=== PATIENT | female | born 1985 | race Caucasian/White ===

== ENCOUNTER → 2016-10-13 | Outpatient (CLI) | payer OTHER ==
[2016-10-13 15:53] LABS: Hepatitis B Surface Ag Index 0.06
[2016-10-13 15:59] LABS: Hepatitis B Core IgM Index 0.02
[2016-10-13 16:11] LABS: Hepatitis C Virus IgG Ab Negative (Negative); Hepatitis C Virus IgG Index 0.02
[2016-10-14 07:55] LABS: HIV-1/HIV-2 Ab Screen NONREAC (NON REAC)
== END | disposition home or self-care (01) ==
LOC: LABWHC1 14:33
PROVIDERS: ATTEND Obstetrics & Gynecology
DX: B99.9 Unspecified infectious disease (principal)
CPT/HCPCS: 36415; 80074; 86780; 87389

== ENCOUNTER 2016-10-26 13:48 | Emergency (ER) | payer OTHER ==
--- NOTE | 2016-10-26 15:32 | ED ---
Abdominal Pain HPI - General Chief Complaint: Abdominal Pain Stated Complaint: Abdominal pain (6 weeks preg) Time Seen by Provider: 10/26/16 15:25 Source: patient, RN notes reviewed Mode of arrival: ambulatory Limitations: no limitations - History of Present Illness Initial Comments: 31-year-old female presents emergency Department chief complaint of lower abdominal pain. Patient states started last several rest worse today. Patient states when she states it was worsened. Patient states it seems to wax and wane. Does not radiate to her back. Patient has a history kidney stones but she denies any known hematuria this time. She states she does have some pressure in her bladder region. Patient denies any vaginal bleeding or vaginal discharge. Patient is she to she states she is a patient of Dr. Merrill' s and states that she has not seen him for this . Patient does admit some nausea and intermittent vomiting which is not out of the usual for her during . - Related Data Previous Rx's Medication Instructions Recorded Nitrofurantoin Monohyd/M-Cryst 100 mg PO Q12HR #14 cap 10/26/16 [Macrobid] Rxj-Skux-Jztcy Acid 1 each PO DAILY #30 cap 10/26/16 [-U Capsule] Allergies Allergy/AdvReac Type Severity Reaction Status Date / Time latex Allergy Swelling Verified 10/26/16 15:52 lorazepam [From Ativan] Allergy Rash/Hives Verified 10/26/16 15:52 Review of Systems ROS Statement: Those systems with pertinent positive or pertinent negative responses have been documented in the HPI. ROS Other: All systems not noted in ROS Statement are negative. Past Medical History Past Medical History: Pneumonia Additional Past Medical History / Comment(s): brain injury, MIGARINES,VERTIGO, kidney infection History of Any Multi-Drug Resistant Organisms: None Reported Additional Past Surgical History / Comment(s): breast biopsy X2-NEG Past Anesthesia/Blood Transfusion Reactions: Motion Sickness Past Psychological History: Depression Smoking Status: Former smoker Past Alcohol Use History: None Reported Additional Past Alcohol Use History / Comment(s): PT STATED STARTED SMOKING AT AGE 15 SMOKED LESS THAN 1 PPD AND QUIT A AGE 21 Past Drug Use History: None Reported Additional Drug Use History / Comment(s): MEDICAL MARIJUANA CARD - Past Family History Father Family Medical History: CVA/TIA, Hyperlipidemia Additional Family Medical History / Comment(s): TIA Mother Family Medical History: Cancer Additional Family Medical History / Comment(s): BREAST CANCER,MIGRAINES, VERTIGO ,TREMORS General Exam Limitations: no limitations General appearance: alert, in no apparent distress Respiratory exam: Present: normal lung sounds bilaterally. Absent: respiratory distress, wheezes, rales, rhonchi, stridor Cardiovascular Exam: Present: regular rate, normal rhythm, normal heart sounds. Absent: systolic murmur, diastolic murmur, rubs, gallop, clicks GI/Abdominal exam: Present: soft, tenderness (Mild lower abdominal tenderness), normal bowel sounds. Absent: distended, guarding, rebound, rigid Back exam: Absent: CVA tenderness (R), CVA tenderness (L) Skin exam: Present: warm, dry, intact, normal color. Absent: rash Course Vital Signs 10/26/16 14:26 Temperature 98.4 F Pulse Rate 89 Respiratory 18 Rate Blood Pressure 121/79 O2 Sat by Pulse 98 Oximetry Medical Decision Making - Medical Decision Making 31-year-old female presented emergency department for lower abdominal pain . Patient's ultrasound does not show an acute abnormality. Patient does have urinary tract infection and which she'll be started on Macrobid at this time. 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 Merrill. Patient does not have any vaginal bleeding or vaginal discharge at this time. - Lab Data Result diagrams: 10/26/16 15:50 10/26/16 15:50 Lab Results 10/26/16 10/26/16 10/26/16 Range/Units 15:15 15:50 15:50 WBC 7.8 (3.8-10.6) k/uL RBC 4.63 (3.80-5.40) m/uL Hgb 13.6 (11.4-16.0) gm/dL Hct 41.3 (34.0-46.0) % MCV 89.1 (80.0-100.0) fL MCH 29.3 (25.0-35.0) pg MCHC 32.8 (31.0-37.0) g/dL RDW 13.1 (11.5-15.5) % Plt Count 262 (150-450) k/uL Neutrophils % 71 % Lymphocytes % 22 % Monocytes % 4 % Eosinophils % 1 % Basophils % 1 % Neutrophils # 5.5 (1.3-7.7) k/uL Lymphocytes # 1.8 (1.0-4.8) k/uL Monocytes # 0.3 (0-1.0) k/uL Eosinophils # 0.1 (0-0.7) k/uL Basophils # 0.0 (0-0.2) k/uL Sodium 137 (137-145) mmol/L Potassium 3.6 (3.5-5.1) mmol/L Chloride 104 (98-107) mmol/L Carbon Dioxide 21 L (22-30) mmol/L Anion Gap 12 mmol/L BUN 9 (7-17) mg/dL Creatinine 0.57 (0.52-1.04) mg/dL Est GFR (MDRD) Af Amer >60 (>60 ml/min/1.73 sqM) Est GFR (MDRD) Non-Af >60 (>60 ml/min/1.73 sqM) Glucose 137 H (74-99) mg/dL Calcium 9.8 (8.4-10.2) mg/dL HCG, Quant 79024.1 mIU/mL Urine Color Yellow Urine Appearance Cloudy H (Clear) Urine pH 6.0 (5.0-8.0) Ur Specific [place] 1.013 (1.001-1.035) Urine Protein Trace H (Negative) Urine Glucose (UA) Negative (Negative) Urine Ketones 3+ H (Negative) Urine Blood Negative (Negative) Urine Nitrite Negative (Negative) Urine Bilirubin Negative (Negative) Urine Urobilinogen <2.0 (<2.0) mg/dL Ur Leukocyte Esterase Moderate H (Negative) Urine RBC 4 (0-5) /hpf Urine WBC 77 H (0-5) /hpf Ur Squamous Epith Cells 29 H (0-4) /hpf Amorphous Sediment Few H (None) /hpf Urine Bacteria Many H (None) /hpf Urine Mucus Rare H (None) /hpf Disposition Clinical Impression: UTI (urinary tract infection) during Disposition: HOME SELF-CARE Condition: Stable Instructions: Urinary Tract Infection in Women (ED) Additional Instructions: Please return to the Emergency Department if symptoms worsen or any other concerns. Prescriptions: Nitrofurantoin Monohyd/M-Cryst [Macrobid] 100 mg PO Q12HR #14 cap Mqy-Rbgk-Sjple Acid [-U Capsule] 1 each PO DAILY #30 cap Referrals: Drew Meneses MD [Primary Care Provider] - 1-2 days Time of Disposition: 17:54
[2016-10-26 16:02] LABS: Basophils % (A) 1 %; CH 29.6; CHCM 33.4; Eosinophils # (A) 0.1 k/uL (0-0.7); Eosinophils % (A) 1 %; HCT 41.3 % (34.0-46.0); HGB 13.6 gm/dL (11.4-16.0); Luc # (Auto) 0.09; Luc % (Auto) 1; Lymphocytes # (A) 1.8 k/uL (1.0-4.8); Lymphocytes % (A) 22 %; MCH 29.3 pg (25.0-35.0); MCHC 32.8 g/dL (31.0-37.0); MCV 89.1 fL (80.0-100.0); Mean Platelet Volume 6.3; Monocytes # (A) 0.3 k/uL (0-1.0); Monocytes % (A) 4 %; Neutrophils # (A) 5.5 k/uL (1.3-7.7); Neutrophils % (A) 71 %; RBC 4.63 m/uL (3.80-5.40); RDW 13.1 % (11.5-15.5); WBC 7.8 k/uL (3.8-10.6); WBC (Perox) 8.17
[2016-10-26 16:09] LABS: Anion Gap 12 mmol/L; Blood Urea Nitrogen 9 mg/dL (7-17); Calcium 9.8 mg/dL (8.4-10.2); Carbon Dioxide 21 mmol/L (22-30); Chloride 104 mmol/L (98-107); Glucose 137 mg/dL (74-99); Non-African American GFR(MDRD) >60 (>60 ml/min/1.73 sqM); Potassium 3.6 mmol/L (3.5-5.1); Sodium 137 mmol/L (137-145)
[2016-10-26 16:18] LABS: Amorphous Sediment,Urine Few /hpf; Appearance,Urine Cloudy (Clear); Bacteria,Urine Many /hpf; Bilirubin,Urine Negative (Negative); Glucose,Urine (UA) Negative (Negative); Ketones,Urine 3+ (Negative); Leukocyte Esterase,Urine Moderate (Negative); Mucus,Urine Rare /hpf; Nitrite,Urine Negative (Negative); Particle Count 14426; Protein,Urine Trace (Negative); RBC,Urine 4 /hpf (0-5); Specific Gravity,Urine 1.013 (1.001-1.035); Squamous Epithelial Cell,Urine 29 /hpf (0-4); UA Billing (MACRO vs. MICRO) MICRO; Urobilinogen,Urine <2.0 mg/dL (<2.0); WBC,Urine 77 /hpf (0-5)
[2016-10-26] MEDS ORDERED: SODIUM CHLORIDE 0.9% 1,000 ML IV ONE (16:26)
[2016-10-26] MEDS ORDERED: SODIUM CHLORIDE 0.9% 500 ML IV ONE (16:26)
[2016-10-26 16:52] LABS: HCG,Quantitative Serum 25240.1 mIU/mL
--- NOTE | 2016-10-26 17:41 | US ---
EXAMINATION TYPE: US OB <=14 wks transvag DATE OF EXAM: 10/26/2016 COMPARISON: NONE CLINICAL HISTORY: Right side Pain. EXAM PERFORMED: Transvaginal (TV) and Transabdominal (TA) EXAM MEASUREMENTS: GESTATIONAL AGE / DATING Physician Established: (6 weeks/1 days) EDC: 06/20/2017 Dates by LMP: (6 weeks/1 days) EDC: 06/20/2017 Dates by First Scan: No previous Dates by Current Scan for: (6 weeks/ days) EDC: 06/20/2017 MATERNAL ANATOMY Uterus: 9.6 x 4.9 x 6.0 cm Right Ovary: 2.9 x 1.8 x 2.2 cm Left Ovary: 2.8 x 2.0 x 2.3 cm Post CDS / Adnexa: Mild amount of free fluid in cul de sac. Prominent vessels in bilateral adnexa Presence of free fluid: Yes Presence of corpus luteal cyst: Yes, left ovary measuring 1.5 x 1.4 x 1.7 cm Presence of subchorionic bleed: No GESTATION / SURVEY CRL: 0.45 (weeks/1 days) Yolk Sac (normal less than 6mm): 2 mm Heart Rate: 119 bpm Rhythm: Normal IUP: Viable IUP Date of LMP: 09/13/2016 Beta HcG (if available): Not available at time of exam IMPRESSION: The ultrasound gestational age is 6 weeks 1 day. The IVÁN is 06/20/2017.
[2016-10-26] MEDS ORDERED: NITROFURANTOIN MONOHYD/M-CRYST 100 MG CAP PO STA (17:52)
[2016-10-26 18:06] VITALS: BP 118/72; PULSE 82; RESP 17; TEMP 98.7
== END 2016-10-26 18:05 | disposition home or self-care (01) ==
LOC: EC 13:48
DX: O23.41 Unspecified infection of urinary tract in pregnancy, first trimester (principal); O21.0 Mild hyperemesis gravidarum; Z3A.01 Less than 8 weeks gestation of pregnancy; Z87.891 Personal history of nicotine dependence; Z91.040 Latex allergy status; Z88.8 Allergy status to other drugs, medicaments and biological substances
CPT/HCPCS: 36415; 76801; 76817; 80048; 81001; 84702; 85025; 96360; 99284

== ENCOUNTER → 2016-11-19 | Outpatient (CLI) | payer OTHER ==
[2016-11-19 15:46] LABS: CH 29.7; CHCM 33.7; HCT 35.8 % (34.0-46.0); HGB 12.2 gm/dL (11.4-16.0); MCH 30.1 pg (25.0-35.0); MCV 88.5 fL (80.0-100.0); Mean Platelet Volume 6.5; RBC 4.05 m/uL (3.80-5.40); RDW 13.6 % (11.5-15.5); WBC 10.6 k/uL (3.8-10.6)
[2016-11-19 15:58] LABS: Glucose 99 mg/dL (74-99); Non-African American GFR(MDRD) >60 (>60 ml/min/1.73 sqM)
[2016-11-19 16:27] LABS: Hepatitis B Surface Ag Index 0.05
[2016-11-20 04:54] LABS: Toxoplasma Antibody (IgG) <3.0 IU/mL (<7.2)
== END | disposition home or self-care (01) ==
LOC: LABWHC1 14:53
PROVIDERS: ATTEND Obstetrics & Gynecology
DX: Z34.81 Encounter for supervision of other normal pregnancy, first trimester (principal); Z3A.00 Weeks of gestation of pregnancy not specified
CPT/HCPCS: 36415; 82565; 82947; 85027; 86762; 86777; 86778; 86780; 86850; 86900; 86901; 87340

== ENCOUNTER → 2017-03-05 | Outpatient (CLI) | payer OTHER ==
[2017-03-05 10:27] LABS: CH 28.6; CHCM 31.4; HCT 36.2 % (34.0-46.0); HDW 2.53; MCH 30.3 pg (25.0-35.0); MCV 91.7 fL (80.0-100.0); Mean Platelet Volume 6.3; RBC 3.95 m/uL (3.80-5.40); RDW 12.9 % (11.5-15.5); WBC 13.1 k/uL (3.8-10.6)
== END | disposition home or self-care (01) ==
LOC: LABWHC1 08:34
PROVIDERS: ATTEND Obstetrics & Gynecology
DX: Z34.82 Encounter for supervision of other normal pregnancy, second trimester (principal); Z3A.00 Weeks of gestation of pregnancy not specified
CPT/HCPCS: 36415; 82950; 85027; 86850

== ENCOUNTER 2017-04-13 10:33 | Outpatient (CLI) | payer OTHER ==
[2017-04-13 11:30] VITALS: BP 111/63; PULSE 83; RESP 16; TEMP 97.3
--- NOTE | 2017-04-14 06:36 | P.MSEPDOC ---
Presenting Problems - Arrival Data Date of Arrival on Unit: 04/13/17 Time of Arrival on Unit: 10:33 Mode of Transport: Ambulatory - Complaint OB-Reason for Admission/Chief Complaint: Decreased Movement Medical History - Information : 2 Para: 1 Term: 1 : 0 Abortions: Spontaneous or Elective: 0 Number of Living Children: 1 - Gestational Age Gestational Age by IVÁN (wks/days): 30 Weeks and 2 Days Review of Systems - Review of Systems Constitutional: No problems Breast: No problems ENT: No problems Cardiovascular: No problems Respiratory: No problems Gastrointestinal: No problems Genitourinary: No problems Musculoskeletal: No problems Neurological: No problems Skin: No problems Vital Signs - Temperature Temperature: 97.3 F Temperature Source: Tympanic - Pulse Right Sitting Brachial Pulse Rate: 83 Pulse Assessment Method: Automatic Cuff - Respirations Respiratory Rate: 16 Oxygen Delivery Method: Room Air O2 Sat by Pulse Oximetry: 98 - Blood Pressure Right Arm Sitting Blood Pressure: 111/63 Blood Pressure Mean: 79 Blood Pressure Source: Automatic Cuff Medical Screen Scoring (Pre) - Cervical Exam Dilation: Exam Deferred Effacement: Exam Deferred Membranes: Intact - Uterine Contractions Frequency: N/A Duration: N/A Intensity: N/A - Maternal Vital Signs Maternal Temperature: N/A Signs of Preeclampsia: N/A Maternal Respirations: N/A - Pain Assessment Pain Scale Used: Numeric (1 - 10) Pain Intensity: 0 - Maternal Trauma Maternal Trauma: N/A - Assessment Baseline FHR: 140 Heart Rate - NICHD Category: Category I (Normal) = 0 NST: Reactive Position: N/A Station: N/A - Total Score Total Score (Pre): 0 - Level of Risk Level of Risk: Low (0-5) Physician Notification (Pre) - Physician Notified Physician Notified Date: 04/13/17 Physician Notified Time: 11:10 Physician/Practitioner Notifed:: Garfield Spoke With: Garfield New Order Received: Yes - Notification Comment Comment: 30 2/7 c/o decreased movement and vaginal discharge/odor. Reactive NST, pt reports feeling movements, inspect of vulva-no abdormal/foul odor, no discharge. Dr. Merrill states to d/c pt home, to keep appt for tomorrow morning. Disposition - Disposition OB Disposition: Discharge to home, Written follow up instructions reviewed Discharge Date: 04/13/17 Discharge Time: 11:15 I agree with the RN Medical Screening Exam: Yes Risk & Benefit of care provided described in d/c instruction: Yes Diagnosis: DECREASED MOVEMENTS, THIRD TRIMESTER, FETUS 1
== END 2017-04-13 11:15 | disposition home or self-care (01) ==
LOC: FBPOP 10:33
PROVIDERS: ATTEND Obstetrics & Gynecology
DX: O36.8130 Decreased fetal movements, third trimester, not applicable or unspecified (principal); Z3A.30 30 weeks gestation of pregnancy
CPT/HCPCS: 59025; G0463; 99213

== ENCOUNTER 2017-04-20 16:47 | Outpatient (CLI) | payer OTHER ==
[2017-04-20 17:40] LABS: Appearance,Urine Clear (Clear); Bilirubin,Urine Negative (Negative); Blood,Urine Negative (Negative); Color,Urine Light Yellow; Glucose,Urine (UA) Negative (Negative); Ketones,Urine Negative (Negative); Leukocyte Esterase,Urine Negative (Negative); Nitrite,Urine Negative (Negative); Protein,Urine Negative (Negative); Specific Gravity,Urine 1.007 (1.001-1.035); Urobilinogen,Urine <2.0 mg/dL (<2.0)
[2017-04-20] MEDS ORDERED: LACTATED RINGERS 1,000 ML IV ONE (18:30)
[2017-04-20] MEDS ORDERED: MAGNESIUM SULFATE-WATER PMX 4 GM in WATER FOR INJECTION 50 50ML.BAG IVPB ONE (19:12)
[2017-04-20] MEDS ORDERED: MAGNESIUM SULFATE MG 6,000 MG in SODIUM CHLORIDE 0.9% 50 ML IVPB ONE (19:12)
[2017-04-20] MEDS ORDERED: BETAMET ACET-BETAMETH SOD PHOS 6 MG/ML VIAL IM SCH (19:15)
[2017-04-20] MEDS ORDERED: MAGNESIUM SULFATE-WATER PMX 20 GM in WATER FOR INJECTION 1 500ML.BAG IV SCH (19:30)
--- NOTE | 2017-05-21 10:50 | P.TRANS ---
Providers Expected date of discharge: 04/20/17 Attending physician: Milton Reyes Primary care physician: Stated None Patient Condition at Discharge: Fair Plan - Transfer Summary Transfer Medications: Active Medications Generic Name Dose Route Start Last Admin Trade Name Freq PRN Reason Stop Dose Admin Betamethasone Acet/Betameth SodPhos 12 mg 04/20/17 19:15 04/20/17 19:31 Celestone Soluspan IM 04/21/17 19:16 12 mg Q24H HANNAH Administration Magnesium Sulfate 20 gm/ IV 500 mls @ 50 mls/hr 04/20/17 19:30 Solution IV .Q10H HANNAH 2 GM/HR
--- NOTE | 2017-05-21 10:50 | P.MSEPDOC ---
Presenting Problems - Arrival Data Date of Arrival on Unit: 04/20/17 Time of Arrival on Unit: 16:47 Mode of Transport: Ambulatory Medical History - Information : 2 Para: 1 Term: 1 : 0 Abortions: Spontaneous or Elective: 0 Number of Living Children: 1 - Gestational Age Gestational Age by IVÁN (wks/days): 31 Weeks and 2 Days Physician Notification (Pre) - Notification Comment Comment: completed on paper Physician Notification (Post) - Notification Comment Comment: completed on paper Disposition - Disposition Discharge Date: 04/20/17 Discharge Time: 20:27 I agree with the RN Medical Screening Exam: Yes Risk & Benefit of care provided described in d/c instruction: Yes Diagnosis: RELATED CONDITIONS, UNSPECIFIED, THIRD TRIMESTER (pain)
== END 2017-04-20 20:27 | disposition short-term general hospital (02) ==
LOC: FBPOP 16:47
PROVIDERS: ATTEND Obstetrics & Gynecology
DX: O99.89 Other specified diseases and conditions complicating pregnancy, childbirth and the puerperium (principal); R10.9 Unspecified abdominal pain; Z3A.31 31 weeks gestation of pregnancy
CPT/HCPCS: 59025; 82731; 81003; G0463; J0702; J3475 ×2; 99213

== ENCOUNTER 2017-06-10 15:37 | Outpatient (CLI) | payer OTHER ==
[2017-06-10 17:12] VITALS: BP 116/77; PULSE 67; RESP 16; TEMP 97.6
--- NOTE | 2017-06-11 06:23 | P.MSEPDOC ---
Presenting Problems - Arrival Data Date of Arrival on Unit: 06/10/17 Time of Arrival on Unit: 15:44 Mode of Transport: Ambulatory Medical History - Information : 2 Para: 1 Term: 1 : 0 Abortions: Spontaneous or Elective: 0 Number of Living Children: 1 - Gestational Age Gestational Age by IVÁN (wks/days): 38 Weeks and 4 Days Vital Signs - Temperature Temperature: 97.6 F Temperature Source: Oral - Pulse Right Pulse Rate: 67 Pulse Assessment Method: Automatic Cuff - Respirations Respiratory Rate: 16 Oxygen Delivery Method: Room Air - Blood Pressure Right Arm Blood Pressure: 116/77 Blood Pressure Mean: 90 Blood Pressure Source: Automatic Cuff Medical Screen Scoring (Post) - Cervical Exam Dilation: 1-3 cm = 1 Membranes: Intact - Uterine Contractions Frequency: N/A Duration: > 40 seconds = 2 Intensity: N/A - Maternal Vital Signs Maternal Temperature: N/A Maternal Blood Pressure: N/A Signs of Preeclampsia: N/A Maternal Respirations: N/A - Pain Assessment Pain Location and Character: Head, Abdomen Pain Scale Used: Numeric (1 - 10) Pain Intensity: 8 Pain Description: Dull Pain Frequency: Constant Pain Duration Units: Hours Pain Behavior: None Exhibited Non-Pharmacological Interventions: Darkened Room - Maternal Trauma Maternal Trauma: N/A - Assessment Heart Rate - NICHD Category: Category I (Normal) = 0 NST: Reactive Position: N/A Station: N/A - Total Score Total Score (Post): 3 - Post Treatment Level of Risk Post Treatment Level of Risk: Low (0-5) Physician Notification (Post) - Physician Notified Physician Notified Date: 06/10/17 Physician Notified Time: 16:41 Physician/Practitioner Notified:: kamron Spoke With: kamron New Order Received: Yes - Notification Comment Comment: reported pt visit c/o headache and contractions. reported reactive nst , irregular contractions, and cervical exam. discharges pt. pt has induction scheduled wednesday Disposition - Disposition OB Disposition: Discharge to home Discharge Date: 06/10/17 Discharge Time: 16:56 I agree with the RN Medical Screening Exam: Yes Risk & Benefit of care provided described in d/c instruction: Yes Diagnosis: FALSE LABOR AT OR AFTER 37 COMPLETED WEEKS OF GESTATION
== END 2017-06-10 16:56 | disposition home or self-care (01) ==
LOC: FBPOP 15:37
PROVIDERS: ATTEND Obstetrics & Gynecology
DX: O47.1 False labor at or after 37 completed weeks of gestation (principal); Z3A.38 38 weeks gestation of pregnancy
CPT/HCPCS: 59025; G0463; 99213

== ENCOUNTER 2017-06-14 06:10 | Inpatient (IN) | payer OTHER ==
[2017-06-14] MEDS ORDERED: METHYLERGONOVINE 0.2 MG/ML 1 ML AMP IM PRN (06:21)
[2017-06-14] MEDS ORDERED: LIDOCAINE 1% (PF) 10 MG/ML (30 ML SDV) SQ PRN (06:21)
[2017-06-14] MEDS ORDERED: TERBUTALINE 1 MG/ML VIAL SQ PRN (06:21)
[2017-06-14] MEDS ORDERED: OXYTOCIN 20 UNITS/1000 ML NS 1,000 ML IV SCH ×2 (06:21→14:18)
[2017-06-14] MEDS ORDERED: CARBOPROST TROMETHAMINE 250 MCG/ML 1 ML AMP IM PRN (06:21)
[2017-06-14] MEDS ORDERED: OXYTOCIN 10 UNIT/ML 1 ML VIAL IM PRN (06:21)
--- NOTE | 2017-06-14 06:22 | P.HPOB ---
History of Present Illness H&P Date: 06/14/17 Chief Complaint: Patient is requesting induction of labor. This patient is a pleasant 31-year-old 2 para 1 female estimated date of confinement 06/20/2017 estimated gestational age 39 and one sevenths weeks gestation who is admitted to labor and delivery for requested induction of labor. Patient's history is such that her first baby had bilateral clubfeet and she did have evaluation per maternal medicine this which shows no evidence of any abnormalities. Is a questionable small uterine septum that they said was not clinically significant. Patient was transferred to [facility] at [address] Reyes for contractions hours thought to have a kidney stone. otherwise has been uncomplicated. Review of Systems Gastrointestinal: Reports heartburn Genitourinary: Reports Menstruation: Reports amenorrhea Past Medical History Past Medical History: Pneumonia Additional Past Medical History / Comment(s): brain injury, MIGARINES,VERTIGO, kidney infection History of Any Multi-Drug Resistant Organisms: None Reported Additional Past Surgical History / Comment(s): breast biopsy X2-NEG Past Anesthesia/Blood Transfusion Reactions: Motion Sickness Past Psychological History: No Psychological Hx Reported Smoking Status: Former smoker Past Alcohol Use History: None Reported Past Drug Use History: None Reported - Past Family History Father Family Medical History: CVA/TIA, Hyperlipidemia Additional Family Medical History / Comment(s): TIA Mother Family Medical History: Cancer Additional Family Medical History / Comment(s): BREAST CANCER,MIGRAINES, VERTIGO ,TREMORS Medications and Allergies Home Medications Medication Instructions Recorded Confirmed Type Poo-Bsmq-Golaz Acid 1 each PO DAILY #30 cap 10/26/16 06/10/17 Rx [-U Capsule] Acetaminophen [Tylenol] 500 mg PO Q4-6H PRN 04/13/17 06/10/17 History Allergies Allergy/AdvReac Type Severity Reaction Status Date / Time lorazepam [From Ativan] Allergy Rash/Hives Verified 06/10/17 16:15 Exam - OBG Physical Exam Abdomen: bowel sounds normal, no diffuse tenderness, no bruit present, no guarding noted, no hepatomegaly, no splenomegaly, no mass Vulva: both: normal Vagina: normal moisture, no discharge Cervix: no lesion (Cervix in the office was 2-3 cm dilated.), no discharge Uterus: enlarged (Fundal height is consistent with a term .) Results blood work shows she is O negative, rubella immune, RPR nonreactive, hepatitis B negative, Glucola was normal, level III ultrasound was normal, patient did receive RhoGAM on March 24. Assessment and Plan Assessment: This is a pleasant 31-year-old 2 para 1 female 39 and one sevenths weeks gestation who is presenting for requested induction of labor. Plan is induction of labor and anticipate vaginal delivery. (1) Third trimester Current Visit: Yes Status: Acute Code(s): Z34.93 - ENCNTR FOR SUPRVSN OF NORMAL PREG, UNSP, THIRD TRIMESTER SNOMED Code(s): 30846603 (2) Elective induction of labor planned Current Visit: Yes Status: Acute Code(s): YYA3615 - SNOMED Code(s): 520303682 (3) Rh negative status during Current Visit: Yes Status: Chronic Code(s): O09.899 - SUPERVISION OF OTHER HIGH RISK PREGNANCIES, UNSP TRIMESTER SNOMED Code(s): 079897631
[2017-06-14] MEDS: LACTATED RINGERS 1,000 ML IV SCH ×3 (06:27→10:36)
[2017-06-14 06:34] LABS: Basophils # (A) 0.1 k/uL (0-0.2); Basophils % (A) 0 %; Eosinophils # (A) 0.2 k/uL (0-0.7); Eosinophils % (A) 2 %; HGB 11.3 gm/dL (11.4-16.0); Hypochromasia Slight; Lymphocytes % (A) 15 %; MCH 27.6 pg (25.0-35.0); MCHC 32.4 g/dL (31.0-37.0); MCV 85.1 fL (80.0-100.0); Monocytes # (A) 0.7 k/uL (0-1.0); Monocytes % (A) 5 %; Neutrophils # (A) 9.5 k/uL (1.3-7.7); Neutrophils % (A) 75 %; Platelet Count 378 k/uL (150-450); Poikilocytosis Slight; RBC 4.11 m/uL (3.80-5.40); RDW 13.4 % (11.5-15.5); WBC 12.7 k/uL (3.8-10.6)
[2017-06-14] MEDS ORDERED: fentaNYL (PF) 50 MCG/ML 5 ML AMP ONE (07:44)
[2017-06-14] MEDS ORDERED: BUPIVACAINE (PF) 0.25% 30 ML VIAL ONE (07:44)
[2017-06-14] MEDS ORDERED: SODIUM CHLORIDE 0.9% 100 ML BAG ONE (07:44)
[2017-06-14] MEDS ORDERED: BUPIVACAINE (PF) 0.25% 25 ML, fentaNYL (PF) 200 MCG in SODIUM CHLORIDE 0.9% 71 ML EPIDURAL ONE (08:00)
[2017-06-14 08:03] LABS: Amphetamine Screen,Urine Not Detected (NotDetected); Barbiturate Screen,Urine Not Detected (NotDetected); Benzodiazepines Screen,Urine Not Detected (NotDetected); Cocaine Screen,Urine Not Detected (NotDetected); Methadone Screen, Urine Not Detected (NotDetected); Opiate Screen,Urine Not Detected (NotDetected); Oxycodone Screen, Urine Not Detected (NotDetected); Phencyclidine Screen,Urine Not Detected (NotDetected); Tricyclic Antidepressant,Urine Not Detected (NotDetected); Urn Cannabinoid Scrn Detected (NotDetected)
[2017-06-14] MEDS ORDERED: LANOLIN CREAM 5 GM TUBE TOPICAL PRN (14:18)
[2017-06-14] MEDS ORDERED: HYDROCORTISONE 2.5% RECTAL CREAM 30 GM TUBE RECTAL PRN (14:18)
[2017-06-14] MEDS ORDERED: Acetaminophen-Codeine 300-30mg TAB PO PRN ×2 (14:18)
[2017-06-14] MEDS ORDERED: diphenhydrAMINE 50 MG/ML 1 ML VIAL IVP PRN (14:18)
[2017-06-14] MEDS ORDERED: diphenhydrAMINE 25 MG CAP PO PRN (14:18)
[2017-06-14] MEDS ORDERED: ZOLPIDEM 5 MG TAB PO PRN (14:18)
[2017-06-14] MEDS ORDERED: SIMETHICONE 80 MG CHEWABLE PO PRN (14:18)
[2017-06-14] MEDS ORDERED: Rhogam IMMUNE GLOBULIN 1,500 UNIT/1 ML IM ONE (14:18)
[2017-06-14] MEDS ORDERED: BISACODYL 10 MG SUPP RECTAL PRN (14:18)
[2017-06-14] MEDS ORDERED: BENZOCAINE/MENTHOL SPRAY 1 GM/SPRAY AEROSOL TOPICAL PRN (14:18)
[2017-06-14] MEDS ORDERED: ACETAMINOPHEN TAB 325 MG TAB PO PRN (14:18)
[2017-06-14] MEDS ORDERED: WITCH HAZEL 1 EACH MED..PAD TOPICAL PRN (14:18)
[2017-06-14] MEDS: IBUPROFEN 600 MG TAB PO PRN ×2 (15:04→22:42)
--- NOTE | 2017-06-14 16:41 | P.PROBDLV ---
Vaginal Delivery Note - . Vaginal Delivery Note: Normal vaginal delivery viable male Apgars 9 and 9 delivery time is 1403 hrs. Please see dictated H&P for intimate details of this patient's admission. Brief summary this is a pleasant 31-year-old 2 para 1 female 39 and one sevenths weeks gestation who is admitted to labor and delivery for elective induction of labor. On admission patient is 3 cm dilated and 50% effaced. She is artificial rupture membranes for clear fluid and Pitocin augmentation of labor per protocol. Patient does progress and get an epidural for pain control. Patient gets excellent relief from the ascending continues to progress. Patient does have some decelerations which required discontinuing the Pitocin briefly however the usual resuscitative measures are used and the patient continues in labor. Patient does get to complete pushes the head to the perineum. Posterior perineum is supported and we have controlled delivery of the infant's head over the intact perineum. Mouth and nares are bulb suctioned for clear fluid. There is a loose nuchal cord and with gentle downward traction we deliver the anterior and posterior shoulder and rest this infant's body. This is a vigorous viable male infant Apgars are 9 and 9 delivery time is 1403 hrs. After delivery of the the umbilical cord is doubly clamped and cut and appears to be trivascular. Cord blood is obtained for Rh status. Placenta spontaneously delivered intact. Estimated blood loss is 100 mL. There are no lacerations and no repairs are required. All counts correct 3. There are no complications.
[2017-06-14] MEDS: SENNOSIDES-DOCUSATE SODIUM 1 EACH TAB PO SCH (22:45)
--- NOTE | 2017-06-15 06:06 | P.PNOBGVD ---
Subjective - Subjective Patient reports: Reports appetite normal, Reports voiding normally, Reports pain well controlled, Reports ambulating normally [place]: doing well Objective - Latest Vital Signs Latest vital signs: Vital Signs Temp Pulse Resp BP Pulse Ox 06/15/17 00:00 98.0 F 81 16 99/61 06/14/17 20:00 98.4 F 86 16 121/72 06/14/17 16:11 98.7 F 80 18 127/75 06/14/17 15:41 81 18 115/70 06/14/17 15:11 95 18 115/79 06/14/17 14:56 95 18 124/79 06/14/17 14:41 98.1 F 99 18 121/75 06/14/17 14:26 104 H 16 127/73 06/14/17 14:11 98.0 F 110 H 18 120/72 06/14/17 06:40 97.3 F L 107 H 14 127/84 99 Intake and Output 06/14/17 06/14/17 06/15/17 14:59 22:59 06:59 Intake Total 2022.8 Output Total 100 Balance 1922.8 Intake: IV 2000 Lactated Ringers 1,000 ml 2000 @ 125 mls/hr IV .Q8H HANNAH Rx#:[id number] Intake, IV Titration 22.8 Amount Oxytocin 20 Units/1000 ml 22.8 Ns 1,000 ml @ 1 MILLIUNIT/MIN 3 mls/hr IV .Q24H HANNAH Rx#:[id number] Output: Estimated Blood Loss 100 Other: # Voids 1 - Exam Lungs: bilateral: normal Chest: Normal S1, Normal S2 Extremities: Present: normal Abdomen: Present: normal appearance, soft Uterus: Present: normal, firm - Labs Labs: Abnormal Lab Results - Last 24 Hours (Table) 06/14/17 06/14/17 Range/Units 06:25 07:40 WBC 12.7 H (3.8-10.6) k/uL Hgb 11.3 L (11.4-16.0) gm/dL Neutrophils # 9.5 H (1.3-7.7) k/uL U Marijuana (THC) Screen Detected H (NotDetected) Assessment and Plan Assessment: Post day #1. Patient is resting without complaints and wishes to go home. Vital signs are stable and she is afebrile. Uterus is firm nontender she 's having normal lochia. My impression is she is having a normal course. Plan is to continue routine care most likely discharge home later today. (1) Third trimester Current Visit: Yes Status: Acute Code(s): Z34.93 - ENCNTR FOR SUPRVSN OF NORMAL PREG, UNSP, THIRD TRIMESTER SNOMED Code(s): 56509359 (2) Elective induction of labor planned Current Visit: Yes Status: Acute Code(s): DBI0019 - SNOMED Code(s): 016236413 (3) Rh negative status during Current Visit: Yes Status: Chronic Code(s): O09.899 - SUPERVISION OF OTHER HIGH RISK PREGNANCIES, UNSP TRIMESTER SNOMED Code(s): 389574992
--- NOTE | 2017-06-15 06:09 | P.DS ---
Providers Date of admission: 06/14/17 06:10 Expected date of discharge: 06/15/17 Attending physician: Omar Merrill Primary care physician: Drew Meneses - Discharge Diagnosis(es) (1) Third trimester Current Visit: Yes Status: Acute (2) Elective induction of labor planned Current Visit: Yes Status: Acute (3) Rh negative status during Current Visit: Yes Status: Chronic Hospital Course: Please see dictated H&P for intimate details of this patient's admission. Brief summary this is a pleasant 31-year-old 2 para 1 female 39 and one sevenths weeks gestation admitted to labor and delivery for requested induction of labor. Patient is admitted has uncomplicated induction of labor goes on to have a vaginal delivery viable male . Please see dictated delivery note. day 1 patient without complaints wishes to go home. Patient's felt be stable for discharge home follow up with me in 6 weeks. Of note patient did have a positive marijuana screen in her urine drug screen however she apparently does have a medical marijuana card. Procedures: Induction of labor and normal vaginal delivery. Patient Condition at Discharge: Good Plan - Discharge Summary New Discharge Prescriptions: New Acetaminophen-Codeine 300-30mg [Tylenol w/codeine #3] 1 each PO Q4HR PRN #20 tab PRN Reason: Mild Pain exceeding Tylenol Ibuprofen [Motrin] 600 mg PO Q6HR PRN #40 tab PRN Reason: Mild Pain Or Fever >= 100.5 No Action Uyc-Oeht-Ywbje Acid [-U Capsule] 1 each PO DAILY #30 cap Discharge Medication List Cyb-Xmiu-Oalux Acid [-U Capsule] 1 each PO DAILY #30 cap [Rx] Acetaminophen-Codeine 300-30mg [Tylenol w/codeine #3] 1 each PO Q4HR PRN #20 tab 06/15/17 [Rx] Ibuprofen [Motrin] 600 mg PO Q6HR PRN #40 tab 06/15/17 [Rx] Follow up Appointment(s)/Referral(s): Omar Merrill MD [STAFF PHYSICIAN] - 6 Weeks Patient Instructions/Handouts: Vaginal Delivery (DC) Activity/Diet/Wound Care/Special Instructions: No intercourse or anything per vagina for 6 weeks. Please call if any fever, chills, excessive vaginal bleeding, and/or abdominal pain. Discharge Disposition: HOME SELF-CARE
[2017-06-15] MEDS: IBUPROFEN 600 MG TAB PO PRN (07:57)
[2017-06-15] MEDS: SENNOSIDES-DOCUSATE SODIUM 1 EACH TAB PO SCH (07:59)
[2017-06-15 10:03] VITALS: BP 111/69; PULSE 90; RESP 18; TEMP 98.5
== END 2017-06-15 16:00 | disposition home or self-care (01) | DRG 775 ==
LOC: 4FBP 06:10
PROVIDERS: ADMIT Obstetrics & Gynecology; ATTEND Obstetrics & Gynecology
PROC: 10E0XZZ Delivery of Products of Conception, External Approach (ICD-10-PCS; principal; 2017-06-14)
PROC: 3E033VJ Introduction of Other Hormone into Peripheral Vein, Percutaneous Approach (ICD-10-PCS; 2017-06-14)
PROC: 10907ZC Drainage of Amniotic Fluid, Therapeutic from Products of Conception, Via Natural or Artificial Opening (ICD-10-PCS; 2017-06-14)
PROC: 00HU33Z Insertion of Infusion Device into Spinal Canal, Percutaneous Approach (ICD-10-PCS; 2017-06-14)
PROC: 3E0R3BZ Introduction of Anesthetic Agent into Spinal Canal, Percutaneous Approach (ICD-10-PCS; 2017-06-14)
PROC: 3E0234Z Introduction of Serum, Toxoid and Vaccine into Muscle, Percutaneous Approach (ICD-10-PCS; 2017-06-14)
DX: O69.81X0 Labor and delivery complicated by cord around neck, without compression, not applicable or unspecified (principal); O26.893 Other specified pregnancy related conditions, third trimester; Z67.41 Type O blood, Rh negative; Z37.0 Single live birth; Z3A.39 39 weeks gestation of pregnancy; Z79.899 Other long term (current) drug therapy; Z87.891 Personal history of nicotine dependence; Z87.820 Personal history of traumatic brain injury; Z88.8 Allergy status to other drugs, medicaments and biological substances
CPT/HCPCS: 80306; 85025; 88307

== ENCOUNTER 2017-09-27 13:36 | Emergency (ER) | payer OTHER ==
[2017-09-27] MEDS ORDERED: SODIUM CHLORIDE 0.9% 500 ML IV STA (13:58)
[2017-09-27] MEDS ORDERED: MORPHINE SULFATE 4 MG/ML SYRINGE IV STA (13:58)
[2017-09-27] MEDS ORDERED: DEXAMETHASONE SOD PHOSPHATE 4 MG/ML 1 ML VIAL IV STA (13:58)
[2017-09-27] MEDS ORDERED: METOCLOPRAMIDE 5 MG/ML 2 ML VIAL IVP STA (13:58)
[2017-09-27] MEDS ORDERED: SODIUM CHLORIDE 0.9% 1,000 ML IV STA (13:58)
[2017-09-27 14:14] VITALS: TEMP 98.3
--- NOTE | 2017-09-27 14:47 | ED ---
Headache HPI - General Chief Complaint: Headache Stated Complaint: migraines/vertigo Time Seen by Provider: 09/27/17 13:41 Mode of arrival: EMS Limitations: no limitations - History of Present Illness Initial Comments: 31 years old female presents with a headache since 70 a.m. today has a history of migraines and has history of firm head injury back in 2700 and respond to usual headache medications she is recently she is not nursing at this point denies any fever no chills no neck stiffness no tenderness over the sinuses headache is generalized, throbbing in nature she is nauseous no vomiting , review of system is unremarkable otherwise - Related Data Previous Rx's Medication Instructions Recorded Jxg-[id number]-[id number] Acid 1 each PO DAILY #30 cap 10/26/16 [-U Capsule] Acetaminophen-Codeine 300-30mg 1 each PO Q4HR PRN #20 tab 06/15/17 [Tylenol w/codeine #3] Ibuprofen [Motrin] 600 mg PO Q6HR PRN #40 tab 06/15/17 HYDROcodone/APAP 5-325MG [Dell 5] 1 each PO Q6HR PRN #12 tab 09/27/17 predniSONE 50 mg PO DAILY #3 tablet 09/27/17 Allergies Allergy/AdvReac Type Severity Reaction Status Date / Time lorazepam [From Ativan] Allergy Rash/Hives Verified 09/27/17 13:54 Review of Systems ROS Statement: Those systems with pertinent positive or pertinent negative responses have been documented in the HPI. ROS Other: All systems not noted in ROS Statement are negative. Past Medical History Past Medical History: Pneumonia Additional Past Medical History / Comment(s): brain injury, MIGARINES,VERTIGO, kidney infection History of Any Multi-Drug Resistant Organisms: None Reported Additional Past Surgical History / Comment(s): breast biopsy X2-NEG Past Anesthesia/Blood Transfusion Reactions: Motion Sickness Past Psychological History: No Psychological Hx Reported Smoking Status: Former smoker Past Alcohol Use History: None Reported Past Drug Use History: Marijuana - Past Family History Father Family Medical History: CVA/TIA, Hyperlipidemia Additional Family Medical History / Comment(s): TIA Mother Family Medical History: Cancer Additional Family Medical History / Comment(s): BREAST CANCER,MIGRAINES, VERTIGO ,TREMORS General Exam - General Exam Comments Initial Comments: General: The patient is awake [id number] distress at this point , her migraine Skin: Skin is warm and dry and no rashes or lesions are noted. Eye: Pupils are equal, round and reactive to light, extra-ocular movements are intact; there is normal conjunctiva bilaterally. Ears, nose, mouth and throat: There are moist mucous membranes and no oral lesions. Neck: The neck is supple, there is no tenderness, no signs of any meningitis Cardiovascular: There is a regular rate and rhythm. No murmur, rub or gallop is appreciated. Respiratory: To auscultation bilateral, no wheezing no rhonchi no distress respiratory hayden noticed Gastrointestinal: Soft, non-distended, non-tender abdomen without masses or organomegaly noted. There is no rebound or guarding present. Bowel sounds are unremarkable. Back: There is no tenderness to palpation in the midline. There is no obvious deformity. Musculoskeletal: Normal ROM, no tenderness, There is no pedal edema. There is no calf tenderness or swelling. No cords were appreciated. Neurological: CN II-XII intact, Cranial nerves III through XII are intact. There are no obvious motor or sensory deficits. Coordination appears grossly intact. Speech is normal. Psychiatric: Cooperative, appropriate mood & affect, normal judgment. Limitations: no limitations Course Vital Signs 09/27/17 13:53 Temperature 98.3 F Pulse Rate 82 Respiratory 20 Rate Blood Pressure 123/56 O2 Sat by Pulse 100 Oximetry She is feeling 70% better she has her ride here , she could be discharge home on prednisone 50 mg 1 tablet daily for next 3 days Disposition Clinical Impression: Migraine, History of head injury Disposition: HOME SELF-CARE Condition: Good Instructions: Acute Headache (ED) Prescriptions: HYDROcodone/APAP 5-325MG [Dell 5] 1 each PO Q6HR PRN #12 tab PRN Reason: Pain predniSONE 50 mg PO DAILY #3 tablet Is patient prescribed a controlled substance at d/c from ED?: Yes If prescribed controlled substance>3 days was MAPS reviewed?: No When asked, does pt state using other controlled substances?: No Referrals: Drew Meneses MD [Primary Care Provider] - 1-2 days
[2017-09-27 15:06] VITALS: BP 100/59; PULSE 72; RESP 18
== END 2017-09-27 15:06 | disposition home or self-care (01) ==
LOC: EC 13:36
DX: G43.909 Migraine, unspecified, not intractable, without status migrainosus (principal); Z87.820 Personal history of traumatic brain injury; Z87.891 Personal history of nicotine dependence; Z88.8 Allergy status to other drugs, medicaments and biological substances
CPT/HCPCS: 99284; 96374; 96375 ×2; 96361; J2270; J1100; J2765

== ENCOUNTER 2018-02-25 14:15 | Emergency (ER) | payer OTHER ==
[2018-02-25 14:20] VITALS: BP 135/95; PULSE 95; RESP 16; TEMP 98.3
[2018-02-25] MEDS ORDERED: KETOROLAC 30 MG/ML 1 ML VIAL IVP STA (14:29)
[2018-02-25] MEDS ORDERED: METOCLOPRAMIDE 5 MG/ML 2 ML VIAL IVP STA (14:29)
[2018-02-25] MEDS ORDERED: SODIUM CHLORIDE 0.9% 1,000 ML IV ONE (14:29)
[2018-02-25] MEDS ORDERED: diphenhydrAMINE 50 MG/ML 1 ML VIAL IVP STA (14:29)
[2018-02-25] MEDS ORDERED: DEXAMETHASONE SOD PHOSPHATE 10 MG/ML 1 ML VIAL IV STA (14:30)
[2018-02-25] MEDS ORDERED: ONDANSETRON ODT 4 MG TAB PO STA (14:43)
[2018-02-25] MEDS ORDERED: KETOROLAC 60 MG/2 ML VIAL IM STA (14:43)
[2018-02-25] MEDS ORDERED: ORPHENADRINE 30 MG/ML 2 ML VIAL IM STA (14:43)
[2018-02-25] MEDS ORDERED: diphenhydrAMINE 50 MG CAP PO STA (14:43)
--- NOTE | 2018-02-25 14:45 | ED ---
Headache HPI - General Chief Complaint: Headache Stated Complaint: migraine Time Seen by Provider: 02/25/18 14:22 Source: patient Mode of arrival: ambulatory Limitations: no limitations - History of Present Illness Initial Comments: This a 32-year-old female presents emergency Department chief complaint of migraine headache. Patient states she has had chronic migraines after head injury several years ago. Patient states is her typical headache he states that most the time oral medications do not help her at home. Patient states that she has no focal weakness she does admit to some nausea vomiting. Denies any blurred vision. Patient states that she has used Imitrex, Maxalt in the past. Patient denies fever, chills, neck stiffness. - Related Data Home Medications Medication Instructions Recorded Confirmed Escitalopram [Lexapro] 10 mg PO DAILY 09/27/17 02/25/18 Norethindrone-E.estradiol-Iron 1 tab PO DAILY 09/27/17 02/25/18 [Junel Fe 1.5 mg-30 Mcg Tablet] Acetaminophen Tab [Tylenol Tab] 325 mg PO Q4H PRN 02/25/18 02/25/18 Allergies Allergy/AdvReac Type Severity Reaction Status Date / Time lorazepam [From Ativan] Allergy Rash/Hives Verified 02/25/18 14:38 Review of Systems ROS Statement: Those systems with pertinent positive or pertinent negative responses have been documented in the HPI. ROS Other: All systems not noted in ROS Statement are negative. Past Medical History Past Medical History: Pneumonia Additional Past Medical History / Comment(s): brain injury, MIGARINES,VERTIGO, kidney infection History of Any Multi-Drug Resistant Organisms: None Reported Additional Past Surgical History / Comment(s): breast biopsy X2-NEG Past Anesthesia/Blood Transfusion Reactions: Motion Sickness Past Psychological History: Anxiety Smoking Status: Former smoker Past Alcohol Use History: None Reported Past Drug Use History: Marijuana - Past Family History Father Family Medical History: CVA/TIA, Hyperlipidemia Additional Family Medical History / Comment(s): TIA Mother Family Medical History: Cancer Additional Family Medical History / Comment(s): BREAST CANCER,MIGRAINES, VERTIGO ,TREMORS General Exam Limitations: no limitations General appearance: alert, in no apparent distress Head exam: Present: atraumatic, normocephalic, normal inspection Neck exam: Present: normal inspection, full ROM. Absent: tenderness, meningismus, lymphadenopathy Respiratory exam: Present: normal lung sounds bilaterally. Absent: respiratory distress, wheezes, rales, rhonchi, stridor Cardiovascular Exam: Present: regular rate, normal rhythm, normal heart sounds. Absent: systolic murmur, diastolic murmur, rubs, gallop, clicks Neurological exam: Present: alert, oriented X3, CN II-XII intact, reflexes normal, other (Finger to nose intact bilaterally without over shooting). Absent : motor sensory deficit Skin exam: Present: warm, dry, intact, normal color. Absent: rash Course Vital Signs 02/25/18 14:18 Temperature 98.3 F Pulse Rate 95 Respiratory 16 Rate Blood Pressure 135/95 O2 Sat by Pulse 100 Oximetry Medical Decision Making - Medical Decision Making 32-year-old female presents emergency department for headache. This is her chronic migraine headache she has a normal neuro exam in no acute findings. Patient was offered IV and initially had ordered IV meds states that she does not have time for these medications. There was switched IM and oral medications. She states that she wants to leave at this time and does understand the risk. Disposition Clinical Impression: Migraine Disposition: HOME SELF-CARE Condition: Stable Instructions: Acute Headache (ED) Additional Instructions: Please return to the Emergency Department if symptoms worsen or any other concerns. Is patient prescribed a controlled substance at d/c from ED?: No Referrals: Rosamaria Simon MD [Primary Care Provider] - 1-2 days Time of Disposition: 14:45
== END 2018-02-25 15:03 | disposition home or self-care (01) ==
LOC: EC 14:15
DX: G43.909 Migraine, unspecified, not intractable, without status migrainosus (principal); F41.9 Anxiety disorder, unspecified; Z87.891 Personal history of nicotine dependence; Z88.8 Allergy status to other drugs, medicaments and biological substances; Z79.3 Long term (current) use of hormonal contraceptives; Z79.899 Other long term (current) drug therapy; Z82.0 Family history of epilepsy and other diseases of the nervous system
CPT/HCPCS: 99283; 96372 ×2; J2360; J1885

== ENCOUNTER → 2018-02-25 | Outpatient (CLI) | payer OTHER ==
--- NOTE | 2018-02-25 17:29 | US ---
EXAMINATION TYPE: US pelvic complete DATE OF EXAM: 02/25/2018 COMPARISON: 10/23/2015 CLINICAL HISTORY: R10.30 LOWER ABD PAIN. TECHNIQUE: Transabdominal (TA). Date of LMP: 01/31/18 EXAM MEASUREMENTS: Uterus: 7.7 x 4.1 x 5.6 cm Endometrial Stripe: 0.8 cm Right Ovary: 3.0 x 2.2 x 2.3 cm Left Ovary: 3.0 x 1.7 x 1.5 cm 1. Uterus: Anteverted wnl 2. Endometrium: wnl 3. Right Ovary: wnl, dominant follicle noted 4. Left Ovary: wnl 5. Bilateral Adnexa: wnl 6. Posterior cul-de-sac: wnl IMPRESSION: There is 18 x 10 mm right ovarian cyst. No solid adnexal mass. Normal uterus and endometr ium.
== END | disposition home or self-care (01) ==
LOC: RADUSWWP 16:42
PROVIDERS: ATTEND Internal Medicine
DX: N83.201 Unspecified ovarian cyst, right side (principal)
CPT/HCPCS: 76856

== ENCOUNTER 2018-03-09 09:50 | Emergency (ER) | payer OTHER ==
[2018-03-09] MEDS ORDERED: METOCLOPRAMIDE 5 MG/ML 2 ML VIAL IVP STA (10:27)
[2018-03-09] MEDS ORDERED: diphenhydrAMINE 50 MG/ML 1 ML VIAL IVP STA (10:27)
[2018-03-09] MEDS ORDERED: KETOROLAC 30 MG/ML 1 ML VIAL IVP STA (10:27)
[2018-03-09] MEDS ORDERED: SODIUM CHLORIDE 0.9% 1,000 ML IV STA (10:27)
--- NOTE | 2018-03-09 10:30 | ED ---
General Adult HPI - General Chief complaint: Headache Stated complaint: Migraine Time Seen by Provider: 03/09/18 10:21 Source: patient, RN notes reviewed, old records reviewed Mode of arrival: EMS Limitations: no limitations - History of Present Illness Initial comments: Patient is a pleasant 32-year-old female presenting to the emergency Department with complaints of headache. Onset of symptoms was this morning when she woke. Headache is severe. Patient feels dizzy and has associated nausea. Patient does have history of chronic similar headaches. Headache is diffuse. Patient has had multiple previous evaluations for headache. Patient has had previous evaluation for aneurysm which was found to be negative. Patient has had previous CTs and MRIs. No weakness. No confusion. No loss of sensation. Headache does feel like chronic headaches. - Related Data Home Medications Medication Instructions Recorded Confirmed Escitalopram [Lexapro] 10 mg PO DAILY 09/27/17 03/09/18 Norethindrone-E.estradiol-Iron 1 tab PO DAILY 09/27/17 03/09/18 [Junel Fe 1.5 mg-30 Mcg Tablet] diphenhydrAMINE [Benadryl] 25 mg PO DAILY PRN 03/09/18 03/09/18 Allergies Allergy/AdvReac Type Severity Reaction Status Date / Time lorazepam [From Ativan] Allergy Rash/Hives Verified 03/09/18 09:56 Review of Systems ROS Statement: Those systems with pertinent positive or pertinent negative responses have been documented in the HPI. ROS Other: All systems not noted in ROS Statement are negative. Constitutional: Denies: fever Eyes: Denies: vision change ENT: Denies: ear pain Respiratory: Denies: cough Cardiovascular: Denies: chest pain Endocrine: Denies: fatigue Gastrointestinal: Reports: nausea Genitourinary: Denies: dysuria Musculoskeletal: Denies: back pain Skin: Denies: rash Neurological: Reports: headache. Denies: weakness, numbness, confusion Past Medical History Past Medical History: Pneumonia Additional Past Medical History / Comment(s): brain injury, MIGARINES,VERTIGO, kidney infection History of Any Multi-Drug Resistant Organisms: None Reported Additional Past Surgical History / Comment(s): breast biopsy X2-NEG Past Anesthesia/Blood Transfusion Reactions: Motion Sickness Past Psychological History: Anxiety, Bipolar Smoking Status: Former smoker Past Alcohol Use History: None Reported Past Drug Use History: Marijuana - Past Family History Father Family Medical History: CVA/TIA, Hyperlipidemia Additional Family Medical History / Comment(s): TIA Mother Family Medical History: Cancer Additional Family Medical History / Comment(s): BREAST CANCER,MIGRAINES, VERTIGO ,TREMORS General Exam Limitations: no limitations General appearance: alert Head exam: Present: atraumatic Eye exam: Present: normal appearance, PERRL, EOMI. Absent: nystagmus ENT exam: Present: normal oropharynx Neck exam: Present: normal inspection. Absent: meningismus Respiratory exam: Present: normal lung sounds bilaterally Cardiovascular Exam: Present: regular rate, normal rhythm GI/Abdominal exam: Present: soft. Absent: tenderness Extremities exam: Present: normal inspection Neurological exam: Present: alert, oriented X3, CN II-XII intact. Absent: motor sensory deficit Expanded Cranial nerves: EOM's Intact: Normal, Facial Sensation: Normal Sensory exam: Upper Extremity Light Touch: Normal, Lower Extremity Light Touch: Normal Motor strength exam: RUE: 5, LUE: 5, RLE: 5, LLE: 5 Eye Response: (4) open spontaneously Motor Response: (6) obeys commands Verbal Response: (5) oriented Psychiatric exam: Present: normal affect, normal mood Skin exam: Present: normal color Course Vital Signs 03/09/18 03/09/18 09:52 10:52 Temperature 98.2 F Pulse Rate 70 64 Respiratory 16 18 Rate Blood Pressure 110/70 108/69 O2 Sat by Pulse 100 100 Oximetry Medical Decision Making - Medical Decision Making Patient reevaluated and is feeling much better. Patient is resting and easily awoken by voice. Patient is comfortable with discharge home. Father is present. Disposition Clinical Impression: Headache Disposition: HOME SELF-CARE Condition: Stable Instructions: Acute Headache (ED) Additional Instructions: Please follow-up with primary care physician in the next couple days for recheck. Return for fever, uncontrolled vomiting, increased pain, worsening or changing symptoms or other concerns. Is patient prescribed a controlled substance at d/c from ED?: No Referrals: Rosamaria Simon MD [Primary Care Provider] - 1-2 days Time of Disposition: 11:38
[2018-03-09 11:56] VITALS: BP 113/77; PULSE 71; RESP 16; TEMP 98.1
== END 2018-03-09 11:55 | disposition home or self-care (01) ==
LOC: EC 09:50
DX: G43.909 Migraine, unspecified, not intractable, without status migrainosus (principal); F41.9 Anxiety disorder, unspecified; F31.9 Bipolar disorder, unspecified; Z87.891 Personal history of nicotine dependence; Z79.899 Other long term (current) drug therapy; Z88.8 Allergy status to other drugs, medicaments and biological substances
CPT/HCPCS: 99284; 96374; 96375 ×2; 96361; J1200; J2765; J1885

== ENCOUNTER 2018-06-10 11:36 | Emergency (ER) | payer OTHER ==
[2018-06-10] MEDS ORDERED: SODIUM CHLORIDE 0.9% 1,000 ML IV STA (12:12)
[2018-06-10] MEDS ORDERED: ONDANSETRON 4 MG/2 ML VIAL IVP STA (12:12)
[2018-06-10] MEDS ORDERED: ACETAMINOPHEN TAB 325 MG TAB PO STA (12:20)
--- NOTE | 2018-06-10 12:21 | ED ---
General Adult HPI - General Chief complaint: Abdominal Pain Stated complaint: abdominal pain Time Seen by Provider: 06/10/18 12:00 Source: patient, RN notes reviewed, old records reviewed Mode of arrival: ambulatory Limitations: no limitations - History of Present Illness Initial comments: 32-year-old female patient with no pertinent past medical history presents to ED with abdominal pain with nausea and vomiting for 3 days. Patient reports that the abdominal pain is diffuse in her abdomen, and describes the pain as a stabbing pain. Pt reports that she has additionally had an 2-3 episodes of nausea and vomiting today. Patient denies any diarrhea. Patient reports that she has felt warm at home, however denies taking any temperature. Patient reports that she has had a dry cough for approximately 3 weeks as a secondary complaint. Patient denies any dysuria, states that she cannot be because she is not sexually active. Systemic: Pt denies fatigue, myalgia, rash. Pt denies weakness, night sweats, weight loss. Neuro: Pt denies headache, visual disturbances, syncope or pre-syncope. HEENT: Pt denies ocular discharge or irritation, otalgia, rhinorrhea, pharyngitis or notable lymphadenopathy. Cardiopulmonary: Pt denies chest pain, SOB, heart palpitations, dyspnea on exertion. : Pt denies dysuria, burning w/ urination, frequency/urgency. Denies new onset urinary or bowel incontinence. MSK: Pt denies myalgia, loss of strength or function in extremities. Neuro: Pt denies new onset weakness, paresthesias. - Related Data Home Medications Medication Instructions Recorded Confirmed Citalopram Hydrobromide [CeleXA] 20 mg PO DAILY 06/10/18 06/10/18 Previous Rx's Medication Instructions Recorded Ondansetron Odt [Zofran ODT] 4 mg PO Q8HR PRN #20 tab 06/10/18 Allergies Allergy/AdvReac Type Severity Reaction Status Date / Time lorazepam [From Ativan] Allergy Rash/Hives Verified 06/10/18 11:57 Review of Systems ROS Statement: Those systems with pertinent positive or pertinent negative responses have been documented in the HPI. ROS Other: All systems not noted in ROS Statement are negative. Past Medical History Past Medical History: Pneumonia Additional Past Medical History / Comment(s): brain injury, MIGARINES,VERTIGO, kidney infection History of Any Multi-Drug Resistant Organisms: None Reported Additional Past Surgical History / Comment(s): breast biopsy X2-NEG Past Anesthesia/Blood Transfusion Reactions: Motion Sickness Past Psychological History: Anxiety, Bipolar Smoking Status: Former smoker Past Alcohol Use History: None Reported Past Drug Use History: Marijuana - Past Family History Father Family Medical History: CVA/TIA, Hyperlipidemia Additional Family Medical History / Comment(s): TIA Mother Family Medical History: Cancer Additional Family Medical History / Comment(s): BREAST CANCER,MIGRAINES, VERTIGO ,TREMORS General Exam - General Exam Comments Initial Comments: Constitutional: NAD, AOX3, Pt has pleasant affect. HEENT: NC/AT, trachea midline, neck supple, no lymphadenopathy. Posterior pharynx non erythematous, without exudates. External ears appear normal, without discharge. Mucous membranes moist. Eyes PERRLA, EOM intact. There is no scleral icterus. No pallor noted. Cardiopulmonary: RRR, no murmurs, rubs or gallops, no JVD noted. Lungs CTAB in anterior and posterior bonner. No peripheral edema. Abdominal exam: Abdomen soft and non-distended. Abdomen mildly tender to palpation in RLQ. Psoas sign negative, rosvings sign negative. [place] sign negative. No guarding no rigidity, no ecchymosis. Bowel sounds active in LLQ. No hepatosplenomegaly. Vey mild amount of R adnexal tenderness, no left adnexal tenderness. Neuro: CN II-XII grossly intact. No nuchal rigidity. MSK: No posterior calf tenderness bilaterally, homans sign negative bilaterally. Posterior tibialis and radial pulse +2 bilaterally. Sensation intact in upper and lower extremities. Full active ROM in upper and lower extremities, 5/5 stregnth. Limitations: no limitations Course Vital Signs 06/10/18 06/10/18 11:44 13:35 Temperature 97.8 F 98.6 F Pulse Rate 72 65 Respiratory 20 18 Rate Blood Pressure 120/76 116/63 O2 Sat by Pulse 99 100 Oximetry Medical Decision Making - Medical Decision Making 32-year-old female patient with no pertinent past medical history presents to ED with abdominal pain with nausea and vomiting for 3 days. Patient reports that the abdominal pain is diffuse in her abdomen, and describes the pain as a stabbing pain. Pt reports that she has additionally had an 2-3 episodes of nausea and vomiting today. Patient denies any diarrhea. Patient reports that she has felt warm at home, however denies taking any temperature. Patient reports that she has had a dry cough for approximately 3 weeks as a secondary complaint. Pt denies all other complaints. Patient vital signs stable, afebrile. Physical exam revealed: Abdomen soft and non-distended. Abdomen mildly tender to palpation in RLQ. Psoas sign negative, rosvings sign negative. [place] sign negative. No guarding no rigidity, no ecchymosis. Bowel sounds active in LLQ. No hepatosplenomegaly. No joint investigations revealed nonpresence of CBC, CMP, lactic acid within normal limits, amylase lipase within normal limits. UA noncompressive, hCG negative. CT abdomen and pelvis with contrast revealed ruptured right ovarian cyst with free fluid within the cul-de-sac. Prominent periuterine bases. Nonobstructing nephrolithiasis. Transvaginal ultrasound revealed small amount of free fluid, no evidence of ovarian torsion. Findings when patient at length. Patient verbalized understanding. Explained patient that abdominal pain likely secondary to ruptured ovarian cyst, patient may have an underlying viral illness as well. Patient relates understanding. Patient to be discharged and follow up with primary care provider in 1-2 days. Patient to be prescribed Zofran. Upon time for discharge patient had still not had chest x-ray, patient states that she would prefer to continue to monitor for signs symptoms and will follow up with her primary care for cough. Case discussed in depth with Dr. Johnson. Pt not driving home. - Lab Data Result diagrams: 06/10/18 11:59 06/10/18 11:59 Lab Results 06/10/18 06/10/18 06/10/18 Range/Units 11:59 11:59 11:59 WBC 9.3 (3.8-10.6) k/uL RBC 4.86 (3.80-5.40) m/uL Hgb 13.7 (11.4-16.0) gm/dL Hct 43.1 (34.0-46.0) % MCV 88.7 (80.0-100.0) fL MCH 28.3 (25.0-35.0) pg MCHC 31.8 (31.0-37.0) g/dL RDW 13.6 (11.5-15.5) % Plt Count 381 (150-450) k/uL Neutrophils % 75 % Lymphocytes % 20 % Monocytes % 3 % Eosinophils % 1 % Basophils % 1 % Neutrophils # 6.9 (1.3-7.7) k/uL Lymphocytes # 1.8 (1.0-4.8) k/uL Monocytes # 0.3 (0-1.0) k/uL Eosinophils # 0.1 (0-0.7) k/uL Basophils # 0.1 (0-0.2) k/uL Sodium 139 (137-145) mmol/L Potassium 4.2 (3.5-5.1) mmol/L Chloride 105 (98-107) mmol/L Carbon Dioxide 26 (22-30) mmol/L Anion Gap 8 mmol/L BUN 11 (7-17) mg/dL Creatinine 0.67 (0.52-1.04) mg/dL Est GFR (CKD-EPI)AfAm >90 (>60 ml/min/1.73 sqM) Est GFR (CKD-EPI)NonAf >90 (>60 ml/min/1.73 sqM) Glucose 124 H (74-99) mg/dL Plasma Lactic Acid Coy (0.7-2.0) mmol/L Calcium 9.4 (8.4-10.2) mg/dL Total Bilirubin 0.2 (0.2-1.3) mg/dL AST 21 (14-36) U/L ALT 19 (9-52) U/L Alkaline Phosphatase 81 (38-126) U/L Total Protein 7.8 (6.3-8.2) g/dL Albumin 4.5 (3.5-5.0) g/dL Amylase 63 (30-110) U/L Lipase 114 (23-300) U/L Urine Color Yellow Urine Appearance Clear (Clear) Urine pH 7.0 (5.0-8.0) Ur Specific [place] 1.013 (1.001-1.035) Urine Protein Negative (Negative) Urine Glucose (UA) Negative (Negative) Urine Ketones Negative (Negative) Urine Blood Negative (Negative) Urine Nitrite Negative (Negative) Urine Bilirubin Negative (Negative) Urine Urobilinogen <2.0 (<2.0) mg/dL Ur Leukocyte Esterase Negative (Negative) Urine HCG, Qual (Not Detectd) 01/18/19 01/18/19 Range/Units 11:59 14:37 WBC (3.8-10.6) k/uL RBC (3.80-5.40) m/uL Hgb (11.4-16.0) gm/dL Hct (34.0-46.0) % MCV (80.0-100.0) fL MCH (25.0-35.0) pg MCHC (31.0-37.0) g/dL RDW (11.5-15.5) % Plt Count (150-450) k/uL Neutrophils % % Lymphocytes % % Monocytes % % Eosinophils % % Basophils % % Neutrophils # (1.3-7.7) k/uL Lymphocytes # (1.0-4.8) k/uL Monocytes # (0-1.0) k/uL Eosinophils # (0-0.7) k/uL Basophils # (0-0.2) k/uL Sodium (137-145) mmol/L Potassium (3.5-5.1) mmol/L Chloride (98-107) mmol/L Carbon Dioxide (22-30) mmol/L Anion Gap mmol/L BUN (7-17) mg/dL Creatinine (0.52-1.04) mg/dL Est GFR (CKD-EPI)AfAm (>60 ml/min/1.73 sqM) Est GFR (CKD-EPI)NonAf (>60 ml/min/1.73 sqM) Glucose (74-99) mg/dL Plasma Lactic Acid Coy 0.8 (0.7-2.0) mmol/L Calcium (8.4-10.2) mg/dL Total Bilirubin (0.2-1.3) mg/dL AST (14-36) U/L ALT (9-52) U/L Alkaline Phosphatase (38-126) U/L Total Protein (6.3-8.2) g/dL Albumin (3.5-5.0) g/dL Amylase (30-110) U/L Lipase (23-300) U/L Urine Color Urine Appearance (Clear) Urine pH (5.0-8.0) Ur Specific [place] (1.001-1.035) Urine Protein (Negative) Urine Glucose (UA) (Negative) Urine Ketones (Negative) Urine Blood (Negative) Urine Nitrite (Negative) Urine Bilirubin (Negative) Urine Urobilinogen (<2.0) mg/dL Ur Leukocyte Esterase (Negative) Urine HCG, Qual Not Detected (Not Detectd) Disposition Clinical Impression: Ruptured ovarian cyst, Nausea and vomiting Disposition: HOME SELF-CARE Condition: Stable Instructions: Acute Nausea and Vomiting (ED), Ruptured Ovarian Cyst (ED) Additional Instructions: Patient to adhere to previously discussed treatment plan and will take medication(s) as directed. Patient to follow up with PCP in 1-2 days. Patient to return to ED if symptoms do not improve. Prescriptions: Ondansetron Odt [Zofran ODT] 4 mg PO Q8HR PRN #20 tab PRN Reason: Nausea Is patient prescribed a controlled substance at d/c from ED?: No Referrals: Drew Meneses MD [Primary Care Provider] - 1-2 days Time of Disposition: 15:27
[2018-06-10 12:34] LABS: Basophils # (A) 0.1 k/uL (0-0.2); Basophils % (A) 1 %; Eosinophils # (A) 0.1 k/uL (0-0.7); Eosinophils % (A) 1 %; HCT 43.1 % (34.0-46.0); HGB 13.7 gm/dL (11.4-16.0); Lymphocytes # (A) 1.8 k/uL (1.0-4.8); Lymphocytes % (A) 20 %; MCH 28.3 pg (25.0-35.0); MCHC 31.8 g/dL (31.0-37.0); MCV 88.7 fL (80.0-100.0); Mean Platelet Volume 6.5; Monocytes # (A) 0.3 k/uL (0-1.0); Monocytes % (A) 3 %; Neutrophils # (A) 6.9 k/uL (1.3-7.7); Neutrophils % (A) 75 %; Platelet Count 381 k/uL (150-450); RBC 4.86 m/uL (3.80-5.40); RDW 13.6 % (11.5-15.5); WBC 9.3 k/uL (3.8-10.6)
[2018-06-10 12:36] LABS: Appearance,Urine Clear (Clear); Bilirubin,Urine Negative (Negative); Blood,Urine Negative (Negative); Color,Urine Yellow; Glucose,Urine (UA) Negative (Negative); Ketones,Urine Negative (Negative); Leukocyte Esterase,Urine Negative (Negative); Nitrite,Urine Negative (Negative); Protein,Urine Negative (Negative); Specific Gravity,Urine 1.013 (1.001-1.035); Urobilinogen,Urine <2.0 mg/dL (<2.0)
[2018-06-10 12:47] LABS: ALT 19 U/L (9-52); AST 21 U/L (14-36); Albumin 4.5 g/dL (3.5-5.0); Alkaline Phosphatase 81 U/L (38-126); Amylase 63 U/L (30-110); Anion Gap 8 mmol/L; Blood Urea Nitrogen 11 mg/dL (7-17); Calcium 9.4 mg/dL (8.4-10.2); Carbon Dioxide 26 mmol/L (22-30); Chloride 105 mmol/L (98-107); Glucose 124 mg/dL (74-99); Lipase 114 U/L (23-300); Potassium 4.2 mmol/L (3.5-5.1); Sodium 139 mmol/L (137-145); Total Bilirubin 0.2 mg/dL (0.2-1.3); Total Protein 7.8 g/dL (6.3-8.2)
[2018-06-10] MEDS ORDERED: MORPHINE SULFATE 4 MG/ML SYRINGE IV STA ×2 (12:54→13:36)
[2018-06-10] MEDS ORDERED: SODIUM CHLORIDE 0.9% 500 ML 500 ML IV STA (13:36)
--- NOTE | 2018-06-10 13:36 | CT ---
EXAMINATION TYPE: CT abdomen pelvis w con DATE OF EXAM: 06/10/2018 COMPARISON: 08/23/2015 HISTORY: RUQ and RLQ pain, nausea and vomiting CT DLP: 428.7 mGycm CONTRAST: CT scan of the abdomen and pelvis is performed without Oral Contrast and with IV Contrast, patient in jected with 100 mL of Isovue 300. FINDINGS: LUNG BASES-: No visible nodule. No infiltrate. LIVER/GB: No calcified gallstones. No space occupying hepatic lesion. Biliary tree is of normal ca liber. PANCREAS: No inflammation. No distinct mass. SPLEEN: No splenic enlargement. No lesion seen. ADRENALS: No nodule. No thickening. KIDNEYS/BLADDER: No hydronephrosis. Nonobstructing right-sided nephrolithiasis measuring up to 7.3 m m. No distinct renal mass. Urinary bladder grossly unremarkable. BOWEL: Nonvisualization of the appendix. Normal bowel caliber. No inflammation. GENITAL ORGANS: Ruptured right ovarian cyst measures 1.3 cm. Free fluid within the cul-de-sac. Promin ent perihilar uterine varices. LYMPH NODES: No greater than 1cm abdominal or pelvic lymph nodes are appreciated. AORTA: No significant abnormality. OSSEOUS STRUCTURES: No significant abnormality is seen. OTHER: No significant additional abnormality is seen. IMPRESSION: 1. Ruptured right ovarian cyst with 3 fluid within the cul-de-sac. 2. Prominent periuterine varices. 3. Nonobstructing nephrolithiasis.
--- NOTE | 2018-06-10 14:40 | US ---
EXAMINATION TYPE: US transvaginal DATE OF EXAM: 06/10/2018 COMPARISON: NONE CLINICAL HISTORY: pain. h/o ovarian cysts TECHNIQUE: TV. Date of LMP: 05/28/2018 EXAM MEASUREMENTS: Uterus: 9.1 x 5.7 x 4.6 cm Endometrial Stripe: 0.5 cm Right Ovary: 3.5 x 2.8 x 2.6 cm Left Ovary: 2.9 x 1.6 x 1.8 cm 1. Uterus: Anteverted wnl 2. Endometrium: wnl 3. Right Ovary: wnl 4. Left Ovary: wnl Spectral, color and waveform doppler imaging shows good arterial and venous flow within the ovaries ; there is no evidence for ovarian torsion. 5. Bilateral Adnexa: wnl 6. Posterior cul-de-sac: mild free fluid IMPRESSION: Small amount of free fluid. Otherwise unremarkable study.
[2018-06-10 15:48] VITALS: BP 113/71; PULSE 57; RESP 17; TEMP 98.9
== END 2018-06-10 16:03 | disposition home or self-care (01) ==
LOC: EC 11:36
DX: N83.201 Unspecified ovarian cyst, right side (principal); R11.2 Nausea with vomiting, unspecified; N20.0 Calculus of kidney; F31.9 Bipolar disorder, unspecified; F41.9 Anxiety disorder, unspecified; Z32.02 Encounter for pregnancy test, result negative; Z87.891 Personal history of nicotine dependence; Z79.899 Other long term (current) drug therapy; Z88.8 Allergy status to other drugs, medicaments and biological substances; Z53.29 Procedure and treatment not carried out because of patient's decision for other reasons
CPT/HCPCS: 36415; 80053; 82150; 83605; 83690; 85025; 81003; 81025; 76830; 74177; 99285; 96374; 96375; 96376; 96361 ×2; J2270; J2405; Q9967

== ENCOUNTER 2018-08-03 08:46 | Emergency (ER) | payer OTHER ==
[2018-08-03] MEDS ORDERED: KETOROLAC 30 MG/ML 1 ML VIAL IVP STA (09:03)
[2018-08-03] MEDS ORDERED: METOCLOPRAMIDE 5 MG/ML 2 ML VIAL IVP STA (09:03)
[2018-08-03] MEDS ORDERED: diphenhydrAMINE 50 MG/ML 1 ML VIAL IVP STA (09:03)
[2018-08-03] MEDS ORDERED: SODIUM CHLORIDE 0.9% 1,000 ML IV STA (09:03)
--- NOTE | 2018-08-03 09:32 | ED ---
General Adult HPI - General Chief complaint: Headache Stated complaint: migraine/vertigo Source: patient, RN notes reviewed Mode of arrival: ambulatory Limitations: no limitations - History of Present Illness Initial comments: 32-year-old female with a past medical history of migraines, vertigo, brain injury presents to the emergency determine for a chief complaint of headache 3 hours. Patient states the headache is in her frontal area. She states it came on slowly throughout the morning. She states the pain as a 7 out of 10. Patient states she has had headaches before that are consistent with this. She also feels somewhat dizzy and lightheaded which she generally gets with her headaches. Patient states she has Zofran and Tylenol at home for headaches but does not have any other migraine medicine. Patient states she has also not been eating or drinking much since yesterday which may be contributing since her appetite is low with this headache. - Related Data Home Medications Medication Instructions Recorded Confirmed Citalopram Hydrobromide [CeleXA] 20 mg PO DAILY 06/10/18 08/03/18 Acetaminophen Tab [Tylenol] 1,000 mg PO Q8H 08/03/18 08/03/18 Ibuprofen [Motrin Ib] 2 - 3 tab PO Q8H 08/03/18 08/03/18 Previous Rx's Medication Instructions Recorded Ondansetron Odt [Zofran ODT] 4 mg PO Q8HR PRN #20 tab 06/10/18 Allergies Allergy/AdvReac Type Severity Reaction Status Date / Time lorazepam [From Ativan] Allergy Rash/Hives Verified 08/03/18 09:00 Review of Systems ROS Statement: Those systems with pertinent positive or pertinent negative responses have been documented in the HPI. ROS Other: All systems not noted in ROS Statement are negative. Past Medical History Past Medical History: Pneumonia Additional Past Medical History / Comment(s): brain injury, MIGARINES,VERTIGO,kidney infection History of Any Multi-Drug Resistant Organisms: None Reported Additional Past Surgical History / Comment(s): breast biopsy X2-NEG Past Anesthesia/Blood Transfusion Reactions: Motion Sickness Past Psychological History: Anxiety, Bipolar Smoking Status: Former smoker Past Alcohol Use History: None Reported Past Drug Use History: Marijuana - Past Family History Father Family Medical History: CVA/TIA, Hyperlipidemia Additional Family Medical History / Comment(s): TIA Mother Family Medical History: Cancer Additional Family Medical History / Comment(s): BREAST CANCER,MIGRAINES, VERTIGO,TREMORS General Exam Limitations: no limitations General appearance: alert, in no apparent distress Head exam: Present: atraumatic, normocephalic, normal inspection Eye exam: Present: normal appearance, PERRL, EOMI. Absent: scleral icterus, conjunctival injection, periorbital swelling ENT exam: Present: normal exam, normal oropharynx (uvula midline), mucous membranes moist, normal external ear exam Neck exam: Present: normal inspection, full ROM. Absent: tenderness, meningismus, lymphadenopathy Respiratory exam: Present: normal lung sounds bilaterally. Absent: respiratory distress, wheezes, rales, rhonchi, stridor Cardiovascular Exam: Present: regular rate, normal rhythm, normal heart sounds. Absent: systolic murmur, diastolic murmur, rubs, gallop, clicks Neurological exam: Present: alert, oriented X3, CN II-XII intact, normal gait Expanded Patient oriented to: Present: person, place, time Cranial nerves: EOM's Intact: Normal, Tongue Deviation: Normal, Nystagmus: Normal, Facial Sensation: Normal Cerebellar function: Finger to Nose: Normal, Romberg: Normal Upper motor neuron: Pronator Drift: Normal Sensory exam: Upper Extremity Light Touch: Normal, Upper Extremity Pin Prick: Normal, Lower Extremity Light Touch: Normal, Lower Extremity Pin Prick: Normal Motor strength exam: RUE: 5 (no drift), LUE: 5 (no drift), RLE: 5 (no drift), LLE: 5 (no drift) Eye Response: (4) open spontaneously Motor Response: (6) obeys commands Verbal Response: (5) oriented Roberto Total: 15 Psychiatric exam: Present: normal affect, normal mood Course Vital Signs 08/03/18 08:48 Temperature 98.1 F Pulse Rate 73 Respiratory 16 Rate Blood Pressure 115/77 O2 Sat by Pulse 100 Oximetry Medical Decision Making - Medical Decision Making 32-year-old female presents for chief complaint of headache. Headache is frontal in nature and came on slowly. No focal neuro deficits. Patient has had similar headaches many times before. Patient was treated symptomatically and had complete resolution of symptoms. Patient is stating she is ready to go home. She is well-appearing. Patient will follow up with primary care in 1-2 days and return here if you have any worsening symptoms. Disposition Clinical Impression: Headache Disposition: HOME SELF-CARE Condition: Good Instructions (If sedation given, give patient instructions): Acute Headache (ED) Additional Instructions: Please take at home medications for pain. Please follow-up with primary care in 1-2 days. Return to the emergency department if you have any worsening symptoms. Is patient prescribed a controlled substance at d/c from ED?: No Referrals: Will Arce MD [STAFF PHYSICIAN] - 1-2 days Time of Disposition: 10:45
[2018-08-03 10:59] VITALS: BP 105/59; PULSE 63; RESP 18; TEMP 98
== END 2018-08-03 10:59 | disposition home or self-care (01) ==
LOC: EC 08:46
DX: R51 Headache (principal); R42 Dizziness and giddiness; F41.9 Anxiety disorder, unspecified; F31.9 Bipolar disorder, unspecified; Z86.69 Personal history of other diseases of the nervous system and sense organs; Z87.820 Personal history of traumatic brain injury; Z82.0 Family history of epilepsy and other diseases of the nervous system; Z87.891 Personal history of nicotine dependence; Z79.1 Long term (current) use of non-steroidal anti-inflammatories (NSAID); Z79.899 Other long term (current) drug therapy; Z88.8 Allergy status to other drugs, medicaments and biological substances
CPT/HCPCS: 96361; 96374; 96375; 99283

== ENCOUNTER 2018-08-08 11:53 | Emergency (ER) | payer OTHER ==
[2018-08-08] MEDS ORDERED: KETOROLAC 30 MG/ML 1 ML VIAL IVP STA (12:44)
[2018-08-08] MEDS ORDERED: SODIUM CHLORIDE 0.9% 1,000 ML IV STA (12:44)
[2018-08-08] MEDS ORDERED: ONDANSETRON 4 MG/2 ML VIAL IVP STA (12:44)
--- NOTE | 2018-08-08 12:50 | ED ---
Abdominal Pain HPI - General Chief Complaint: Abdominal Pain Stated Complaint: poss kidney infection Time Seen by Provider: 08/08/18 12:30 Source: patient, RN notes reviewed Mode of arrival: ambulatory Limitations: no limitations - History of Present Illness Initial Comments: 32-year-old female presents emergency Department with chief complaint of right flank pain. Patient states she had some back discomfort yesterday but worsened today. Patient denies any fever or chills. She does admit to some nausea and vomiting. Patient states that she does have a history kidney stones, pyelonephritis. Patient denies any current dysuria hematuria. Denies any chance . Patient states that nothing makes the pain feel better at this time she states it does worsen with movement. - Related Data Home Medications Medication Instructions Recorded Confirmed Citalopram Hydrobromide [CeleXA] 20 mg PO HS 06/10/18 08/08/18 Ibuprofen [Motrin Ib] 400 tab PO Q8H PRN 08/03/18 08/08/18 Previous Rx's Medication Instructions Recorded Cyclobenzaprine [Flexeril] 10 mg PO TID PRN #15 tab 08/08/18 Ibuprofen [Motrin] 600 mg PO Q8HR PRN #30 tab 08/08/18 Allergies Allergy/AdvReac Type Severity Reaction Status Date / Time lorazepam [From Ativan] Allergy Rash/Hives Verified 08/08/18 12:55 Review of Systems ROS Statement: Those systems with pertinent positive or pertinent negative responses have been documented in the HPI. ROS Other: All systems not noted in ROS Statement are negative. Past Medical History Past Medical History: Pneumonia Additional Past Medical History / Comment(s): brain injury, MIGARINES,V ERTIGO,kidney infection History of Any Multi-Drug Resistant Organisms: None Reported Additional Past Surgical History / Comment(s): breast biopsy X2-NEG Past Anesthesia/Blood Transfusion Reactions: Motion Sickness Past Psychological History: Anxiety, Bipolar Smoking Status: Former smoker Past Alcohol Use History: None Reported Past Drug Use History: Marijuana - Past Family History Father Family Medical History: CVA/TIA, Hyperlipidemia Additional Family Medical History / Comment(s): TIA Mother Family Medical History: Cancer Additional Family Medical History / Comment(s): BREAST CANCER,MIGRAINES, VERTIGO,TREMORS General Exam Limitations: no limitations General appearance: alert, in no apparent distress Neck exam: Present: normal inspection. Absent: tenderness, meningismus, lymphadenopathy Respiratory exam: Present: normal lung sounds bilaterally. Absent: respiratory distress, wheezes, rales, rhonchi, stridor Cardiovascular Exam: Present: regular rate, normal rhythm, normal heart sounds. Absent: systolic murmur, diastolic murmur, rubs, gallop, clicks GI/Abdominal exam: Present: soft, tenderness (Minimal right-sided), normal bowel sounds. Absent: distended, guarding, rebound, rigid Back exam: Present: CVA tenderness (R). Absent: CVA tenderness (L) Skin exam: Present: warm, dry, intact, normal color. Absent: rash Course Vital Signs 08/08/18 12:18 Temperature 98.1 F Pulse Rate 63 Respiratory 16 Rate Blood Pressure 89/56 O2 Sat by Pulse 98 Oximetry Medical Decision Making - Medical Decision Making 32-year-old female presented emergency department for for right flank, right- sided abdominal pain. CT does not show any evidence of acute signs of infection or stone. Patient has a kidney stone in the lower pole. Patient's pain may be muscle skeletal nature. There is an ill-defined lesion her left ovary and enlarged cervix. She is advised follow-up with GERIATRIC NURSE for this. Patient will be discharged currently and return for any worsening symptoms. - Lab Data Result diagrams: 08/08/18 12:41 08/08/18 12:41 Lab Results 08/08/18 08/08/18 08/08/18 Range/Units 12:41 12:41 12:41 WBC 6.9 (3.8-10.6) k/uL RBC 5.04 (3.80-5.40) m/uL Hgb 13.7 (11.4-16.0) gm/dL Hct 44.0 (34.0-46.0) % MCV 87.3 (80.0-100.0) fL MCH 27.1 (25.0-35.0) pg MCHC 31.1 (31.0-37.0) g/dL RDW 14.3 (11.5-15.5) % Plt Count 338 (150-450) k/uL Neutrophils % 61 % Lymphocytes % 29 % Monocytes % 5 % Eosinophils % 2 % Basophils % 1 % Neutrophils # 4.2 (1.3-7.7) k/uL Lymphocytes # 2.0 (1.0-4.8) k/uL Monocytes # 0.4 (0-1.0) k/uL Eosinophils # 0.1 (0-0.7) k/uL Basophils # 0.1 (0-0.2) k/uL Sodium 140 (137-145) mmol/L Potassium 4.6 (3.5-5.1) mmol/L Chloride 101 (98-107) mmol/L Carbon Dioxide 27 (22-30) mmol/L Anion Gap 12 mmol/L BUN 16 (7-17) mg/dL Creatinine 0.71 (0.52-1.04) mg/dL Est GFR (CKD-EPI)AfAm >90 (>60 ml/min/1.73 sqM) Est GFR (CKD-EPI)NonAf >90 (>60 ml/min/1.73 sqM) Glucose 86 (74-99) mg/dL Calcium 10.1 (8.4-10.2) mg/dL Total Bilirubin 0.4 (0.2-1.3) mg/dL AST 27 (14-36) U/L ALT 27 (9-52) U/L Alkaline Phosphatase 85 (38-126) U/L Total Protein 8.5 H (6.3-8.2) g/dL Albumin 5.2 H (3.5-5.0) g/dL Lipase 77 (23-300) U/L Urine Color Light Yellow Urine Appearance Clear (Clear) Urine pH 6.0 (5.0-8.0) Ur Specific [place] 1.008 (1.001-1.035) Urine Protein Negative (Negative) Urine Glucose (UA) Negative (Negative) Urine Ketones Negative (Negative) Urine Blood Negative (Negative) Urine Nitrite Negative (Negative) Urine Bilirubin Negative (Negative) Urine Urobilinogen <2.0 (<2.0) mg/dL Ur Leukocyte Esterase Negative (Negative) Urine HCG, Qual (Not Detectd) 08/08/18 Range/Units 12:41 WBC (3.8-10.6) k/uL RBC (3.80-5.40) m/uL Hgb (11.4-16.0) gm/dL Hct (34.0-46.0) % MCV (80.0-100.0) fL MCH (25.0-35.0) pg MCHC (31.0-37.0) g/dL RDW (11.5-15.5) % Plt Count (150-450) k/uL Neutrophils % % Lymphocytes % % Monocytes % % Eosinophils % % Basophils % % Neutrophils # (1.3-7.7) k/uL Lymphocytes # (1.0-4.8) k/uL Monocytes # (0-1.0) k/uL Eosinophils # (0-0.7) k/uL Basophils # (0-0.2) k/uL Sodium (137-145) mmol/L Potassium (3.5-5.1) mmol/L Chloride (98-107) mmol/L Carbon Dioxide (22-30) mmol/L Anion Gap mmol/L BUN (7-17) mg/dL Creatinine (0.52-1.04) mg/dL Est GFR (CKD-EPI)AfAm (>60 ml/min/1.73 sqM) Est GFR (CKD-EPI)NonAf (>60 ml/min/1.73 sqM) Glucose (74-99) mg/dL Calcium (8.4-10.2) mg/dL Total Bilirubin (0.2-1.3) mg/dL AST (14-36) U/L ALT (9-52) U/L Alkaline Phosphatase (38-126) U/L Total Protein (6.3-8.2) g/dL Albumin (3.5-5.0) g/dL Lipase (23-300) U/L Urine Color Urine Appearance (Clear) Urine pH (5.0-8.0) Ur Specific [place] (1.001-1.035) Urine Protein (Negative) Urine Glucose (UA) (Negative) Urine Ketones (Negative) Urine Blood (Negative) Urine Nitrite (Negative) Urine Bilirubin (Negative) Urine Urobilinogen (<2.0) mg/dL Ur Leukocyte Esterase (Negative) Urine HCG, Qual Not Detected (Not Detectd) Disposition Clinical Impression: Lesion of ovary, Right flank pain, Back pain, Nephrolithiasis Disposition: HOME SELF-CARE Condition: Stable Instructions (If sedation given, give patient instructions): Flank Pain (ED) Additional Instructions: Please return to the Emergency Department if symptoms worsen or any other concerns. Prescriptions: Cyclobenzaprine [Flexeril] 10 mg PO TID PRN #15 tab PRN Reason: Muscle Spasm Ibuprofen [Motrin] 600 mg PO Q8HR PRN #30 tab PRN Reason: Pain Is patient prescribed a controlled substance at d/c from ED?: No Referrals: None,Stated [Primary Care Provider] - 1-2 days Time of Disposition: 15:01
[2018-08-08 13:19] LABS: Basophils # (A) 0.1 k/uL (0-0.2); Basophils % (A) 1 %; Eosinophils # (A) 0.1 k/uL (0-0.7); Eosinophils % (A) 2 %; HGB 13.7 gm/dL (11.4-16.0); Lymphocytes % (A) 29 %; MCH 27.1 pg (25.0-35.0); MCHC 31.1 g/dL (31.0-37.0); MCV 87.3 fL (80.0-100.0); Mean Platelet Volume 6.4; Monocytes # (A) 0.4 k/uL (0-1.0); Monocytes % (A) 5 %; Neutrophils # (A) 4.2 k/uL (1.3-7.7); Neutrophils % (A) 61 %; Platelet Count 338 k/uL (150-450); RBC 5.04 m/uL (3.80-5.40); RDW 14.3 % (11.5-15.5); WBC 6.9 k/uL (3.8-10.6)
[2018-08-08 13:22] LABS: Appearance,Urine Clear (Clear); Bilirubin,Urine Negative (Negative); Blood,Urine Negative (Negative); Color,Urine Light Yellow; Glucose,Urine (UA) Negative (Negative); Ketones,Urine Negative (Negative); Leukocyte Esterase,Urine Negative (Negative); Nitrite,Urine Negative (Negative); Protein,Urine Negative (Negative); Specific Gravity,Urine 1.008 (1.001-1.035); Urobilinogen,Urine <2.0 mg/dL (<2.0)
[2018-08-08 13:31] LABS: ALT 27 U/L (9-52); AST 27 U/L (14-36); Albumin 5.2 g/dL (3.5-5.0); Alkaline Phosphatase 85 U/L (38-126); Anion Gap 12 mmol/L; Blood Urea Nitrogen 16 mg/dL (7-17); Calcium 10.1 mg/dL (8.4-10.2); Carbon Dioxide 27 mmol/L (22-30); Chloride 101 mmol/L (98-107); Glucose 86 mg/dL (74-99); Lipase 77 U/L (23-300); Potassium 4.6 mmol/L (3.5-5.1); Sodium 140 mmol/L (137-145); Total Bilirubin 0.4 mg/dL (0.2-1.3); Total Protein 8.5 g/dL (6.3-8.2)
[2018-08-08] MEDS ORDERED: MORPHINE SULFATE 4 MG/ML SYRINGE IVP STA (13:55)
--- NOTE | 2018-08-08 14:49 | CT ---
EXAMINATION TYPE: CT abdomen pelvis w con DATE OF EXAM: 08/08/2018 HISTORY: Abdominal pain. Concern for pyelonephritis. CT DLP: 414.5mGycm Automated Exposure Control for Dose Reduction was Utilized. CONTRAST: CT scan of the abdomen and pelvis is performed with IV Contrast, patient injected with 100 mL of Isov ue 300. COMPARISON: 06/10/2018 FINDINGS: LUNG BASES: No significant abnormality is appreciated. LIVER/GB: No significant abnormality is appreciated. No cholelithiasis. PANCREAS: No significant abnormality is seen. SPLEEN: No significant abnormality is seen. No splenomegaly. ADRENALS: No nodularity or thickening. KIDNEYS: Nonobstructive right lower pole renal calculi measure 8 mm and 4 mm. Kidneys enhance symmetr ically. No wedge-shaped cortical defects are seen to suggest pyelonephritis on CT. Urinary bladder is unremarkable on CT. No urinary bladder calculi. BOWEL: No significant abnormality is seen. UTERUS/ADNEXA: There is a small amount of free fluid within the pelvis, likely physiologic in nature. There is mild engorgement of the pelvic vasculature, predominating on the left that could relate to pelvic congestion syndrome. Crenulated left adnexal lesion favors a hemorrhagic cyst. Cervix is ill-defined and should be correlated with physical exam. LYMPH NODES: No greater than 1cm abdominal or pelvic lymph nodes are appreciated. OSSEOUS STRUCTURES: Slight levoscoliosis of the lumbar spine is likely positional. Osseous structures appear intact. IMPRESSION: 1. No CT sequela of pyelonephritis. No hydronephrosis. 2. Nonobstructing right lower pole renal calculi. 3. Engorgement pelvic vasculature, particularly on the left could relate to pelvic congestion syndrom e. 3. Crenulated appearing left ovarian lesion likely represents a hemorrhagic cyst. Cervix is ill-defin ed and should be correlated with physical exam.
[2018-08-08] MEDS ORDERED: ACET/COD 300 MG/30 MG STARTER PACK 6 TAB BTL PO STA (15:01)
[2018-08-08] MEDS ORDERED: HYDROmorphone 0.5 MG/0.5 ML SYRINGE IVP STA (15:09)
[2018-08-08 16:01] VITALS: BP 102/66; PULSE 56; RESP 18; TEMP 97.9
== END 2018-08-08 16:01 | disposition home or self-care (01) ==
LOC: EC 11:53
DX: N20.0 Calculus of kidney (principal); N83.8 Other noninflammatory disorders of ovary, fallopian tube and broad ligament; N88.4 Hypertrophic elongation of cervix uteri; F41.9 Anxiety disorder, unspecified; F31.9 Bipolar disorder, unspecified; Z87.891 Personal history of nicotine dependence; Z87.442 Personal history of urinary calculi; Z87.448 Personal history of other diseases of urinary system; Z79.899 Other long term (current) drug therapy; Z88.8 Allergy status to other drugs, medicaments and biological substances
CPT/HCPCS: 36415; 80053; 83690; 85025; 81003; 81025; 74177; 99284; 96374; 96375 ×3; 96361 ×2; J2270; J2405; J1885; J1170; Q9967

== ENCOUNTER 2018-10-14 05:34 | Emergency (ER) | payer OTHER ==
[2018-10-14] MEDS ORDERED: ONDANSETRON 4 MG/2 ML VIAL IVP STA (05:55)
[2018-10-14] MEDS ORDERED: SODIUM CHLORIDE 0.9% 500 ML 500 ML IV STA (05:55)
[2018-10-14 05:56] VITALS: TEMP 98.3
[2018-10-14 06:46] LABS: Basophils % (A) 0 %; Eosinophils # (A) 0.1 k/uL (0-0.7); Eosinophils % (A) 2 %; HCT 44.3 % (34.0-46.0); HGB 14.2 gm/dL (11.4-16.0); Lymphocytes # (A) 0.9 k/uL (1.0-4.8); Lymphocytes % (A) 11 %; MCH 27.3 pg (25.0-35.0); MCV 85.1 fL (80.0-100.0); Mean Platelet Volume 6.8; Monocytes # (A) 0.3 k/uL (0-1.0); Monocytes % (A) 4 %; Neutrophils # (A) 6.8 k/uL (1.3-7.7); Neutrophils % (A) 82 %; Platelet Count 307 k/uL (150-450); WBC 8.2 k/uL (3.8-10.6)
[2018-10-14 06:48] LABS: Appearance,Urine Cloudy (Clear); Bilirubin,Urine Negative (Negative); Blood,Urine Negative (Negative); Color,Urine Yellow; Glucose,Urine (UA) Negative (Negative); Ketones,Urine Negative (Negative); Leukocyte Esterase,Urine Trace (Negative); Mucus,Urine Rare /hpf; Nitrite,Urine Negative (Negative); Protein,Urine Trace (Negative); RBC,Urine 4 /hpf (0-5); Specific Gravity,Urine 1.024 (1.001-1.035); Squamous Epithelial Cell,Urine 9 /hpf (0-4); WBC,Urine 2 /hpf (0-5)
[2018-10-14 06:57] LABS: ALT 21 U/L (9-52); AST 26 U/L (14-36); Albumin 4.9 g/dL (3.5-5.0); Alkaline Phosphatase 69 U/L (38-126); Amylase 54 U/L (30-110); Anion Gap 8 mmol/L; Blood Urea Nitrogen 13 mg/dL (7-17); Calcium 9.6 mg/dL (8.4-10.2); Carbon Dioxide 27 mmol/L (22-30); Chloride 103 mmol/L (98-107); Glucose 81 mg/dL (74-99); Lipase 58 U/L (23-300); Potassium 4.5 mmol/L (3.5-5.1); Sodium 138 mmol/L (137-145); Total Bilirubin 1.2 mg/dL (0.2-1.3); Total Protein 7.8 g/dL (6.3-8.2)
--- NOTE | 2018-10-14 07:03 | ED ---
Nausea/Vomiting/Diarrhea HPI - General Chief complaint: Nausea/Vomiting/Diarrhea Stated complaint: Vomiting,Nausea,Dizziness Time Seen by Provider: 10/14/18 05:54 Source: patient Mode of arrival: ambulatory Limitations: no limitations - History of Present Illness MD complaint: nausea, vomiting -: hour(s) Description of Vomiting: food contents Associated Abdominal Pain: Yes Location: diffuse Consistency: intermittent Worsens with: none Context: sick contacts Associated Symptoms: nausea/vomiting - Related Data Home Medications Medication Instructions Recorded Confirmed Citalopram Hydrobromide [CeleXA] 20 mg PO HS 06/10/18 08/08/18 Ibuprofen [Motrin Ib] 400 tab PO Q8H PRN 08/03/18 08/08/18 Previous Rx's Medication Instructions Recorded Cyclobenzaprine [Flexeril] 10 mg PO TID PRN #15 tab 08/08/18 Ibuprofen [Motrin] 600 mg PO Q8HR PRN #30 tab 08/08/18 Ondansetron Odt [Zofran ODT] 4 mg PO Q8HR PRN #10 tab 10/14/18 Allergies Allergy/AdvReac Type Severity Reaction Status Date / Time lorazepam [From Ativan] Allergy Rash/Hives Verified 10/14/18 05:55 Review of Systems ROS Statement: Those systems with pertinent positive or pertinent negative responses have been documented in the HPI. ROS Other: All systems not noted in ROS Statement are negative. Constitutional: Denies: fever, chills Respiratory: Denies: cough, dyspnea Cardiovascular: Denies: chest pain, palpitations, edema Gastrointestinal: Reports: as per HPI, abdominal pain, nausea, vomiting. Denies: diarrhea, constipation Genitourinary: Denies: dysuria, hematuria, abnormal menses Musculoskeletal: Denies: back pain Skin: Denies: rash Neurological: Denies: headache, weakness, numbness Past Medical History Past Medical History: Pneumonia Additional Past Medical History / Comment(s): brain injury, MIGARINES,VERTIGO,kidney infection History of Any Multi-Drug Resistant Organisms: None Reported Additional Past Surgical History / Comment(s): breast biopsy X2-NEG Past Anesthesia/Blood Transfusion Reactions: Motion Sickness Past Psychological History: Anxiety, Bipolar Smoking Status: Former smoker Past Alcohol Use History: None Reported Past Drug Use History: Marijuana - Past Family History Father Family Medical History: CVA/TIA, Hyperlipidemia Additional Family Medical History / Comment(s): TIA Mother Family Medical History: Cancer Additional Family Medical History / Comment(s): BREAST CANCER,MIGRAINES, VERTIGO,TREMORS General Exam Limitations: no limitations General appearance: alert, in no apparent distress Head exam: Present: atraumatic, normocephalic Eye exam: Present: normal appearance. Absent: scleral icterus, conjunctival injection ENT exam: Present: normal oropharynx Neck exam: Present: normal inspection Respiratory exam: Present: normal lung sounds bilaterally. Absent: respiratory distress, wheezes, rales, rhonchi, stridor Cardiovascular Exam: Present: regular rate, normal rhythm, normal heart sounds GI/Abdominal exam: Present: soft. Absent: distended, tenderness, guarding, rebound, rigid, mass Extremities exam: Present: normal inspection, normal capillary refill. Absent: pedal edema, calf tenderness Back exam: Present: normal inspection. Absent: CVA tenderness (R), CVA tenderness (L) Neurological exam: Present: alert Skin exam: Present: warm, dry, intact, normal color. Absent: rash Course Vital Signs 10/14/18 10/14/18 05:51 07:13 Temperature 98.3 F Pulse Rate 70 84 Respiratory 16 18 Rate Blood Pressure 98/56 102/56 O2 Sat by Pulse 97 99 Oximetry Medical Decision Making - Lab Data Result diagrams: 10/14/18 06:05 10/14/18 06:05 Lab Results 10/14/18 10/14/18 10/14/18 Range/Units 06:05 06:05 06:05 WBC 8.2 (3.8-10.6) k/uL RBC 5.20 (3.80-5.40) m/uL Hgb 14.2 (11.4-16.0) gm/dL Hct 44.3 (34.0-46.0) % MCV 85.1 (80.0-100.0) fL MCH 27.3 (25.0-35.0) pg MCHC 32.0 (31.0-37.0) g/dL RDW 15.0 (11.5-15.5) % Plt Count 307 (150-450) k/uL Neutrophils % 82 % Lymphocytes % 11 % Monocytes % 4 % Eosinophils % 2 % Basophils % 0 % Neutrophils # 6.8 (1.3-7.7) k/uL Lymphocytes # 0.9 L (1.0-4.8) k/uL Monocytes # 0.3 (0-1.0) k/uL Eosinophils # 0.1 (0-0.7) k/uL Basophils # 0.0 (0-0.2) k/uL Sodium 138 (137-145) mmol/L Potassium 4.5 (3.5-5.1) mmol/L Chloride 103 (98-107) mmol/L Carbon Dioxide 27 (22-30) mmol/L Anion Gap 8 mmol/L BUN 13 (7-17) mg/dL Creatinine 0.62 (0.52-1.04) mg/dL Est GFR (CKD-EPI)AfAm >90 (>60 ml/min/1.73 sqM) Est GFR (CKD-EPI)NonAf >90 (>60 ml/min/1.73 sqM) Glucose 81 (74-99) mg/dL Calcium 9.6 (8.4-10.2) mg/dL Total Bilirubin 1.2 (0.2-1.3) mg/dL AST 26 (14-36) U/L ALT 21 (9-52) U/L Alkaline Phosphatase 69 (38-126) U/L Total Protein 7.8 (6.3-8.2) g/dL Albumin 4.9 (3.5-5.0) g/dL Amylase 54 (30-110) U/L Lipase 58 (23-300) U/L Urine Color Yellow Urine Appearance Cloudy H (Clear) Urine pH 7.0 (5.0-8.0) Ur Specific [place] 1.024 (1.001-1.035) Urine Protein Trace H (Negative) Urine Glucose (UA) Negative (Negative) Urine Ketones Negative (Negative) Urine Blood Negative (Negative) Urine Nitrite Negative (Negative) Urine Bilirubin Negative (Negative) Urine Urobilinogen 2.0 (<2.0) mg/dL Ur Leukocyte Esterase Trace H (Negative) Urine RBC 4 (0-5) /hpf Urine WBC 2 (0-5) /hpf Ur Squamous Epith Cells 9 H (0-4) /hpf Urine Mucus Rare H (None) /hpf Urine HCG, Qual (Not Detectd) 10/14/18 Range/Units 06:05 WBC (3.8-10.6) k/uL RBC (3.80-5.40) m/uL Hgb (11.4-16.0) gm/dL Hct (34.0-46.0) % MCV (80.0-100.0) fL MCH (25.0-35.0) pg MCHC (31.0-37.0) g/dL RDW (11.5-15.5) % Plt Count (150-450) k/uL Neutrophils % % Lymphocytes % % Monocytes % % Eosinophils % % Basophils % % Neutrophils # (1.3-7.7) k/uL Lymphocytes # (1.0-4.8) k/uL Monocytes # (0-1.0) k/uL Eosinophils # (0-0.7) k/uL Basophils # (0-0.2) k/uL Sodium (137-145) mmol/L Potassium (3.5-5.1) mmol/L Chloride (98-107) mmol/L Carbon Dioxide (22-30) mmol/L Anion Gap mmol/L BUN (7-17) mg/dL Creatinine (0.52-1.04) mg/dL Est GFR (CKD-EPI)AfAm (>60 ml/min/1.73 sqM) Est GFR (CKD-EPI)NonAf (>60 ml/min/1.73 sqM) Glucose (74-99) mg/dL Calcium (8.4-10.2) mg/dL Total Bilirubin (0.2-1.3) mg/dL AST (14-36) U/L ALT (9-52) U/L Alkaline Phosphatase (38-126) U/L Total Protein (6.3-8.2) g/dL Albumin (3.5-5.0) g/dL Amylase (30-110) U/L Lipase (23-300) U/L Urine Color Urine Appearance (Clear) Urine pH (5.0-8.0) Ur Specific [place] (1.001-1.035) Urine Protein (Negative) Urine Glucose (UA) (Negative) Urine Ketones (Negative) Urine Blood (Negative) Urine Nitrite (Negative) Urine Bilirubin (Negative) Urine Urobilinogen (<2.0) mg/dL Ur Leukocyte Esterase (Negative) Urine RBC (0-5) /hpf Urine WBC (0-5) /hpf Ur Squamous Epith Cells (0-4) /hpf Urine Mucus (None) /hpf Urine HCG, Qual Not Detected (Not Detectd) Disposition Clinical Impression: Gastroenteritis Disposition: HOME SELF-CARE Condition: Good Instructions (If sedation given, give patient instructions): Acute Nausea and Vomiting (ED) Prescriptions: Ondansetron Odt [Zofran ODT] 4 mg PO Q8HR PRN #10 tab PRN Reason: Nausea Is patient prescribed a controlled substance at d/c from ED?: No Referrals: None,Stated [Primary Care Provider] - 1-2 days
[2018-10-14 07:14] VITALS: BP 102/56; PULSE 84; RESP 18
== END 2018-10-14 07:13 | disposition home or self-care (01) ==
LOC: EC 05:34
DX: K52.9 Noninfective gastroenteritis and colitis, unspecified (principal); F31.9 Bipolar disorder, unspecified; F41.9 Anxiety disorder, unspecified; Z87.891 Personal history of nicotine dependence; Z79.899 Other long term (current) drug therapy; Z88.8 Allergy status to other drugs, medicaments and biological substances
CPT/HCPCS: 36415; 80053; 82150; 83690; 85025; 81001; 81025; 99284; 96374; 96361; J2405

== ENCOUNTER 2018-11-08 08:38 | Emergency (ER) | payer OTHER ==
[2018-11-08] MEDS ORDERED: KETOROLAC 30 MG/ML 1 ML VIAL IVP STA (09:27)
[2018-11-08] MEDS ORDERED: diphenhydrAMINE 50 MG/ML 1 ML VIAL IVP STA (09:27)
[2018-11-08] MEDS ORDERED: SODIUM CHLORIDE 0.9% 1,000 ML IV STA ×2 (09:27)
[2018-11-08] MEDS ORDERED: METOCLOPRAMIDE 5 MG/ML 2 ML VIAL IVP STA (09:27)
[2018-11-08] MEDS ORDERED: MECLIZINE 12.5 MG TAB PO STA (09:28)
--- NOTE | 2018-11-08 10:29 | ED ---
Headache HPI - General Chief Complaint: Headache Stated Complaint: Migraine Time Seen by Provider: 11/08/18 09:11 Source: RN notes reviewed, old records reviewed Mode of arrival: ambulatory - History of Present Illness Initial Comments: Patient is a 33 year old female with history of migraines, presents today with 2 days of headache, and vertigo like symptoms. She reports she gets vertigo commonly with her migraines. She states that she missed work this morning and complains of nausea. She reports this feels similiar to all previous migraines. - Related Data Home Medications Medication Instructions Recorded Confirmed Citalopram Hydrobromide [CeleXA] 20 mg PO HS 06/10/18 11/08/18 Medroxyprogesterone Acetate 150 mg IM Q84D 11/08/18 11/08/18 [Depo-Provera] Previous Rx's Medication Instructions Recorded Ketorolac [Toradol] 10 mg PO TID #12 tab 11/08/18 Meclizine [Antivert] 25 mg PO BID #12 tab 11/08/18 Allergies Allergy/AdvReac Type Severity Reaction Status Date / Time lorazepam [From Ativan] Allergy Rash/Hives Verified 11/08/18 09:56 Review of Systems ROS Statement: Those systems with pertinent positive or pertinent negative responses have been documented in the HPI. ROS Other: All systems not noted in ROS Statement are negative. Past Medical History Past Medical History: Pneumonia Additional Past Medical History / Comment(s): brain injury, MIGARINES,VERTIGO,kidney infection kidney stones History of Any Multi-Drug Resistant Organisms: None Reported Additional Past Surgical History / Comment(s): breast biopsy X3-NEG Past Anesthesia/Blood Transfusion Reactions: Motion Sickness Past Psychological History: Anxiety, Bipolar, Depression Smoking Status: Current every day smoker Past Alcohol Use History: None Reported Past Drug Use History: Marijuana - Past Family History Father Family Medical History: CVA/TIA, Hyperlipidemia Additional Family Medical History / Comment(s): TIA Mother Family Medical History: Cancer Additional Family Medical History / Comment(s): BREAST CANCER,MIGRAINES, VERTIG O,TREMORS General Exam - General Exam Comments Initial Comments: Well appearing 33 year old female, no distress. General appearance: alert Head exam: Present: atraumatic, normocephalic, normal inspection Eye exam: Present: normal appearance, PERRL, EOMI. Absent: scleral icterus, conjunctival injection, periorbital swelling ENT exam: Present: normal exam, mucous membranes moist Neck exam: Present: normal inspection. Absent: tenderness, meningismus, lymphadenopathy Respiratory exam: Present: normal lung sounds bilaterally. Absent: respiratory distress, wheezes, rales, rhonchi, stridor Cardiovascular Exam: Present: regular rate, normal rhythm, normal heart sounds. Absent: systolic murmur, diastolic murmur, rubs, gallop, clicks GI/Abdominal exam: Present: soft, normal bowel sounds. Absent: distended, tenderness, guarding, rebound, rigid Extremities exam: Present: normal inspection, full ROM, normal capillary refill. Absent: tenderness, pedal edema, joint swelling, calf tenderness Back exam: Present: normal inspection Neurological exam: Present: alert, oriented X3, CN II-XII intact Psychiatric exam: Present: normal affect, normal mood Skin exam: Present: warm, dry, intact, normal color. Absent: rash Course Vital Signs 11/08/18 11/08/18 09:00 11:06 Temperature 98.4 F 98.1 F Pulse Rate 80 64 Respiratory 16 18 Rate Blood Pressure 110/70 100/58 O2 Sat by Pulse 100 100 Oximetry Medical Decision Making - Medical Decision Making 33 year old female with dizziness and migraine headache, she has no neuro deficits. Harjitiane feels similiar to all previous migraines. She was given IV fluids and cocktail and reports she feels well. States she [facility] Discussed return parameters. Will dischange patient with Antivert and toradol. Disposition Clinical Impression: Migraine Disposition: HOME SELF-CARE Condition: Good Instructions (If sedation given, give patient instructions): Migraine Headache (ED) Additional Instructions: Patient advised follow-up with your regular primary care physician. Take the medications as prescribed for dizziness and headache. Patient should return to the emergency department if any alarming signs or symptoms occur. Prescriptions: Meclizine [Antivert] 25 mg PO BID #12 tab Ketorolac [Toradol] 10 mg PO TID #12 tab Is patient prescribed a controlled substance at d/c from ED?: No Referrals: None,Stated [Primary Care Provider] - 1-2 days Abena Azul MD [STAFF PHYSICIAN] - 1-2 days Time of Disposition: 10:26
[2018-11-08 11:07] VITALS: BP 100/58; PULSE 64; RESP 18; TEMP 98.1
== END 2018-11-08 11:06 | disposition home or self-care (01) ==
LOC: EC 08:38
DX: G43.909 Migraine, unspecified, not intractable, without status migrainosus (principal); F41.9 Anxiety disorder, unspecified; F32.9 Major depressive disorder, single episode, unspecified; F17.200 Nicotine dependence, unspecified, uncomplicated; Z87.820 Personal history of traumatic brain injury; Z79.3 Long term (current) use of hormonal contraceptives; Z79.899 Other long term (current) drug therapy; Z88.8 Allergy status to other drugs, medicaments and biological substances
CPT/HCPCS: 99284; 96374; 96375 ×2; 96361; J1200; J2765; J1885

== ENCOUNTER 2018-12-06 03:17 | Emergency (ER) | payer OTHER ==
[2018-12-06 03:25] VITALS: RESP 16; TEMP 97.4
--- NOTE | 2018-12-06 03:29 | ED ---
Headache HPI - General Chief Complaint: Headache Stated Complaint: headache Time Seen by Provider: 12/06/18 03:29 Mode of arrival: ambulatory - History of Present Illness Initial Comments: Patient is a 33-year-old female with past medical history of chronic migraine she reports she gets 2-3 migraines per month. Patient reports that today she is having a migraine similar to previous however she has profound nausea and vomiting can't tolerate any by mouth intake so she came to the ER for evaluation. Patient reports migraines been going on for about 6 hours vomiting is been going on for about 2. She describes the headache as global, pressure- like, identical to previous migraines. Associated with phonophobia, photophobia and nausea and vomiting. This headache was not sudden in onset and is not the worse headache of the patient's life, not associated with fever, there is no nuchal rigidity there is no focal neurologic deficits. - Related Data Home Medications Medication Instructions Recorded Confirmed Citalopram Hydrobromide [CeleXA] 20 mg PO HS 06/10/18 11/08/18 Medroxyprogesterone Acetate 150 mg IM Q84D 11/08/18 11/08/18 [Depo-Provera] Previous Rx's Medication Instructions Recorded Ketorolac [Toradol] 10 mg PO TID #12 tab 11/08/18 Meclizine [Antivert] 25 mg PO BID #12 tab 11/08/18 Allergies Allergy/AdvReac Type Severity Reaction Status Date / Time lorazepam [From Ativan] Allergy Rash/Hives Verified 11/08/18 09:56 Review of Systems ROS Statement: Those systems with pertinent positive or pertinent negative responses have been documented in the HPI. ROS Other: All systems not noted in ROS Statement are negative. Past Medical History Past Medical History: Pneumonia Additional Past Medical History / Comment(s): brain injury, M IGARINES,VERTIGO,kidney infection kidney stones History of Any Multi-Drug Resistant Organisms: None Reported Additional Past Surgical History / Comment(s): breast biopsy X3-NEG Past Anesthesia/Blood Transfusion Reactions: Motion Sickness Past Psychological History: Anxiety, Bipolar, Depression Smoking Status: Current every day smoker Past Alcohol Use History: None Reported Past Drug Use History: Marijuana - Past Family History Father Family Medical History: CVA/TIA, Hyperlipidemia Additional Family Medical History / Comment(s): TIA Mother Family Medical History: Cancer Additional Family Medical History / Comment(s): BREAST CANCER,MIGRAINES, VERTIGO,TREMORS General Exam - General Exam Comments Initial Comments: Physical Exam GENERAL: Appears uncomfortable resting with a wet washcloth across her eyes HENT: Normocephalic, Atraumatic. EYES: PERRL, EOMI PULMONARY: Unlabored respirations. No audible rales rhonchi or wheezing was noted. CARDIOVASCULAR: There is a regular rate and rhythm without any murmurs gallops or rubs. ABDOMEN: Soft and nontender with normal bowel sounds. SKIN: Skin is clear with no lesions or rashes and otherwise unremarkable. : Deferred NEUROLOGIC: Patient is alert and oriented x3. Moving all extremities spontaneously MUSCULOSKELETAL: Normal extremities with adequate strength and full range of motion. No lower extremity swelling or edema. No calf tenderness. 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 Patient like to be discharged home at this time. - Lab Data Result diagrams: 12/06/18 03:53 12/06/18 03:53 Lab Results 12/06/18 12/06/18 Range/Units 03:53 03:53 WBC 13.9 H (3.8-10.6) k/uL RBC 4.65 (3.80-5.40) m/uL Hgb 12.6 (11.4-16.0) gm/dL Hct 39.9 (34.0-46.0) % MCV 85.7 (80.0-100.0) fL MCH 27.0 (25.0-35.0) pg MCHC 31.5 (31.0-37.0) g/dL RDW 14.8 (11.5-15.5) % Plt Count 248 (150-450) k/uL Neutrophils % 77 % Lymphocytes % 17 % Monocytes % 4 % Eosinophils % 1 % Basophils % 0 % Neutrophils # 10.7 H (1.3-7.7) k/uL Lymphocytes # 2.3 (1.0-4.8) k/uL Monocytes # 0.5 (0-1.0) k/uL Eosinophils # 0.2 (0-0.7) k/uL Basophils # 0.0 (0-0.2) k/uL Sodium 139 (137-145) mmol/L Potassium 4.4 (3.5-5.1) mmol/L Chloride 107 (98-107) mmol/L Carbon Dioxide 23 (22-30) mmol/L Anion Gap 9 mmol/L BUN 16 (7-17) mg/dL Creatinine 0.71 (0.52-1.04) mg/dL Est GFR (CKD-EPI)AfAm >90 (>60 ml/min/1.73 sqM) Est GFR (CKD-EPI)NonAf >90 (>60 ml/min/1.73 sqM) Glucose 94 (74-99) mg/dL Calcium 9.4 (8.4-10.2) mg/dL Total Bilirubin 0.2 (0.2-1.3) mg/dL AST 24 (14-36) U/L ALT 15 (9-52) U/L Alkaline Phosphatase 58 (38-126) U/L Total Protein 7.3 (6.3-8.2) g/dL Albumin 4.7 (3.5-5.0) g/dL Disposition Clinical Impression: Headache, Migraine Disposition: HOME SELF-CARE Condition: Stable Instructions (If sedation given, give patient instructions): Acute Headache (ED) Is patient prescribed a controlled substance at d/c from ED?: No Referrals: None,Stated [Primary Care Provider] - 1-2 days
[2018-12-06] MEDS ORDERED: METOCLOPRAMIDE 5 MG/ML 2 ML VIAL IVP STA (03:39)
[2018-12-06] MEDS ORDERED: diphenhydrAMINE 50 MG/ML 1 ML VIAL IVP STA (03:39)
[2018-12-06] MEDS ORDERED: KETOROLAC 30 MG/ML 1 ML VIAL IVP ONE (03:39)
[2018-12-06] MEDS ORDERED: SODIUM CHLORIDE 0.9% 1,000 ML IV ONE (03:57)
[2018-12-06 04:06] LABS: Basophils % (A) 0 %; Eosinophils # (A) 0.2 k/uL (0-0.7); Eosinophils % (A) 1 %; HCT 39.9 % (34.0-46.0); HGB 12.6 gm/dL (11.4-16.0); Lymphocytes # (A) 2.3 k/uL (1.0-4.8); Lymphocytes % (A) 17 %; MCHC 31.5 g/dL (31.0-37.0); MCV 85.7 fL (80.0-100.0); Mean Platelet Volume 6.4; Monocytes # (A) 0.5 k/uL (0-1.0); Monocytes % (A) 4 %; Neutrophils # (A) 10.7 k/uL (1.3-7.7); Neutrophils % (A) 77 %; Platelet Count 248 k/uL (150-450); RBC 4.65 m/uL (3.80-5.40); RDW 14.8 % (11.5-15.5); WBC 13.9 k/uL (3.8-10.6)
[2018-12-06 04:18] LABS: ALT 15 U/L (9-52); AST 24 U/L (14-36); African American GFR (CKD) >90 (>60 ml/min/1.73 sqM); Albumin 4.7 g/dL (3.5-5.0); Alkaline Phosphatase 58 U/L (38-126); Anion Gap 9 mmol/L; Blood Urea Nitrogen 16 mg/dL (7-17); Calcium 9.4 mg/dL (8.4-10.2); Carbon Dioxide 23 mmol/L (22-30); Chloride 107 mmol/L (98-107); Glucose 94 mg/dL (74-99); Potassium 4.4 mmol/L (3.5-5.1); Sodium 139 mmol/L (137-145); Total Bilirubin 0.2 mg/dL (0.2-1.3); Total Protein 7.3 g/dL (6.3-8.2)
[2018-12-06 05:16] VITALS: BP 105/70; PULSE 59
== END 2018-12-06 04:47 | disposition home or self-care (01) ==
LOC: EC 03:17
DX: G43.909 Migraine, unspecified, not intractable, without status migrainosus (principal); F41.9 Anxiety disorder, unspecified; F31.9 Bipolar disorder, unspecified; F17.200 Nicotine dependence, unspecified, uncomplicated; Z79.3 Long term (current) use of hormonal contraceptives; Z79.899 Other long term (current) drug therapy; Z88.8 Allergy status to other drugs, medicaments and biological substances
CPT/HCPCS: 99283; 96374; 96375 ×2; 96361; 36415; 80053; 85025; J1200; J2765; J1885

== ENCOUNTER → 2018-12-06 | Outpatient (CLI) | payer OTHER ==
[2018-12-06 18:08] LABS: Appearance,Urine Cloudy (Clear); Bacteria,Urine Few /hpf; Bilirubin,Urine Negative (Negative); Blood,Urine Moderate (Negative); Color,Urine Yellow; Glucose,Urine (UA) Negative (Negative); Ketones,Urine Negative (Negative); Leukocyte Esterase,Urine Small (Negative); Mucus,Urine Rare /hpf; Nitrite,Urine Negative (Negative); Protein,Urine Trace (Negative); RBC,Urine 5 /hpf (0-5); Specific Gravity,Urine 1.017 (1.001-1.035); Squamous Epithelial Cell,Urine 2 /hpf (0-4); Urobilinogen,Urine <2.0 mg/dL (<2.0); WBC,Urine 11 /hpf (0-5)
== END | disposition home or self-care (01) ==
LOC: LABWHC1 16:25
PROVIDERS: ATTEND Obstetrics & Gynecology
DX: R30.0 Dysuria (principal); R82.90 Unspecified abnormal findings in urine
CPT/HCPCS: 81001; 87086

== ENCOUNTER 2019-01-03 12:06 | Emergency (ER) | payer OTHER ==
[2019-01-03 12:11] VITALS: RESP 16; TEMP 97.8
[2019-01-03] MEDS ORDERED: SODIUM CHLORIDE 0.9% 1,000 ML IV STA (12:41)
--- NOTE | 2019-01-03 12:41 | ED ---
Dizziness HPI - General Chief Complaint: Syncope Stated Complaint: syncope Time Seen by Provider: 01/03/19 12:18 Source: patient, RN notes reviewed, old records reviewed Mode of arrival: wheelchair Limitations: no limitations - History of Present Illness Initial Comments: Patient is a 33-year-old female with multiple complaints. She complains today of dizziness, episodes of hands and feet, numbness and tingling around 9:30. Patient reports it felt like her brain wasn't processing and she felt like she was "out of her body" and dizzy. Patient also complains of some chronic right- sided abdominal and flank pain. She has had history of kidney stones. She reports history of migraine headachs, and complains of headaches. She states that she is having flank pain at this time. She denies any other significant complaints. Does have a history of anxiety. - Related Data Home Medications Medication Instructions Recorded Confirmed Citalopram Hydrobromide [CeleXA] 20 mg PO HS 06/10/18 01/03/19 Medroxyprogesterone Acetate 150 mg IM Q84D 11/08/18 01/03/19 [Depo-Provera] Naproxen Sodium [Aleve] 220 mg PO DAILY PRN 01/03/19 01/03/19 Allergies Allergy/AdvReac Type Severity Reaction Status Date / Time lorazepam [From Ativan] AdvReac Rash/Hives Verified 01/03/19 12:20 Review of Systems ROS Statement: Those systems with pertinent positive or pertinent negative responses have been documented in the HPI. ROS Other: All systems not noted in ROS Statement are negative. Past Medical History Past Medical History: Pneumonia Additional Past Medical History / Comment(s): brain injury, MIGARINES,VERTIGO,kidney infection kidney stones History of Any Multi-Drug Resistant Organisms: None Reported Additional Past Surgical History / Comment(s): breast biopsy X3-NEG Past Anesthesia/Blood Transfusion Reactions: Motion Sickness Past Psychological History: Anxiety, Bipolar, Depression Smoking Status: Current every day smoker Past Alcohol Use History: None Reported Past Drug Use History: Marijuana - Past Family History Father Family Medical History: CVA/TIA, Hyperlipidemia Additional Family Medical History / Comment(s): TIA Mother Family Medical History: Cancer Additional Family Medical History / Comment(s): BREAST CANCER,MIGRAINES, VERTIGO,TREMORS General Exam - General Exam Comments Initial Comments: This is a 33-year-old female. Alert and oriented 3. No distress. Anxious. Limitations: no limitations General appearance: alert, in no apparent distress, anxious Head exam: Present: atraumatic, normocephalic, normal inspection Eye exam: Present: normal appearance ENT exam: Present: normal exam, mucous membranes moist Neck exam: Present: normal inspection. Absent: tenderness, meningismus, lym phadenopathy Respiratory exam: Present: normal lung sounds bilaterally. Absent: respiratory distress, wheezes, rales, rhonchi, stridor Cardiovascular Exam: Present: regular rate, normal rhythm, normal heart sounds. Absent: systolic murmur, diastolic murmur, rubs, gallop, clicks GI/Abdominal exam: Present: soft, tenderness (RUQ tenderness), normal bowel sounds. Absent: distended, guarding, rebound, rigid Psychiatric exam: Present: normal affect, normal mood Skin exam: Present: warm, dry, intact, normal color. Absent: rash Course Vital Signs 01/03/19 12:08 Temperature 97.8 F Pulse Rate 60 Respiratory 16 Rate Blood Pressure 113/71 O2 Sat by Pulse 100 Oximetry Medical Decision Making - Medical Decision Making This patient's a 33-year-old female presents with multiple complaints, main concern for near syncopal episode, dizziness. She also complained of some chronic right-sided flank abdominal pain. She states she's had history of kidney stones and infection. She was recent and treated for UTI. This time she is finish antibiotic. This time patient's lab work was reviewed and unremarkable. Offered Patient pain medicine including Toradol and a medicine for migraine headache with Reglan Benadryl. Patient states she is refusing won't help her. She is adamant that she struck her pain meds. She's had a history of kidney stones and this time is no blood in her urine. She came in with multiple complaints. She appears in no distress. Family's concern for chronic migraines a discussion is follow-up with primary care doctor as well as neurology. I discussed giving the Patient 1 dose of pain medicine the ED before discharge. - Lab Data Result diagrams: 01/03/19 12:51 01/03/19 12:51 Lab Results 01/03/19 01/03/19 01/03/19 Range/Units 12:51 12:51 12:51 WBC 9.4 (3.8-10.6) k/uL RBC 4.86 (3.80-5.40) m/uL Hgb 13.9 (11.4-16.0) gm/dL Hct 42.6 (34.0-46.0) % MCV 87.6 (80.0-100.0) fL MCH 28.5 (25.0-35.0) pg MCHC 32.6 (31.0-37.0) g/dL RDW 14.7 (11.5-15.5) % Plt Count 332 (150-450) k/uL Neutrophils % 78 % Lymphocytes % 15 % Monocytes % 5 % Eosinophils % 1 % Basophils % 0 % Neutrophils # 7.3 (1.3-7.7) k/uL Lymphocytes # 1.4 (1.0-4.8) k/uL Monocytes # 0.5 (0-1.0) k/uL Eosinophils # 0.1 (0-0.7) k/uL Basophils # 0.0 (0-0.2) k/uL PT 11.9 (9.0-12.0) sec INR 1.1 (<1.2) APTT 28.2 (22.0-30.0) sec Sodium 142 (137-145) mmol/L Potassium 4.4 (3.5-5.1) mmol/L Chloride 109 H (98-107) mmol/L Carbon Dioxide 22 (22-30) mmol/L Anion Gap 11 mmol/L BUN 12 (7-17) mg/dL Creatinine 0.77 (0.52-1.04) mg/dL Est GFR (CKD-EPI)AfAm >90 (>60 ml/min/1.73 sqM) Est GFR (CKD-EPI)NonAf >90 (>60 ml/min/1.73 sqM) Glucose 81 (74-99) mg/dL Calcium 10.1 (8.4-10.2) mg/dL Magnesium 2.3 (1.6-2.3) mg/dL Total Bilirubin 0.4 (0.2-1.3) mg/dL AST 20 (14-36) U/L ALT 14 (9-52) U/L Alkaline Phosphatase 68 (38-126) U/L Troponin I (0.000-0.034) ng/mL Total Protein 8.4 H (6.3-8.2) g/dL Albumin 5.0 (3.5-5.0) g/dL Urine Color Urine Appearance (Clear) Urine pH (5.0-8.0) Ur Specific Holder (1.001-1.035) Urine Protein (Negative) Urine Glucose (UA) (Negative) Urine Ketones (Negative) Urine Blood (Negative) Urine Nitrite (Negative) Urine Bilirubin (Negative) Urine Urobilinogen (<2.0) mg/dL Ur Leukocyte Esterase (Negative) Urine RBC (0-5) /hpf Ur Squamous Epith Cells (0-4) /hpf Amorphous Sediment (None) /hpf Urine HCG, Qual (Not Detectd) 01/03/19 01/03/19 01/03/19 Range/Units 12:51 12:51 12:51 WBC (3.8-10.6) k/uL RBC (3.80-5.40) m/uL Hgb (11.4-16.0) gm/dL Hct (34.0-46.0) % MCV (80.0-100.0) fL MCH (25.0-35.0) pg MCHC (31.0-37.0) g/dL RDW (11.5-15.5) % Plt Count (150-450) k/uL Neutrophils % % Lymphocytes % % Monocytes % % Eosinophils % % Basophils % % Neutrophils # (1.3-7.7) k/uL Lymphocytes # (1.0-4.8) k/uL Monocytes # (0-1.0) k/uL Eosinophils # (0-0.7) k/uL Basophils # (0-0.2) k/uL PT (9.0-12.0) sec INR (<1.2) APTT (22.0-30.0) sec Sodium (137-145) mmol/L Potassium (3.5-5.1) mmol/L Chloride (98-107) mmol/L Carbon Dioxide (22-30) mmol/L Anion Gap mmol/L BUN (7-17) mg/dL Creatinine (0.52-1.04) mg/dL Est GFR (CKD-EPI)AfAm (>60 ml/min/1.73 sqM) Est GFR (CKD-EPI)NonAf (>60 ml/min/1.73 sqM) Glucose (74-99) mg/dL Calcium (8.4-10.2) mg/dL Magnesium (1.6-2.3) mg/dL Total Bilirubin (0.2-1.3) mg/dL AST (14-36) U/L ALT (9-52) U/L Alkaline Phosphatase (38-126) U/L Troponin I <0.012 (0.000-0.034) ng/mL Total Protein (6.3-8.2) g/dL Albumin (3.5-5.0) g/dL Urine Color Yellow Urine Appearance Cloudy H (Clear) Urine pH 7.5 (5.0-8.0) Ur Specific Holder 1.009 (1.001-1.035) Urine Protein Negative (Negative) Urine Glucose (UA) Negative (Negative) Urine Ketones Negative (Negative) Urine Blood Negative (Negative) Urine Nitrite Negative (Negative) Urine Bilirubin Negative (Negative) Urine Urobilinogen <2.0 (<2.0) mg/dL Ur Leukocyte Esterase Negative (Negative) Urine RBC 5 (0-5) /hpf Ur Squamous Epith Cells 1 (0-4) /hpf Amorphous Sediment Moderate H (None) /hpf Urine HCG, Qual Not Detected (Not Detectd) - Radiology Data Radiology results: report reviewed Chest x-ray shows blunting of costophrenic angle likely due to poor inspiration. Disposition Clinical Impression: Multiple complaints, Flank pain, History of frequent headaches, Dizziness Disposition: HOME SELF-CARE Condition: Good Instructions (If sedation given, give patient instructions): Abdominal Pain (ED) Additional Instructions: Patient advised to follow-up with neurology specialist and primary care physicians. Follow-up with urology for this chronic flank pain. Return to the emergency department if any alarming signs or symptoms occur. Is patient prescribed a controlled substance at d/c from ED?: No Referrals: None,Stated [Primary Care Provider] - 1-2 days Bo Dorantes DO [STAFF PHYSICIAN] - 1-2 days Abena Azul MD [STAFF PHYSICIAN] - 1-2 days Margret Ulloa MD [STAFF PHYSICIAN] - 1-2 days Time of Disposition: 14:37
[2019-01-03 13:17] LABS: Basophils % (A) 0 %; Eosinophils # (A) 0.1 k/uL (0-0.7); Eosinophils % (A) 1 %; HCT 42.6 % (34.0-46.0); HGB 13.9 gm/dL (11.4-16.0); Lymphocytes # (A) 1.4 k/uL (1.0-4.8); Lymphocytes % (A) 15 %; MCH 28.5 pg (25.0-35.0); MCHC 32.6 g/dL (31.0-37.0); MCV 87.6 fL (80.0-100.0); Mean Platelet Volume 6.5; Monocytes # (A) 0.5 k/uL (0-1.0); Monocytes % (A) 5 %; Neutrophils # (A) 7.3 k/uL (1.3-7.7); Neutrophils % (A) 78 %; Platelet Count 332 k/uL (150-450); RBC 4.86 m/uL (3.80-5.40); RDW 14.7 % (11.5-15.5); WBC 9.4 k/uL (3.8-10.6)
[2019-01-03 13:24] LABS: ALT 14 U/L (9-52); AST 20 U/L (14-36); African American GFR (CKD) >90 (>60 ml/min/1.73 sqM); Alkaline Phosphatase 68 U/L (38-126); Anion Gap 11 mmol/L; Blood Urea Nitrogen 12 mg/dL (7-17); Calcium 10.1 mg/dL (8.4-10.2); Carbon Dioxide 22 mmol/L (22-30); Chloride 109 mmol/L (98-107); Glucose 81 mg/dL (74-99); Magnesium 2.3 mg/dL (1.6-2.3); Potassium 4.4 mmol/L (3.5-5.1); Sodium 142 mmol/L (137-145); Total Bilirubin 0.4 mg/dL (0.2-1.3); Total Protein 8.4 g/dL (6.3-8.2)
--- NOTE | 2019-01-03 13:28 | XR ---
EXAMINATION TYPE: XR chest 2V DATE OF EXAM: 01/03/2019 COMPARISON: 12/19/2008 HISTORY: Syncope TECHNIQUE: Frontal and lateral views of the chest are obtained. FINDINGS: Right heart border is silhouetted, similar to 12/19/2008. No pneumothorax. Frontal view dem onstrates blunting of the costophrenic angles, right greater than left. The cardiac silhouette size i s within normal limits. The osseous structures are intact. IMPRESSION: Costophrenic angle blunting, right greater than left may be related to poor inspiration or small pleu ral effusions.
[2019-01-03 13:32] LABS: INR 1.1 (<1.2); Partial Thromboplastin Time 28.2 sec (22.0-30.0); Prothrombin Time 11.9 sec (9.0-12.0)
[2019-01-03] MEDS ORDERED: KETOROLAC 30 MG/ML 1 ML VIAL IVP STA (13:44)
[2019-01-03] MEDS ORDERED: ACETAMINOPHEN TAB 500 MG TAB PO STA (13:51)
[2019-01-03] MEDS ORDERED: METOCLOPRAMIDE 5 MG/ML 2 ML VIAL IVP STA (13:52)
[2019-01-03] MEDS ORDERED: diphenhydrAMINE 50 MG/ML 1 ML VIAL IVP STA (13:52)
[2019-01-03 13:54] LABS: Amorphous Sediment,Urine Moderate /hpf; Appearance,Urine Cloudy (Clear); Bilirubin,Urine Negative (Negative); Blood,Urine Negative (Negative); Color,Urine Yellow; Glucose,Urine (UA) Negative (Negative); Ketones,Urine Negative (Negative); Leukocyte Esterase,Urine Negative (Negative); Nitrite,Urine Negative (Negative); PH, Urine 7.5 (5.0-8.0); Protein,Urine Negative (Negative); RBC,Urine 5 /hpf (0-5); Specific Gravity,Urine 1.009 (1.001-1.035); Squamous Epithelial Cell,Urine 1 /hpf (0-4); Urobilinogen,Urine <2.0 mg/dL (<2.0)
[2019-01-03] MEDS ORDERED: MORPHINE SULFATE 2 MG/ML SYRINGE IVP ONE (14:36)
[2019-01-03 14:54] VITALS: BP 139/83; PULSE 71
== END 2019-01-03 14:51 | disposition home or self-care (01) ==
LOC: EC 12:06
DX: R10.9 Unspecified abdominal pain (principal); R51 Headache; R42 Dizziness and giddiness; R00.1 Bradycardia, unspecified; R20.0 Anesthesia of skin; R20.2 Paresthesia of skin; F31.9 Bipolar disorder, unspecified; F41.9 Anxiety disorder, unspecified; F17.200 Nicotine dependence, unspecified, uncomplicated; Z88.8 Allergy status to other drugs, medicaments and biological substances; Z79.3 Long term (current) use of hormonal contraceptives; Z79.899 Other long term (current) drug therapy; Z87.442 Personal history of urinary calculi; Z87.440 Personal history of urinary (tract) infections; Z82.0 Family history of epilepsy and other diseases of the nervous system; Z53.20 Procedure and treatment not carried out because of patient's decision for unspecified reasons
CPT/HCPCS: 36415; 93005; 80053; 83735; 84484; 85025; 85610; 85730; 81001; 81025; 71046; 99284; 96374; J2270

== ENCOUNTER 2019-02-03 08:39 | Emergency (ER) | payer OTHER ==
[2019-02-03 08:42] VITALS: RESP 18
[2019-02-03] MEDS ORDERED: ONDANSETRON ODT 4 MG TAB PO STA (08:45)
[2019-02-03] MEDS ORDERED: KETOROLAC 30 MG/ML 1 ML VIAL IVP STA (08:50)
[2019-02-03] MEDS ORDERED: ONDANSETRON 4 MG/2 ML VIAL IVP STA (08:50)
[2019-02-03] MEDS ORDERED: diphenhydrAMINE 50 MG/ML 1 ML VIAL IVP STA (08:50)
[2019-02-03 09:21] LABS: Amorphous Sediment,Urine Occasional /hpf; Appearance,Urine Cloudy (Clear); Bilirubin,Urine Negative (Negative); Blood,Urine Small (Negative); Color,Urine Yellow; Glucose,Urine (UA) Negative (Negative); Ketones,Urine Negative (Negative); Leukocyte Esterase,Urine Negative (Negative); Mucus,Urine Occasional /hpf; Nitrite,Urine Negative (Negative); Protein,Urine 1+ (Negative); RBC,Urine 1 /hpf (0-5); Specific Gravity,Urine 1.019 (1.001-1.035); Squamous Epithelial Cell,Urine 1 /hpf (0-4); WBC,Urine 4 /hpf (0-5)
[2019-02-03] MEDS ORDERED: MORPHINE SULFATE 4 MG/ML SYRINGE IVP STA (10:08)
--- NOTE | 2019-02-03 10:09 | ED ---
Nausea/Vomiting/Diarrhea HPI - General Chief complaint: Nausea/Vomiting/Diarrhea Stated complaint: vomiting/dizziness Time Seen by Provider: 02/03/19 08:44 Source: patient Mode of arrival: wheelchair Limitations: no limitations - History of Present Illness Initial comments: 33-year-old female with history of chronic migraines presents today for chief complaint headache and vomiting. Patient states that she gets chronic migraines which caused her to have vomiting. She states that she also gets photophobia and sensitivity to light. Patient states that today she was having one of her typical migraines here. She states that she is unable to care for her kids when they occur and she states when she presents emergency paresthesia given medication; migraine go away. Patient denies any sudden onset of migraine. She denies this being the worst migraine of her life. Patient denies any head injuries neck pain fever, or neck stiffness. Patient denies any abnormal characteristics of the headache. Remaining review of systems negative. Upon arrival patient appears well no signs of acute distress. - Related Data Home Medications Medication Instructions Recorded Confirmed Citalopram Hydrobromide [CeleXA] 20 mg PO HS 06/10/18 01/03/19 Medroxyprogesterone Acetate 150 mg IM Q84D 11/08/18 01/03/19 [Depo-Provera] Naproxen Sodium [Aleve] 220 mg PO DAILY PRN 01/03/19 01/03/19 Allergies Allergy/AdvReac Type Severity Reaction Status Date / Time lorazepam [From Ativan] AdvReac Rash/Hives Verified 02/03/19 08:42 Review of Systems ROS Statement: Those systems with pertinent positive or pertinent negative responses have been documented in the HPI. ROS Other: All systems not noted in ROS Statement are negative. Past Medical History Past Medical History: Pneumonia Additional Past Medical History / Comment(s): brain injury, MIGARINES,VERTIGO,kidney infection kidney stones History of Any Multi-Drug Resistant Organisms: None Reported Additional Past Surgical History / Comment(s): breast biopsy X3-NEG Past Anesthesia/Blood Transfusion Reactions: Motion Sickness Past Psychological History: Anxiety, Bipolar, Depression Smoking Status: Current every day smoker Past Alcohol Use History: None Reported Past Drug Use History: Marijuana - Past Family History Father Family Medical History: CVA/TIA, Hyperlipidemia Additional Family Medical History / Comment(s): TIA Mother Family Medical History: Cancer Additional Family Medical History / Comment(s): BREAST CANCER,MIGRAINES, VERTIGO,TREMORS General Exam - General Exam Comments Initial Comments: General: The patient is awake and alert, in no distress, and does not appear acutely ill. Eye: +3 mm pupils are equal, round and reactive to light, extra-ocular movements are intact. No nystagmus. There is normal conjunctiva bilaterally. No signs of icterus. Ears, nose, mouth and throat: There are moist mucous membranes and no oral lesions. Neck: The neck is supple, there is no tenderness or JVD. Cardiovascular: There is a regular rate and rhythm. No murmur, rub or gallop is appreciated. Respiratory: Lungs are clear to auscultation, respirations are non-labored, breath sounds are equal. No wheezes, stridor, rales, or rhonchi. Musculoskeletal: Normal ROM, no tenderness. Strength 5/5 of the UE and LE b/l. Sensation intact of the UE and LE b/l. Radial pulses equal bilaterally 2+. Neurological: A&O x 3. CN II-XII intact, There are no obvious motor or sensory deficits. Coordination appears grossly intact. Speech is normal. No pronator drift. Movement smooth and coordinated. No ataxia. Skin: Skin is warm and dry and no rashes or lesions are noted. Psychiatric: Cooperative, appropriate mood & affect, normal judgment. Limitations: no limitations Course Vital Signs 02/03/19 02/03/19 02/03/19 08:40 11:19 11:25 Temperature 97.7 F 98.7 F 98.7 F Pulse Rate 59 L 45 L 45 L Respiratory 18 18 18 Rate Blood Pressure 98/61 103/70 103/70 O2 Sat by Pulse 98 100 100 Oximetry Medical Decision Making - Medical Decision Making 33-year-old female presenting today for chief complaint of migraine. Patient states her characteristic of migraines states very classic for her usual migraines. Patient doesn't onset of this being the worst headache of her life. There is no focal neurological deficits. No meningeal irritation signs. Patient is afebrile. Patient was given a Ventolin medications emergency department upon multiple re-evaluations patient states her headache was gone away upon final reevaluation patient states that her headache is gone she sitting bedside states she is ready to go home. Patient continues to have no focal neurological deficits and appears well at this time she stated for discharge and outpatient primary care and neurology follow-up. Patient is group with this care plan and return parameters were discussed patient discharged. While - Lab Data Lab Results 02/03/19 02/03/19 Range/Units 09:05 09:05 Urine Color Yellow Urine Appearance Cloudy H (Clear) Urine pH 7.0 (5.0-8.0) Ur Specific [place] 1.019 (1.001-1.035) Urine Protein 1+ H (Negative) Urine Glucose (UA) Negative (Negative) Urine Ketones Negative (Negative) Urine Blood Small H (Negative) Urine Nitrite Negative (Negative) Urine Bilirubin Negative (Negative) Urine Urobilinogen 2.0 (<2.0) mg/dL Ur Leukocyte Esterase Negative (Negative) Urine RBC 1 (0-5) /hpf Urine WBC 4 (0-5) /hpf Ur Squamous Epith Cells 1 (0-4) /hpf Amorphous Sediment Occasional H (None) /hpf Urine Mucus Occasional H (None) /hpf Urine HCG, Qual Not Detected (Not Detectd) Disposition Clinical Impression: Headache Disposition: HOME SELF-CARE Condition: Good Instructions (If sedation given, give patient instructions): Migraine Headache (ED), Acute Headache (ED) Additional Instructions: Please use medication as discussed. Please follow-up with family doctor in the next 2 days and your neurologist. Please return to emergency room if the symptoms increase or worsen or for any other concerns. Is patient prescribed a controlled substance at d/c from ED?: No Referrals: Will Smith MD [Primary Care Provider] - 1-2 days Time of Disposition: 10:55
[2019-02-03 11:20] VITALS: BP 103/70; PULSE 45; TEMP 98.7
== END 2019-02-03 11:26 | disposition home or self-care (01) ==
LOC: EC 08:39
DX: G43.909 Migraine, unspecified, not intractable, without status migrainosus (principal); F41.9 Anxiety disorder, unspecified; F31.9 Bipolar disorder, unspecified; F17.200 Nicotine dependence, unspecified, uncomplicated; Z79.1 Long term (current) use of non-steroidal anti-inflammatories (NSAID); Z79.3 Long term (current) use of hormonal contraceptives; Z79.899 Other long term (current) drug therapy; Z88.8 Allergy status to other drugs, medicaments and biological substances; Z87.820 Personal history of traumatic brain injury
CPT/HCPCS: 99284; 96374; 96375 ×3; 81001; 81025; J2270; J1200; J2405; J1885

== ENCOUNTER 2019-05-22 03:51 | Emergency (ER) | payer OTHER ==
--- NOTE | 2019-05-22 04:37 | ED ---
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 Patient presents the ER this morning for evaluation of a headache it's been going on for 24 hours. Headache is similar to previous migraines it was not sudden onset is not the worse headache of her life she is taking Tylenol cold and sinus and Motrin at home with no improvement in her headache. She's followed with neurologist in the past about her chronic headaches however states that usually when he come on there so severe she is nauseated and vomits and no pills that she can take at home work for her. She currently has no prescription medications for her at home. Last migraine was number of months ago. I again is not associated with any focal neurologic deficits fevers or meningeal signs. - Related Data Home Medications Medication Instructions Recorded Confirmed Citalopram Hydrobromide [CeleXA] 20 mg PO HS 06/10/18 01/03/19 Medroxyprogesterone Acetate 150 mg IM Q84D 11/08/18 01/03/19 [Depo-Provera] Naproxen Sodium [Aleve] 220 mg PO DAILY PRN 01/03/19 01/03/19 Allergies Allergy/AdvReac Type Severity Reaction Status Date / Time lorazepam [From Ativan] AdvReac Rash/Hives Verified 05/22/19 04:07 Review of Systems ROS Statement: Those systems with pertinent positive or pertinent negative responses have been documented in the HPI. ROS Other: All systems not noted in ROS Statement are negative. Past Medical History Past Medical History: Pneumonia Additional Past Medical History / Comment(s): brain injury, MIGARINES,VERTIGO,kidney infection kidney stones History of Any Multi-Drug Resistant Organisms: None Reported Additional Past Surgical History / Comment(s): breast biopsy X3-NEG, Past Anesthesia/Blood Transfusion Reactions: Motion Sickness Past Psychological History: Anxiety, Bipolar, Depression Smoking Status: Current every day smoker Past Alcohol Use History: None Reported Past Drug Use History: Marijuana - Past Family History Father Family Medical History: CVA/TIA, Hyperlipidemia Additional Family Medical History / Comment(s): TIA Mother Family Medical History: Cancer Additional Family Medical History / Comment(s): BREAST CANCER,MIGRAINES, VERTIGO,TREMORS General Exam - General Exam Comments Initial Comments: Physical Exam GENERAL: Patient is uncomfortable HENT: Normocephalic, Atraumatic. EYES: PERRL, EOMI PULMONARY: Unlabored respirations. No audible rales rhonchi or wheezing was noted. CARDIOVASCULAR: There is a regular rate and rhythm without any murmurs gallops or rubs. ABDOMEN: Soft and nontender with normal bowel sounds. SKIN: Skin is clear with no lesions or rashes and otherwise unremarkable. : Deferred NEUROLOGIC: Patient is alert and oriented x3. Moving all extremities spontaneously MUSCULOSKELETAL: Normal extremities with adequate strength and full range of motion. No lower extremity swelling or edema. No calf tenderness. PSYCHIATRIC: Normal psychiatric evaluation. Limitations: no limitations Course Vital Signs 05/22/19 05/22/19 04:03 06:06 Temperature 97.9 F 97.7 F Pulse Rate 72 66 Respiratory 18 16 Rate Blood Pressure 104/68 99/58 O2 Sat by Pulse 97 99 Oximetry Medical Decision Making - Medical Decision Making She was seen and evaluated history was obtained from patient and signs 33-year-old female with a history of chronic recurrent migraines secondary to a TBI. Patient with 1 day of headache, no red flag symptoms. Initially Reglan Benadryl and fluids were ordered patient reported persistent headache and requested Toradol as this helps advised we can give Toradol tonsillar test results and is negative. A test resulted she was given 15 of IV Toradol. Upon reevaluation she had persistent headache and was given a dose of morphine. On reevaluation patient was resting comfortable, I woke her and she stated that she felt much better like to be discharged home at this time to sleep off her headache. - Lab Data Lab Results 05/22/19 05/22/19 Range/Units 05:05 05:05 Urine Color Yellow Urine Appearance Cloudy H (Clear) Urine pH 6.0 (5.0-8.0) Ur Specific [place] 1.020 (1.001-1.035) Urine Protein Trace H (Negative) Urine Glucose (UA) Negative (Negative) Urine Ketones Negative (Negative) Urine Blood Negative (Negative) Urine Nitrite Negative (Negative) Urine Bilirubin Negative (Negative) Urine Urobilinogen <2.0 (<2.0) mg/dL Ur Leukocyte Esterase Negative (Negative) Urine RBC 3 (0-5) /hpf Urine WBC 1 (0-5) /hpf Ur Squamous Epith Cells 13 H (0-4) /hpf Urine Bacteria Rare H (None) /hpf Urine Mucus Rare H (None) /hpf Urine HCG, Qual Not Detected (Not Detectd) Disposition Clinical Impression: Headache Disposition: HOME SELF-CARE Condition: Stable Instructions (If sedation given, give patient instructions): Acute Headache (ED) Is patient prescribed a controlled substance at d/c from ED?: No Referrals: Will Smith MD [Primary Care Provider] - 1-2 days
[2019-05-22] MEDS ORDERED: METOCLOPRAMIDE 5 MG/ML 2 ML VIAL IVP STA (04:38)
[2019-05-22] MEDS ORDERED: SODIUM CHLORIDE 0.9% 1,000 ML IV STA (04:38)
[2019-05-22] MEDS ORDERED: diphenhydrAMINE 50 MG/ML 1 ML VIAL IVP STA (04:38)
[2019-05-22 05:35] LABS: Appearance,Urine Cloudy (Clear); Bacteria,Urine Rare /hpf; Bilirubin,Urine Negative (Negative); Blood,Urine Negative (Negative); Color,Urine Yellow; Glucose,Urine (UA) Negative (Negative); Ketones,Urine Negative (Negative); Leukocyte Esterase,Urine Negative (Negative); Mucus,Urine Rare /hpf; Nitrite,Urine Negative (Negative); Protein,Urine Trace (Negative); RBC,Urine 3 /hpf (0-5); Squamous Epithelial Cell,Urine 13 /hpf (0-4); Urobilinogen,Urine <2.0 mg/dL (<2.0); WBC,Urine 1 /hpf (0-5)
[2019-05-22] MEDS ORDERED: KETOROLAC 30 MG/ML 1 ML VIAL IVP ONE (05:36)
[2019-05-22] MEDS ORDERED: MORPHINE SULFATE 4 MG/ML SYRINGE IVP STA (06:13)
[2019-05-22 07:22] VITALS: BP 98/66; PULSE 67; RESP 17; TEMP 97.9
== END 2019-05-22 07:29 | disposition home or self-care (01) ==
LOC: EC 03:51
DX: G43.709 Chronic migraine without aura, not intractable, without status migrainosus (principal); F41.9 Anxiety disorder, unspecified; F31.9 Bipolar disorder, unspecified; F17.200 Nicotine dependence, unspecified, uncomplicated; Z79.899 Other long term (current) drug therapy; Z88.8 Allergy status to other drugs, medicaments and biological substances; Z87.820 Personal history of traumatic brain injury
CPT/HCPCS: 81001; 81025; 99283; 96374; 96375 ×3; 96361; J2270; J1200; J2765; J1885

== ENCOUNTER 2019-06-07 22:57 | Emergency (ER) | payer OTHER ==
[2019-06-07 23:06] VITALS: TEMP 98
[2019-06-07] MEDS ORDERED: KETOROLAC 30 MG/ML 1 ML VIAL IVP STA (23:41)
[2019-06-07] MEDS ORDERED: diphenhydrAMINE 50 MG/ML 1 ML VIAL IVP STA (23:41)
[2019-06-07] MEDS ORDERED: METOCLOPRAMIDE 5 MG/ML 2 ML VIAL IVP STA (23:41)
[2019-06-07] MEDS ORDERED: SODIUM CHLORIDE 0.9% 1,000 ML IV ONE (23:42)
--- NOTE | 2019-06-07 23:47 | ED ---
Headache HPI - General Chief Complaint: Headache Stated Complaint: Headache,Vomiting Time Seen by Provider: 06/07/19 23:08 Mode of arrival: EMS Limitations: no limitations - History of Present Illness MD Complaint: headache Onset/Timin -: hour(s) Onset Description: sudden Location: diffuse Severity: severe Quality: aching, throbbing Consistency: constant Improves With: nothing Worsens With: light, noise Context: other (Patient was preparing dinner at onset) Associated Symptoms: nausea, vomiting, photophobia, sensitivity to sound Treatments Prior to Arrival: none - Related Data Home Medications Medication Instructions Recorded Confirmed Citalopram Hydrobromide [CeleXA] 20 mg PO HS 06/10/18 01/03/19 Medroxyprogesterone Acetate 150 mg IM Q84D 11/08/18 01/03/19 [Depo-Provera] Naproxen Sodium [Aleve] 220 mg PO DAILY PRN 01/03/19 01/03/19 Allergies Allergy/AdvReac Type Severity Reaction Status Date / Time lorazepam [From Ativan] AdvReac Rash/Hives Verified 06/07/19 23:06 Review of Systems ROS Statement: Those systems with pertinent positive or pertinent negative responses have been documented in the HPI. ROS Other: All systems not noted in ROS Statement are negative. Constitutional: Denies: fever, chills Eyes: Denies: eye pain, vision change ENT: Denies: hearing loss Respiratory: Denies: cough, dyspnea Cardiovascular: Denies: syncope Gastrointestinal: Reports: nausea, vomiting. Denies: abdominal pain Genitourinary: Denies: abnormal menses Musculoskeletal: Denies: back pain Skin: Denies: rash Neurological: Reports: headache. Denies: weakness, numbness, paresthesias, confusion, abnormal gait Past Medical History Past Medical History: Pneumonia Additional Past Medical History / Comment(s): brain injury, MIGARINES,VERTIGO,kidney infection kidney stones History of Any Multi-Drug Resistant Organisms: None Reported Additional Past Surgical History / Comment(s): breast biopsy X3-NEG, Past Anesthesia/Blood Transfusion Reactions: Motion Sickness Past Psychological History: Anxiety, Bipolar, Depression Smoking Status: Current every day smoker Past Alcohol Use History: None Reported Past Drug Use History: Marijuana - Past Family History Father Family Medical History: CVA/TIA, Hyperlipidemia Additional Family Medical History / Comment(s): TIA Mother Family Medical History: Cancer Additional Family Medical History / Comment(s): BREAST CANCER,MIGRAINES, VERTIGO,TREMORS General Exam Limitations: no limitations General appearance: alert, in no apparent distress Head exam: Present: atraumatic, normocephalic Eye exam: Present: normal appearance, PERRL, EOMI. Absent: scleral icterus, conjunctival injection ENT exam: Present: normal oropharynx Neck exam: Present: normal inspection, full ROM. Absent: tenderness, meningismus Respiratory exam: Present: normal lung sounds bilaterally. Absent: respiratory distress, wheezes, rales, rhonchi, stridor Cardiovascular Exam: Present: regular rate, normal rhythm, normal heart sounds. Absent: systolic murmur, diastolic murmur, rubs, gallop Extremities exam: Present: normal inspection, normal capillary refill Back exam: Present: normal inspection Neurological exam: Present: alert, oriented X3, CN II-XII intact. Absent: motor sensory deficit Skin exam: Present: warm, dry, intact, normal color. Absent: rash Course Vital Signs 06/07/19 23:03 Temperature 98.0 F Pulse Rate 61 Respiratory 18 Rate Blood Pressure 123/89 O2 Sat by Pulse 100 Oximetry Medical Decision Making - Medical Decision Making This patient is a 33-year-old woman with history of headaches, who presents with acute onset of worst headache of life. The computed tomography scan is negative. I did discuss with the patient the indications, risks and benefits of lumbar puncture for worst headache of life, and at this point the patient is declining to have that done. She states the symptoms have resolved and that she would like to go home. Discussed that she can return at any time if any symptoms recur. Discussed that she should follow with her neurologist and she will do this. She will maintain a low threshold for returning. We discussed return parameters. Disposition Clinical Impression: Headache Disposition: HOME SELF-CARE Condition: Poor Instructions (If sedation given, give patient instructions): Acute Headache (ED) Is patient prescribed a controlled substance at d/c from ED?: No Referrals: Will Smith MD [Primary Care Provider] - 1-2 days
--- NOTE | 2019-06-08 00:11 | CT ---
EXAMINATION TYPE: CT brain wo con DATE OF EXAM: 06/07/2019 COMPARISON: 07/11/2007 HISTORY: Acute headache CT DLP: 1009.4 mGycm Automated exposure control for dose reduction was used. Ventricles and sulci appear normal. There is no mass effect nor midline shift. There is no sign of in tracranial hemorrhage. Calvarium is intact. IMPRESSION: Normal unenhanced head CT scan. No change.
[2019-06-08 01:28] VITALS: BP 114/78; PULSE 82; RESP 19
== END 2019-06-08 01:29 | disposition home or self-care (01) ==
LOC: EC 22:57
DX: R51 Headache (principal); R11.2 Nausea with vomiting, unspecified; H53.149 Visual discomfort, unspecified; F31.9 Bipolar disorder, unspecified; F41.9 Anxiety disorder, unspecified; F17.200 Nicotine dependence, unspecified, uncomplicated; Z88.8 Allergy status to other drugs, medicaments and biological substances; Z79.3 Long term (current) use of hormonal contraceptives; Z79.899 Other long term (current) drug therapy; Z86.69 Personal history of other diseases of the nervous system and sense organs; Z87.820 Personal history of traumatic brain injury; Z82.0 Family history of epilepsy and other diseases of the nervous system; Z53.20 Procedure and treatment not carried out because of patient's decision for unspecified reasons
CPT/HCPCS: 70450; 99284; 96374; 96375 ×2; 96361 ×2; J1200; J2765; J1885

== ENCOUNTER 2019-06-14 11:18 | Emergency (ER) | payer OTHER ==
[2019-06-14] MEDS ORDERED: MECLIZINE 12.5 MG TAB PO STA (11:36)
[2019-06-14] MEDS ORDERED: SODIUM CHLORIDE 0.9% 1,000 ML IV STA (11:36)
[2019-06-14] MEDS ORDERED: METOCLOPRAMIDE 5 MG/ML 2 ML VIAL IVP STA (11:37)
--- NOTE | 2019-06-14 11:44 | ED ---
General Adult HPI - General Chief complaint: Dizziness Stated complaint: syncope Time Seen by Provider: 06/14/19 11:26 Source: patient, RN notes reviewed, old records reviewed Mode of arrival: wheelchair Limitations: no limitations - History of Present Illness Initial comments: 33-year-old female presenting for evaluation of dizziness and lightheadedness. Patient states she has had this issue chronically, she has approximately 2 or 3 episodes of lightheadedness and dizziness on average weekly. This morning she felt somewhat lightheaded, she sat down on the floor and felt a warm flush over her body. She did not fully pass out. She states this is typical of her recurrent episodes that she's been dealing with for many years. Denies chest pain or palpitations at that time. She did have some nausea without significant vomiting. She has remote history of traumatic brain injury and has dealt with these episodes of dizziness as well as headache since 2017 she follows closely with her primary care physician and neurology. She also reports a left-sided headache which is typical of her migraine headaches. This was gradual in onset, no thunderclap headache. Not the worse headache of her life. This is a minor secondary complaint. No chest pain or dyspnea, no abdominal pain, she does report some diarrhea over the past several days. She has had 3 weeks of rhinorrhea, mild sore throat and mild dry cough. - Related Data Home Medications Medication Instructions Recorded Confirmed Citalopram Hydrobromide [CeleXA] 20 mg PO HS 06/10/18 01/03/19 Medroxyprogesterone Acetate 150 mg IM Q84D 11/08/18 01/03/19 [Depo-Provera] Naproxen Sodium [Aleve] 220 mg PO DAILY PRN 01/03/19 01/03/19 Allergies Allergy/AdvReac Type Severity Reaction Status Date / Time lorazepam [From Ativan] AdvReac Rash/Hives Verified 06/14/19 11:20 Review of Systems ROS Statement: Those systems with pertinent positive or pertinent negative responses have been documented in the HPI. ROS Other: All systems not noted in ROS Statement are negative. Past Medical History Past Medical History: Pneumonia Additional Past Medical History / Comment(s): brain injury, MIGARINES,VERTIGO,kidney infection kidney stones History of Any Multi-Drug Resistant Organisms: None Reported Additional Past Surgical History / Comment(s): breast biopsy X3-NEG, Past Anesthesia/Blood Transfusion Reactions: Motion Sickness Past Psychological History: Anxiety, Bipolar, Depression Smoking Status: Current every day smoker Past Alcohol Use History: None Reported Past Drug Use History: Marijuana - Past Family History Father Family Medical History: CVA/TIA, Hyperlipidemia Additional Family Medical History / Comment(s): TIA Mother Family Medical History: Cancer Additional Family Medical History / Comment(s): BREAST CANCER,MIGRAINES, VERTIGO,TREMORS General Exam Limitations: no limitations General appearance: alert, in no apparent distress Head exam: Present: atraumatic, normocephalic Eye exam: Present: normal appearance, PERRL, EOMI. Absent: scleral icterus, nystagmus, periorbital swelling, periorbital tenderness ENT exam: Present: normal oropharynx (Mild pharyngeal erythema), mucous membranes moist Neck exam: Present: normal inspection, full ROM. Absent: tenderness, meningismus Respiratory exam: Present: normal lung sounds bilaterally. Absent: respiratory distress, wheezes, rales, rhonchi, decreased breath sounds Cardiovascular Exam: Present: regular rate, normal rhythm, normal heart sounds GI/Abdominal exam: Present: soft. Absent: distended, tenderness, guarding, rebound Extremities exam: Present: normal inspection, full ROM, normal capillary refill. Absent: tenderness, pedal edema, calf tenderness Neurological exam: Present: alert, oriented X3, CN II-XII intact, normal gait, other (No focal findings, no ataxia). Absent: motor sensory deficit Psychiatric exam: Present: anxious Skin exam: Present: warm, dry, intact. Absent: cyanosis, diaphoretic, erythema Course Vital Signs 06/14/19 11:20 Temperature 98.4 F Pulse Rate 84 Respiratory 18 Rate Blood Pressure 103/73 O2 Sat by Pulse 99 Oximetry EKG Findings - EKG Comments: EKG Findings:: EKG: Sinus bradycardia, no ST segment elevation, T waves are upright, rate of 57, GA interval 142, QRS duration 86, QTC 404. Medical Decision Making - Medical Decision Making 33-year-old female presenting with dizziness and lightheadedness. Patient has a normal sinus EKG. She had a minor cough for several weeks, chest x-ray performed which is unremarkable. She has normal CBC, normal CMP. I did reevaluate this patient after IV fluids, antiemetics and meclizine. She is feeling 100% better. No complaints. She is hungry and very eager for discharge. She is encouraged to quit smoking as she is currently using any cigarettes is may improve her cough symptoms. She is encouraged to maintain a healthy diet and oral hydration. She has good outpatient follow-up with both her primary care physician and her neurologist. - Lab Data Result diagrams: 06/14/19 11:49 06/14/19 11:49 Lab Results 06/14/19 06/14/19 06/14/19 Range/Units 11:49 11:49 11:49 WBC 8.3 (3.8-10.6) k/uL RBC 4.87 (3.80-5.40) m/uL Hgb 14.2 (11.4-16.0) gm/dL Hct 43.8 (34.0-46.0) % MCV 89.8 (80.0-100.0) fL MCH 29.2 (25.0-35.0) pg MCHC 32.5 (31.0-37.0) g/dL RDW 13.0 (11.5-15.5) % Plt Count 342 (150-450) k/uL Neutrophils % 70 % Lymphocytes % 22 % Monocytes % 3 % Eosinophils % 3 % Basophils % 1 % Neutrophils # 5.8 (1.3-7.7) k/uL Lymphocytes # 1.8 (1.0-4.8) k/uL Monocytes # 0.3 (0-1.0) k/uL Eosinophils # 0.3 (0-0.7) k/uL Basophils # 0.0 (0-0.2) k/uL Sodium 140 (137-145) mmol/L Potassium 4.5 (3.5-5.1) mmol/L Chloride 108 H (98-107) mmol/L Carbon Dioxide 23 (22-30) mmol/L Anion Gap 9 mmol/L BUN 10 (7-17) mg/dL Creatinine 0.78 (0.52-1.04) mg/dL Est GFR (CKD-EPI)AfAm >90 (>60 ml/min/1.73 sqM) Est GFR (CKD-EPI)NonAf >90 (>60 ml/min/1.73 sqM) Glucose 90 (74-99) mg/dL Calcium 9.5 (8.4-10.2) mg/dL Total Bilirubin 0.4 (0.2-1.3) mg/dL AST 25 (14-36) U/L ALT 12 (4-34) U/L Alkaline Phosphatase 83 (38-126) U/L Total Protein 8.1 (6.3-8.2) g/dL Albumin 4.9 (3.5-5.0) g/dL Urine Color Yellow Urine Appearance Cloudy H (Clear) Urine pH 7.5 (5.0-8.0) Ur Specific [place] 1.015 (1.001-1.035) Urine Protein Negative (Negative) Urine Glucose (UA) Negative (Negative) Urine Ketones Negative (Negative) Urine Blood Negative (Negative) Urine Nitrite Negative (Negative) Urine Bilirubin Negative (Negative) Urine Urobilinogen <2.0 (<2.0) mg/dL Ur Leukocyte Esterase Negative (Negative) Urine RBC 1 (0-5) /hpf Urine WBC 1 (0-5) /hpf Ur Squamous Epith Cells 5 H (0-4) /hpf Amorphous Sediment Rare H (None) /hpf Urine HCG, Qual (Not Detectd) 06/14/19 Range/Units 11:49 WBC (3.8-10.6) k/uL RBC (3.80-5.40) m/uL Hgb (11.4-16.0) gm/dL Hct (34.0-46.0) % MCV (80.0-100.0) fL MCH (25.0-35.0) pg MCHC (31.0-37.0) g/dL RDW (11.5-15.5) % Plt Count (150-450) k/uL Neutrophils % % Lymphocytes % % Monocytes % % Eosinophils % % Basophils % % Neutrophils # (1.3-7.7) k/uL Lymphocytes # (1.0-4.8) k/uL Monocytes # (0-1.0) k/uL Eosinophils # (0-0.7) k/uL Basophils # (0-0.2) k/uL Sodium (137-145) mmol/L Potassium (3.5-5.1) mmol/L Chloride (98-107) mmol/L Carbon Dioxide (22-30) mmol/L Anion Gap mmol/L BUN (7-17) mg/dL Creatinine (0.52-1.04) mg/dL Est GFR (CKD-EPI)AfAm (>60 ml/min/1.73 sqM) Est GFR (CKD-EPI)NonAf (>60 ml/min/1.73 sqM) Glucose (74-99) mg/dL Calcium (8.4-10.2) mg/dL Total Bilirubin (0.2-1.3) mg/dL AST (14-36) U/L ALT (4-34) U/L Alkaline Phosphatase (38-126) U/L Total Protein (6.3-8.2) g/dL Albumin (3.5-5.0) g/dL Urine Color Urine Appearance (Clear) Urine pH (5.0-8.0) Ur Specific [place] (1.001-1.035) Urine Protein (Negative) Urine Glucose (UA) (Negative) Urine Ketones (Negative) Urine Blood (Negative) Urine Nitrite (Negative) Urine Bilirubin (Negative) Urine Urobilinogen (<2.0) mg/dL Ur Leukocyte Esterase (Negative) Urine RBC (0-5) /hpf Urine WBC (0-5) /hpf Ur Squamous Epith Cells (0-4) /hpf Amorphous Sediment (None) /hpf Urine HCG, Qual Not Detected (Not Detectd) Disposition Clinical Impression: Dehydration, Migraine headache Disposition: HOME SELF-CARE Condition: Good Instructions (If sedation given, give patient instructions): Dizziness (ED) Is patient prescribed a controlled substance at d/c from ED?: No Referrals: Will Smith MD [Primary Care Provider] - 1-2 days Teena Jackson MD [Medical Doctor] - 1-2 days Time of Disposition: 12:48
[2019-06-14 12:07] LABS: Basophils % (A) 1 %; Eosinophils # (A) 0.3 k/uL (0-0.7); Eosinophils % (A) 3 %; HCT 43.8 % (34.0-46.0); HGB 14.2 gm/dL (11.4-16.0); Lymphocytes # (A) 1.8 k/uL (1.0-4.8); Lymphocytes % (A) 22 %; MCH 29.2 pg (25.0-35.0); MCHC 32.5 g/dL (31.0-37.0); MCV 89.8 fL (80.0-100.0); Mean Platelet Volume 7.1; Monocytes # (A) 0.3 k/uL (0-1.0); Monocytes % (A) 3 %; Neutrophils # (A) 5.8 k/uL (1.3-7.7); Neutrophils % (A) 70 %; Platelet Count 342 k/uL (150-450); RBC 4.87 m/uL (3.80-5.40); WBC 8.3 k/uL (3.8-10.6)
--- NOTE | 2019-06-14 12:15 | XR ---
EXAMINATION TYPE: XR chest 2V DATE OF EXAM: 06/14/2019 COMPARISON: Chest x-ray January 03, 2019 HISTORY: Cough. TECHNIQUE: Frontal and lateral views of the chest are obtained. FINDINGS: Overlying EKG leads. There is no focal air space opacity, pleural effusion, or pneumothorax seen. The cardiac silhouette size is within normal limits. The osseous structures are intact. IMPRESSION: No suspicious acute pulmonary infiltrate. No significant change from prior.
[2019-06-14 12:16] LABS: ALT 12 U/L (4-34); AST 25 U/L (14-36); African American GFR (CKD) >90 (>60 ml/min/1.73 sqM); Albumin 4.9 g/dL (3.5-5.0); Alkaline Phosphatase 83 U/L (38-126); Anion Gap 9 mmol/L; Blood Urea Nitrogen 10 mg/dL (7-17); Calcium 9.5 mg/dL (8.4-10.2); Carbon Dioxide 23 mmol/L (22-30); Chloride 108 mmol/L (98-107); Glucose 90 mg/dL (74-99); Non-African American GFR(CKD) >90 (>60 ml/min/1.73 sqM); Potassium 4.5 mmol/L (3.5-5.1); Sodium 140 mmol/L (137-145); Total Bilirubin 0.4 mg/dL (0.2-1.3); Total Protein 8.1 g/dL (6.3-8.2)
[2019-06-14 12:17] LABS: Amorphous Sediment,Urine Rare /hpf; Appearance,Urine Cloudy (Clear); Bilirubin,Urine Negative (Negative); Blood,Urine Negative (Negative); Color,Urine Yellow; Glucose,Urine (UA) Negative (Negative); Ketones,Urine Negative (Negative); Leukocyte Esterase,Urine Negative (Negative); Nitrite,Urine Negative (Negative); PH, Urine 7.5 (5.0-8.0); Protein,Urine Negative (Negative); RBC,Urine 1 /hpf (0-5); Specific Gravity,Urine 1.015 (1.001-1.035); Squamous Epithelial Cell,Urine 5 /hpf (0-4); Urobilinogen,Urine <2.0 mg/dL (<2.0); WBC,Urine 1 /hpf (0-5)
[2019-06-14 13:07] VITALS: BP 125/87; PULSE 87; RESP 16; TEMP 98
== END 2019-06-14 13:05 | disposition home or self-care (01) ==
LOC: EC 11:18
DX: G43.909 Migraine, unspecified, not intractable, without status migrainosus (principal); E86.0 Dehydration; F41.9 Anxiety disorder, unspecified; F31.9 Bipolar disorder, unspecified; F17.210 Nicotine dependence, cigarettes, uncomplicated; Z79.899 Other long term (current) drug therapy; Z88.8 Allergy status to other drugs, medicaments and biological substances; Z87.820 Personal history of traumatic brain injury
CPT/HCPCS: 36415; 93005; 80053; 85025; 81001; 81025; 71046; 99284; 96374; 96361; J2765

== ENCOUNTER 2019-06-24 08:47 | Emergency (ER) | payer OTHER ==
[2019-06-24 09:03] VITALS: TEMP 98
[2019-06-24] MEDS ORDERED: SODIUM CHLORIDE 0.9% 1,000 ML IV STA ×2 (09:39)
[2019-06-24] MEDS ORDERED: diphenhydrAMINE 50 MG/ML 1 ML VIAL IVP STA (09:39)
[2019-06-24] MEDS ORDERED: METOCLOPRAMIDE 5 MG/ML 2 ML VIAL IVP STA (09:39)
[2019-06-24] MEDS ORDERED: KETOROLAC 30 MG/ML 1 ML VIAL IVP STA (09:39)
[2019-06-24] MEDS ORDERED: ORPHENADRINE 30 MG/ML 2 ML VIAL IVP STA (09:40)
--- NOTE | 2019-06-24 09:59 | ED ---
Headache HPI - General Chief Complaint: Headache Stated Complaint: Back pain/Vomiting Time Seen by Provider: 06/24/19 09:17 Source: RN notes reviewed, old records reviewed Mode of arrival: ambulatory Limitations: no limitations - History of Present Illness Initial Comments: Patient is a 33-year-old female presents emergency department today with headach e, nausea and vomiting. Patient reports history of migraine headache. Does feel similar to previous migraines. She states that symptoms started this morning. She denies any history of sick contacts denies any fevers or chills. Denies any other complaints. - Related Data Home Medications Medication Instructions Recorded Confirmed Citalopram Hydrobromide [CeleXA] 20 mg PO HS 06/10/18 01/03/19 Medroxyprogesterone Acetate 150 mg IM Q84D 11/08/18 01/03/19 [Depo-Provera] Naproxen Sodium [Aleve] 220 mg PO DAILY PRN 01/03/19 01/03/19 Previous Rx's Medication Instructions Recorded Metoclopramide HCl [Reglan] 10 mg PO TID #12 tablet 06/24/19 Allergies Allergy/AdvReac Type Severity Reaction Status Date / Time lorazepam [From Ativan] AdvReac Rash/Hives Verified 06/24/19 09:03 Review of Systems ROS Statement: Those systems with pertinent positive or pertinent negative responses have been documented in the HPI. ROS Other: All systems not noted in ROS Statement are negative. Past Medical History Past Medical History: Pneumonia Additional Past Medical History / Comment(s): brain injury, MIGARINES,VERTIGO,kidney infection kidney stones History of Any Multi-Drug Resistant Organisms: None Reported Additional Past Surgical History / Comment(s): breast biopsy X3-NEG, Past Anesthesia/Blood Transfusion Reactions: Motion Sickness Past Psychological History: Anxiety, Bipolar, Depression Smoking Status: Current every day smoker Past Alcohol Use History: None Reported, Rare Past Drug Use History: Marijuana - Past Family History Father Family Medical History: CVA/TIA, Hyperlipidemia Additional Family Medical History / Comment(s): TIA Mother Family Medical History: Cancer Additional Family Medical History / Comment(s): BREAST CANCER,MIGRAINES, VERTIGO,TREMORS General Exam - General Exam Comments Initial Comments: Alert and oriented 33-year-old female. No acute distress. Limitations: no limitations General appearance: alert, in no apparent distress Head exam: Present: atraumatic, normocephalic, normal inspection Eye exam: Present: normal appearance, PERRL, EOMI. Absent: scleral icterus, conjunctival injection, periorbital swelling ENT exam: Present: normal exam, mucous membranes moist Neck exam: Present: normal inspection. Absent: tenderness, meningismus, lymphadenopathy Respiratory exam: Present: normal lung sounds bilaterally. Absent: respiratory distress, wheezes, rales, rhonchi, stridor Cardiovascular Exam: Present: regular rate, normal rhythm, normal heart sounds. Absent: systolic murmur, diastolic murmur, rubs, gallop, clicks GI/Abdominal exam: Present: soft, normal bowel sounds. Absent: distended, tenderness, guarding, rebound, rigid Extremities exam: Present: normal inspection, full ROM, normal capillary refill. Absent: tenderness, pedal edema, joint swelling, calf tenderness Back exam: Present: normal inspection Neurological exam: Present: alert, oriented X3, CN II-XII intact Psychiatric exam: Present: normal affect, normal mood Skin exam: Present: warm, dry, intact, normal color. Absent: rash Course Vital Signs 06/24/19 06/24/19 06/24/19 09:01 09:03 10:03 Temperature 98.0 F Pulse Rate 67 90 Respiratory 18 20 20 Rate Blood Pressure 116/69 110/65 O2 Sat by Pulse 98 100 Oximetry Medical Decision Making - Medical Decision Making 31-year-old female comes is migraine headache, nausea vomiting. Symptoms starting this morning. She appears in no acute distress. No neurological deficits. Vital signs stable. Patient was given migraine cocktail, does report relief of her symptoms. States her headache is a 3 out of 10. She states she's hungry and tired and wants to go home and be discharged. Discussed that she can follow-up with her primary care doctor or neurologist. Discussed return parameters. Disposition Clinical Impression: Migraine Disposition: HOME SELF-CARE Condition: Good Instructions (If sedation given, give patient instructions): Acute Headache (ED), Migraine Headache (ED) Additional Instructions: Alternate Motrin Tylenol for headaches and pain. He can use nausea medicine as well. Have close follow-up with primary care doctor or neurology. Return to emergency department if any alarming signs or symptoms occur. Prescriptions: Metoclopramide HCl [Reglan] 10 mg PO TID #12 tablet Is patient prescribed a controlled substance at d/c from ED?: No Referrals: Will Smith MD [Primary Care Provider] - 1-2 days Time of Disposition: 10:57
[2019-06-24 10:04] VITALS: RESP 20
[2019-06-24 11:07] VITALS: BP 111/64; PULSE 81
== END 2019-06-24 11:08 | disposition home or self-care (01) ==
LOC: EC 08:47
DX: G43.909 Migraine, unspecified, not intractable, without status migrainosus (principal); F31.9 Bipolar disorder, unspecified; F41.9 Anxiety disorder, unspecified; F17.200 Nicotine dependence, unspecified, uncomplicated; Z88.8 Allergy status to other drugs, medicaments and biological substances; Z79.3 Long term (current) use of hormonal contraceptives; Z79.899 Other long term (current) drug therapy; Z87.820 Personal history of traumatic brain injury; Z82.0 Family history of epilepsy and other diseases of the nervous system
CPT/HCPCS: 99284; 96374; 96375 ×3; 96361; J1200; J2360; J2765; J1885

== ENCOUNTER 2019-08-02 | Emergency (ER) | payer OTHER | END 2019-08-02 03:08 | disposition home or self-care (01) | CPT/HCPCS: 99283; 96374; 96375 ×3; 96361; J1200; J2360; J2765; J1885 ==

== ENCOUNTER 2019-08-07 | Emergency (ER) | payer OTHER | END 2019-08-07 14:11 | disposition home or self-care (01) | CPT/HCPCS: 71046; 99285; 96372 ×2; J1885; J2270 ==

== ENCOUNTER 2020-02-01 05:26 | Emergency (ER) | payer OTHER ==
[2020-02-01] MEDS ORDERED: KETOROLAC 15 MG/ML 1 ML VIAL ONE (06:04)
--- NOTE | 2020-02-01 07:18 | ED ---
Headache HPI - General Stated Complaint: Headache - History of Present Illness Initial Comments: This patient is a 34-year-old woman who presents to be evaluated for headache. She states she does have history of headaches, but that this one is persisting longer than usual. She believes that this may be because she has been vomiting and not able to keep down any medication. She has tried a number of home medications without much relief. The patient denies any fever or chills. No neck pain or stiffness. No strokelike or neurologic symptoms. MD Complaint: headache Onset/Timin -: days(s) Onset Description: gradual Location: right, left, occipital Severity: severe Quality: aching Consistency: constant Improves With: nothing Worsens With: light, noise Context: occurred at rest Associated Symptoms: nausea, vomiting, photophobia, sensitivity to sound Treatments Prior to Arrival: prescription analgesic - Related Data Home Medications Medication Instructions Recorded Confirmed Citalopram Hydrobromide [CeleXA] 20 mg PO HS 06/10/18 01/03/19 Medroxyprogesterone Acetate 150 mg IM Q84D 11/08/18 01/03/19 [Depo-Provera] Naproxen Sodium [Aleve] 220 mg PO DAILY PRN 01/03/19 01/03/19 Previous Rx's Medication Instructions Recorded Metoclopramide HCl [Reglan] 10 mg PO TID #12 tablet 06/24/19 Ibuprofen [Motrin] 600 mg PO Q6HR PRN #20 tab 08/07/19 Allergies Allergy/AdvReac Type Severity Reaction Status Date / Time lorazepam [From Ativan] AdvReac Rash/Hives Verified 08/07/19 12:16 Review of Systems ROS Statement: Those systems with pertinent positive or pertinent negative responses have been documented in the HPI. ROS Other: All systems not noted in ROS Statement are negative. Constitutional: Denies: fever, chills, weakness Eyes: Denies: eye pain, vision change ENT: Reports: congestion. Denies: ear pain Respiratory: Denies: cough, dyspnea Cardiovascular: Denies: chest pain, syncope Gastrointestinal: Reports: nausea, vomiting. Denies: abdominal pain, diarrhea Genitourinary: Denies: dysuria, hematuria, abnormal menses Musculoskeletal: Denies: back pain Skin: Denies: rash Neurological: Reports: as per HPI, headache. Denies: weakness, numbness, confusion Past Medical History Past Medical History: Pneumonia Additional Past Medical History / Comment(s): brain injury, MIGARINES,VERTIGO,kidney infection kidney stones History of Any Multi-Drug Resistant Organisms: None Reported Additional Past Surgical History / Comment(s): breast biopsy X3-NEG, Past Anesthesia/Blood Transfusion Reactions: Motion Sickness Past Psychological History: Anxiety, Bipolar, Depression Past Alcohol Use History: None Reported, Rare Past Drug Use History: Marijuana - Past Family History Father Family Medical History: CVA/TIA, Hyperlipidemia Additional Family Medical History / Comment(s): TIA Mother Family Medical History: Cancer Additional Family Medical History / Comment(s): BREAST CANCER,MIGRAINES, VERTIGO,TREMORS General Exam General appearance: alert, in no apparent distress Head exam: Present: atraumatic, normocephalic Eye exam: Present: normal appearance. Absent: scleral icterus, conjunctival injection ENT exam: Present: normal oropharynx, TM's normal bilaterally, normal external ear exam Neck exam: Present: normal inspection, full ROM Respiratory exam: Present: normal lung sounds bilaterally. Absent: respiratory distress, wheezes, rales, rhonchi, stridor Cardiovascular Exam: Present: regular rate, normal rhythm, normal heart sounds. Absent: systolic murmur, diastolic murmur, rubs, gallop GI/Abdominal exam: Present: soft. Absent: distended, tenderness, guarding, rebound, rigid Back exam: Present: normal inspection. Absent: vertebral tenderness Neurological exam: Present: alert, oriented X3, CN II-XII intact. Absent: motor sensory deficit Skin exam: Present: warm, dry, intact, normal color. Absent: rash Medical Decision Making - Medical Decision Making Patient is 34-year-old woman with history of headaches, presenting with headache not resolving home medications as well as nausea and vomiting. The patient had medication IV fluid here and is stating that the headache has nearly completely resolved. She does request going home. We discussed further care and follow-up as well as return parameters. Disposition Clinical Impression: Headache Disposition: HOME SELF-CARE Condition: Good Instructions (If sedation given, give patient instructions): Acute Headache (ED) Is patient prescribed a controlled substance at d/c from ED?: No Referrals: Will Smith MD [Primary Care Provider] - 1-2 days Teetee Ulloa MD [REFERRING] - 1-2 days
[2020-02-01] MEDS ORDERED: SODIUM CHLORIDE 0.9% 1,000 ML BAG ONE (23:59)
== END 2020-02-01 07:23 | disposition home or self-care (01) ==
LOC: EC 05:26
DX: R51 Headache (principal); R11.2 Nausea with vomiting, unspecified; F41.9 Anxiety disorder, unspecified; F31.9 Bipolar disorder, unspecified; Z79.899 Other long term (current) drug therapy; Z88.8 Allergy status to other drugs, medicaments and biological substances; Z82.3 Family history of stroke
CPT/HCPCS: 99283; J1885

== ENCOUNTER 2020-02-14 13:53 | Emergency (ER) | payer OTHER ==
[2020-02-14 14:04] VITALS: TEMP 98.8
[2020-02-14] MEDS ORDERED: KETOROLAC 15 MG/ML 1 ML VIAL IVP STA (14:33)
[2020-02-14] MEDS ORDERED: diphenhydrAMINE 50 MG/ML 1 ML VIAL IVP STA (14:33)
[2020-02-14] MEDS ORDERED: SODIUM CHLORIDE 0.9% 1,000 ML IV STA (14:33)
[2020-02-14] MEDS ORDERED: ONDANSETRON 4 MG/2 ML VIAL IVP STA (14:33)
[2020-02-14 15:01] LABS: Basophils % (A) 0 %; Eosinophils # (A) 0.1 k/uL (0-0.7); Eosinophils % (A) 1 %; HCT 45.7 % (34.0-46.0); HGB 14.9 gm/dL (11.4-16.0); Lymphocytes # (A) 1.5 k/uL (1.0-4.8); Lymphocytes % (A) 19 %; MCH 28.9 pg (25.0-35.0); MCHC 32.6 g/dL (31.0-37.0); MCV 88.4 fL (80.0-100.0); Mean Platelet Volume 7.1; Monocytes # (A) 0.3 k/uL (0-1.0); Monocytes % (A) 4 %; Neutrophils # (A) 5.9 k/uL (1.3-7.7); Neutrophils % (A) 75 %; Platelet Count 369 k/uL (150-450); RBC 5.16 m/uL (3.80-5.40); RDW 13.7 % (11.5-15.5); WBC 7.8 k/uL (3.8-10.6)
[2020-02-14 15:04] LABS: Appearance,Urine Clear (Clear); Bacteria,Urine Rare /hpf; Bilirubin,Urine Negative (Negative); Blood,Urine Moderate (Negative); Color,Urine Yellow; Glucose,Urine (UA) Negative (Negative); Ketones,Urine 1+ (Negative); Leukocyte Esterase,Urine Negative (Negative); Mucus,Urine Rare /hpf; Nitrite,Urine Negative (Negative); Protein,Urine Trace (Negative); RBC,Urine 3 /hpf (0-5); Specific Gravity,Urine 1.019 (1.001-1.035); Squamous Epithelial Cell,Urine 5 /hpf (0-4); Urobilinogen,Urine <2.0 mg/dL (<2.0); WBC,Urine <1 /hpf (0-5)
[2020-02-14 15:05] LABS: ALT 15 U/L (4-34); AST 26 U/L (14-36); African American GFR (CKD) >90 (>60 ml/min/1.73 sqM); Albumin 4.9 g/dL (3.5-5.0); Alkaline Phosphatase 82 U/L (38-126); Amylase 50 U/L (30-110); Anion Gap 9 mmol/L; Blood Urea Nitrogen 10 mg/dL (7-17); Calcium 9.8 mg/dL (8.4-10.2); Carbon Dioxide 20 mmol/L (22-30); Chloride 109 mmol/L (98-107); Glucose 95 mg/dL (74-99); Non-African American GFR(CKD) >90 (>60 ml/min/1.73 sqM); Potassium 4.8 mmol/L (3.5-5.1); Sodium 138 mmol/L (137-145); Total Bilirubin 0.5 mg/dL (0.2-1.3); Total Protein 7.8 g/dL (6.3-8.2)
--- NOTE | 2020-02-14 15:45 | CT ---
EXAMINATION TYPE: CT abdomen pelvis w con DATE OF EXAM: 02/14/2020 COMPARISON: INDICATION: Right lower quadrant pain. DLP: 694.4 mGycm, Automated exposure control for dose reduction was used. CONTRAST: 100 mL of Isovue 300. Study performed without Oral Contrast TECHNIQUE: Axial images were obtained from above the diaphragm to the pubic rami in the axial plane a t 5 mm thick sections. Reconstructed images are reviewed on the computer in the coronal plane. FINDINGS: Limited CT sections are obtained the lung bases. The lung bases are clear. CT ABDOMEN: Liver: Normal Spleen: Normal Pancreas: Normal Adrenal glands: The adrenal glands are normal. Gallbladder: Normal Kidneys: No masses are evident. No hydronephrosis is present. No cysts are present. Appear to be 3 nonobstructing renal stones within the right kidney. This includes a posterior mid 0.3 cm calcificat ion couple of posterior mid to inferior pole renal stones measuring 0.4 cm in diameter and a 0.5 cm n onobstructing renal stone at the inferior pole right kidney Aorta: Normal Inferior vena cava: Normal. CT PELVIS: Loops of bowel within the abdomen and pelvis are normal. The study is performed without oral cont rast limiting bowel evaluation Appendix: Normal as visualized. Urinary bladder: Normal. Genitourinary structures: Uterus is prominent adnexal regions appear normal. Follicles are evident. Osseous structures: No suspicious lytic or sclerotic lesions. IMPRESSIONS: 1. Nonobstructing right renal stones
--- NOTE | 2020-02-14 15:52 | ED ---
Nausea/Vomiting/Diarrhea HPI - General Chief complaint: Nausea/Vomiting/Diarrhea Stated complaint: Headache,Body Ache, Vomiting Time Seen by Provider: 02/14/20 14:07 Source: patient Mode of arrival: ambulatory Limitations: no limitations - History of Present Illness Initial comments: Patient is a 34-year-old female presenting to the emergency department with multiple complaints. Patient states she started having a headache yesterday that she states feels different than her normal migraines. Patient is also complaining of right lower quadrant abdominal pain, nausea and vomiting started yesterday as well. She states she does have history of kidney stones in the past as well as a kidney infections. She denies any fever, chills, dizziness, blurry vision. She denies being at this time, currently on her menstrual cycle. She denies history of any abdominal surgeries, she's been having regular bowel movements. She states she does have a little bit of increase in frequency and may be some mild burning with urination. She took one of her boyfriend's today for the pain however did not help. She has no further complaints at this time. Upon arrival to the ER, her vitals are stable. - Related Data Home Medications Medication Instructions Recorded Confirmed Citalopram Hydrobromide [CeleXA] 20 mg PO HS 06/10/18 01/03/19 Medroxyprogesterone Acetate 150 mg IM Q84D 11/08/18 01/03/19 [Depo-Provera] Naproxen Sodium [Aleve] 220 mg PO DAILY PRN 01/03/19 01/03/19 Previous Rx's Medication Instructions Recorded Metoclopramide HCl [Reglan] 10 mg PO TID #12 tablet 06/24/19 Ibuprofen [Motrin] 600 mg PO Q6HR PRN #20 tab 08/07/19 Butalb/APAP/Caff 50-325-40Mg 1 tab PO Q4H PRN #10 tablet 02/14/20 [Fioricet 50-325-40] Ondansetron Odt [Zofran Odt] 4 mg PO Q8HR PRN #10 tab 02/14/20 Allergies Allergy/AdvReac Type Severity Reaction Status Date / Time lorazepam [From Ativan] AdvReac Rash/Hives Verified 02/14/20 14:04 Review of Systems ROS Statement: Those systems with pertinent positive or pertinent negative responses have been documented in the HPI. ROS Other: All systems not noted in ROS Statement are negative. Past Medical History Past Medical History: Pneumonia Additional Past Medical History / Comment(s): brain injury, MIGARINES,VERTIGO,kidney infection kidney stones History of Any Multi-Drug Resistant Organisms: None Reported Additional Past Surgical History / Comment(s): breast biopsy X3-NEG, Past Anesthesia/Blood Transfusion Reactions: Motion Sickness Past Psychological History: Anxiety, Bipolar, Depression Smoking Status: Vaper Past Alcohol Use History: None Reported, Rare Past Drug Use History: Marijuana - Past Family History Father Family Medical History: CVA/TIA, Hyperlipidemia Additional Family Medical History / Comment(s): TIA Mother Family Medical History: Cancer Additional Family Medical History / Comment(s): BREAST CANCER,MIGRAINES, V ERTIGO,TREMORS General Exam - General Exam Comments Initial Comments: GENERAL: Patient is well-developed and well-nourished. Patient is nontoxic and in no acute distress. HEAD: Atraumatic, normocephalic. EYES: Pupils equal round and reactive to light, extraocular movements intact, sclera anicteric, conjunctiva are normal. Eyelids were unremarkable. ENT: TMs normal, nares patent, oropharynx clear without exudates. Moist mucous membranes. NECK: Normal range of motion, supple without lymphadenopathy or JVD. LUNGS: Unlabored respirations. Breath sounds clear to auscultation bilaterally and equal. No wheezes rales or rhonchi. HEART: Regular rate and rhythm without murmurs, rubs or gallops. ABDOMEN: Pain with palpation of the right lower quadrant, suprapubic area. Soft, normoactive bowel sounds. No guarding, no rebound. No masses appreciated. : Deferred MUSCULOSKELETAL: Normal extremities with adequate strength and normal range of motion, no pitting or edema. No clubbing or cyanosis. NEUROLOGICAL: Patient is alert and oriented x 3. Motor and sensory are also intact. Cranial nerves II through XII grossly intact. Symmetrical smile. Normal speech, normal gait. PSYCH: Normal mood, normal affect. SKIN: Warm, Dry, normal turgor, no rashes or lesions noted. Limitations: no limitations Course Vital Signs 02/14/20 02/14/20 14:01 16:37 Temperature 98.8 F Pulse Rate 75 68 Respiratory 18 16 Rate Blood Pressure 126/84 104/66 O2 Sat by Pulse 98 100 Oximetry Medical Decision Making - Medical Decision Making Patient is a 34-year-old female here with complaints of a headache, right lower quadrant abdominal pain, nausea, vomiting since yesterday. Her vital signs are stable upon arrival, afebrile. He denies being at this time. She has no neuro deficits on exam, pain in the right lower quadrant. Lab work is unremarkable, normal white count, normal lipase, normal lactic acid. Her urine shows rare amount of bacteria, moderate blood, she is currently on her menstrual cycle. Urine hCG is negative. I did do a CT of her abdomen to rule out appendicitis, kidney stone, she does have some renal stones in her right kidney, no other acute process. Patient was given fluids, pain control and Zofran. Patient states improvement in her pain. I discussed with patient that her nausea and vomiting could be coming from her migraine workup associated with her vomiting. I recommend patient continue to increase fluid intake. I will give her prescription for Fioricet as well as Zofran for additional migraines and nausea. Patient is in agreement with this plan of care. She is stable for discharge. Her mother is coming to pick her up. Return parameters were discussed with the patient she verbalized understanding. Case discussed with Dr. Rodarte. - Lab Data Result diagrams: 02/14/20 14:35 02/14/20 14:35 Lab Results 02/14/20 02/14/20 02/14/20 Range/Units 14:35 14:35 14:35 WBC 7.8 (3.8-10.6) k/uL RBC 5.16 (3.80-5.40) m/uL Hgb 14.9 (11.4-16.0) gm/dL Hct 45.7 (34.0-46.0) % MCV 88.4 (80.0-100.0) fL MCH 28.9 (25.0-35.0) pg MCHC 32.6 (31.0-37.0) g/dL RDW 13.7 (11.5-15.5) % Plt Count 369 (150-450) k/uL Neutrophils % 75 % Lymphocytes % 19 % Monocytes % 4 % Eosinophils % 1 % Basophils % 0 % Neutrophils # 5.9 (1.3-7.7) k/uL Lymphocytes # 1.5 (1.0-4.8) k/uL Monocytes # 0.3 (0-1.0) k/uL Eosinophils # 0.1 (0-0.7) k/uL Basophils # 0.0 (0-0.2) k/uL Sodium (137-145) mmol/L Potassium (3.5-5.1) mmol/L Chloride (98-107) mmol/L Carbon Dioxide (22-30) mmol/L Anion Gap mmol/L BUN (7-17) mg/dL Creatinine (0.52-1.04) mg/dL Est GFR (CKD-EPI)AfAm (>60 ml/min/1.73 sqM) Est GFR (CKD-EPI)NonAf (>60 ml/min/1.73 sqM) Glucose (74-99) mg/dL Plasma Lactic Acid Coy (0.7-2.0) mmol/L Calcium (8.4-10.2) mg/dL Total Bilirubin (0.2-1.3) mg/dL AST (14-36) U/L ALT (4-34) U/L Alkaline Phosphatase (38-126) U/L Total Protein (6.3-8.2) g/dL Albumin (3.5-5.0) g/dL Amylase (30-110) U/L Lipase (23-300) U/L Urine Color Yellow Urine Appearance Clear (Clear) Urine pH 8.0 (5.0-8.0) Ur Specific [place] 1.019 (1.001-1.035) Urine Protein Trace H (Negative) Urine Glucose (UA) Negative (Negative) Urine Ketones 1+ H (Negative) Urine Blood Moderate H (Negative) Urine Nitrite Negative (Negative) Urine Bilirubin Negative (Negative) Urine Urobilinogen <2.0 (<2.0) mg/dL Ur Leukocyte Esterase Negative (Negative) Urine RBC 3 (0-5) /hpf Urine WBC <1 (0-5) /hpf Ur Squamous Epith Cells 5 H (0-4) /hpf Urine Bacteria Rare H (None) /hpf Urine Mucus Rare H (None) /hpf Urine HCG, Qual Not Detected (Not Detectd) 02/14/20 02/14/20 Range/Units 14:35 14:35 WBC (3.8-10.6) k/uL RBC (3.80-5.40) m/uL Hgb (11.4-16.0) gm/dL Hct (34.0-46.0) % MCV (80.0-100.0) fL MCH (25.0-35.0) pg MCHC (31.0-37.0) g/dL RDW (11.5-15.5) % Plt Count (150-450) k/uL Neutrophils % % Lymphocytes % % Monocytes % % Eosinophils % % Basophils % % Neutrophils # (1.3-7.7) k/uL Lymphocytes # (1.0-4.8) k/uL Monocytes # (0-1.0) k/uL Eosinophils # (0-0.7) k/uL Basophils # (0-0.2) k/uL Sodium 138 (137-145) mmol/L Potassium 4.8 (3.5-5.1) mmol/L Chloride 109 H (98-107) mmol/L Carbon Dioxide 20 L (22-30) mmol/L Anion Gap 9 mmol/L BUN 10 (7-17) mg/dL Creatinine 0.68 (0.52-1.04) mg/dL Est GFR (CKD-EPI)AfAm >90 (>60 ml/min/1.73 sqM) Est GFR (CKD-EPI)NonAf >90 (>60 ml/min/1.73 sqM) Glucose 95 (74-99) mg/dL Plasma Lactic Acid Coy 1.3 (0.7-2.0) mmol/L Calcium 9.8 (8.4-10.2) mg/dL Total Bilirubin 0.5 (0.2-1.3) mg/dL AST 26 (14-36) U/L ALT 15 (4-34) U/L Alkaline Phosphatase 82 (38-126) U/L Total Protein 7.8 (6.3-8.2) g/dL Albumin 4.9 (3.5-5.0) g/dL Amylase 50 (30-110) U/L Lipase 45 (23-300) U/L Urine Color Urine Appearance (Clear) Urine pH (5.0-8.0) Ur Specific [place] (1.001-1.035) Urine Protein (Negative) Urine Glucose (UA) (Negative) Urine Ketones (Negative) Urine Blood (Negative) Urine Nitrite (Negative) Urine Bilirubin (Negative) Urine Urobilinogen (<2.0) mg/dL Ur Leukocyte Esterase (Negative) Urine RBC (0-5) /hpf Urine WBC (0-5) /hpf Ur Squamous Epith Cells (0-4) /hpf Urine Bacteria (None) /hpf Urine Mucus (None) /hpf Urine HCG, Qual (Not Detectd) Disposition Clinical Impression: Headache, Nausea & vomiting, Abdominal pain Disposition: HOME SELF-CARE Condition: Stable Instructions (If sedation given, give patient instructions): Acute Headache (ED) Additional Instructions: Please return to the Emergency Department if symptoms worsen or any other concerns. Recommended to increase fluid intake. Recommend trial of Fioricet as discussed for future migraines. May use Zofran for nausea. Follow up with PCP. Prescriptions: Butalb/APAP/Caff 50-325-40Mg [Fioricet 50-325-40] 1 tab PO Q4H PRN #10 tablet PRN Reason: Headache Ondansetron Odt [Zofran Odt] 4 mg PO Q8HR PRN #10 tab PRN Reason: Nausea Is patient prescribed a controlled substance at d/c from ED?: No Referrals: Will Smith MD [Primary Care Provider] - 1-2 days
[2020-02-14] MEDS ORDERED: MORPHINE SULFATE 4 MG/ML SYRINGE IVP STA (15:59)
[2020-02-14 16:39] VITALS: BP 104/66; PULSE 68; RESP 16
== END 2020-02-14 16:45 | disposition home or self-care (01) ==
LOC: EC 13:53
DX: N20.0 Calculus of kidney (principal); R51 Headache; F41.9 Anxiety disorder, unspecified; F32.9 Major depressive disorder, single episode, unspecified; F17.290 Nicotine dependence, other tobacco product, uncomplicated; Z79.3 Long term (current) use of hormonal contraceptives; Z79.899 Other long term (current) drug therapy; Z88.8 Allergy status to other drugs, medicaments and biological substances; Z87.442 Personal history of urinary calculi
CPT/HCPCS: 36415; 80053; 82150; 83605; 83690; 85025; 81001; 81025; 74177; 99284; 96374; 96375 ×3; 96361; J2270; J1200; J2405; J1885; Q9967

== ENCOUNTER 2020-02-22 22:57 | Emergency (ER) | payer OTHER ==
[2020-02-22 23:03] VITALS: RESP 18
[2020-02-22] MEDS ORDERED: KETOROLAC 15 MG/ML 1 ML VIAL IVP STA (23:31)
--- NOTE | 2020-02-22 23:36 | ED ---
Abdominal Pain HPI - General Chief Complaint: Abdominal Pain Stated Complaint: Right side pain Time Seen by Provider: 02/22/20 23:06 Source: patient Mode of arrival: ambulatory Limitations: no limitations - History of Present Illness Initial Comments: This patient is a 34-year-old woman who presents to be evaluated for right flank pain. She states the pain is been present all day though it was mild until 9 PM when the pain became severe. She states that it has been somewhat colicky coming and going all day. She has not noted worsening or relieving factors. She states it is similar to previous episode of kidney stones. She denies any change in urination. She has had nausea. No change in bowel movements. Last menstrual period was approximately 2 weeks ago and normal. MD Complaint: flank pain Onset/Timin -: days(s) Location: R flank Radiation: RLQ Severity: severe Quality: cramping, sharp Consistency: colicky Improves With: nothing Worsens With: nothing Associated Symptoms: nausea - Related Data Home Medications Medication Instructions Recorded Confirmed Citalopram Hydrobromide [CeleXA] 20 mg PO HS 06/10/18 01/03/19 Medroxyprogesterone Acetate 150 mg IM Q84D 11/08/18 01/03/19 [Depo-Provera] Naproxen Sodium [Aleve] 220 mg PO DAILY PRN 01/03/19 01/03/19 Previous Rx's Medication Instructions Recorded Metoclopramide HCl [Reglan] 10 mg PO TID #12 tablet 06/24/19 Ibuprofen [Motrin] 600 mg PO Q6HR PRN #20 tab 08/07/19 Butalb/APAP/Caff 50-325-40Mg 1 tab PO Q4H PRN #10 tablet 02/14/20 [Fioricet 50-325-40] Ondansetron Odt [Zofran Odt] 4 mg PO Q8HR PRN #10 tab 02/14/20 Dicyclomine [Bentyl] 20 mg PO QID #15 tablet 02/23/20 Allergies Allergy/AdvReac Type Severity Reaction Status Date / Time lorazepam [From Ativan] AdvReac Rash/Hives Verified 02/22/20 23:03 Review of Systems ROS Statement: Those systems with pertinent positive or pertinent negative responses have been documented in the HPI. ROS Other: All systems not noted in ROS Statement are negative. Constitutional: Denies: fever, chills Respiratory: Denies: cough, dyspnea Cardiovascular: Denies: chest pain, palpitations, edema Gastrointestinal: Reports: as per HPI, abdominal pain, nausea. Denies: vomiting, diarrhea, constipation, melena, hematochezia Genitourinary: Denies: urgency, dysuria, frequency, hematuria, discharge, abnormal menses Musculoskeletal: Denies: back pain Skin: Denies: rash Neurological: Denies: headache, weakness, numbness Past Medical History Past Medical History: Pneumonia Additional Past Medical History / Comment(s): brain injury, MIGARINES,VERTIGO,kidney infection kidney stones History of Any Multi-Drug Resistant Organisms: None Reported Additional Past Surgical History / Comment(s): breast biopsy X3-NEG, Past Anesthesia/Blood Transfusion Reactions: Motion Sickness Past Psychological History: Anxiety, Bipolar, Depression Smoking Status: Vaper Past Alcohol Use History: None Reported, Rare Past Drug Use History: Marijuana - Past Family History Father Family Medical History: CVA/TIA, Hyperlipidemia Additional Family Medical History / Comment(s): TIA Mother Family Medical History: Cancer Additional Family Medical History / Comment(s): BREAST CANCER,MIGRAINES, VERTIGO,TREMORS General Exam Limitations: no limitations General appearance: alert, in no apparent distress Head exam: Present: atraumatic, normocephalic Eye exam: Present: normal appearance. Absent: scleral icterus, conjunctival injection Respiratory exam: Present: normal lung sounds bilaterally. Absent: respiratory distress, wheezes, rales, rhonchi, stridor Cardiovascular Exam: Present: regular rate, normal rhythm, normal heart sounds. Absent: systolic murmur, diastolic murmur, rubs, gallop GI/Abdominal exam: Present: soft. Absent: distended, tenderness, guarding, rebound, rigid, mass, pulsatile mass, hernia Extremities exam: Present: normal inspection, normal capillary refill. Absent: pedal edema, calf tenderness Back exam: Present: normal inspection, CVA tenderness (R). Absent: CVA tenderness (L) Neurological exam: Present: alert Skin exam: Present: warm, dry, intact, normal color. Absent: rash Course Vital Signs 02/22/20 23:00 Temperature 97.3 F L Pulse Rate 108 H Respiratory 18 Rate Blood Pressure 129/84 O2 Sat by Pulse 98 Oximetry Medical Decision Making - Lab Data Result diagrams: 02/22/20 23:27 02/22/20 23:27 Lab Results 02/22/20 02/22/20 02/22/20 Range/Units 23:06 23:06 23:27 WBC 6.6 (3.8-10.6) k/uL RBC 4.72 (3.80-5.40) m/uL Hgb 13.2 (11.4-16.0) gm/dL Hct 41.7 (34.0-46.0) % MCV 88.3 (80.0-100.0) fL MCH 27.9 (25.0-35.0) pg MCHC 31.5 (31.0-37.0) g/dL RDW 13.4 (11.5-15.5) % Plt Count 274 (150-450) k/uL Neutrophils % 65 % Lymphocytes % 27 % Monocytes % 5 % Eosinophils % 1 % Basophils % 0 % Neutrophils # 4.3 (1.3-7.7) k/uL Lymphocytes # 1.8 (1.0-4.8) k/uL Monocytes # 0.3 (0-1.0) k/uL Eosinophils # 0.1 (0-0.7) k/uL Basophils # 0.0 (0-0.2) k/uL Sodium (137-145) mmol/L Potassium (3.5-5.1) mmol/L Chloride (98-107) mmol/L Carbon Dioxide (22-30) mmol/L Anion Gap mmol/L BUN (7-17) mg/dL Creatinine (0.52-1.04) mg/dL Est GFR (CKD-EPI)AfAm (>60 ml/min/1.73 sqM) Est GFR (CKD-EPI)NonAf (>60 ml/min/1.73 sqM) Glucose (74-99) mg/dL Calcium (8.4-10.2) mg/dL Total Bilirubin (0.2-1.3) mg/dL AST (14-36) U/L ALT (4-34) U/L Alkaline Phosphatase (38-126) U/L Total Protein (6.3-8.2) g/dL Albumin (3.5-5.0) g/dL Urine Color Yellow Urine Appearance Cloudy H (Clear) Urine pH 6.0 (5.0-8.0) Ur Specific [place] 1.021 (1.001-1.035) Urine Protein 1+ H (Negative) Urine Glucose (UA) Negative (Negative) Urine Ketones 2+ H (Negative) Urine Blood Trace H (Negative) Urine Nitrite Negative (Negative) Urine Bilirubin Negative (Negative) Urine Urobilinogen 2.0 (<2.0) mg/dL Ur Leukocyte Esterase Trace H (Negative) Urine RBC <1 (0-5) /hpf Urine WBC 4 (0-5) /hpf Ur Squamous Epith Cells 8 H (0-4) /hpf Urine Bacteria Rare H (None) /hpf Urine Mucus Few H (None) /hpf Urine HCG, Qual Not Detected (Not Detectd) 02/22/20 Range/Units 23:27 WBC (3.8-10.6) k/uL RBC (3.80-5.40) m/uL Hgb (11.4-16.0) gm/dL Hct (34.0-46.0) % MCV (80.0-100.0) fL MCH (25.0-35.0) pg MCHC (31.0-37.0) g/dL RDW (11.5-15.5) % Plt Count (150-450) k/uL Neutrophils % % Lymphocytes % % Monocytes % % Eosinophils % % Basophils % % Neutrophils # (1.3-7.7) k/uL Lymphocytes # (1.0-4.8) k/uL Monocytes # (0-1.0) k/uL Eosinophils # (0-0.7) k/uL Basophils # (0-0.2) k/uL Sodium 136 L (137-145) mmol/L Potassium 3.9 (3.5-5.1) mmol/L Chloride 107 (98-107) mmol/L Carbon Dioxide 22 (22-30) mmol/L Anion Gap 7 mmol/L BUN 9 (7-17) mg/dL Creatinine 0.65 (0.52-1.04) mg/dL Est GFR (CKD-EPI)AfAm >90 (>60 ml/min/1.73 sqM) Est GFR (CKD-EPI)NonAf >90 (>60 ml/min/1.73 sqM) Glucose 104 H (74-99) mg/dL Calcium 9.2 (8.4-10.2) mg/dL Total Bilirubin 0.5 (0.2-1.3) mg/dL AST 28 (14-36) U/L ALT 13 (4-34) U/L Alkaline Phosphatase 77 (38-126) U/L Total Protein 7.3 (6.3-8.2) g/dL Albumin 4.5 (3.5-5.0) g/dL Urine Color Urine Appearance (Clear) Urine pH (5.0-8.0) Ur Specific [place] (1.001-1.035) Urine Protein (Negative) Urine Glucose (UA) (Negative) Urine Ketones (Negative) Urine Blood (Negative) Urine Nitrite (Negative) Urine Bilirubin (Negative) Urine Urobilinogen (<2.0) mg/dL Ur Leukocyte Esterase (Negative) Urine RBC (0-5) /hpf Urine WBC (0-5) /hpf Ur Squamous Epith Cells (0-4) /hpf Urine Bacteria (None) /hpf Urine Mucus (None) /hpf Urine HCG, Qual (Not Detectd) Disposition Clinical Impression: Abdominal pain Disposition: HOME SELF-CARE Condition: Good Instructions (If sedation given, give patient instructions): Abdominal Pain (ED) Prescriptions: Dicyclomine [Bentyl] 20 mg PO QID #15 tablet Is patient prescribed a controlled substance at d/c from ED?: No Referrals: Will Smith MD [Primary Care Provider] - 1-2 days
[2020-02-22] MEDS ORDERED: PROMETHAZINE INJ 25 MG in SODIUM CHLORIDE 0.9% 50 ML IVPB ONE (23:45)
[2020-02-23 00:04] LABS: Basophils % (A) 0 %; Eosinophils # (A) 0.1 k/uL (0-0.7); Eosinophils % (A) 1 %; HCT 41.7 % (34.0-46.0); HGB 13.2 gm/dL (11.4-16.0); Lymphocytes # (A) 1.8 k/uL (1.0-4.8); Lymphocytes % (A) 27 %; MCH 27.9 pg (25.0-35.0); MCHC 31.5 g/dL (31.0-37.0); MCV 88.3 fL (80.0-100.0); Mean Platelet Volume 6.9; Monocytes # (A) 0.3 k/uL (0-1.0); Monocytes % (A) 5 %; Neutrophils # (A) 4.3 k/uL (1.3-7.7); Neutrophils % (A) 65 %; Platelet Count 274 k/uL (150-450); RBC 4.72 m/uL (3.80-5.40); RDW 13.4 % (11.5-15.5); WBC 6.6 k/uL (3.8-10.6)
[2020-02-23 00:12] LABS: Potassium 3.9 mmol/L (3.5-5.1)
[2020-02-23 00:13] LABS: Appearance,Urine Cloudy (Clear); Bacteria,Urine Rare /hpf; Bilirubin,Urine Negative (Negative); Blood,Urine Trace (Negative); Color,Urine Yellow; Glucose,Urine (UA) Negative (Negative); Ketones,Urine 2+ (Negative); Leukocyte Esterase,Urine Trace (Negative); Mucus,Urine Few /hpf; Nitrite,Urine Negative (Negative); Protein,Urine 1+ (Negative); RBC,Urine <1 /hpf (0-5); Specific Gravity,Urine 1.021 (1.001-1.035); Squamous Epithelial Cell,Urine 8 /hpf (0-4); WBC,Urine 4 /hpf (0-5)
[2020-02-23 00:14] LABS: ALT 13 U/L (4-34); AST 28 U/L (14-36); African American GFR (CKD) >90 (>60 ml/min/1.73 sqM); Albumin 4.5 g/dL (3.5-5.0); Alkaline Phosphatase 77 U/L (38-126); Anion Gap 7 mmol/L; Blood Urea Nitrogen 9 mg/dL (7-17); Calcium 9.2 mg/dL (8.4-10.2); Carbon Dioxide 22 mmol/L (22-30); Chloride 107 mmol/L (98-107); Glucose 104 mg/dL (74-99); Non-African American GFR(CKD) >90 (>60 ml/min/1.73 sqM); Sodium 136 mmol/L (137-145); Total Bilirubin 0.5 mg/dL (0.2-1.3); Total Protein 7.3 g/dL (6.3-8.2)
[2020-02-23] MEDS ORDERED: HYDROmorphone 0.5 MG/0.5 ML SYRINGE IVP STA (00:49)
--- NOTE | 2020-02-23 01:39 | CT ---
EXAMINATION TYPE: CT abdomen pelvis wo con DATE OF EXAM: 02/23/2020 COMPARISON: 02/14/2020 HISTORY: right flank pain CT DLP: 311.1 mGycm Automated exposure control for dose reduction was used. The lung bases are clear. There is no pleural effusion. Heart size is normal. There is no pericardial effusion. Liver spleen stomach pancreas gallbladder appear normal. Bile ducts are nondilated. There is no adrenal mass. Kidneys have normal size. There is calcification of the renal papilla bilat erally of relatively low density. There are a few calculi in the right kidney to measure up to 8 mm. The ureters are not dilated. There is no hydronephrosis. There is no retroperitoneal adenopathy. Blad amelia distends smoothly. There is no definite free fluid in the pelvis. Uterus appears normal. Lumbar v ertebra have normal spacing and alignment. Posterior elements are intact. There is no compression fra cture. Bony pelvis is intact. The appendix is inferior and appears normal. There is no mesenteric edema. There is no ascites or free air. There is no bowel obstruction. IMPRESSION: Multiple right-sided renal calculi. No renal obstruction. Faint calcification in the renal papilla co uld relate to form of medullary sponge kidney. No adverse change compared to old exam.
[2020-02-23] MEDS ORDERED: MORPHINE SULFATE 4 MG/ML SYRINGE IV STA (01:52)
[2020-02-23 03:00] VITALS: BP 113/79; PULSE 66; TEMP 98.7
== END 2020-02-23 02:50 | disposition home or self-care (01) ==
LOC: EC 22:57
DX: R10.31 Right lower quadrant pain (principal); R11.0 Nausea; F41.9 Anxiety disorder, unspecified; F31.9 Bipolar disorder, unspecified; Z79.899 Other long term (current) drug therapy; F17.290 Nicotine dependence, other tobacco product, uncomplicated; Z88.8 Allergy status to other drugs, medicaments and biological substances
CPT/HCPCS: 36415; 80053; 85025; 81025; 99284; 96374; 96375 ×3; J2550; J1885; 74176; 81001

== ENCOUNTER 2020-03-24 07:25 | Emergency (ER) | payer OTHER ==
[2020-03-24 07:31] VITALS: RESP 18
[2020-03-24] MEDS ORDERED: SODIUM CHLORIDE 0.9% 1,000 ML IV ONE (07:41)
[2020-03-24] MEDS ORDERED: KETOROLAC 15 MG/ML 1 ML VIAL IVP STA (07:41)
[2020-03-24] MEDS ORDERED: diphenhydrAMINE 50 MG/ML 1 ML VIAL IVP STA (07:41)
[2020-03-24] MEDS ORDERED: METOCLOPRAMIDE 5 MG/ML 2 ML VIAL IVP STA (07:41)
[2020-03-24] MEDS ORDERED: SODIUM CHLORIDE 0.9% 500 ML 500 ML IV ONE (07:41)
--- NOTE | 2020-03-24 07:48 | ED ---
Headache HPI - General Chief Complaint: Headache Stated Complaint: Migraine Time Seen by Provider: 03/24/20 07:33 Source: patient, RN notes reviewed Mode of arrival: ambulatory Limitations: no limitations - History of Present Illness Initial Comments: This a 34-year-old female presents emergency Department with chief complaint of migraine headache. Patient states that migraine for last couple days. Patient states she's nauseated and vomiting. This is very common for her headache. Patient states that this is not an unusual headache for her. Patient had multiple imaging in the past. Denies fevers chills or neck pain or neck stiffness. Patient states she has known kidney stones and states that she may be having shaking somewhat has no flank pain no dysuria no hematuria. Patient has no abdominal pain denies any chance . No chest pain shortness breath no fevers chills. - Related Data Home Medications Medication Instructions Recorded Confirmed Citalopram Hydrobromide [CeleXA] 20 mg PO HS 06/10/18 01/03/19 Medroxyprogesterone Acetate 150 mg IM Q84D 11/08/18 01/03/19 [Depo-Provera] Naproxen Sodium [Aleve] 220 mg PO DAILY PRN 01/03/19 01/03/19 Previous Rx's Medication Instructions Recorded Metoclopramide HCl [Reglan] 10 mg PO TID #12 tablet 06/24/19 Ibuprofen [Motrin] 600 mg PO Q6HR PRN #20 tab 08/07/19 Butalb/APAP/Caff 50-325-40Mg 1 tab PO Q4H PRN #10 tablet 02/14/20 [Fioricet 50-325-40] Ondansetron Odt [Zofran Odt] 4 mg PO Q8HR PRN #10 tab 02/14/20 Dicyclomine [Bentyl] 20 mg PO QID #15 tablet 02/23/20 Butalb/APAP/Caff 50-325-40Mg 1 tab PO Q4H PRN #10 tablet 03/24/20 [Fioricet 50-325-40] Allergies Allergy/AdvReac Type Severity Reaction Status Date / Time lorazepam [From Ativan] AdvReac Rash/Hives Verified 03/24/20 07:31 Review of Systems ROS Statement: Those systems with pertinent positive or pertinent negative responses have been documented in the HPI. ROS Other: All systems not noted in ROS Statement are negative. Past Medical History Past Medical History: Pneumonia Additional Past Medical History / Comment(s): brain injury, MIGARINES,VERTIG O,kidney infection kidney stones History of Any Multi-Drug Resistant Organisms: None Reported Additional Past Surgical History / Comment(s): breast biopsy X3-NEG, Past Anesthesia/Blood Transfusion Reactions: Motion Sickness Past Psychological History: Anxiety, Bipolar, Depression Smoking Status: Vaper Past Alcohol Use History: Rare Past Drug Use History: Marijuana - Past Family History Father Family Medical History: CVA/TIA, Hyperlipidemia Additional Family Medical History / Comment(s): TIA Mother Family Medical History: Cancer Additional Family Medical History / Comment(s): BREAST CANCER,MIGRAINES, VERTIGO,TREMORS General Exam Limitations: no limitations General appearance: alert, in no apparent distress Head exam: Present: atraumatic, normocephalic, normal inspection Eye exam: Present: normal appearance, PERRL, EOMI. Absent: scleral icterus, conjunctival injection, periorbital swelling ENT exam: Present: normal exam, normal oropharynx, mucous membranes moist, TM's normal bilaterally Neck exam: Present: normal inspection, full ROM. Absent: tenderness, meningismus, lymphadenopathy Respiratory exam: Present: normal lung sounds bilaterally. Absent: respiratory distress, wheezes, rales, rhonchi, stridor Cardiovascular Exam: Present: regular rate, normal rhythm, normal heart sounds. Absent: systolic murmur, diastolic murmur, rubs, gallop, clicks Back exam: Absent: CVA tenderness (R), CVA tenderness (L) Neurological exam: Present: alert, oriented X3, CN II-XII intact, normal gait, reflexes normal, other (Finger to nose intact). Absent: motor sensory deficit Skin exam: Present: warm, dry, intact, normal color. Absent: rash Course Vital Signs 03/24/20 07:28 Temperature 98 F Pulse Rate 60 Respiratory 18 Rate Blood Pressure 114/81 O2 Sat by Pulse 100 Oximetry Medical Decision Making - Medical Decision Making 34-year-old female sent for migraine headache. Patient has chronic migraine headaches this is a not unusual headache for her. She is improved after IV medications and having fluids. Patient discharged in stable condition return parameters were discussed. No neurological deficits. - Lab Data Lab Results 03/24/20 03/24/20 Range/Units 08:10 08:10 Urine Color Yellow Urine Appearance Clear (Clear) Urine pH 6.5 (5.0-8.0) Ur Specific [place] 1.013 (1.001-1.035) Urine Protein Negative (Negative) Urine Glucose (UA) Negative (Negative) Urine Ketones Negative (Negative) Urine Blood Trace H (Negative) Urine Nitrite Negative (Negative) Urine Bilirubin Negative (Negative) Urine Urobilinogen <2.0 (<2.0) mg/dL Ur Leukocyte Esterase Negative (Negative) Urine RBC 2 (0-5) /hpf Urine WBC 1 (0-5) /hpf Ur Squamous Epith Cells 2 (0-4) /hpf Urine Mucus Occasional H (None) /hpf Urine HCG, Qual Not Detected (Not Detectd) Disposition Clinical Impression: Migraine headache Disposition: HOME SELF-CARE Condition: Stable Instructions (If sedation given, give patient instructions): Acute Headache (ED) Additional Instructions: Please return to the Emergency Department if symptoms worsen or any other concerns. Prescriptions: Butalb/APAP/Caff 50-325-40Mg [Fioricet 50-325-40] 1 tab PO Q4H PRN #10 tablet PRN Reason: Headache Is patient prescribed a controlled substance at d/c from ED?: Yes When asked, does pt state using other controlled substances?: No If prescribed controlled substance>3 days was MAPS reviewed?: Prescribed <3 Days Referrals: Will Smith MD [Primary Care Provider] - 1-2 days Time of Disposition: 09:10
[2020-03-24] MEDS ORDERED: MORPHINE SULFATE 4 MG/ML SYRINGE IVP STA (08:26)
[2020-03-24 08:35] LABS: Appearance,Urine Clear (Clear); Bilirubin,Urine Negative (Negative); Blood,Urine Trace (Negative); Color,Urine Yellow; Glucose,Urine (UA) Negative (Negative); Ketones,Urine Negative (Negative); Leukocyte Esterase,Urine Negative (Negative); Mucus,Urine Occasional /hpf; Nitrite,Urine Negative (Negative); PH, Urine 6.5 (5.0-8.0); Protein,Urine Negative (Negative); RBC,Urine 2 /hpf (0-5); Specific Gravity,Urine 1.013 (1.001-1.035); Squamous Epithelial Cell,Urine 2 /hpf (0-4); Urobilinogen,Urine <2.0 mg/dL (<2.0); WBC,Urine 1 /hpf (0-5)
[2020-03-24] MEDS ORDERED: ORPHENADRINE 30 MG/ML 2 ML VIAL IVP STA (08:48)
[2020-03-24 09:15] VITALS: BP 108/74; PULSE 81; TEMP 98.2
== END 2020-03-24 09:20 | disposition home or self-care (01) ==
LOC: EC 07:25
DX: G43.909 Migraine, unspecified, not intractable, without status migrainosus (principal); F41.9 Anxiety disorder, unspecified; F32.9 Major depressive disorder, single episode, unspecified; F17.290 Nicotine dependence, other tobacco product, uncomplicated; Z79.3 Long term (current) use of hormonal contraceptives; Z79.899 Other long term (current) drug therapy; Z88.8 Allergy status to other drugs, medicaments and biological substances
CPT/HCPCS: 81001; 81025; 99283; 96374; 96375 ×4; 96361; J2270; J1200; J2360; J2765; J1885

== ENCOUNTER 2020-04-05 20:37 | Emergency (ER) | payer OTHER ==
[2020-04-05] MEDS ORDERED: SODIUM CHLORIDE 0.9% 1,000 ML IV STA (21:09)
[2020-04-05 21:27] LABS: Basophils # (A) 0.1 k/uL (0-0.2); Basophils % (A) 1 %; Eosinophils # (A) 0.1 k/uL (0-0.7); Eosinophils % (A) 2 %; HCT 41.4 % (34.0-46.0); HGB 14.1 gm/dL (11.4-16.0); Lymphocytes # (A) 2.4 k/uL (1.0-4.8); Lymphocytes % (A) 32 %; MCH 30.3 pg (25.0-35.0); MCHC 34.1 g/dL (31.0-37.0); MCV 88.9 fL (80.0-100.0); Mean Platelet Volume 6.7; Monocytes # (A) 0.4 k/uL (0-1.0); Monocytes % (A) 5 %; Neutrophils # (A) 4.5 k/uL (1.3-7.7); Neutrophils % (A) 60 %; Platelet Count 307 k/uL (150-450); RBC 4.66 m/uL (3.80-5.40); RDW 12.7 % (11.5-15.5); WBC 7.5 k/uL (3.8-10.6)
[2020-04-05] MEDS ORDERED: MORPHINE SULFATE 4 MG/ML SYRINGE IV STA (21:28)
--- NOTE | 2020-04-05 21:31 | ED ---
General Adult HPI - General Chief complaint: Abdominal Pain Stated complaint: Kidney Stones Time Seen by Provider: 04/05/20 21:09 Source: patient Mode of arrival: ambulatory Limitations: no limitations - History of Present Illness Initial comments: Dictation was produced using [employer] dictation software. please excuse any grammatical, word or spelling errors. This patient was cared for during a federal and state declared state of emergency secondary to Covid 19 Chief Complaint: 34-year-old female with past medical history of kidney stones presents with persistent right flank pain. History of Present Illness: 34-year-old female she has history of kidney stones. She was diagnosed with kidney stones recently. She is had had persistent right-sided flank pain for several days now. She seen a urologist [place] on [address] and is scheduled to have a procedure to remove the kidney stones. Patient denies any fever, chills or night sweats. She states pain is so bad that she is having trouble sleeping. Patient takes medications at home. She takes Tylenol number threes however she reports that they make her significantly nauseated. She states other of her pain medications aren't really helping at all. The ROS documented in this emergency department record has been reviewed and confirmed by me. Those systems with pertinent positive or negative responses have been documented in the HPI. All other systems are other negative and/or noncontributory. PHYSICAL EXAM: General Impression: Alert and oriented x3, mild distress secondary to pain HEENT: Normocephalic atraumatic, extra-ocular movements intact, pupils equal and reactive to light bilaterally, mucous membranes moist. Cardiovascular: Heart regular rate and rhythm Chest: Able to complete full sentences, no retractions, no tachypnea Abdomen: abdomen soft, non-tender, non-distended, no organomegaly Musculoskeletal: Pulses present and equal in all extremities, no peripheral edema Motor: no focal deficits noted Neurological: CN II-XII grossly intact, no focal motor or sensory deficits noted Skin: Intact with no visualized rashes Psych: Normal affect and mood ED course: 34 yo female presents today with right flank pain is persistent for several days. Vital signs upon arrival are within acceptable limits Laboratory evaluation obtained. CBC unremarkable. Metabolic panel shows glucose of 65. Patient given oral glucose and recheck was improved. Urinalysis shows no hematuria or leukocytes in the urine. Abdomen and bladder ultrasound was obtained. There is a small calculus in the right kidney without hydronephrosis. There is no right-sided ureteral jet. Clinical presentation concerning for nephrolithiasis without hydronephrosis. Patient given analgesia with improvement of symptoms. Patient is told to follow-up with her urologist. She is given some analgesics to go home with. Patient is agreeable for discharge. - Related Data Home Medications Medication Instructions Recorded Confirmed Citalopram Hydrobromide [CeleXA] 20 mg PO HS 06/10/18 01/03/19 Medroxyprogesterone Acetate 150 mg IM Q84D 11/08/18 01/03/19 [Depo-Provera] Naproxen Sodium [Aleve] 220 mg PO DAILY PRN 01/03/19 01/03/19 Previous Rx's Medication Instructions Recorded Metoclopramide HCl [Reglan] 10 mg PO TID #12 tablet 06/24/19 Ibuprofen [Motrin] 600 mg PO Q6HR PRN #20 tab 08/07/19 Butalb/APAP/Caff 50-325-40Mg 1 tab PO Q4H PRN #10 tablet 02/14/20 [Fioricet 50-325-40] Ondansetron Odt [Zofran Odt] 4 mg PO Q8HR PRN #10 tab 02/14/20 Dicyclomine [Bentyl] 20 mg PO QID #15 tablet 02/23/20 Butalb/APAP/Caff 50-325-40Mg 1 tab PO Q4H PRN #10 tablet 03/24/20 [Fioricet 50-325-40] HYDROcodone/APAP 5-325MG [[place] 1 tab PO Q6HR PRN 3 Days #6 tab 04/05/20 5-325] Allergies Allergy/AdvReac Type Severity Reaction Status Date / Time lorazepam [From Ativan] AdvReac Rash/Hives Verified 04/05/20 20:43 Review of Systems ROS Statement: Those systems with pertinent positive or pertinent negative responses have been documented in the HPI. ROS Other: All systems not noted in ROS Statement are negative. Past Medical History Past Medical History: Pneumonia Additional Past Medical History / Comment(s): brain injury, MIGARINES,VERTIGO,kidney infection kidney stones History of Any Multi-Drug Resistant Organisms: None Reported Additional Past Surgical History / Comment(s): breast biopsy X3-NEG, Past Anesthesia/Blood Transfusion Reactions: Motion Sickness Past Psychological History: Anxiety, Bipolar, Depression Smoking Status: Vaper Past Alcohol Use History: Rare Past Drug Use History: Marijuana - Past Family History Father Family Medical History: CVA/TIA, Hyperlipidemia Additional Family Medical History / Comment(s): TIA Mother Family Medical History: Cancer Additional Family Medical History / Comment(s): BREAST CANCER,MIGRAINES, VERTIGO,TREMORS General Exam Limitations: no limitations Course Vital Signs 04/05/20 20:38 Temperature 98.6 F Pulse Rate 66 Respiratory 16 Rate Blood Pressure 120/80 O2 Sat by Pulse 99 Oximetry Medical Decision Making - Lab Data Result diagrams: 04/05/20 21:12 04/05/20 21:12 Lab Results 04/05/20 04/05/20 04/05/20 Range/Units 21:12 21:12 21:12 WBC 7.5 (3.8-10.6) k/uL RBC 4.66 (3.80-5.40) m/uL Hgb 14.1 (11.4-16.0) gm/dL Hct 41.4 (34.0-46.0) % MCV 88.9 (80.0-100.0) fL MCH 30.3 (25.0-35.0) pg MCHC 34.1 (31.0-37.0) g/dL RDW 12.7 (11.5-15.5) % Plt Count 307 (150-450) k/uL MPV 6.7 Neutrophils % 60 % Lymphocytes % 32 % Monocytes % 5 % Eosinophils % 2 % Basophils % 1 % Neutrophils # 4.5 (1.3-7.7) k/uL Lymphocytes # 2.4 (1.0-4.8) k/uL Monocytes # 0.4 (0-1.0) k/uL Eosinophils # 0.1 (0-0.7) k/uL Basophils # 0.1 (0-0.2) k/uL Sodium 138 (137-145) mmol/L Potassium 4.0 (3.5-5.1) mmol/L Chloride 106 (98-107) mmol/L Carbon Dioxide 24 (22-30) mmol/L Anion Gap 8 mmol/L BUN 11 (7-17) mg/dL Creatinine 0.75 (0.52-1.04) mg/dL Est GFR (CKD-EPI)AfAm >90 (>60 ml/min/1.73 sqM) Est GFR (CKD-EPI)NonAf >90 (>60 ml/min/1.73 sqM) Glucose 65 L (74-99) mg/dL Calcium 9.3 (8.4-10.2) mg/dL Urine Color Urine Appearance (Clear) Urine pH (5.0-8.0) Ur Specific [place] (1.001-1.035) Urine Protein (Negative) Urine Glucose (UA) (Negative) Urine Ketones (Negative) Urine Blood (Negative) Urine Nitrite (Negative) Urine Bilirubin (Negative) Urine Urobilinogen (<2.0) mg/dL Ur Leukocyte Esterase (Negative) Urine RBC (0-5) /hpf Urine WBC (0-5) /hpf Ur Squamous Epith Cells (0-4) /hpf Amorphous Sediment (None) /hpf Urine Bacteria (None) /hpf Urine HCG, Qual Not Detected (Not Detectd) 04/05/20 Range/Units 21:12 WBC (3.8-10.6) k/uL RBC (3.80-5.40) m/uL Hgb (11.4-16.0) gm/dL Hct (34.0-46.0) % MCV (80.0-100.0) fL MCH (25.0-35.0) pg MCHC (31.0-37.0) g/dL RDW (11.5-15.5) % Plt Count (150-450) k/uL MPV Neutrophils % % Lymphocytes % % Monocytes % % Eosinophils % % Basophils % % Neutrophils # (1.3-7.7) k/uL Lymphocytes # (1.0-4.8) k/uL Monocytes # (0-1.0) k/uL Eosinophils # (0-0.7) k/uL Basophils # (0-0.2) k/uL Sodium (137-145) mmol/L Potassium (3.5-5.1) mmol/L Chloride (98-107) mmol/L Carbon Dioxide (22-30) mmol/L Anion Gap mmol/L BUN (7-17) mg/dL Creatinine (0.52-1.04) mg/dL Est GFR (CKD-EPI)AfAm (>60 ml/min/1.73 sqM) Est GFR (CKD-EPI)NonAf (>60 ml/min/1.73 sqM) Glucose (74-99) mg/dL Calcium (8.4-10.2) mg/dL Urine Color Light Yellow Urine Appearance Cloudy H (Clear) Urine pH 7.0 (5.0-8.0) Ur Specific [place] 1.011 (1.001-1.035) Urine Protein Negative (Negative) Urine Glucose (UA) Negative (Negative) Urine Ketones Negative (Negative) Urine Blood Negative (Negative) Urine Nitrite Negative (Negative) Urine Bilirubin Negative (Negative) Urine Urobilinogen <2.0 (<2.0) mg/dL Ur Leukocyte Esterase Moderate H (Negative) Urine RBC 3 (0-5) /hpf Urine WBC 3 (0-5) /hpf Ur Squamous Epith Cells 7 H (0-4) /hpf Amorphous Sediment Rare H (None) /hpf Urine Bacteria Rare H (None) /hpf Urine HCG, Qual (Not Detectd) Disposition Clinical Impression: Flank pain, Hypoglycemia Disposition: HOME SELF-CARE Condition: Fair Instructions (If sedation given, give patient instructions): Kidney Stones (ED) Additional Instructions: Follow-up with your urologist Prescriptions: HYDROcodone/APAP 5-325MG [[place] 5-325] 1 tab PO Q6HR PRN 3 Days #6 tab PRN Reason: Severe Pain Is patient prescribed a controlled substance at d/c from ED?: Yes If prescribed controlled substance>3 days was MAPS reviewed?: Prescribed <3 Days Referrals: Will Smith MD [Primary Care Provider] - 1-2 days Time of Disposition: 22:56
[2020-04-05 21:42] LABS: African American GFR (CKD) >90 (>60 ml/min/1.73 sqM); Anion Gap 8 mmol/L; Blood Urea Nitrogen 11 mg/dL (7-17); Calcium 9.3 mg/dL (8.4-10.2); Carbon Dioxide 24 mmol/L (22-30); Chloride 106 mmol/L (98-107); Glucose 65 mg/dL (74-99); Non-African American GFR(CKD) >90 (>60 ml/min/1.73 sqM); Sodium 138 mmol/L (137-145)
[2020-04-05 21:58] LABS: Amorphous Sediment,Urine Rare /hpf; Appearance,Urine Cloudy (Clear); Bacteria,Urine Rare /hpf; Bilirubin,Urine Negative (Negative); Blood,Urine Negative (Negative); Color,Urine Light Yellow; Glucose,Urine (UA) Negative (Negative); Ketones,Urine Negative (Negative); Leukocyte Esterase,Urine Moderate (Negative); Nitrite,Urine Negative (Negative); Protein,Urine Negative (Negative); RBC,Urine 3 /hpf (0-5); Specific Gravity,Urine 1.011 (1.001-1.035); Squamous Epithelial Cell,Urine 7 /hpf (0-4); Urobilinogen,Urine <2.0 mg/dL (<2.0); WBC,Urine 3 /hpf (0-5)
--- NOTE | 2020-04-05 22:08 | US ---
EXAMINATION TYPE: US kidneys/renal and bladder DATE OF EXAM: 04/05/2020 COMPARISON: CLINICAL HISTORY: right sided flank pain. Hx right side kidney stones. Pain. EXAM MEASUREMENTS: Right Kidney: 11.4 x 5.1 x 3.2 cm Left Kidney: 9.3 x 4.3 x 4.5 cm Right Kidney: Lower pole echogenic focus, nonobstructing - 0.7 x 0.6 cm Left Kidney: Appears smaller in size compared to contralateral kidney. Bladder: mildly distended, anechoic Left jet seen There is no evidence for hydronephrosis at this point in time. No nephrolithiasis is seen. No isa s are identified. The urinary bladder is anechoic. Bilateral ureteral jets are seen. IMPRESSION: There is small calculus of the right kidney. No hydronephrosis. No evidence of renal mass or obstruct ion. We could not demonstrate right side ureteral jet.
[2020-04-05] MEDS ORDERED: MORPHINE SULFATE 4 MG/ML SYRINGE IVP STA (22:38)
[2020-04-05] MEDS ORDERED: HYDROmorphone 1 MG/ML 1 ML SYRINGE IVP STA (22:47)
[2020-04-05 23:26] LABS: Glucose,Whole Blood 102 mg/dL (75-99)
[2020-04-05 23:31] VITALS: BP 108/73; PULSE 78; RESP 18; TEMP 98.9
== END 2020-04-05 23:40 | disposition home or self-care (01) ==
LOC: EC 20:37
DX: N20.0 Calculus of kidney (principal); E16.2 Hypoglycemia, unspecified; F41.9 Anxiety disorder, unspecified; F32.9 Major depressive disorder, single episode, unspecified; F17.290 Nicotine dependence, other tobacco product, uncomplicated; Z79.3 Long term (current) use of hormonal contraceptives; Z88.8 Allergy status to other drugs, medicaments and biological substances
CPT/HCPCS: 36415; 80048; 85025; 81001; 81025; 76770; 99284; 96374; 96375; 96361; J2270; J1170

== ENCOUNTER 2020-04-06 19:37 | Inpatient (IN) | payer OTHER ==
[2020-04-06 20:08] LABS: Appearance,Urine Clear (Clear); Bilirubin,Urine Negative (Negative); Blood,Urine Negative (Negative); Color,Urine Light Yellow; Glucose,Urine (UA) Negative (Negative); Ketones,Urine Negative (Negative); Leukocyte Esterase,Urine Negative (Negative); Nitrite,Urine Negative (Negative); PH, Urine 6.5 (5.0-8.0); Protein,Urine Negative (Negative); Specific Gravity,Urine 1.006 (1.001-1.035); Urobilinogen,Urine <2.0 mg/dL (<2.0)
[2020-04-06] MEDS ORDERED: SODIUM CHLORIDE 0.9% 1,000 ML IV ONE (20:32)
[2020-04-06] MEDS ORDERED: ONDANSETRON 4 MG/2 ML VIAL IVP STA (20:32)
[2020-04-06] MEDS ORDERED: KETOROLAC 15 MG/ML 1 ML VIAL IVP STA (20:32)
[2020-04-06] MEDS ORDERED: HYDROmorphone 0.5 MG/0.5 ML SYRINGE IVP STA (20:32)
--- NOTE | 2020-04-06 20:39 | ED ---
General Adult HPI - General Chief complaint: Urogenital Stated complaint: Right abd pain revisit Time Seen by Provider: 04/06/20 20:18 Source: patient Mode of arrival: ambulatory Limitations: no limitations - History of Present Illness Initial comments: 34 year-old female patient presents to the emergency department today for evaluation of right flank pain. Patient was evaluated in the emergency department for this yesterday and was offered admission for pain control, but she declined. Patient states that she has a history of kidney stones and has be en having right flank pain on and off for the last three months. Patient states that she had a CT scan in February and was told she had an 8mm stone in her kidney. She is scheduled to have the stones removed with a physician in [facility] on Wednesday. Patient states that she has been dry heaving and has been very nauseated. She is able to eat and drink. She denies any fever or chills. Denies abdominal pain. She denies any abnormal vaginal bleeding or discharge. Denies chance of . Does any other abdominal surgeries other than lithotripsy in the past. Patient denies any recent rash, cough, shortness of breath, chest pain, diarrhea, constipation, numbness, tingling, dizziness, weakness, headache, visual changes, or any other complaints. - Related Data Home Medications Medication Instructions Recorded Confirmed [place] Fe 1.5-30mg Tablet 1 tab PO DAILY 04/06/20 04/06/20 Galcanezumab-Gnlm [Emgality Pen] 120 mg SQ Q28D 04/06/20 04/06/20 Ibuprofen/Pseudoephedrine HCl 1 tab PO DAILY PRN 04/06/20 04/06/20 [Advil Cold & Sinus Caplet] Previous Rx's Medication Instructions Recorded HYDROcodone/APAP 5-325MG [[place] 1 tab PO Q6HR PRN 3 Days #6 tab 04/05/20 5-325] Allergies Allergy/AdvReac Type Severity Reaction Status Date / Time lorazepam [From Ativan] AdvReac Rash/Hives Verified 04/06/20 23:26 Review of Systems ROS Statement: Those systems with pertinent positive or pertinent negative responses have been documented in the HPI. ROS Other: All systems not noted in ROS Statement are negative. Past Medical History Past Medical History: Pneumonia Additional Past Medical History / Comment(s): brain injury, MIGARINES,VERTIGO,kidney infection kidney stones History of Any Multi-Drug Resistant Organisms: None Reported Additional Past Surgical History / Comment(s): breast biopsy X3-NEG, Past Anesthesia/Blood Transfusion Reactions: Motion Sickness Past Psychological History: Anxiety, Bipolar, Depression Smoking Status: Vaper Past Alcohol Use History: Rare Past Drug Use History: Marijuana - Past Family History Father Family Medical History: CVA/TIA, Hyperlipidemia Additional Family Medical History / Comment(s): TIA Mother Family Medical History: Cancer Additional Family Medical History / Comment(s): BREAST CANCER,MIGRAINES, VERTIGO,TREMORS General Exam Limitations: no limitations General appearance: alert, in no apparent distress, other (This is a well- developed, well-nourished adult female patient in mild distress related to pain. Vital signs upon presentation are temperature 98.0F, pulse 82, respirations 20, blood pressure 121/86, pulse ox 100% on room air.) ENT exam: Present: normal exam, normal oropharynx, mucous membranes moist Respiratory exam: Present: normal lung sounds bilaterally. Absent: respiratory distress, wheezes, rales, rhonchi, stridor Cardiovascular Exam: Present: regular rate, normal rhythm, normal heart sounds. Absent: systolic murmur, diastolic murmur, rubs, gallop, clicks GI/Abdominal exam: Present: soft, normal bowel sounds. Absent: distended, tenderness, guarding, rebound, rigid Back exam: Present: normal inspection, CVA tenderness (R). Absent: CVA tenderness (L) Neurological exam: Present: alert, oriented X3, CN II-XII intact Psychiatric exam: Present: normal affect, normal mood Skin exam: Present: warm, dry, intact, normal color. Absent: rash Course Vital Signs 04/06/20 04/06/20 19:39 23:48 Temperature 98.0 F 98.1 F Pulse Rate 82 Pulse Rate [ 56 L Pulse Oximetery ] Respiratory 20 17 Rate Blood Pressure 121/86 Blood Pressure 97/59 [Right Arm] O2 Sat by Pulse 100 100 Oximetry Medical Decision Making - Medical Decision Making 34-year-old female patient with known history of kidney stones with a known current right renal stone measuring 8 mm comes in today for evaluation of intractable right flank pain. Patient was evaluated here yesterday and offered admission for intractable pain but declined due to home responsibilities. Physical examination does reveal right CVA tenderness. Labs reviewed and are unremarkable. Urinalysis is unremarkable. KUB was obtained and did show calcifications over the right kidney. Patient was given several doses of pain medication and nausea medication and continues to have symptoms. Case was discussed with Dr. Smith who agrees to admission. - Lab Data Result diagrams: 04/06/20 20:30 04/06/20 20:30 Lab Results 04/06/20 04/06/20 04/06/20 Range/Units 19:45 19:45 20:30 WBC 7.6 (3.8-10.6) k/uL RBC 4.61 (3.80-5.40) m/uL Hgb 13.8 (11.4-16.0) gm/dL Hct 41.3 (34.0-46.0) % MCV 89.6 (80.0-100.0) fL MCH 29.9 (25.0-35.0) pg MCHC 33.3 (31.0-37.0) g/dL RDW 12.8 (11.5-15.5) % Plt Count 283 (150-450) k/uL MPV 6.9 Neutrophils % 59 % Lymphocytes % 33 % Monocytes % 5 % Eosinophils % 1 % Basophils % 0 % Neutrophils # 4.5 (1.3-7.7) k/uL Lymphocytes # 2.5 (1.0-4.8) k/uL Monocytes # 0.4 (0-1.0) k/uL Eosinophils # 0.1 (0-0.7) k/uL Basophils # 0.0 (0-0.2) k/uL Sodium (137-145) mmol/L Potassium (3.5-5.1) mmol/L Chloride (98-107) mmol/L Carbon Dioxide (22-30) mmol/L Anion Gap mmol/L BUN (7-17) mg/dL Creatinine (0.52-1.04) mg/dL Est GFR (CKD-EPI)AfAm (>60 ml/min/1.73 sqM) Est GFR (CKD-EPI)NonAf (>60 ml/min/1.73 sqM) Glucose (74-99) mg/dL Calcium (8.4-10.2) mg/dL Total Bilirubin (0.2-1.3) mg/dL AST (14-36) U/L ALT (4-34) U/L Alkaline Phosphatase (38-126) U/L Total Protein (6.3-8.2) g/dL Albumin (3.5-5.0) g/dL Urine Color Light Yellow Urine Appearance Clear (Clear) Urine pH 6.5 (5.0-8.0) Ur Specific [place] 1.006 (1.001-1.035) Urine Protein Negative (Negative) Urine Glucose (UA) Negative (Negative) Urine Ketones Negative (Negative) Urine Blood Negative (Negative) Urine Nitrite Negative (Negative) Urine Bilirubin Negative (Negative) Urine Urobilinogen <2.0 (<2.0) mg/dL Ur Leukocyte Esterase Negative (Negative) Urine HCG, Qual Not Detected (Not Detectd) 04/06/20 Range/Units 20:30 WBC (3.8-10.6) k/uL RBC (3.80-5.40) m/uL Hgb (11.4-16.0) gm/dL Hct (34.0-46.0) % MCV (80.0-100.0) fL MCH (25.0-35.0) pg MCHC (31.0-37.0) g/dL RDW (11.5-15.5) % Plt Count (150-450) k/uL MPV Neutrophils % % Lymphocytes % % Monocytes % % Eosinophils % % Basophils % % Neutrophils # (1.3-7.7) k/uL Lymphocytes # (1.0-4.8) k/uL Monocytes # (0-1.0) k/uL Eosinophils # (0-0.7) k/uL Basophils # (0-0.2) k/uL Sodium 137 (137-145) mmol/L Potassium 4.1 (3.5-5.1) mmol/L Chloride 106 (98-107) mmol/L Carbon Dioxide 24 (22-30) mmol/L Anion Gap 7 mmol/L BUN 8 (7-17) mg/dL Creatinine 0.68 (0.52-1.04) mg/dL Est GFR (CKD-EPI)AfAm >90 (>60 ml/min/1.73 sqM) Est GFR (CKD-EPI)NonAf >90 (>60 ml/min/1.73 sqM) Glucose 92 (74-99) mg/dL Calcium 9.6 (8.4-10.2) mg/dL Total Bilirubin 0.3 (0.2-1.3) mg/dL AST 23 (14-36) U/L ALT 11 (4-34) U/L Alkaline Phosphatase 64 (38-126) U/L Total Protein 7.2 (6.3-8.2) g/dL Albumin 4.5 (3.5-5.0) g/dL Urine Color Urine Appearance (Clear) Urine pH (5.0-8.0) Ur Specific [place] (1.001-1.035) Urine Protein (Negative) Urine Glucose (UA) (Negative) Urine Ketones (Negative) Urine Blood (Negative) Urine Nitrite (Negative) Urine Bilirubin (Negative) Urine Urobilinogen (<2.0) mg/dL Ur Leukocyte Esterase (Negative) Urine HCG, Qual (Not Detectd) - Radiology Data Radiology results: report reviewed, image reviewed 2 views of the abdomen are obtained. Report is reviewed in its entirety. Impression by Dr. Moraes shows possible right renal calculus. Small phleboliths in the pelvis unchanged. Disposition Clinical Impression: Right flank pain, Intractable pain Disposition: ADMITTED IP TO THIS [facility] Condition: Serious Decision to Admit Reason: Admit from EC Decision Date: 04/06/20 Decision Time: 23:48
--- NOTE | 2020-04-06 21:24 | XR ---
EXAMINATION TYPE: XR KUB DATE OF EXAM: 04/06/2020 COMPARISON: February 24, 2016 HISTORY: Kidney stones. Pain TECHNIQUE: 2 views upright FINDINGS: Bowel gas pattern is normal. There is no sign of intestinal obstruction or pneumoperitoneum . Fecal pattern is normal. Lung bases are clear. There is possible rounded 4 mm calculus in the right kidney. IMPRESSION: Possible right renal calculus. Small phleboliths in the pelvis unchanged.
[2020-04-06 21:57] LABS: Basophils % (A) 0 %; Eosinophils # (A) 0.1 k/uL (0-0.7); Eosinophils % (A) 1 %; HCT 41.3 % (34.0-46.0); HGB 13.8 gm/dL (11.4-16.0); Lymphocytes # (A) 2.5 k/uL (1.0-4.8); Lymphocytes % (A) 33 %; MCH 29.9 pg (25.0-35.0); MCHC 33.3 g/dL (31.0-37.0); MCV 89.6 fL (80.0-100.0); Mean Platelet Volume 6.9; Monocytes # (A) 0.4 k/uL (0-1.0); Monocytes % (A) 5 %; Neutrophils # (A) 4.5 k/uL (1.3-7.7); Neutrophils % (A) 59 %; Platelet Count 283 k/uL (150-450); RBC 4.61 m/uL (3.80-5.40); RDW 12.8 % (11.5-15.5); WBC 7.6 k/uL (3.8-10.6)
[2020-04-06 22:00] LABS: ALT 11 U/L (4-34); AST 23 U/L (14-36); African American GFR (CKD) >90 (>60 ml/min/1.73 sqM); Albumin 4.5 g/dL (3.5-5.0); Alkaline Phosphatase 64 U/L (38-126); Anion Gap 7 mmol/L; Blood Urea Nitrogen 8 mg/dL (7-17); Calcium 9.6 mg/dL (8.4-10.2); Carbon Dioxide 24 mmol/L (22-30); Chloride 106 mmol/L (98-107); Glucose 92 mg/dL (74-99); Non-African American GFR(CKD) >90 (>60 ml/min/1.73 sqM); Potassium 4.1 mmol/L (3.5-5.1); Sodium 137 mmol/L (137-145); Total Bilirubin 0.3 mg/dL (0.2-1.3); Total Protein 7.2 g/dL (6.3-8.2)
[2020-04-06] MEDS ORDERED: METOCLOPRAMIDE 5 MG/ML 2 ML VIAL IVP STA (22:40)
[2020-04-06] MEDS ORDERED: diphenhydrAMINE 50 MG/ML 1 ML VIAL IVP STA (22:40)
[2020-04-06] MEDS: HYDROmorphone 0.5 MG/0.5 ML SYRINGE IVP STA ×2 (22:44→22:55)
[2020-04-06] MEDS ORDERED: MORPHINE SULFATE 4 MG/ML SYRINGE IVP STA (23:11)
[2020-04-06] MEDS ORDERED: NALOXONE 0.4 MG/ML 1 ML VIAL IV PRN (23:12)
[2020-04-06] MEDS ORDERED: HYDROmorphone 0.5 MG/0.5 ML SYRINGE IVP PRN (23:12)
[2020-04-07] MEDS: SODIUM CHLORIDE 0.9% 1,000 ML IV SCH ×2 (00:25→12:34)
[2020-04-07] MEDS: KETOROLAC 15 MG/ML 1 ML VIAL IVP PRN (00:30)
[2020-04-07] MEDS: MORPHINE SULFATE 4 MG/ML SYRINGE IVP PRN ×3 (02:09→07:41)
[2020-04-07] MEDS: ONDANSETRON 4 MG/2 ML VIAL IVP PRN ×2 (08:13→16:53)
[2020-04-07] MEDS: PANTOPRAZOLE 40 MG TABLET PO SCH ×2 (10:19→16:53)
[2020-04-07] MEDS: HYDROmorphone 1 MG/ML 1 ML SYRINGE IVP PRN ×5 (10:19→23:43)
--- NOTE | 2020-04-07 10:43 | P.HPIM ---
History of Present Illness H&P Date: 04/07/20 Chief Complaint: Right-sided flank pain, nausea vomiting History of present illness: This is a 34-year-old pleasant female known to Dr. Shore presenting with right-sided flank pain, nausea and vomiting with history of right renal calculus. History of kidney stone for the last 3 weeks. Patient is scheduled to have internal cystoscopy on 04/[address] Macias. However for the last 2 weeks patient has been complaining of increased pain returning to the emergency room for pain management. Patient's past medical history significant for brain injury, migraines, kidney stones, GERD. Patient has had previous stone in 2012 where she underwent a lithotripsy D at that time the calculi was [address] Macias believes that the current calculi is a fragment from the previous calculi. At this time patient is sitting up in bed complaining of right flank pain and nausea. Patient states that the pain medication has not been helping. She does smoke 2-3 joints of marijuana day to help with anxiety and overall pain relief. Labs and urine were unremarkable. Review Of Systems: Constitutional: No fever, no chills, no night sweats. No weight change. No weakness, fatigue or lethargy. No daytime sleepiness. EENT: No headache. No blurred vision or double vision, no loss of vision. No loss of Hearing, no ringing in the ears, no dizziness. No nasal drainage or congestion. No epistaxis. No sore throat. Lungs: No shortness of breath, cough, no sputum production. No wheezing. Cardiovascular: No chest pain, no lower extremity edema. No palpitations. No p aroxysmal nocturnal dyspnea. No orthopnea. No lightheadedness or dizziness. No syncopal episodes. Abdominal: Reports right-sided flank pain. Reports nausea and vomiting. no diarrhea. No constipation. No bloody or tarry stools. no loss of appetite. Genitourinary: No dysuria, increased frequency, urgency. No urinary retention. Musculoskeletal: No myalgias. No muscle weakness, no gait dysfunction, no frequent falls. No back pain. No neck pain. Integumentary: No wounds, no lesions. No rash or pruritus. No unusual bruising. No change in hair or nails. Neurologic: No aphasia. No facial droop. No change in mentation. No head injury. No headache. No paralysis. No paresthesia. Psychiatric: No depression. No anxiety. No mood swings. Endocrine: No abnormal blood sugars. No weight change. No excessive sweating or thirst. Social history: Utilizes E cigarettes, rare EtOH ingestion, positive marijuana everyday 2-3 joints. Currently has medical marijuana card. Family history: 2 children who are healthy, 2 sisters and 1 brother who are healthy, a mother living with history of [place] 2 coronary artery disease and breast cancer, dad living history of throat cancer Physical examination General Appearance: Alert, cooperative, no distress, appears stated age. Neck HEENT: Supple, no lymphadenopathy, no thyroid enlargement, no carotid bruits. Lungs: Clear to auscultation without crackles or wheezes no rhonchi, no deformity. Chest Wall: Chest wall normal expansion with deep inspiration no tenderness and no deformity was found on exam, no costochondral pain or discomfort. Heart: Regular rate and rhythm, S1, S2 normal, no murmur, rub or gallop. Back: Symmetric, no curvature, ROM normal, positive right CVA tenderness. Abdomen: Soft, tender upper and lower right quadrant, no rebound or rigidity, no hepatosplenomegaly. Extremities: Extremities normal, atraumatic, no cyanosis or edema. Pulses: 2+ and symmetric. Skin: Skin color, texture, tugor normal, no rashes or lesions. Neurologic: Alert oriented x3 cranial nerves II through XII intact, no motor deficit, no abnormal balance or gait Assessment and plan 1.Right renal calculus with right flank pain. Continue with pain management [place] 5/325 one tablet every 6 hours for mild pain. Dilaudid 1 mg IV push every 2 hours as needed for severe pain. Toradol 15 mg IV push every 6 hours as needed for pain. Consult urology. Patient is scheduled to have cystoscopy on 04/[address] Macias. 2. Intractable nausea and vomiting. Zofran 4 mg IV every 8 hours as needed 3. Gastritis. Protonix 40 mg by mouth twice a day 4. Migraine. Stable 5. GERD. Protonix 6. GI prophylaxis. Protonix 7. DVT prophylaxis. Early ambulation, pneumatic compression sleeves Discharge plan: Possible discharge tomorrow Impression and plan of care have been directed as dictated by the signing physician. Antonia Da Silva nurse practitioner acting as scribe for signing physician. Past Medical History Past Medical History: Pneumonia Additional Past Medical History / Comment(s): brain injury, MIGARINES,VERTIGO,kidney infection kidney stones History of Any Multi-Drug Resistant Organisms: None Reported Additional Past Surgical History / Comment(s): breast biopsy X3-NEG, Past Anesthesia/Blood Transfusion Reactions: Motion Sickness Past Psychological History: Anxiety, Bipolar, Depression Smoking Status: Vaper Past Alcohol Use History: Rare Past Drug Use History: Marijuana - Past Family History Father Family Medical History: CVA/TIA, Hyperlipidemia Additional Family Medical History / Comment(s): TIA Mother Family Medical History: Cancer Additional Family Medical History / Comment(s): BREAST CANCER,MIGRAINES, VERTIGO,TREMORS Medications and Allergies Home Medications Medication Instructions Recorded Confirmed Type HYDROcodone/APAP 5-325MG [[place] 1 tab PO Q6HR PRN 3 Days #6 tab 04/05/20 04/06/20 Rx 5-325] [place] Fe 1.5-30mg Tablet 1 tab PO DAILY 04/06/20 04/06/20 History Galcanezumab-Gnlm [Emgality Pen] 120 mg SQ Q28D 04/06/20 04/06/20 History Ibuprofen/Pseudoephedrine HCl 1 tab PO DAILY PRN 04/06/20 04/06/20 History [Advil Cold & Sinus Caplet] Allergies Allergy/AdvReac Type Severity Reaction Status Date / Time lorazepam [From Ativan] AdvReac Rash/Hives Verified 04/06/20 23:26 Physical Exam Vitals: Vital Signs Temp Pulse Pulse Resp BP BP Pulse Ox 04/07/20 07:43 97.7 F 71 14 111/74 100 04/07/20 02:33 98.4 F 60 17 100/60 98 04/06/20 23:48 98.1 F 56 L 17 97/59 100 04/06/20 19:39 98.0 F 82 20 121/86 100 Intake and Output 04/06/20 04/07/20 04/07/20 22:59 06:59 14:59 Other: Voiding Method Toilet Toilet # Voids 1 2 Weight 49.895 kg 49.895 kg Results CBC & Chem 7: 04/06/20 20:30 04/06/20 20:30 Thrombosis Risk Factor Assmnt - Choose All That Apply Any of the Below Risk Factors Present?: No Other Risk Factors: No Other congenital or acquired thrombophilia - If yes, enter type in comment: No Thrombosis Risk Factor Assessment Level: Very Low Risk
--- NOTE | 2020-04-07 11:33 | P.GSCN ---
History of Present Illness Consult date: 04/07/20 Reason for Consult: Right flank pain Requesting physician: Will Smith History of present illness: The patient is a 34-year-old white female with a history of urolithiasis. She underwent a computed tomography scan in 02/23/2020 revealing approximately 4 right renal calculi measuring up to 6 mm in size. There was no evidence of hydronephrosis. She has experienced persistent pain along with nausea and vomiting. Ultrasound performed on April 05 showed no evidence of hydronephrosis. She is scheduled to undergo ureteroscopy with laser lithotripsy by Dr. Stoney Monge on 04/12/2020. Review of Systems - Constitutional Denies chills, Denies fever - Gastrointestinal Reports nausea, Reports vomiting - Genitourinary Genitourinary: Reports flank pain, Reports kidney stones, Denies dysuria, Denies hematuria Past Medical History Past Medical History: Pneumonia Additional Past Medical History / Comment(s): brain injury, MIGARIN ES,VERTIGO,kidney infection kidney stones History of Any Multi-Drug Resistant Organisms: None Reported Additional Past Surgical History / Comment(s): breast biopsy X3-NEG, Past Anesthesia/Blood Transfusion Reactions: Motion Sickness Past Psychological History: Anxiety, Bipolar, Depression Smoking Status: Vaper Past Alcohol Use History: Rare Past Drug Use History: Marijuana - Past Family History Father Family Medical History: CVA/TIA, Hyperlipidemia Additional Family Medical History / Comment(s): TIA Mother Family Medical History: Cancer Additional Family Medical History / Comment(s): BREAST CANCER,MIGRAINES, VERTIGO,TREMORS Medications and Allergies Home Medications Medication Instructions Recorded Confirmed Type HYDROcodone/APAP 5-325MG [[place] 1 tab PO Q6HR PRN 3 Days #6 tab 04/05/20 04/06/20 Rx 5-325] [place] Fe 1.5-30mg Tablet 1 tab PO DAILY 04/06/20 04/06/20 History Galcanezumab-Gnlm [Emgality Pen] 120 mg SQ Q28D 04/06/20 04/06/20 History Ibuprofen/Pseudoephedrine HCl 1 tab PO DAILY PRN 04/06/20 04/06/20 History [Advil Cold & Sinus Caplet] Allergies Allergy/AdvReac Type Severity Reaction Status Date / Time lorazepam [From Ativan] AdvReac Rash/Hives Verified 04/06/20 23:26 Surgical - Exam Vital Signs Temp Pulse Resp BP Pulse Ox 98.0 F 82 20 121/86 100 04/06/20 19:39 04/06/20 19:39 04/06/20 19:39 04/06/20 19:39 04/06/20 19:39 - General well developed, well nourished, moderate distress - Neck no masses, trachea midline - Abdomen Abdomen: soft, tender (Mild right-sided tenderness to palpation), no guarding, no rigid, no rebound, no distended - Psychiatric oriented to time, oriented to person, oriented to place, speech is normal, memory intact Results - Labs 04/06/20 20:30 04/06/20 20:30 Diabetes panel 04/06/20 Range/Units 20:30 Sodium 137 (137-145) mmol/L Potassium 4.1 (3.5-5.1) mmol/L Chloride 106 (98-107) mmol/L Carbon Dioxide 24 (22-30) mmol/L BUN 8 (7-17) mg/dL Creatinine 0.68 (0.52-1.04) mg/dL Glucose 92 (74-99) mg/dL Calcium 9.6 (8.4-10.2) mg/dL AST 23 (14-36) U/L ALT 11 (4-34) U/L Alkaline Phosphatase 64 (38-126) U/L Total Protein 7.2 (6.3-8.2) g/dL Albumin 4.5 (3.5-5.0) g/dL Calcium panel 04/06/20 Range/Units 20:30 Calcium 9.6 (8.4-10.2) mg/dL Albumin 4.5 (3.5-5.0) g/dL Pituitary panel 04/06/20 Range/Units 20:30 Sodium 137 (137-145) mmol/L Potassium 4.1 (3.5-5.1) mmol/L Chloride 106 (98-107) mmol/L Carbon Dioxide 24 (22-30) mmol/L BUN 8 (7-17) mg/dL Creatinine 0.68 (0.52-1.04) mg/dL Glucose 92 (74-99) mg/dL Calcium 9.6 (8.4-10.2) mg/dL Adrenal panel 04/06/20 Range/Units 20:30 Sodium 137 (137-145) mmol/L Potassium 4.1 (3.5-5.1) mmol/L Chloride 106 (98-107) mmol/L Carbon Dioxide 24 (22-30) mmol/L BUN 8 (7-17) mg/dL Creatinine 0.68 (0.52-1.04) mg/dL Glucose 92 (74-99) mg/dL Calcium 9.6 (8.4-10.2) mg/dL Total Bilirubin 0.3 (0.2-1.3) mg/dL AST 23 (14-36) U/L ALT 11 (4-34) U/L Alkaline Phosphatase 64 (38-126) U/L Total Protein 7.2 (6.3-8.2) g/dL Albumin 4.5 (3.5-5.0) g/dL - Imaging CT scan - abdomen: report reviewed, image reviewed US - kidney/bladder: report reviewed Assessment and Plan (1) Calculus of kidney Current Visit: Yes Status: Acute Code(s): N20.0 - CALCULUS OF KIDNEY SNOMED Code(s): 44728171 Plan: The CT scan performed 6 weeks ago showed 4 right renal calculi, and she is scheduled to undergo ureteroscopic removal of these calculi at 04/12/2020. Ultrasound showed no evidence of hydronephrosis, but is noteworthy that a right ureteral jet was not seen. This suggests the possibility that one of the calculi may have migrated into the ureter. If she can be kept comfortable, I would suggest that she proceed with surgery later this week as planned. If her symptoms cannot be controlled with oral analgesics, it would be reasonable to repeat the computed tomography scan or for her to undergo ureteroscopic removal of the calculi here at [facility]. Time with Patient: Greater than 30
[2020-04-07] MEDS: HYDROcodone/APAP 5-325MG 1 EACH TAB PO PRN ×2 (12:34→19:38)
[2020-04-07] MEDS: ALPRAZolam 0.25 MG TAB PO PRN (20:50)
[2020-04-08] MEDS: SODIUM CHLORIDE 0.9% 1,000 ML IV SCH ×2 (01:34→12:16)
[2020-04-08] MEDS: HYDROmorphone 1 MG/ML 1 ML SYRINGE IVP PRN ×7 (03:22→20:26)
[2020-04-08] MEDS: PANTOPRAZOLE 40 MG TABLET PO SCH ×2 (07:28→17:30)
[2020-04-08] MEDS: ONDANSETRON 4 MG/2 ML VIAL IVP PRN ×2 (09:30→15:14)
[2020-04-08] MEDS: KETOROLAC 15 MG/ML 1 ML VIAL IVP PRN (09:32)
--- NOTE | 2020-04-08 11:11 | P.PN ---
Subjective Progress Note Date: 04/08/20 History of present illness: This is a 34-year-old pleasant female known to Dr. Smith presenting with right-sided flank pain, nausea and vomiting with history of right renal calculus. History of kidney stone for the last 3 weeks. Patient is scheduled to have internal cystoscopy on 04/[address] Macias. However for the last 2 weeks patient has been complaining of increased pain returning to the emergency room for pain management. Patient's past medical history significant for brain injury, migraines, kidney stones, GERD. Patient has had previous stone in 2012 where she underwent a lithotripsy D at that time the calculi was [address] Macias believes that the current calculi is a fragment from the previous calculi. At this time patient is sitting up in bed complaining of right flank pain and nausea. Patient states that the pain medication has not been helping. She does smoke 2-3 joints of marijuana day to help with anxiety and overall pain relief. Labs and urine were unremarkable. 04/08 patient remains in the observation unit and will be changed to inpatient. No beds are available on the inpatient side. She is requesting that the Effexor 75 mg be resumed which is not on her home medication list. Patient is very tearful and complaining of continued pain despite use of Dilaudid 1 mg every 2 hours which she is receiving. Contacted Dr. Obregon and he or Dr. King will perform surgery tomorrow. Patient has been updated. Review Of Systems: Constitutional: No fever, no chills, no night sweats. No weight change. No weakness, fatigue or lethargy. No daytime sleepiness. EENT: No headache. No blurred vision or double vision, no loss of vision. No loss of Hearing, no ringing in the ears, no dizziness. No nasal drainage or congestion. No epistaxis. No sore throat. Lungs: No shortness of breath, cough, no sputum production. No wheezing. Cardiovascular: No chest pain, no lower extremity edema. No palpitations. No paroxysmal nocturnal dyspnea. No orthopnea. No lightheadedness or dizziness. No syncopal episodes. Abdominal: Reports continued right-sided flank pain. Reports nausea and vomiting. no diarrhea. No constipation. No bloody or tarry stools. no loss of appetite. Genitourinary: No dysuria, increased frequency, urgency. No urinary retention. Musculoskeletal: No myalgias. No muscle weakness, no gait dysfunction, no frequent falls. No back pain. No neck pain. Integumentary: No wounds, no lesions. No rash or pruritus. No unusual bruising. No change in hair or nails. Neurologic: No aphasia. No facial droop. No change in mentation. No head injury. No headache. No paralysis. No paresthesia. Psychiatric: No depression. No anxiety. No mood swings. Endocrine: No abnormal blood sugars. No weight change. No excessive sweating or thirst. Physical examination General Appearance: Alerttearful during evaluation . Neck HEENT: Supple, no lymphadenopathy, no thyroid enlargement, no carotid bruits. Lungs: Clear to auscultation without crackles or wheezes no rhonchi, no deformity. Chest Wall: Chest wall normal expansion with deep inspiration no tenderness and no deformity was found on exam, no costochondral pain or discomfort. Heart: Regular rate and rhythm, S1, S2 normal, no murmur, rub or gallop. Back: Symmetric, no curvature, ROM normal, positive right CVA tenderness. Abdomen: Soft, tender upper and lower right quadrant, no rebound or rigidity, no hepatosplenomegaly. Extremities: Extremities normal, atraumatic, no cyanosis or edema. Pulses: 2+ and symmetric. Skin: Skin color, texture, tugor normal, no rashes or lesions. Neurologic: Alert oriented x3 cranial nerves II through XII intact, no motor deficit, no abnormal balance or gait Assessment and plan 1.Right renal calculus with right flank pain. Continue with pain management [place] 5/325 one tablet every 6 hours for mild pain. Dilaudid 1 mg IV push every 2 hours as needed for severe pain. Toradol 15 mg IV push every 6 hours as needed for pain. Consult urology. Patient will be scheduled for cystoscopy tomorrow. 2. Intractable nausea and vomiting. Zofran 4 mg IV every 8 hours as needed 3. Gastritis. Protonix 40 mg by mouth twice a day 4. Migraine. Stable 5. GERD. Protonix 6. GI prophylaxis. Protonix 7. DVT prophylaxis. Early ambulation, pneumatic compression sleeves Discharge plan: home Impression and plan of care have been directed as dictated by the signing physician. Antonia Da Silva nurse practitioner acting as scribe for signing physician. Objective - Vital Signs Vital signs: Vital Signs Temp 97.9 F 04/08/20 07:35 Pulse 60 04/08/20 07:35 Resp 16 04/08/20 07:35 BP 110/65 04/08/20 07:35 Pulse Ox 100 04/08/20 07:35 Intake & Output 04/07/20 04/08/20 04/08/20 18:59 06:59 18:59 Intake Total 550 Balance 550 Intake: Oral 550 Other: Voiding Method Toilet Toilet # Voids 2 1 1 - Labs CBC & Chem 7: 04/06/20 20:30 04/06/20 20:30
[2020-04-08] MEDS: HYDROcodone/APAP 5-325MG 1 EACH TAB PO PRN ×2 (12:15→22:09)
[2020-04-08] MEDS: ALPRAZolam 0.25 MG TAB PO PRN (12:15)
[2020-04-08] MEDS ORDERED: ONDANSETRON 4 MG/2 ML VIAL IVP PRN (15:40)
[2020-04-08] MEDS ORDERED: SCOPOLAMINE 1.5MG/72HR PATCH TRANSDERM SCH (16:00)
[2020-04-08] MEDS: VENLAFAXINE HCL ER 75 MG CAP PO SCH (20:25)
[2020-04-09] MEDS: HYDROmorphone 1 MG/ML 1 ML SYRINGE IVP PRN ×8 (00:57→23:18)
[2020-04-09] MEDS: ALPRAZolam 0.25 MG TAB PO PRN ×2 (04:10→23:18)
[2020-04-09] MEDS ORDERED: fentaNYL (PF) 50 MCG/ML 2 ML AMP IV PRN (06:00)
[2020-04-09] MEDS: LACTATED RINGERS 1,000 ML IV SCH (06:03)
[2020-04-09] MEDS: SODIUM CHLORIDE 0.9% 1,000 ML IV SCH ×2 (06:03→18:45)
[2020-04-09] MEDS: PANTOPRAZOLE 40 MG TABLET PO SCH ×2 (07:36→18:45)
--- NOTE | 2020-04-09 08:16 | P.PN ---
Progress Note - Text Progress Note Date: 04/08/20 The patient reports persistent right flank pain associated with nausea. She is afebrile with stable vital signs. She has been scheduled to undergo ureteroscopic removal of her right renal calculi tomorrow. This will likely be performed by myself, though perhaps by Dr. King. The patient is aware of potential risks, which include anesthesia, bleeding, infection, ureteral injury, and inability to successfully remove the calculi. She is aware of the need for a ureteral stent postoperatively.
[2020-04-09] MEDS: KETOROLAC 15 MG/ML 1 ML VIAL IVP PRN ×2 (08:41→19:46)
--- NOTE | 2020-04-09 09:38 | P.PN ---
Subjective Progress Note Date: 04/09/20 History of present illness: This is a 34-year-old pleasant female known to Dr. Smith presenting with right-sided flank pain, nausea and vomiting with history of right renal calculus. History of kidney stone for the last 3 weeks. Patient is scheduled to have internal cystoscopy on 04/[address] Macias. However for the last 2 weeks patient has been complaining of increased pain returning to the emergency room for pain management. Patient's past medical history significant for brain injury, migraines, kidney stones, GERD. Patient has had previous stone in 2012 where she underwent a lithotripsy D at that time the calculi was [address] Macias believes that the current calculi is a fragment from the previous calculi. At this time patient is sitting up in bed complaining of right flank pain and nausea. Patient states that the pain medication has not been helping. She does smoke 2-3 joints of marijuana day to help with anxiety and overall pain relief. Labs and urine were unremarkable. 04/08 patient remains in the observation unit and will be changed to inpatient. No beds are available on the inpatient side. She is requesting that the Effexor 75 mg be resumed which is not on her home medication list. Patient is very tearful and complaining of continued pain despite use of Dilaudid 1 mg every 2 hours which she is receiving. Contacted Dr. Obregon and he or Dr. King will perform surgery tomorrow. Patient has been updated. 04/09: Scopolamine patch was added yesterday afternoon as zofran was not helping. Patient states that pain was tolerable during the night. She is more calm today. Patient is scheduled for cystoscopy, lithotripsy and stent today with Dr. Obregon this afternoon. Patient has been afebrile, HR 70, BP 108/68, PO 100% on RA. Anticipate possible discharge home tomorrow. Review Of Systems: Constitutional: No fever, no chills, no night sweats. No weight change. No weakness, fatigue or lethargy. No daytime sleepiness. EENT: No headache. No blurred vision or double vision, no loss of vision. No loss of Hearing, no ringing in the ears, no dizziness. No nasal drainage or congestion. No epistaxis. No sore throat. Lungs: No shortness of breath, cough, no sputum production. No wheezing. Cardiovascular: No chest pain, no lower extremity edema. No palpitations. No paroxysmal nocturnal dyspnea. No orthopnea. No lightheadedness or dizziness. No syncopal episodes. Abdominal: Reports continued right-sided flank pain. Reports nausea and vomiting-improved. no diarrhea. No constipation. No bloody or tarry stools. no loss of appetite. Genitourinary: No dysuria, increased frequency, urgency. No urinary retention. Musculoskeletal: No myalgias. No muscle weakness, no gait dysfunction, no frequent falls. No back pain. No neck pain. Integumentary: No wounds, no lesions. No rash or pruritus. No unusual bruising. No change in hair or nails. Neurologic: No aphasia. No facial droop. No change in mentation. No head injury. No headache. No paralysis. No paresthesia. Psychiatric: No depression. No anxiety. No mood swings. Endocrine: No abnormal blood sugars. No weight change. No excessive sweating or thirst. Physical examination General Appearance: This is a 34-year-old female. She is resting comfortably in bed. Neck HEENT: Supple, no lymphadenopathy, no thyroid enlargement, no carotid bruits. Lungs: Clear to auscultation without crackles or wheezes no rhonchi, no deformity. Chest Wall: Chest wall normal expansion with deep inspiration no tenderness and no deformity was found on exam, no costochondral pain or discomfort. Heart: Regular rate and rhythm, S1, S2 normal, no murmur, rub or gallop. Back: Symmetric, no curvature, ROM normal, positive right CVA tenderness. Abdomen: Soft, tender upper and lower right quadrant, no rebound or rigidity, no hepatosplenomegaly. Extremities: Extremities normal, atraumatic, no cyanosis or edema. Pulses: 2+ and symmetric. Skin: Skin color, texture, tugor normal, no rashes or lesions. Neurologic: Alert oriented x3 cranial nerves II through XII intact, no motor deficit, no abnormal balance or gait Assessment and plan 1.Right renal calculus with right flank pain. Continue with pain management [place] 5/325 one tablet every 6 hours for mild pain. Dilaudid 1 mg IV push every 2 hours as needed for severe pain. Toradol 15 mg IV push every 6 hours as needed for pain. Consult with urology appreciated. Patient will be scheduled for cystoscopy today 2. Intractable nausea and vomiting. Zofran 4 mg IV every 8 hours as needed 3. Gastritis. Protonix 40 mg by mouth twice a day 4. Migraine. Stable 5. GERD. Protonix 6. GI prophylaxis. Protonix 7. DVT prophylaxis. Early ambulation, pneumatic compression sleeves Discharge plan: home Impression and plan of care have been directed as dictated by the signing physician. Antonia Da Silva nurse practitioner acting as scribe for signing physician. Objective - Vital Signs Vital signs: Vital Signs Temp 98.2 F 04/09/20 07:41 Pulse 70 04/09/20 07:41 Resp 14 04/09/20 07:41 BP 108/68 04/09/20 07:41 Pulse Ox 100 04/09/20 07:41 Intake & Output 04/08/20 04/09/20 04/09/20 18:59 06:59 18:59 Intake Total 1830 Balance 1830 Intake: Intake, IV Titration 650 Amount Sodium Chloride 0.9% 1, 650 000 ml @ 75 mls/hr IV . [id number] [facility] Rx#:[id number] Oral 1180 Other: Voiding Method Toilet Toilet Toilet # Voids 3 1 2 - Labs CBC & Chem 7: 04/06/20 20:30 04/06/20 20:30
[2020-04-09] MEDS ORDERED: IV FLUID CONTINUATION 1,000 ML IV ONE (14:36)
[2020-04-09] MEDS ORDERED: ONDANSETRON 4 MG/2 ML VIAL IVP ONE (14:47)
[2020-04-09] MEDS ORDERED: DEXAMETHASONE SOD PHOSPHATE 4 MG/ML 1 ML VIAL IVP ONE (14:49)
[2020-04-09] MEDS ORDERED: fentaNYL (PF) 50 MCG/ML 2 ML AMP IVP ONE (15:08)
[2020-04-09] MEDS ORDERED: fentaNYL (PF) 50 MCG/ML 2 ML AMP ONE (15:53)
[2020-04-09] MEDS ORDERED: NEOSTIGMINE 1 MG/ML 10 ML VIAL ONE (15:53)
[2020-04-09] MEDS ORDERED: MIDAZOLAM 2 MG/2 ML VIAL ONE (15:53)
[2020-04-09] MEDS ORDERED: PROPOFOL 10 MG/ML 20 ML VIAL IV ONE (15:53)
[2020-04-09] MEDS ORDERED: LIDOCAINE 1% INJ 10MG/ML (20 ML MDV) ONE (15:53)
[2020-04-09] MEDS ORDERED: GLYCOPYRROLATE 0.2 MG/ML 2 ML VIAL ONE (15:53)
[2020-04-09] MEDS ORDERED: IOPAMIDOL-370 50ML BTL IRRIGATION ONE ×2 (16:18)
--- NOTE | 2020-04-09 17:52 | P.OP ---
Date of Procedure: 04/09/20 Preoperative Diagnosis: Right renal calculi Postoperative Diagnosis: Same Procedure(s) Performed: Cystoscopy, right retrograde pyelogram, right ureteroscopy with Holmium laser lithotripsy, right ureteral stent insertion Anesthesia: SEMAJA Surgeon: Sergio Obregon Estimated Blood Loss (ml): 0 IV fluids (ml): 300 Pathology: none sent Condition: stable Disposition: PACU Indications for Procedure: The patient is a 34-year-old white female with a history of urolithiasis. She underwent a CT scan on 02/23/2020 revealing approximately 4 right renal calculi measuring up to 6 mm in size. There was no evidence of hydronephrosis. She has experienced persistent pain along with nausea and vomiting. Ultrasound performed on April 05 showed no evidence of hydronephrosis. Operative Findings: Small intrarenal collecting system. No calculi seen. Description of Procedure: The patient was taken to the operating room and placed in the dorsolithotomy position, with legs supported in Paul stirrups. The external genitalia was prepped and draped sterilely. The 30 lens was used to introduce the 21-Belgian Britton cystoscopic sheath through the urethra and into the bladder under direct vision. The bladder was examined in its entirety. Both ureteral orifices were normal anatomic location and configuration. No tumors or foreign bodies were seen. Using a 10-Belgian cone-tipped catheter, a right retrograde pyelogram was performed. The course of the ureter appeared normal, and no calculi were seen. The intrarenal collecting system was small, somewhat resembling a bifid renal pelvis. No filling defects were seen. A 0.038 inch Glidewire was passed through the cystoscope. The ureteral orifice was cannulated, and the Glidewire was advanced up to the renal pelvis. The cystoscope was removed, and an 11/13- Belgian ureteral access catheter was passed over the wire, up to the proximal ureter. The flexible ureteroscope was then passed through the ureteral access catheter sheath, up to the renal pelvis. The collecting system was inspected. In several areas, there appeared to be a submucosal calculus. The 200 micron Holmium laser probe was passed through the ureteroscope, and the mucosa was incised in these areas. However, there proved to be only small submucosal calcifications. Extensive attention was paid to the inferior aspect of the renal pelvis, looking for a scattered infundibulum or a calyceal diverticulum. Nothing of this nature was seen, and ultimately the procedure was terminated. The Glidewire was passed through the ureteroscope, which was slowly withdrawn. There was evidence of a linear mucosal tear. The Glidewire was backloaded into the cystoscope, which was passed into the bladder. A 24 cm, 4.8-Belgian double-J ureteral stent was placed over the wire. Proper stent positioning was verified fluoroscopically and endoscopically. The bladder was emptied and the cystoscope removed. The patient tolerated the procedure well and was taken to the recovery room in stable condition.
[2020-04-09] MEDS ORDERED: HYDROmorphone 0.5 MG/0.5 ML SYRINGE IVP ONE (18:00)
[2020-04-09] MEDS ORDERED: diphenhydrAMINE 50 MG/ML 1 ML VIAL IVP ONE (18:05)
[2020-04-09] MEDS ORDERED: LACTATED RINGERS 1,000 ML IV ONE (18:30)
[2020-04-09] MEDS: VENLAFAXINE HCL ER 75 MG CAP PO SCH (21:04)
[2020-04-09] MEDS: OXYBUTYNIN CHLORIDE 5 MG TAB PO SCH (21:04)
[2020-04-10] MEDS: HYDROmorphone 1 MG/ML 1 ML SYRINGE IVP PRN ×3 (01:35→05:55)
[2020-04-10 02:03] VITALS: RESP 16
[2020-04-10] MEDS: HYDROcodone/APAP 5-325MG 1 EACH TAB PO PRN ×2 (02:47→08:38)
[2020-04-10] MEDS: LACTATED RINGERS 1,000 ML IV SCH (05:42)
--- NOTE | 2020-04-10 08:29 | FL ---
Fluoroscopy INDICATION: Pain FINDINGS: Fluoroscopy time: 47 seconds. Images obtained: 2. IMPRESSIONS: 1. Documentation of fluoroscopy.
[2020-04-10] MEDS: OXYBUTYNIN CHLORIDE 5 MG TAB PO SCH (08:37)
[2020-04-10] MEDS: PANTOPRAZOLE 40 MG TABLET PO SCH (08:37)
--- NOTE | 2020-04-10 08:37 | P.DS ---
Providers Date of admission: 04/08/20 10:28 Expected date of discharge: 04/10/20 Attending physician: Will Smith Consults: 04/07/20 09:58 Consult Physician Routine Consulting Provider: Wing Feliz Consult Reason/Comments: + right renal calculus 8mm Do you want consulting provider notified?: Yes Primary care physician: [facility] Course: History of present illness: This is a 34-year-old pleasant female known to Dr. Smith presenting with right-sided flank pain, nausea and vomiting with history of right renal calculus. History of kidney stone for the last 3 weeks. Patient is scheduled to have internal cystoscopy on 04/[address] Macias. However for the last 2 weeks patient has been complaining of increased pain returning to the emergency room for pain management. Patient's past medical history significant for brain injury, migraines, kidney stones, GERD. Patient has had previous stone in 2012 where she underwent a lithotripsy D at that time the calculi was [address] Macias believes that the current calculi is a fragment from the previous calculi. At this time patient is sitting up in bed complaining of right flank pain and nausea. Patient states that the pain medication has not been helping. She does smoke 2-3 joints of marijuana day to help with anxiety and overall pain relief. Labs and urine were unremarkable. 04/08 patient remains in the observation unit and will be changed to inpatient. No beds are available on the inpatient side. She is requesting that the Effexor 75 mg be resumed which is not on her home medication list. Patient is very tearful and complaining of continued pain despite use of Dilaudid 1 mg every 2 hours which she is receiving. Contacted Dr. Obregon and he or Dr. King will perform surgery tomorrow. Patient has been updated. 04/09: Scopolamine patch was added yesterday afternoon as zofran was not helping. Patient states that pain was tolerable during the night. She is more calm today. Patient is scheduled for cystoscopy, lithotripsy and stent today with Dr. Obregon this afternoon. Patient has been afebrile, HR 70, BP 108/68, PO 100% on RA. Anticipate possible discharge home tomorrow. 04/10: Yesterday, patient underwent cystoscopy, right retrograde pyelogram, right ureteroscopy with Holmium laser lithotripsy, right ureteral stent insertion with Dr. Obregon. She continues to complain of significant pain and is receiving Dilaudid frequently refusing to take [place]. Patient has been afebrile, heart rate 78, blood pressure 115/72, pulse ox 100% on room air. IV Dilaudid will be discontinued and patient to take [place] only. She will be discharged home today in stable condition. Assessment and plan 1. Right renal calculus suspected with right flank pain. 2. Intractable nausea and vomiting. 3. Gastritis. 4. Migraine. 5. GERD. Discharge plan: home Impression and plan of care have been directed as dictated by the signing physician. Antonia Da Silva nurse practitioner acting as scribe for signing physician. Patient Condition at Discharge: Good Plan - Discharge Summary Discharge Rx Participant: No New Discharge Prescriptions: New Oxybutynin Chloride [Ditropan] 5 mg PO TID #90 tab Continue HYDROcodone/APAP 5-325MG [[place] 5-325] 1 tab PO Q6HR PRN 3 Days #6 tab PRN Reason: Severe Pain Galcanezumab-Gnlm [Emgality Pen] 120 mg SQ Q28D Blisovi Fe 1.5-30mg Tablet 1 tab PO DAILY Ibuprofen/Pseudoephedrine HCl [Advil Cold & Sinus Caplet] 1 tab PO DAILY PRN PRN Reason: Allergy Symptoms Venlafaxine HCl [Effexor] 1 mg PO DAILY Discharge Medication List HYDROcodone/APAP 5-325MG [[place] 5-325] 1 tab PO Q6HR PRN 3 Days #6 tab 04/05/20 [Rx] Blisovi Fe 1.5-30mg Tablet 1 tab PO DAILY 04/06/20 [History] Galcanezumab-Gnlm [Emgality Pen] 120 mg SQ Q28D 04/06/20 [History] Ibuprofen/Pseudoephedrine HCl [Advil Cold & Sinus Caplet] 1 tab PO DAILY PRN 04/06/20 [History] Venlafaxine HCl [Effexor] 1 mg PO DAILY 04/09/20 [History] Oxybutynin Chloride [Ditropan] 5 mg PO TID #90 tab 04/10/20 [Rx] Follow up Appointment(s)/Referral(s): Will Smith MD [Primary Care Provider] - 1 Week Sergio Obregon MD [STAFF PHYSICIAN] - 1 Week Discharge Disposition: HOME SELF-CARE
[2020-04-10] MEDS: SODIUM CHLORIDE 0.9% 1,000 ML IV SCH (08:38)
[2020-04-10 08:46] VITALS: BP 115/72; PULSE 78; TEMP 98.5
--- NOTE | 2020-04-10 10:43 | P.PN ---
Progress Note - Text Progress Note Date: 04/10/20 The patient is afebrile with stable vital signs. She does report increased urinary frequency. Unfortunately, I was unable to locate her right renal calculi. I suspect they are intraparenchymal, perhaps due to infundibular stenosis. A computed tomography scan with contrast will be obtained in 1 week for further evaluation. She was advised that ureteral stents can cause increased urinary frequency, urgency, and hematuria. She will be treated with oxybutynin chloride and follow-up in 2 weeks, at which time her ureteral stent will be removed.
--- NOTE | 2020-04-12 07:22 | CDI ---
Documentation Clarification Form Date: 04/11/20 From: Abena Sutton Phone: If you have a question about this query, please contact Audrey De La Cruz, Fixed Income Portfolio Manager at [phone] between 8am and 5pm. Admit Date: 04/08/20 Discharge Date:04/10/20 Patient Name: Nathan Cleveland Visit Number: [id number] ATTENTION: The Clinical Documentation Specialists (CDI) and [facility] Coding Staff appreciate your assistance in clarifying documentation. Please respond to the clarification below the line at the bottom and electronically sign. The CDI & [facility] Coding staff will review the response and follow-up if needed. Please note: Queries are made part of the Legal Health Record. If you have any questions, please contact the author of this message via ITS. Dear Dr. Obregon [There was evidence of a linear mucosal tear] is documented in the procedure note on 04/09. Holmium laser probe was passed through the ureteroscope, and the mucosa was incised in these areas.However, there proved to be only small submucosal calcifications.Extensive attention was paid to the inferior aspect of the renal pelvis, looking for a scattered infundibulum or a calyceal diverticulum.Nothing of this nature was seen, and ultimately the procedure was terminated. The Glidewire was passed through the ureteroscope, which was slowly withdrawn. There was evidence of a linear mucosal tear.The Glidewire was backloaded into the cystoscope, which was passed into the bladder. Patients Admitting Diagnosis: R renal calculi Post-Operative Diagnosis:Right renal calculi Procedure performed: Cystoscopy, right retrograde pyelogram, right ureteroscopy with Holmium laser lithotripsy, right ureteral stent insertion History/Risk Factors: Right renal calculi Clinical Indicators: Right flank pain, intractable pain This clinically irrelevant finding: -is an expected outcome of the surgical procedure MTDD
== END 2020-04-10 10:40 | disposition home or self-care (01) | DRG 660 ==
LOC: EC 19:37 → 1SOBS 23:12 → OBSVTOIN 04-08 10:28
PROVIDERS: ADMIT Internal Medicine Geriatric Medicine; ATTEND Internal Medicine Geriatric Medicine
PROC: BT1D1ZZ Fluoroscopy of Right Kidney, Ureter and Bladder using Low Osmolar Contrast (ICD-10-PCS; principal; 2020-04-09 08:15)
PROC: 0TJ98ZZ Inspection of Ureter, Via Natural or Artificial Opening Endoscopic (ICD-10-PCS; principal; 2020-04-09 08:15)
PROC: 0T768DZ Dilation of Right Ureter with Intraluminal Device, Via Natural or Artificial Opening Endoscopic (ICD-10-PCS; principal; 2020-04-09 08:15)
PROC: 0TF38ZZ Fragmentation in Right Kidney Pelvis, Via Natural or Artificial Opening Endoscopic (ICD-10-PCS; principal; 2020-04-09 08:15)
DX: N20.0 Calculus of kidney (principal); S37.13XA Laceration of ureter, initial encounter; F31.9 Bipolar disorder, unspecified; F17.290 Nicotine dependence, other tobacco product, uncomplicated; F41.9 Anxiety disorder, unspecified; G43.909 Migraine, unspecified, not intractable, without status migrainosus; K21.9 Gastro-esophageal reflux disease without esophagitis; K29.70 Gastritis, unspecified, without bleeding; Z87.442 Personal history of urinary calculi; Z79.899 Other long term (current) drug therapy; Z88.8 Allergy status to other drugs, medicaments and biological substances; Z87.01 Personal history of pneumonia (recurrent); Z87.820 Personal history of traumatic brain injury; Z80.3 Family history of malignant neoplasm of breast; Z80.8 Family history of malignant neoplasm of other organs or systems; Z82.49 Family history of ischemic heart disease and other diseases of the circulatory system; Z82.3 Family history of stroke; Z82.0 Family history of epilepsy and other diseases of the nervous system; Z84.89 Family history of other specified conditions
CPT/HCPCS: 36415; 74018; 74420; 76770; 80048; 80053; 81001; 81003; 81025; 85025; 96361; 96374; 96375; 99284; 99285

== ENCOUNTER → 2020-04-16 | Outpatient (CLI) | payer OTHER ==
--- NOTE | 2020-04-16 09:41 | CT ---
EXAMINATION TYPE: CT abdomen pelvis w con DATE OF EXAM: 04/16/2020 COMPARISON: February 23, 2020 HISTORY: Kidney stones CT DLP: 355.1 mGycm CONTRAST: CT scan of the abdomen and pelvis is performed without Oral Contrast and with IV Contrast, patient in jected with 100 mL of Isovue 300. FINDINGS: LUNG BASES-: No visible nodule. No infiltrate. LIVER/GB: No calcified gallstones. No space occupying hepatic lesion. Biliary tree is of normal ca liber. PANCREAS: No inflammation. No distinct mass. SPLEEN: No splenic enlargement. No lesion seen. ADRENALS: No nodule. No thickening. KIDNEYS/BLADDER: Right-sided ureteral stent is in place. Mid to lower pole calculus measuring 7 mm as well as a lower pole calculus measuring 8 mm. No evidence for hydronephrosis. No calculus is seen al francis the course of the right ureteral stent. The left kidney is free of hydronephrosis or nephrolithia sis. No renal masses are detected. Urinary bladder is unremarkable. BOWEL: Normal appendix. Normal bowel caliber. No inflammation. GENITAL ORGANS: No gross abnormality. LYMPH NODES: No greater than 1cm abdominal or pelvic lymph nodes are appreciated. AORTA: No significant abnormality. OSSEOUS STRUCTURES: No significant abnormality is seen. OTHER: No significant additional abnormality is seen. IMPRESSION: 1. Right-sided ureteral stent is in place. Mid to lower pole calculus measuring 7 mm as well as a low er pole calculus measuring 8 mm. No evidence for hydronephrosis. No calculus is seen along the course of the right ureteral stent.
== END | disposition home or self-care (01) ==
LOC: RADCTMAIN 08:12
PROVIDERS: ATTEND Urology
DX: N20.0 Calculus of kidney (principal); Z96.0 Presence of urogenital implants; Z88.8 Allergy status to other drugs, medicaments and biological substances
CPT/HCPCS: 74177; Q9967

== ENCOUNTER 2020-05-16 12:23 | Emergency (ER) | payer OTHER ==
[2020-05-16 12:27] VITALS: RESP 18; TEMP 98.3
[2020-05-16] MEDS ORDERED: LIDOCAINE 1% INJ 10MG/ML (20 ML MDV) SQ ONE (12:41)
[2020-05-16] MEDS ORDERED: CEPHALEXIN 500MG STARTER PACK 4 CAP BTL PO STA (12:42)
--- NOTE | 2020-05-16 12:43 | ED ---
General Adult HPI - General Chief complaint: Skin/Abscess/Foreign Body Stated complaint: RT hand injury Time Seen by Provider: 05/16/20 12:28 Source: patient, RN notes reviewed, old records reviewed Mode of arrival: ambulatory Limitations: no limitations - History of Present Illness Initial comments: This patient's a pleasant 34-year-old female who presents emergency room today with a lot of concern for infection over the right ring finger fingertip. Patient reports that she has noticed some pus and drainage around the edge of the fingernail. Patient states it seems to be worsening. She reports she is able to have range of motion and bending of the finger. She denies any nausea or other complaints. - Related Data Home Medications Medication Instructions Recorded Confirmed Blisovi Fe 1.5-30mg Tablet 1 tab PO DAILY 04/06/20 04/09/20 Galcanezumab-Gnlm [Emgality Pen] 120 mg SQ Q28D 04/06/20 04/09/20 Ibuprofen/Pseudoephedrine HCl 1 tab PO DAILY PRN 04/06/20 04/09/20 [Advil Cold & Sinus Caplet] Venlafaxine HCl [Effexor] 1 mg PO DAILY 04/09/20 04/09/20 Previous Rx's Medication Instructions Recorded HYDROcodone/APAP 5-325MG [[place] 1 tab PO Q6HR PRN 3 Days #6 tab 04/05/20 5-325] Oxybutynin Chloride [Ditropan] 5 mg PO TID #90 tab 04/10/20 Sulfamethox-Tmp 800-160Mg [Bactrim 2 tab PO Q12HR #40 tab 05/16/20 DS 800-160 mg] Allergies Allergy/AdvReac Type Severity Reaction Status Date / Time lorazepam [From Ativan] AdvReac Rash/Hives Verified 05/16/20 12:27 Review of Systems ROS Statement: Those systems with pertinent positive or pertinent negative responses have been documented in the HPI. ROS Other: All systems not noted in ROS Statement are negative. Past Medical History Past Medical History: Pneumonia Additional Past Medical History / Comment(s): brain injury, MIGARINES,VERTIGO,kidney infection kidney stones History of Any Multi-Drug Resistant Organisms: None Reported Past Surgical History: No Surgical Hx Reported Additional Past Surgical History / Comment(s): breast biopsy X3-NEG, kidney s tones Past Anesthesia/Blood Transfusion Reactions: Motion Sickness Past Psychological History: Anxiety, Bipolar, Depression Smoking Status: Current every day smoker, Vaper Past Alcohol Use History: Rare Past Drug Use History: Marijuana - Past Family History Father Family Medical History: CVA/TIA, Hyperlipidemia Additional Family Medical History / Comment(s): TIA Mother Family Medical History: Cancer Additional Family Medical History / Comment(s): BREAST CANCER,MIGRAINES, VERTIGO,TREMORS General Exam - General Exam Comments Initial Comments: 34-year-old female. Alert. No acute distress. Limitations: no limitations General appearance: alert, in no apparent distress Head exam: Present: atraumatic, normocephalic, normal inspection Eye exam: Present: normal appearance, PERRL, EOMI. Absent: scleral icterus, conjunctival injection, periorbital swelling ENT exam: Present: normal exam, mucous membranes moist Neck exam: Present: normal inspection. Absent: tenderness, meningismus, lymphadenopathy Respiratory exam: Present: normal lung sounds bilaterally. Absent: respiratory distress, wheezes, rales, rhonchi, stridor Cardiovascular Exam: Present: regular rate, normal rhythm, normal heart sounds. Absent: systolic murmur, diastolic murmur, rubs, gallop, clicks GI/Abdominal exam: Present: soft, normal bowel sounds. Absent: distended, tenderness, guarding, rebound, rigid Extremities exam: Present: normal inspection, full ROM, normal capillary refill. Absent: tenderness, pedal edema, joint swelling, calf tenderness Left Forearm Wrist exam: Present: normal inspection, full ROM Hand Wrist exam: Present: full ROM, tenderness, swelling (Assessment swelling to the left index finger with paronychia ). Absent: normal inspection Neuro motor exam: Present: wrist extension intact, thumb opposition intact, thumb IP flexion intact, thumb adduction intact, fingers 2-5 abduction intact Vascular: Present: normal capillary refill Back exam: Present: normal inspection Neurological exam: Present: alert, oriented X3, CN II-XII intact Psychiatric exam: Present: normal affect, normal mood Skin exam: Present: warm, dry, intact, normal color. Absent: rash Course Vital Signs 05/16/20 05/16/20 12:24 13:31 Temperature 98.3 F Pulse Rate 78 58 L Respiratory 18 18 Rate Blood Pressure 109/73 99/52 O2 Sat by Pulse 99 98 Oximetry Procedures - Incision & Drainage Site: hand (fourth digit R hand paronychia) Size (cm): 2 Anesthetic Used: lidocaine 1% Amount (mLs): 2 I&D Cleaning Method: Iodine Sterile Field Used?: Yes Scalpel Used: #11 Needle Aspiration Performed?: Yes I&D Drainage Obtained: Pus, Blood Culture Obtained?: No Patient Tolerated Procedure: well, no complications, other (Patient did have syncopal episode after incision and drainage when she saw the blood and with pain of the nerve block. Patient then was brought into the supine position blood pressure was obtained and she became angry again consciousness. She is given orange juice and monitored for 15 minutes feel) Medical Decision Making - Medical Decision Making 34-year-old female presents the ER today for eval with concern of a paronychia on the right fourth digit. She's had redness and swelling for the past 3 weeks. At this time patient x-ray shows no signs of bony destruction but evidence of soft tissue swelling. Patient had insisted and drainage completed and 1 mL of Prelone fluid was removed from the lateral aspect of the nail. Patient to have a syncopal episode during the procedure but quickly regain consciousness and streaking or juice and monitored afterward and feels better at this time. Single episode is likely due to not eating much today she also passed out after the sight of blood. Patient will be placed on antibiotics for concern for paronychia and discussed putting warm compresses over the finger. Discussed falling up with instrument specialist. Discussed return parameters. - Radiology Data Radiology results: report reviewed No displaced fracture dislocation identified. Soft tissue swelling over distal fourth digit. Disposition Clinical Impression: Paronychia Disposition: HOME SELF-CARE Condition: Good Instructions (If sedation given, give patient instructions): Paronychia (ED) Additional Instructions: Please use medication as discussed. Patient advised to apply warm compresses and warm soaks to the finger. Patient should follow-up with orthopedic hand specialist if symptoms continue to persist or worsen despite antibiotic and warm compresses.. Please return to the emergency room if your symptoms increase or worsen or for any other concerns. Patient to take Motrin Tylenol for pain. Prescriptions: Sulfamethox-Tmp 800-160Mg [Bactrim DS 800-160 mg] 2 tab PO Q12HR #40 tab Is patient prescribed a controlled substance at d/c from ED?: No Referrals: Will Smith MD [Primary Care Provider] - 1-2 days Frank Rodriguez DO [Doctor of Osteopathic Medicine] - 1-2 days Time of Disposition: 13:41
--- NOTE | 2020-05-16 13:15 | XR ---
EXAM: XR Right Hand Complete, 3 or More Views CLINICAL HISTORY: ITS.REASON XR Reason: finger infection TECHNIQUE: Frontal, lateral and oblique views of the right hand. COMPARISON: None FINDINGS: Bones/joints: No displaced fracture or dislocation identified. Joint space is maintained. No bony lesion. Soft tissues: Soft tissue swelling of the distal right fourth digit. No radiopaque foreign body identified. IMPRESSION: 1. No displaced fracture or dislocation identified. 2. Soft tissue swelling of the distal right fourth digit.
[2020-05-16] MEDS ORDERED: ACET/COD 300 MG/30 MG STARTER PACK 6 TAB BTL PO STA (13:51)
[2020-05-16 14:18] VITALS: BP 105/72; PULSE 59
== END 2020-05-16 14:22 | disposition home or self-care (01) ==
LOC: EC 12:23
DX: L03.011 Cellulitis of right finger (principal); F41.9 Anxiety disorder, unspecified; F31.9 Bipolar disorder, unspecified; F17.290 Nicotine dependence, other tobacco product, uncomplicated; Z86.69 Personal history of other diseases of the nervous system and sense organs; Z79.899 Other long term (current) drug therapy; Z88.8 Allergy status to other drugs, medicaments and biological substances
CPT/HCPCS: 73130; 99283; 10060; J2001

== ENCOUNTER 2020-08-28 21:56 | Emergency (ER) | payer OTHER ==
[2020-08-28 23:16] VITALS: RESP 18
[2020-08-28 23:49] LABS: Amorphous Sediment,Urine Occasional /hpf; Appearance,Urine Cloudy (Clear); Bacteria,Urine Rare /hpf; Bilirubin,Urine Negative (Negative); Blood,Urine Negative (Negative); Color,Urine Yellow; Glucose,Urine (UA) Negative (Negative); Ketones,Urine Negative (Negative); Leukocyte Esterase,Urine Trace (Negative); Mucus,Urine Rare /hpf; Nitrite,Urine Negative (Negative); Protein,Urine Trace (Negative); RBC,Urine 3 /hpf (0-5); Specific Gravity,Urine 1.012 (1.001-1.035); Squamous Epithelial Cell,Urine 7 /hpf (0-4); Urobilinogen,Urine <2.0 mg/dL (<2.0); WBC,Urine 8 /hpf (0-5)
[2020-08-29] MEDS ORDERED: MORPHINE SULFATE 4 MG/ML SYRINGE IV STA (00:41)
[2020-08-29] MEDS ORDERED: SODIUM CHLORIDE 0.9% 1,000 ML IV STA (00:41)
--- NOTE | 2020-08-29 00:42 | ED ---
Abdominal Pain HPI - General Chief Complaint: Abdominal Pain Stated Complaint: kidney stones Time Seen by Provider: 08/29/20 00:31 Source: patient, RN notes reviewed, old records reviewed Mode of arrival: ambulatory Limitations: no limitations - History of Present Illness Initial Comments: This is a 34-year-old female DEL with nonspecific abdominal pain. Patient has epigastric abdominal pain suprapubic abdominal pain and back pain. Patient has kidney infection urinary tract infection recurrent kidney stones. Afebrile with no recent travel history or significant sick contacts. Patient is no significant surgical history. Has never had quite pain before like this MD Complaint: abdominal pain -: hour(s) Location: diffuse Radiation: epigastric, suprapubic, L flank, R flank Severity: moderate Severity scale (1-10): 6 Quality: stabbing, aching Consistency: constant Improves With: nothing Worsens With: nothing Context: other (none) Associated Symptoms: nausea Treatments Prior to Arrival: other (none) - Related Data Home Medications Medication Instructions Recorded Confirmed Blisovi Fe 1.5-30mg Tablet 1 tab PO DAILY 04/06/20 04/09/20 Galcanezumab-Gnlm [Emgality Pen] 120 mg SQ Q28D 04/06/20 04/09/20 Ibuprofen/Pseudoephedrine HCl 1 tab PO DAILY PRN 04/06/20 04/09/20 [Advil Cold & Sinus Caplet] Venlafaxine HCl [Effexor] 1 mg PO DAILY 04/09/20 04/09/20 Previous Rx's Medication Instructions Recorded HYDROcodone/APAP 5-325MG [[place] 1 tab PO Q6HR PRN 3 Days #6 tab 04/05/20 5-325] Oxybutynin Chloride [Ditropan] 5 mg PO TID #90 tab 04/10/20 Sulfamethox-Tmp 800-160Mg [Bactrim 2 tab PO Q12HR #40 tab 05/16/20 DS 800-160 mg] Allergies Allergy/AdvReac Type Severity Reaction Status Date / Time lorazepam [From Ativan] AdvReac Rash/Hives Verified 08/28/20 23:16 Review of Systems ROS Statement: Those systems with pertinent positive or pertinent negative responses have been documented in the HPI. ROS Other: All systems not noted in ROS Statement are negative. Past Medical History Past Medical History: Pneumonia Additional Past Medical History / Comment(s): brain injury, MIGARINES,VERTIGO,kidney infection kidney stones History of Any Multi-Drug Resistant Organisms: None Reported Past Surgical History: No Surgical Hx Reported Additional Past Surgical History / Comment(s): breast biopsy X3-NEG, kidney stones, lithotripsy Past Anesthesia/Blood Transfusion Reactions: Motion Sickness Past Psychological History: Anxiety, Bipolar, Depression Smoking Status: Current every day smoker, Vaper Past Alcohol Use History: Rare Past Drug Use History: Marijuana - Past Family History Father Family Medical History: CVA/TIA, Hyperlipidemia Additional Family Medical History / Comment(s): TIA Mother Family Medical History: Cancer Additional Family Medical History / Comment(s): BREAST CANCER,MIGRAINES, VERTIGO,TREMORS General Exam Limitations: no limitations General appearance: alert, in no apparent distress Head exam: Present: atraumatic, normocephalic, normal inspection Eye exam: Present: normal appearance, PERRL, EOMI. Absent: scleral icterus, conjunctival injection, periorbital swelling ENT exam: Present: normal exam, mucous membranes moist Neck exam: Present: normal inspection. Absent: tenderness, meningismus, lymphadenopathy Respiratory exam: Present: normal lung sounds bilaterally. Absent: respiratory distress, wheezes, rales, rhonchi, stridor Cardiovascular Exam: Present: regular rate, normal rhythm, normal heart sounds. Absent: systolic murmur, diastolic murmur, rubs, gallop, clicks GI/Abdominal exam: Present: soft, normal bowel sounds. Absent: distended, t enderness, guarding, rebound, rigid Extremities exam: Present: normal inspection, full ROM, normal capillary refill. Absent: tenderness, pedal edema, joint swelling, calf tenderness Back exam: Present: normal inspection Neurological exam: Present: alert, oriented X3, CN II-XII intact Psychiatric exam: Present: normal affect, normal mood Skin exam: Present: warm, dry, intact, normal color. Absent: rash Course Vital Signs 08/28/20 08/29/20 23:12 01:19 Temperature 98.4 F 98.2 F Pulse Rate 72 54 L Respiratory 18 18 Rate Blood Pressure 107/56 97/62 O2 Sat by Pulse 99 100 Oximetry - Reevaluation(s) Reevaluation #1: 08/29/20 01:46 Medical record is reviewed Reevaluation #2: 08/29/20 01:46 Patient has no current complaints symptoms again are improved Reevaluation #3: 08/29/20 01:46 Patient informed results and questions have been answered Medical Decision Making - Medical Decision Making 34 female with abdominal pain of unknown origin. Cultures taken and urine, labwork is otherwise negative CT abdomen and pelvis is negative patient can be discharged home - Lab Data Result diagrams: 08/29/20 01:09 Lab Results 08/28/20 08/28/20 08/29/20 Range/Units 01:20 23:21 01:09 Sodium 136 L (137-145) mmol/L Potassium 3.9 (3.5-5.1) mmol/L Chloride 103 (98-107) mmol/L Carbon Dioxide 26 (22-30) mmol/L Anion Gap 7 mmol/L BUN 11 (7-17) mg/dL Creatinine 0.63 (0.52-1.04) mg/dL Est GFR (CKD-EPI)AfAm >90 (>60 ml/min/1.73 sqM) Est GFR (CKD-EPI)NonAf >90 (>60 ml/min/1.73 sqM) Glucose 101 H (74-99) mg/dL Calcium 9.5 (8.4-10.2) mg/dL Total Bilirubin 0.2 (0.2-1.3) mg/dL AST 24 (14-36) U/L ALT 15 (4-34) U/L Alkaline Phosphatase 64 (38-126) U/L Total Protein 7.1 (6.3-8.2) g/dL Albumin 4.4 (3.5-5.0) g/dL Amylase 57 (30-110) U/L Lipase 106 (23-300) U/L Urine Color Yellow Urine Appearance Cloudy H (Clear) Urine pH 7.0 (5.0-8.0) Ur Specific [place] 1.012 (1.001-1.035) Urine Protein Trace H (Negative) Urine Glucose (UA) Negative (Negative) Urine Ketones Negative (Negative) Urine Blood Negative (Negative) Urine Nitrite Negative (Negative) Urine Bilirubin Negative (Negative) Urine Urobilinogen <2.0 (<2.0) mg/dL Ur Leukocyte Esterase Trace H (Negative) Urine RBC 3 (0-5) /hpf Urine WBC 8 H (0-5) /hpf Ur Squamous Epith Cells 7 H (0-4) /hpf Amorphous Sediment Occasional H (None) /hpf Urine Bacteria Rare H (None) /hpf Urine Mucus Rare H (None) /hpf Urine HCG, Qual Not Detected (Not Detectd) - Radiology Data Radiology results: report reviewed (CT abdomen and pelvis is negative for acute disease), image reviewed Disposition Clinical Impression: Abdominal pain Disposition: HOME SELF-CARE Condition: Good Instructions (If sedation given, give patient instructions): Abdominal Pain (ED) Is patient prescribed a controlled substance at d/c from ED?: No Referrals: Will Smith MD [Primary Care Provider] - 1-2 days
--- NOTE | 2020-08-29 01:32 | CT ---
EXAM: CT Abdomen and Pelvis Without Intravenous Contrast CLINICAL HISTORY: ITS.REASON CT Reason: abdominal pain TECHNIQUE: Axial computed tomography images of the abdomen and pelvis without intravenous contrast. CTDI is 4.97 mGy and DLP is 278 mGy-cm. This CT exam was performed using one or more of the following dose reduction techniques: automated exposure control, adjustment of the mA and/or kV according to patient size, and/or use of iterative reconstruction technique. COMPARISON: No relevant prior studies available. FINDINGS: Lung bases: Unremarkable. ABDOMEN: Liver: Unremarkable. Gallbladder and bile ducts: Unremarkable. Pancreas: Unremarkable. Spleen: Unremarkable. Adrenals: Unremarkable. Kidneys and ureters: Nonobstructing calculi within both kidneys. No hydronephrosis. Stomach and bowel: Unremarkable. PELVIS: Appendix: Appendix is unremarkable Bladder: Unremarkable. Reproductive: Unremarkable as visualized. ABDOMEN and PELVIS: Intraperitoneal space: Small amount of free fluid in the pelvis. Bones/joints: No acute fracture. No dislocation. Soft tissues: Unremarkable. Vasculature: Unremarkable. Lymph nodes: Unremarkable. Other findings: Lower thorax is unremarkable. IMPRESSION: 1. Small amount of free fluid in the pelvis. 2. Nonobstructing calculi within both kidneys. No hydronephrosis.
[2020-08-29 01:43] LABS: ALT 15 U/L (4-34); AST 24 U/L (14-36); African American GFR (CKD) >90 (>60 ml/min/1.73 sqM); Albumin 4.4 g/dL (3.5-5.0); Alkaline Phosphatase 64 U/L (38-126); Amylase 57 U/L (30-110); Anion Gap 7 mmol/L; Blood Urea Nitrogen 11 mg/dL (7-17); Calcium 9.5 mg/dL (8.4-10.2); Carbon Dioxide 26 mmol/L (22-30); Chloride 103 mmol/L (98-107); Glucose 101 mg/dL (74-99); Lipase 106 U/L (23-300); Non-African American GFR(CKD) >90 (>60 ml/min/1.73 sqM); Potassium 3.9 mmol/L (3.5-5.1); Sodium 136 mmol/L (137-145); Total Bilirubin 0.2 mg/dL (0.2-1.3); Total Protein 7.1 g/dL (6.3-8.2)
[2020-08-29] MEDS ORDERED: ACET/COD 300 MG/30 MG STARTER PACK 6 TAB BTL PO STA (01:57)
[2020-08-29] MEDS ORDERED: ONDANSETRON 4 MG ODT STARTER PACK 2 TAB BTL PO STA (02:07)
[2020-08-29 02:13] LABS: Basophils % (A) 1 %; Eosinophils # (A) 0.2 k/uL (0-0.7); Eosinophils % (A) 2 %; HCT 38.8 % (34.0-46.0); HGB 13.4 gm/dL (11.4-16.0); Lymphocytes # (A) 2.5 k/uL (1.0-4.8); Lymphocytes % (A) 29 %; MCH 30.3 pg (25.0-35.0); MCHC 34.5 g/dL (31.0-37.0); MCV 87.7 fL (80.0-100.0); Monocytes # (A) 0.5 k/uL (0-1.0); Monocytes % (A) 6 %; Neutrophils # (A) 5.2 k/uL (1.3-7.7); Neutrophils % (A) 61 %; Platelet Count 258 k/uL (150-450); RBC 4.42 m/uL (3.80-5.40); RDW 12.7 % (11.5-15.5); WBC 8.6 k/uL (3.8-10.6)
[2020-08-29 02:20] VITALS: BP 105/71; PULSE 60; TEMP 98.4
== END 2020-08-29 02:15 | disposition home or self-care (01) ==
LOC: EC 21:56
DX: R10.13 Epigastric pain (principal); R10.30 Lower abdominal pain, unspecified; R11.0 Nausea; M54.9 Dorsalgia, unspecified; F41.9 Anxiety disorder, unspecified; F31.9 Bipolar disorder, unspecified; F17.290 Nicotine dependence, other tobacco product, uncomplicated; Z79.899 Other long term (current) drug therapy; Z88.8 Allergy status to other drugs, medicaments and biological substances; Z86.69 Personal history of other diseases of the nervous system and sense organs
CPT/HCPCS: 36415; 80053; 82150; 83690; 85025; 81001; 81025; 74176; 99284; 96374; 96361; J2270; S0119

== ENCOUNTER 2020-09-09 07:41 | Emergency (ER) | payer OTHER ==
[2020-09-09] MEDS ORDERED: HYDROmorphone 0.5 MG/0.5 ML SYRINGE IVP STA (08:26)
[2020-09-09] MEDS ORDERED: SODIUM CHLORIDE 0.9% 1,000 ML IV ONE (08:26)
[2020-09-09 09:22] LABS: Basophils % (A) 1 %; Eosinophils # (A) 0.1 k/uL (0-0.7); Eosinophils % (A) 2 %; HCT 42.3 % (34.0-46.0); HGB 13.7 gm/dL (11.4-16.0); Lymphocytes # (A) 1.7 k/uL (1.0-4.8); Lymphocytes % (A) 27 %; MCH 28.5 pg (25.0-35.0); MCHC 32.5 g/dL (31.0-37.0); MCV 87.8 fL (80.0-100.0); Mean Platelet Volume 6.9; Monocytes # (A) 0.3 k/uL (0-1.0); Monocytes % (A) 4 %; Neutrophils # (A) 4.1 k/uL (1.3-7.7); Neutrophils % (A) 65 %; Platelet Count 319 k/uL (150-450); RBC 4.82 m/uL (3.80-5.40); RDW 13.2 % (11.5-15.5); WBC 6.2 k/uL (3.8-10.6)
[2020-09-09 09:35] LABS: ALT 12 U/L (4-34); AST 23 U/L (14-36); African American GFR (CKD) >90 (>60 ml/min/1.73 sqM); Albumin 4.3 g/dL (3.5-5.0); Alkaline Phosphatase 61 U/L (38-126); Anion Gap 6 mmol/L; Blood Urea Nitrogen 9 mg/dL (7-17); Calcium 9.2 mg/dL (8.4-10.2); Carbon Dioxide 27 mmol/L (22-30); Chloride 107 mmol/L (98-107); Glucose 79 mg/dL (74-99); Non-African American GFR(CKD) >90 (>60 ml/min/1.73 sqM); Potassium 4.1 mmol/L (3.5-5.1); Sodium 140 mmol/L (137-145); Total Bilirubin 0.3 mg/dL (0.2-1.3)
--- NOTE | 2020-09-09 09:48 | ED ---
General Adult HPI - General Chief complaint: Vaginal Bleeding Stated complaint: Female Time Seen by Provider: 09/09/20 07:46 Source: patient, RN notes reviewed Limitations: no limitations - History of Present Illness Initial comments: 34-year-old female with history of brain injury, migraines, vertigo presents to the emergency room for chief complaint of pelvic pain. Patient states about 1 month ago she started her period. However she reports that it was heavier than normal. States she has been having vaginal bleeding on and off since then. Patient states he 41 so she started to have abdominal pain associated with this. Patient called her RECORDS TECH who brought her into the schedule for Wednesday however when she said she is bleeding heavily they recommended she come to the ER for evaluation.Patient has no other complaints at this time including shortness of breath, chest pain, nausea or vomiting, headache, or visual changes. - Related Data Home Medications Medication Instructions Recorded Confirmed Blisovi Fe 1.5-30mg Tablet 1 tab PO DAILY 04/06/20 04/09/20 Galcanezumab-Gnlm [Emgality Pen] 120 mg SQ Q28D 04/06/20 04/09/20 Ibuprofen/Pseudoephedrine HCl 1 tab PO DAILY PRN 04/06/20 04/09/20 [Advil Cold & Sinus Caplet] Venlafaxine HCl [Effexor] 1 mg PO DAILY 04/09/20 04/09/20 Previous Rx's Medication Instructions Recorded HYDROcodone/APAP 5-325MG [[place] 1 tab PO Q6HR PRN 3 Days #6 tab 04/05/20 5-325] Oxybutynin Chloride [Ditropan] 5 mg PO TID #90 tab 04/10/20 Sulfamethox-Tmp 800-160Mg [Bactrim 2 tab PO Q12HR #40 tab 05/16/20 DS 800-160 mg] Allergies Allergy/AdvReac Type Severity Reaction Status Date / Time lorazepam [From Ativan] AdvReac Rash/Hives Verified 09/09/20 07:47 Review of Systems ROS Statement: Those systems with pertinent positive or pertinent negative responses have been documented in the HPI. ROS Other: All systems not noted in ROS Statement are negative. Past Medical History Past Medical History: Pneumonia Additional Past Medical History / Comment(s): brain injury, ROSEMARIE ARINES,VERTIGO,kidney infection kidney stones History of Any Multi-Drug Resistant Organisms: None Reported Past Surgical History: No Surgical Hx Reported Additional Past Surgical History / Comment(s): breast biopsy X3-NEG, kidney stones, lithotripsy Past Anesthesia/Blood Transfusion Reactions: Motion Sickness Past Psychological History: Anxiety, Bipolar, Depression Smoking Status: Current every day smoker, Vaper Past Alcohol Use History: Rare Past Drug Use History: Marijuana - Past Family History Father Family Medical History: CVA/TIA, Hyperlipidemia Additional Family Medical History / Comment(s): TIA Mother Family Medical History: Cancer Additional Family Medical History / Comment(s): BREAST CANCER,MIGRAINES, VERTIGO,TREMORS General Exam Limitations: no limitations General appearance: alert, in no apparent distress Head exam: Present: atraumatic, normocephalic, normal inspection Eye exam: Present: normal appearance, PERRL, EOMI. Absent: scleral icterus, conjunctival injection, periorbital swelling ENT exam: Present: normal exam, mucous membranes moist Neck exam: Present: normal inspection, full ROM Respiratory exam: Present: normal lung sounds bilaterally. Absent: respiratory distress, wheezes, rales, rhonchi, stridor Cardiovascular Exam: Present: regular rate, normal rhythm, normal heart sounds. Absent: systolic murmur, diastolic murmur, rubs, gallop, clicks GI/Abdominal exam: Present: soft, tenderness (Generalized lower abdominal tenderness), normal bowel sounds. Absent: distended, guarding, rebound, rigid External exam: Present: normal external exam. Absent: erythema, swelling, lesions, lacerations, ecchymosis Speculum exam: Present: normal speculum exam, vaginal bleeding (Minimal). Absent: erythema, vaginal discharge, cervical discharge, foreign body, tissue, laceration By manual exam: Present: uterine tenderness. Absent: normal by manual exam, cervical motion tenderness, adnexal tenderness, adnexal mass, uterine enlargement Neurological exam: Present: alert Course Vital Signs 09/09/20 07:43 Temperature 97.3 F L Pulse Rate 80 Respiratory 18 Rate Blood Pressure 110/72 O2 Sat by Pulse 100 Oximetry Medical Decision Making - Medical Decision Making Vitals are stable. HPI and physical exam as documented. CBC CMP unremarkable. Urinalysis and hCG negative. Trichomonas negative. Ultrasound shows a 10 x 5 mm fluid LOC L along the fundal uterine cavity. HCG negative. There is also a second 19 x 5 mm area of nodularity that may be present along the inferior margin of the fluid. Consider endometrial polyp. Consider direct visualization. At this time patient's pain is under control. Patient has outpatient follow-up in [address] Merrill. Patient will follow up and return here for any worsening symptoms. - Lab Data Result diagrams: 09/09/20 08:57 09/09/20 08:57 Lab Results 09/09/20 09/09/20 09/09/20 Range/Units 08:57 08:57 08:57 WBC 6.2 (3.8-10.6) k/uL RBC 4.82 (3.80-5.40) m/uL Hgb 13.7 (11.4-16.0) gm/dL Hct 42.3 (34.0-46.0) % MCV 87.8 (80.0-100.0) fL MCH 28.5 (25.0-35.0) pg MCHC 32.5 (31.0-37.0) g/dL RDW 13.2 (11.5-15.5) % Plt Count 319 (150-450) k/uL MPV 6.9 Neutrophils % 65 % Lymphocytes % 27 % Monocytes % 4 % Eosinophils % 2 % Basophils % 1 % Neutrophils # 4.1 (1.3-7.7) k/uL Lymphocytes # 1.7 (1.0-4.8) k/uL Monocytes # 0.3 (0-1.0) k/uL Eosinophils # 0.1 (0-0.7) k/uL Basophils # 0.0 (0-0.2) k/uL Sodium 140 (137-145) mmol/L Potassium 4.1 (3.5-5.1) mmol/L Chloride 107 (98-107) mmol/L Carbon Dioxide 27 (22-30) mmol/L Anion Gap 6 mmol/L BUN 9 (7-17) mg/dL Creatinine 0.73 (0.52-1.04) mg/dL Est GFR (CKD-EPI)AfAm >90 (>60 ml/min/1.73 sqM) Est GFR (CKD-EPI)NonAf >90 (>60 ml/min/1.73 sqM) Glucose 79 (74-99) mg/dL Calcium 9.2 (8.4-10.2) mg/dL Total Bilirubin 0.3 (0.2-1.3) mg/dL AST 23 (14-36) U/L ALT 12 (4-34) U/L Alkaline Phosphatase 61 (38-126) U/L Total Protein 7.0 (6.3-8.2) g/dL Albumin 4.3 (3.5-5.0) g/dL HCG, Quant mIU/mL Urine Color Urine Appearance (Clear) Urine pH (5.0-8.0) Ur Specific [place] (1.001-1.035) Urine Protein (Negative) Urine Glucose (UA) (Negative) Urine Ketones (Negative) Urine Blood (Negative) Urine Nitrite (Negative) Urine Bilirubin (Negative) Urine Urobilinogen (<2.0) mg/dL Ur Leukocyte Esterase (Negative) Urine HCG, Qual Not Detected (Not Detectd) Trichomonas Ag (Rapid) (Negative) 09/09/20 09/09/20 09/09/20 Range/Units 08:57 08:57 08:57 WBC (3.8-10.6) k/uL RBC (3.80-5.40) m/uL Hgb (11.4-16.0) gm/dL Hct (34.0-46.0) % MCV (80.0-100.0) fL MCH (25.0-35.0) pg MCHC (31.0-37.0) g/dL RDW (11.5-15.5) % Plt Count (150-450) k/uL MPV Neutrophils % % Lymphocytes % % Monocytes % % Eosinophils % % Basophils % % Neutrophils # (1.3-7.7) k/uL Lymphocytes # (1.0-4.8) k/uL Monocytes # (0-1.0) k/uL Eosinophils # (0-0.7) k/uL Basophils # (0-0.2) k/uL Sodium (137-145) mmol/L Potassium (3.5-5.1) mmol/L Chloride (98-107) mmol/L Carbon Dioxide (22-30) mmol/L Anion Gap mmol/L BUN (7-17) mg/dL Creatinine (0.52-1.04) mg/dL Est GFR (CKD-EPI)AfAm (>60 ml/min/1.73 sqM) Est GFR (CKD-EPI)NonAf (>60 ml/min/1.73 sqM) Glucose (74-99) mg/dL Calcium (8.4-10.2) mg/dL Total Bilirubin (0.2-1.3) mg/dL AST (14-36) U/L ALT (4-34) U/L Alkaline Phosphatase (38-126) U/L Total Protein (6.3-8.2) g/dL Albumin (3.5-5.0) g/dL HCG, Quant <2.4 mIU/mL Urine Color Yellow Urine Appearance Clear (Clear) Urine pH 6.5 (5.0-8.0) Ur Specific [place] 1.010 (1.001-1.035) Urine Protein Negative (Negative) Urine Glucose (UA) Negative (Negative) Urine Ketones Negative (Negative) Urine Blood Negative (Negative) Urine Nitrite Negative (Negative) Urine Bilirubin Negative (Negative) Urine Urobilinogen <2.0 (<2.0) mg/dL Ur Leukocyte Esterase Negative (Negative) Urine HCG, Qual (Not Detectd) Trichomonas Ag (Rapid) Negative (Negative) Disposition Clinical Impression: Pelvic pain, Dysfunctional uterine bleeding Disposition: HOME SELF-CARE Condition: Good Instructions (If sedation given, give patient instructions): Dysfunctional Uterine Bleeding (ED) Additional Instructions: Please take Motrin and Tylenol for pain. Please follow-up with primary care. Return to the emergency room for any worsening symptoms. Is patient prescribed a controlled substance at d/c from ED?: No Referrals: Will Smith MD [Primary Care Provider] - 1-2 days Omar Merrill MD [Family Provider] - 1-2 days Time of Disposition: 11:26
--- NOTE | 2020-09-09 09:52 | US ---
EXAMINATION TYPE: US transvaginal DATE OF EXAM: 09/09/2020 COMPARISON: CT 08/29/2020 CLINICAL HISTORY: 34-year-old female pain. Pt states ongoing vaginal bleeding since July 30, pelvic pain, more on right TECHNIQUE: Transvaginal (TV). Transvaginal sonographic images of the pelvis were acquired. Date of LMP: July 27, ongoing bleeding FINDINGS: EXAM MEASUREMENTS: Uterus: 9.4 x 4.3 x 5.8 cm Endometrial Stripe: 0.6 cm Right Ovary: 3.3 x 2.0 x 1.6 cm for a volume of 5.4 mL Left Ovary: 3.5 x 2.1 x 2.6 cm for a volume of 9.7 mL 1. Uterus: Anteverted an otherwise wnl 2. Endometrium: There is small amount of fluid measuring 10 x 5 mm along the fundal uterine cavity. A tiny 2 mm nodular focus is present within. Also 2 additional nodular area along the inferior margin of the fluid locule measuring 9 x 5 mm, refer to page 37 of 47. Patient states she is not 3. Right Ovary: wnl 4. Left Ovary: wnl Spectral, color and waveform doppler imaging shows good arterial and venous flow within the ovaries ; there is no evidence for ovarian torsion. 5. Bilateral Adnexa: wnl 6. Posterior cul-de-sac: wnl IMPRESSION: 1. 10 x 5 mm fluid locule along the fundal uterine cavity. First correlate with beta hCG to exclude t he possibility of early especially given a 2 mm nodular focus within this fluid. 2. A second 9 x 5 mm area of nodularity may be present along the inferior margin of the fluid. Endome trial polyp is a consideration. Consider direct visualization or hysterosonography for further evalua tion. 3. No sonographic evidence for ovarian torsion. Follicular change in the ovaries.
[2020-09-09 10:07] LABS: Appearance,Urine Clear (Clear); Bilirubin,Urine Negative (Negative); Blood,Urine Negative (Negative); Color,Urine Yellow; Glucose,Urine (UA) Negative (Negative); Ketones,Urine Negative (Negative); Leukocyte Esterase,Urine Negative (Negative); Nitrite,Urine Negative (Negative); PH, Urine 6.5 (5.0-8.0); Protein,Urine Negative (Negative); Urobilinogen,Urine <2.0 mg/dL (<2.0)
[2020-09-09] MEDS ORDERED: KETOROLAC 15 MG/ML 1 ML VIAL IVP STA (10:37)
[2020-09-09 11:43] VITALS: BP 98/62; PULSE 67; RESP 16; TEMP 97.6
== END 2020-09-09 11:42 | disposition home or self-care (01) ==
LOC: EC 07:41
DX: N93.8 Other specified abnormal uterine and vaginal bleeding (principal); F32.9 Major depressive disorder, single episode, unspecified; F17.200 Nicotine dependence, unspecified, uncomplicated; F12.90 Cannabis use, unspecified, uncomplicated; Z87.442 Personal history of urinary calculi
CPT/HCPCS: 36415; 80053; 85025; 81003; 81025; 84702; 87808; 87491; 87591; 87070; 93975; 76830; 99284; 96374; 96375; 96361; J1885; J1170

== ENCOUNTER → 2020-09-16 | Outpatient (CLI) | payer OTHER ==
--- NOTE | 2020-09-16 14:19 | US ---
EXAMINATION TYPE: US kidneys/renal and bladder DATE OF EXAM: 09/16/2020 COMPARISON: CT & US CLINICAL HISTORY: N20.0 Calculus of kidney. Pt states right flank pain, h/o renal stones EXAM MEASUREMENTS: Right Kidney: 11.4 x 4.0 x 5.1 cm Left Kidney: 10.0 x 4.9 x 4.1 cm Right Kidney: Mildly prominent renal pelvis= 0.6 cm/ possible calculus lower pole= 0.6 cm Left Kidney: Appeared wnl Bladder: wnl Bilateral Jets seen: No No masses are identified. The urinary bladder is anechoic. IMPRESSION: Mild fullness right renal collecting system nephrolithiasis.
== END | disposition home or self-care (01) ==
LOC: RADUSWWP 13:50
PROVIDERS: ATTEND Urology
DX: N20.0 Calculus of kidney (principal)
CPT/HCPCS: 76770

== ENCOUNTER → 2020-09-23 | Outpatient (CLI) | payer OTHER ==
--- NOTE | 2020-09-23 19:07 | CT ---
EXAMINATION TYPE: CT abdomen pelvis wo con DATE OF EXAM: 09/23/2020 COMPARISON: Ultrasound 09/16/2020. CT 08/29/2020. HISTORY: Right flank pain and microscopic hematuria. CT DLP: 198 mGycm Automated exposure control for dose reduction was used. TECHNIQUE: Helical acquisition of images was performed from the lung bases through the pelvis. FINDINGS: LUNG BASES: No significant abnormality is appreciated. LIVER/GB: No significant abnormality is appreciated. PANCREAS: No significant abnormality is seen. SPLEEN: No significant abnormality is seen. ADRENALS: No significant abnormality is seen. KIDNEYS: Redemonstrated are subtle few nonobstructing right renal calculi in the lower pole measuring up to 2 mm. No bilateral hydronephrosis or left nephrolithiasis. FREE AIR: No free air is visualized RETROPERITONEAL ADENOPATHY: None visualized REPRODUCTIVE ORGANS: No significant abnormality is seen URINARY BLADDER: Mild urinary bladder wall thickening. PELVIC ADENOPATHY: None visualized. OSSEOUS STRUCTURES: No significant abnormality is seen. BOWEL: No acute abnormality is seen. Redemonstrated appendicolith without acute appendicitis seen. OTHER: Pelvic phleboliths seen. Trace pelvic fluid seen. IMPRESSION: Mild urinary bladder wall thickening, correlate for possible cystitis. OTHERWISE NO ACUTE ABNORMALITY OR OBSTRUCTIVE UROPATHY SEEN. REDEMONSTRATED FEW NONOBSTRUCTING RIGHT RENAL CALCULI. INCIDENTAL FINDINGS ABOVE.
== END | disposition home or self-care (01) ==
LOC: RADCTMAIN 17:08
PROVIDERS: ATTEND Urology
DX: N20.0 Calculus of kidney (principal)
CPT/HCPCS: 74176

== ENCOUNTER 2020-11-04 12:04 | Emergency (ER) | payer OTHER ==
[2020-11-04 12:08] VITALS: RESP 18; TEMP 97.8
[2020-11-04] MEDS ORDERED: KETOROLAC 15 MG/ML 1 ML VIAL IVP STA (12:21)
[2020-11-04] MEDS ORDERED: SODIUM CHLORIDE 0.9% 500 ML 500 ML IV STA (12:21)
--- NOTE | 2020-11-04 12:25 | ED ---
General Adult HPI - General Chief complaint: Abdominal Pain Stated complaint: Abd pain Time Seen by Provider: 11/04/20 12:05 Source: patient, RN notes reviewed, old records reviewed Mode of arrival: wheelchair Limitations: no limitations - History of Present Illness Initial comments: This is a 35-year-old female presents emergency department complaining of abdominal pain intermittently for about 2 weeks. Patient states the pain lasts anywhere from a few minutes to an hour. Patient states she's been nauseated and did vomit once today. Patient denies any diarrhea. Patient denies any back pain. Patient denies any dysuria hematuria urinary frequency. Patient states she has a history of migraines and kidney stones. Patient denies any fever chi lls.. Patient denies any chest pain difficult breathing shortest breath. Patient states any cough. Patient denies any swelling to legs calf tenderness. Patient states she's on her. It does not believe she is . - Related Data Home Medications Medication Instructions Recorded Confirmed Galcanezumab-Gnlm [Emgality Pen] 120 mg SQ Q28D 04/06/20 11/04/20 Doxycycline Hyclate 100 mg PO BID 11/04/20 11/04/20 Allergies Allergy/AdvReac Type Severity Reaction Status Date / Time lorazepam [From Ativan] AdvReac Rash/Hives Verified 11/04/20 12:36 Review of Systems ROS Statement: Those systems with pertinent positive or pertinent negative responses have been documented in the HPI. ROS Other: All systems not noted in ROS Statement are negative. Past Medical History Past Medical History: Pneumonia Additional Past Medical History / Comment(s): brain injury, MIGARINES,VERTIGO,kidney infection kidney stones History of Any Multi-Drug Resistant Organisms: None Reported Past Surgical History: No Surgical Hx Reported Additional Past Surgical History / Comment(s): breast biopsy X3-NEG, kidney stones, lithotripsy Past Anesthesia/Blood Transfusion Reactions: Motion Sickness Past Psychological History: Anxiety, Bipolar, Depression Smoking Status: Current every day smoker, Vaper Past Alcohol Use History: Rare Past Drug Use History: Marijuana - Past Family History Father Family Medical History: CVA/TIA, Hyperlipidemia Additional Family Medical History / Comment(s): TIA Mother Family Medical History: Cancer Additional Family Medical History / Comment(s): BREAST CANCER,MIGRAINES, VERTIGO,TREMORS General Exam - General Exam Comments Initial Comments: GENERAL: Patient is well-developed and well-nourished. Patient is nontoxic and well- hydrated and is in mild distress. ENT: Neck is soft and supple. No significant lymphadenopathy is noted. Oropharynx is clear. Moist mucous membranes. Neck has full range of motion without eliciting any pain. EYES: The sclera were anicteric and conjunctiva were pink and moist. Extraocular movements were intact and pupils were equal round and reactive to light. Eyelids were unremarkable. PULMONARY: Unlabored respirations. Good breath sounds bilaterally. No audible rales rhonchi or wheezing was noted. CARDIOVASCULAR: There is a regular rate and rhythm without any murmurs gallops or rubs. ABDOMEN: Patient has diffuse abdominal pain. However with some distraction it does not appear to be in significant pain when I palpate. SKIN: Skin is clear with no lesions or rashes and otherwise unremarkable. NEUROLOGIC: Patient is alert and oriented x3. Cranial nerves II through XII are grossly intact. Motor and sensory are also intact. Normal speech, volume and content. Symmetrical smile. MUSCULOSKELETAL: Normal extremities with adequate strength and full range of motion. No lower extremity swelling or edema. No calf tenderness. LYMPHATICS: No significant lymphadenopathy is noted PSYCHIATRIC: Normal psychiatric evaluation. Limitations: no limitations Course Vital Signs 11/04/20 11/04/20 12:06 13:53 Temperature 97.8 F Pulse Rate 55 L 54 L Respiratory 18 18 Rate Blood Pressure 133/85 100/66 O2 Sat by Pulse 100 100 Oximetry Medical Decision Making - Medical Decision Making EKG shows sinus bradycardia 59 bpm AK interval 140 QRS is 82 QT interval 440 QTC is 435. Patient's EKG shows no ST segment elevation or depression. KUB shows no acute abnormality. One taken to reevaluate the patient she stated she no longer was having a pain was comfortable going home. Patient states she'll follow-up with Dr. Smith - Lab Data Result diagrams: 11/04/20 12:33 11/04/20 12:33 Lab Results 11/04/20 11/04/20 11/04/20 Range/Units 12:33 12:33 12:33 WBC 6.5 (3.8-10.6) k/uL RBC 4.55 (3.80-5.40) m/uL Hgb 13.1 (11.4-16.0) gm/dL Hct 40.3 (34.0-46.0) % MCV 88.7 (80.0-100.0) fL MCH 28.8 (25.0-35.0) pg MCHC 32.4 (31.0-37.0) g/dL RDW 13.8 (11.5-15.5) % Plt Count 278 (150-450) k/uL MPV 6.8 Neutrophils % 60 % Lymphocytes % 30 % Monocytes % 6 % Eosinophils % 2 % Basophils % 1 % Neutrophils # 3.9 (1.3-7.7) k/uL Lymphocytes # 1.9 (1.0-4.8) k/uL Monocytes # 0.4 (0-1.0) k/uL Eosinophils # 0.1 (0-0.7) k/uL Basophils # 0.1 (0-0.2) k/uL Sodium (137-145) mmol/L Potassium (3.5-5.1) mmol/L Chloride (98-107) mmol/L Carbon Dioxide (22-30) mmol/L Anion Gap mmol/L BUN (7-17) mg/dL Creatinine (0.52-1.04) mg/dL Est GFR (CKD-EPI)AfAm (>60 ml/min/1.73 sqM) Est GFR (CKD-EPI)NonAf (>60 ml/min/1.73 sqM) Glucose (74-99) mg/dL Calcium (8.4-10.2) mg/dL Total Bilirubin (0.2-1.3) mg/dL AST (14-36) U/L ALT (4-34) U/L Alkaline Phosphatase (38-126) U/L Total Protein (6.3-8.2) g/dL Albumin (3.5-5.0) g/dL Amylase (30-110) U/L Lipase (23-300) U/L Urine Color Yellow Urine Appearance Slightly Cloudy H (Clear) Urine pH 7.0 (5.0-8.0) Ur Specific [place] 1.020 (1.001-1.035) Urine Protein Negative (Negative) Urine Glucose (UA) Negative (Negative) Urine Ketones Negative (Negative) Urine Blood Large (Negative) Urine Nitrite Negative (Negative) Urine Bilirubin Negative (Negative) Urine Urobilinogen <2.0 (<2.0) mg/dL Ur Leukocyte Esterase Negative (Negative) Urine RBC >182 H (0-5) /hpf Urine WBC <1 (0-5) /hpf Ur Squamous Epith Cells 1 (0-4) /hpf Amorphous Sediment Rare H (None) /hpf Urine Bacteria Rare H (None) /hpf Urine Mucus Rare H (None) /hpf Urine HCG, Qual Not Detected (Not Detectd) 11/04/20 Range/Units 12:33 WBC (3.8-10.6) k/uL RBC (3.80-5.40) m/uL Hgb (11.4-16.0) gm/dL Hct (34.0-46.0) % MCV (80.0-100.0) fL MCH (25.0-35.0) pg MCHC (31.0-37.0) g/dL RDW (11.5-15.5) % Plt Count (150-450) k/uL MPV Neutrophils % % Lymphocytes % % Monocytes % % Eosinophils % % Basophils % % Neutrophils # (1.3-7.7) k/uL Lymphocytes # (1.0-4.8) k/uL Monocytes # (0-1.0) k/uL Eosinophils # (0-0.7) k/uL Basophils # (0-0.2) k/uL Sodium 140 (137-145) mmol/L Potassium 4.0 (3.5-5.1) mmol/L Chloride 105 (98-107) mmol/L Carbon Dioxide 27 (22-30) mmol/L Anion Gap 8 mmol/L BUN 12 (7-17) mg/dL Creatinine 0.70 (0.52-1.04) mg/dL Est GFR (CKD-EPI)AfAm >90 (>60 ml/min/1.73 sqM) Est GFR (CKD-EPI)NonAf >90 (>60 ml/min/1.73 sqM) Glucose 79 (74-99) mg/dL Calcium 9.3 (8.4-10.2) mg/dL Total Bilirubin 0.2 (0.2-1.3) mg/dL AST 22 (14-36) U/L ALT 11 (4-34) U/L Alkaline Phosphatase 62 (38-126) U/L Total Protein 7.0 (6.3-8.2) g/dL Albumin 4.5 (3.5-5.0) g/dL Amylase 66 (30-110) U/L Lipase 91 (23-300) U/L Urine Color Urine Appearance (Clear) Urine pH (5.0-8.0) Ur Specific [place]field (1.001-1.035) Urine Protein (Negative) Urine Glucose (UA) (Negative) Urine Ketones (Negative) Urine Blood (Negative) Urine Nitrite (Negative) Urine Bilirubin (Negative) Urine Urobilinogen (<2.0) mg/dL Ur Leukocyte Esterase (Negative) Urine RBC (0-5) /hpf Urine WBC (0-5) /hpf Ur Squamous Epith Cells (0-4) /hpf Amorphous Sediment (None) /hpf Urine Bacteria (None) /hpf Urine Mucus (None) /hpf Urine HCG, Qual (Not Detectd) Disposition Clinical Impression: Abdominal pain Disposition: ADMITTED IP TO THIS [facility] Instructions (If sedation given, give patient instructions): Abdominal Pain (ED) Is patient prescribed a controlled substance at d/c from ED?: No Referrals: Will Smith MD [Primary Care Provider] - 1-2 days Time of Disposition: 14:30
[2020-11-04 12:53] LABS: Basophils # (A) 0.1 k/uL (0-0.2); Basophils % (A) 1 %; Eosinophils # (A) 0.1 k/uL (0-0.7); Eosinophils % (A) 2 %; HCT 40.3 % (34.0-46.0); HGB 13.1 gm/dL (11.4-16.0); Lymphocytes # (A) 1.9 k/uL (1.0-4.8); Lymphocytes % (A) 30 %; MCH 28.8 pg (25.0-35.0); MCHC 32.4 g/dL (31.0-37.0); MCV 88.7 fL (80.0-100.0); Mean Platelet Volume 6.8; Monocytes # (A) 0.4 k/uL (0-1.0); Monocytes % (A) 6 %; Neutrophils # (A) 3.9 k/uL (1.3-7.7); Neutrophils % (A) 60 %; Platelet Count 278 k/uL (150-450); RBC 4.55 m/uL (3.80-5.40); RDW 13.8 % (11.5-15.5); WBC 6.5 k/uL (3.8-10.6)
[2020-11-04 13:18] LABS: ALT 11 U/L (4-34); AST 22 U/L (14-36); African American GFR (CKD) >90 (>60 ml/min/1.73 sqM); Albumin 4.5 g/dL (3.5-5.0); Alkaline Phosphatase 62 U/L (38-126); Amylase 66 U/L (30-110); Anion Gap 8 mmol/L; Blood Urea Nitrogen 12 mg/dL (7-17); Calcium 9.3 mg/dL (8.4-10.2); Carbon Dioxide 27 mmol/L (22-30); Chloride 105 mmol/L (98-107); Glucose 79 mg/dL (74-99); Lipase 91 U/L (23-300); Non-African American GFR(CKD) >90 (>60 ml/min/1.73 sqM); Sodium 140 mmol/L (137-145); Total Bilirubin 0.2 mg/dL (0.2-1.3)
[2020-11-04 13:40] LABS: Appearance,Urine Slightly Cloudy (Clear); Color,Urine Yellow; Protein,Urine Negative (Negative)
[2020-11-04 13:41] LABS: Bilirubin,Urine Negative (Negative); Blood,Urine Large (Negative); Glucose,Urine (UA) Negative (Negative); Ketones,Urine Negative (Negative); Leukocyte Esterase,Urine Negative (Negative); Nitrite,Urine Negative (Negative); Urobilinogen,Urine <2.0 mg/dL (<2.0)
[2020-11-04 13:42] LABS: Amorphous Sediment,Urine Rare /hpf; Bacteria,Urine Rare /hpf; Mucus,Urine Rare /hpf; RBC,Urine >182 /hpf (0-5); Squamous Epithelial Cell,Urine 1 /hpf (0-4); WBC,Urine <1 /hpf (0-5)
[2020-11-04 13:54] VITALS: BP 100/66; PULSE 54
--- NOTE | 2020-11-04 14:17 | XR ---
EXAMINATION TYPE: XR KUB DATE OF EXAM: 11/04/2020 2:09 PM CLINICAL HISTORY: Abdominal pain for a few weeks. TECHNIQUE: Two Upright KUB images of the abdomen are obtained. COMPARISON: CT abdomen and pelvis September 23, 2020 FINDINGS: Gas is seen in nondistended stomach. Scattered gas is seen in non-distended small bowel lo ops. Gas and fecal material is seen in non-distended colon. There is no visceromegaly, pneumoperitone um, or abnormal calcification appreciated. The lung bases are clear and the osseous structures are in tact. IMPRESSION: Overall nonobstructive bowel gas pattern.
== END 2020-11-04 14:50 | disposition other institution (70) ==
LOC: EC 12:04
DX: R10.84 Generalized abdominal pain (principal); R11.2 Nausea with vomiting, unspecified; F41.9 Anxiety disorder, unspecified; F31.9 Bipolar disorder, unspecified; F17.290 Nicotine dependence, other tobacco product, uncomplicated; F12.90 Cannabis use, unspecified, uncomplicated; G43.909 Migraine, unspecified, not intractable, without status migrainosus; Z87.442 Personal history of urinary calculi
CPT/HCPCS: 36415; 93005; 80053; 82150; 83690; 85025; 81001; 81025; 74018; 99285; 96374; 96375; J1885; J1790

== ENCOUNTER → 2020-11-08 | Outpatient (CLI) | payer OTHER ==
--- NOTE | 2020-11-08 10:26 | USB ---
EXAMINATION TYPE: US breast complete BILAT DATE OF EXAM: 11/08/2020 COMPARISON: 06/07/2013 CLINICAL HISTORY: N63.21 Unspecified lump in the left breast, upper. All 4 quadrants and the retroareolar region of both breasts were scanned with ultrasound. No sonographic correlate for right breast palpable abnormalities. No sonographic abnormality of the r ight breast. In the left breast at 3:00, there is a 0.7 x 0.4 x 0.5 cm hypoechoic ovoid lesion which was previousl y biopsied and likely corresponds to the left breast lesion previously labeled at 1:00 which measured up to 0.8 cm. In the left breast at 4:00, there is a 1.0 x 0.4 x 0.8 cm irregular hypoechoic mass which is new and ultrasound-guided biopsy is recommended. In the left breast at 4:00, there is a 0.4 x 0.3 x 0.4 cm ovoid hypoechoic lesion which likely corres ponds to the left breast lesion previously marked at 3:00 measured up to 0.7 cm. IMPRESSION: Ultrasound-guided biopsy for the left breast lesion at 4:00. BI-RADS 4, suspicious.
--- NOTE | 2020-11-08 11:12 | MM ---
Reason for exam: clinical finding. Last mammogram was performed 2 years and 10 months ago. History: Family history of breast cancer in maternal aunt at age 40 and breast cancer in mother at age 48. Benign excisional biopsy of the left breast, 2008. Took hormonal contraceptives for 1 year. Physical Findings: Nurse did not find any significant physical abnormalities on exam. [facility] Diagnostic Mammo w CAD GONZALES Bilateral CC and MLO view(s) were taken. Prior study comparison: December 31, 2017, mammogram. The breast tissue is extremely dense which could obscure a lesion on mammography. Bilateral clips. No mammographic correlate for bilateral palpable. Bilateral ultrasound is recommended. These results were verbally communicated with the patient and result sheet given to the patient on 11/08/20. ASSESSMENT: Incomplete: need additional imaging evaluation, BI-RAD 0 RECOMMENDATION: Ultrasound of both breasts.
== END | disposition home or self-care (01) ==
LOC: RADMAMWWP 09:05
PROVIDERS: ATTEND Internal Medicine Geriatric Medicine
DX: N63.21 Unspecified lump in the left breast, upper outer quadrant (principal); Z80.3 Family history of malignant neoplasm of breast
CPT/HCPCS: 77066

== ENCOUNTER → 2020-12-05 | Outpatient (CLI) | payer OTHER ==
[2020-12-05 09:31] VITALS: BP 97/61; PULSE 75; RESP 12; TEMP 98.2
--- NOTE | 2020-12-05 09:54 | P.GSHP ---
History of Present Illness H&P Date: 12/05/20 Chief Complaint: Ultrasound abnormality left breast Nathan is a 35-year-old white female seen in consultation for Dr. Nair regarding the radiographic abnormality in her left breast. [place] [id number]. The breast tissue was noted to be extremely dense and recommendation was for an ultrasound of both breasts. On ultrasound she was noted to have a 0.4 x 0.3 cm hypoechoic lesion for which core biopsy was recommended. No ultrasound abnormality for palpable change in the right breast was identified. The patient is status post core biopsy of both breasts in the past which were benign. She states that she has nodular breast and painful breast. She can't tell if she has any new lumps or masses in her breasts. She does have a nodule in her right breast which changes in size of this is been identified as a cyst which has been drained in the past and Dr. Farrell's office. She is not complaining of any nipple discharge. The pain is bilateral and in the UOQ. It spreads into her chest. It was between a stabbing pain as a dull ache.It is a 4 on a scale of 1-to 10, with 10 being the worst. It is better with massage. It is not related to her periods. Caffiene: 2 cups coffee/day; 1 pop nicotine: vapes 1 every 2day chocolate: occasional hormones: none BCP: none Family history: mother: breast cancer at 46 maternal aunt: breast cancer 41 paternal aunt: breast cancer father: throat cancer smoker Hormonal history: Menarche: 14 , breast fed: yes, age at first : 26 periods regular; LMP 5 days ago BCP: stopped 6 months ago, used them for 2 years Surgical History: non invasive kidney surgery for kidney stones lithotripsy 2times breast biopsy bilateral core Medical History: kidney stones Social history: Nicotine: vapes 1 every 2 days; 3 years Alcohol: Negative Drugs: Medical marijuana daily, for anxiety - Constitutional Constitutional: Denies chills, Denies fever - EENT Eyes: denies blurred vision, denies pain Ears: deny: decreased hearing, tinnitus Ears, nose, mouth and throat: Denies headache, Denies sore throat - Breasts Breasts: bilateral: as per HPI - Cardiovascular Cardiovascular: Denies chest pain, Denies shortness of breath - Respiratory Respiratory: Denies cough, Denies 7 - Gastrointestinal Gastrointestinal: Denies abdominal pain, Denies diarrhea, Denies nausea, Denies vomiting - Genitourinary (Female) Genitourinary: Reports kidney stones, Denies dysuria, Denies hematuria - Menstruation Menstruation: Reports period normal - Musculoskeletal Musculoskeletal: Denies myalgias - Integumentary Integumentary: Denies pruritus, Denies rash - Neurological Neurological: Denies numbness, Denies weakness - Psychiatric Psychiatric: Reports anxiety - Endocrine Endocrine: Reports weight change, Denies fatigue - Hematologic/Lymphatic Comment: none - Allergic/Immunologic Allergic/Immunologic: Reports seasonal allergies Past Medical History Past Medical History: Pneumonia Additional Past Medical History / Comment(s): brain injury, MIGARINES,VERTIGO,kidney infection, kidney stones History of Any Multi-Drug Resistant Organisms: None Reported Past Surgical History: Breast Surgery Additional Past Surgical History / Comment(s): breast biopsy X3-NEG, kidney stones, lithotripsyx2 Past Anesthesia/Blood Transfusion Reactions: Motion Sickness Past Psychological History: Anxiety, Bipolar, Depression Smoking Status: Current every day smoker, Vaper Past Alcohol Use History: Rare Additional Past Alcohol Use History / Comment(s): PT STATED STARTED SMOKING AT AGE 15 SMOKED LESS THAN 1 PPD AND QUIT A AGE 21 Past Drug Use History: Marijuana Additional Drug Use History / Comment(s): MEDICAL MARIJUANA CARD - Past Family History Father Family Medical History: CVA/TIA, Hyperlipidemia Additional Family Medical History / Comment(s): TIA Mother Family Medical History: Cancer Additional Family Medical History / Comment(s): BREAST CANCER,MIGRAINES, VERTIGO,TREMORS Medications and Allergies Home Medications Medication Instructions Recorded Confirmed Type Galcanezumab-Gnlm [Emgality Pen] 120 mg SQ Q28D 04/06/20 12/05/20 History Allergies Allergy/AdvReac Type Severity Reaction Status Date / Time lorazepam [From Ativan] AdvReac Rash/Hives Verified 12/05/20 09:22 Surgical - Exam BMI 19.6 - General no distress - Eyes normal ocular movement - ENT normal nares, no hearing loss - Neck no masses, trachea midline - Respiratory normal respiratory effort, clear to auscultation - Cardiovascular Rhythm: regular Heart Sounds: normal: S1, S2 - Abdomen Abdomen: soft, non tender, no guarding, no rigid, no rebound - Integumentary normal turgor - Neurologic no disoriented, no combative - Musculoskeletal normal gait, normal posture - Psychiatric oriented to time, oriented to person, oriented to place, speech is normal, memory intact Breast Exam: BRA: 34B inspection: Grade 2 ptosis bilaterally Palpation: Right breast: Multiple positional exam dense fibrocystic change area of nodularity at the 3 o'clock position appears freely mobile most likely cystic in nature patient confirms that this is the area she has been feeling Right axilla: No adenopathy of concern Left breast: Multi-positional exam fibrocystic change, no dominant masses or nodules of concern Left axilla: No adenopathy of concern Results Mammogram and ultrasound reviewed with Dr. David from radiology lesion at 4:00 in the left breast at noted but not palpable Assessment and Plan Assessment: Impression: 1. Fibrocystic breast changes 2. Mastodynia 3. Palpable mass right breast probable cystic in nature 4. Ultrasound abnormality left breast Plan: 1. Ultrasound-guided core biopsy left breast 2. Repeat ultrasound-guided directed exactly at the site of palpable change 3. Suggest patient decrease caffeine and stop taping for right cell changes to decrease breast pain 4. Follow-up after ultrasound-guided core biopsy 5. Patient's aunt may be BRCA1 positive and I suggested genetic testing; she would like to do this and it will be scheduled CC: Dr. Smith
== END ==
LOC: WWCWWP 09:00
PROVIDERS: ATTEND Surgery
DX: N63.10 Unspecified lump in the right breast, unspecified quadrant (principal); N60.11 Diffuse cystic mastopathy of right breast; F31.9 Bipolar disorder, unspecified; F17.290 Nicotine dependence, other tobacco product, uncomplicated; F41.9 Anxiety disorder, unspecified; G43.909 Migraine, unspecified, not intractable, without status migrainosus; Z88.8 Allergy status to other drugs, medicaments and biological substances; Z79.899 Other long term (current) drug therapy

== ENCOUNTER → 2020-12-06 | Day surgery (SDC) | payer OTHER ==
--- NOTE | 2020-12-06 11:32 | USB ---
EXAMINATION TYPE: US breast limited BILAT DATE OF EXAM: 12/06/2020 COMPARISON: Ultrasound 11/08/2020 CLINICAL HISTORY: R92.8 PREVIOUS ABNORMAL MAMMOGRAM, N64.4 BREAST PAIN. Findings: Targeted right breast ultrasound was performed at 3:00 in the region of palpable abnormality and a 1. 1 x 0.6 x 1.0 cm lobulated hypoechoic lesion is seen and ultrasound-guided biopsy is recommended. IMPRESSION: Ultrasound-guided biopsy is recommended for the right breast lesion at 3:00. BI-RADS 4, suspicious.
--- NOTE | 2020-12-06 12:47 | USB ---
EXAMINATION TYPE: US biopsy breast VAD LT DATE OF EXAM: 12/06/2020 CLINICAL HISTORY: R92.8 ABN MAMMO. TECHNIQUE: Ultrasound guided core biopsy of left breast. COMPARISON: 11/08/2020 FINDINGS: The procedure of ultrasound guided core biopsy was explained to the patient. Benefits, alternatives, and risks were discussed. An informed consent was then obtained. The patient was placed in supine positioning for imaging and for the procedure. The overlying skin was prepped and draped in usual sterile fashion. Lidocaine buffered with bicarbonate was used as anesthetic into the skin and subcutaneous tissue up to area of concern in the left breast. A duglas was made with surgical scalpel. Under ultrasound guidance, a 14 gauge mission was used to obtain one specimen but was inadequate for the density of the lesion. A 12-gauge vacuum assisted biopsy gun device was used to obtain 3 core samples. Following this, a biopsy clip was left in lesion. The patient tolerated developed vasovagal response and was placed in reverse Trendelenburg position and given crackers and ice packs. The patient was kept in the radiology department for short stay after the procedure and then discharged home in stable condition. Postprocedure mammogram was not performed. Right-sided biopsy was not performed. IMPRESSION: Successful, uncomplicated ultrasound guided core biopsy of area of concern in the left breast, full pathology results to follow. The right breast lesion was not biopsied due to patient's vasovagal reaction. Pathology Results: Benign LEFT BREAST, CORE BIOPSY: Sclerotic fibroadenoma with fibrocystic change, columnar cell change and apocrine metaplasia. Recommendation Follow up mammogram of the left breast in 6 months. CAROLYN
[2020-12-06 13:52] VITALS: BP 99/69; PULSE 77; RESP 17; TEMP 98
== END ==
LOC: RADUSWWP 09:43
PROVIDERS: ATTEND Surgery
DX: D24.2 Benign neoplasm of left breast (principal); N60.12 Diffuse cystic mastopathy of left breast; N60.82 Other benign mammary dysplasias of left breast; Z88.8 Allergy status to other drugs, medicaments and biological substances
CPT/HCPCS: 88305; 19083; 76642; A4648; J2001

== ENCOUNTER → 2020-12-13 | Outpatient (CLI) | payer OTHER ==
[2020-12-13 14:38] VITALS: BP 92/65; PULSE 73; RESP 18; TEMP 98.4
--- NOTE | 2020-12-13 15:07 | P.PN ---
Subjective Progress Note Date: 12/13/20 Principal diagnosis: Fibroadenoma left breast Nathan is a 55-year-old white female status post ultrasound-guided core biopsy of [place] [id number]. Pathology revealed a sclerotic fibroadenoma. She was scheduled to have a right breast core biopsy done as well however she became vaso-vagal and the procedure was canceled. Secondary to the fact that they look similar the case was discussed with radiology and it was felt that she could most likely have a repeat 6 month ultrasound of the right breast for surveillance. The patient however is concerned because she can feel the area and would prefer that a biopsy be performed. Postprocedure she did not have any complications. Objective - Vital Signs Vital signs: Vital Signs Temp 98.4 F 12/13/20 14:33 Pulse 73 12/13/20 14:33 Resp 18 12/13/20 14:33 BP 92/65 12/13/20 14:33 Pulse Ox 100 12/13/20 14:33 Intake & Output 12/12/20 12/13/20 12/13/20 18:59 06:59 18:59 Weight 48.534 kg - Exam BMI 19.6 - Constitutional General appearance: Present: cooperative - EENT Eyes: Present: EOMI ENT: Present: hearing grossly normal - Neck Neck: Present: normal ROM - Respiratory Respiratory: bilateral: CTA - Cardiovascular Heart sounds: normal: S1, S2 - Integumentary Integumentary Comment(s): Left breast biopsy site clean and dry no evidence of infection or hematoma Integumentary: Present: normal turgor - Musculoskeletal Musculoskeletal: Present: gait normal - Psychiatric Psychiatric: Present: A&O x's 3, appropriate affect, intact judgment & insight - Additional findings Additional findings: breast exam: right breast: 1 cm area of nodularity at 3:00 palpated Right axilla: No adenopathy of concern Assessment and Plan Assessment: Impression: 1. Left breast core biopsies sclerotic fibroadenoma, right breast biopsy canceled secondary to patient becoming vagal during the procedure Plan: The lesion in the right breast looks radiographically similar to that in the left, however the patient states that she can feel this on the right side and wishes to have a histologic diagnosis. Secondary to the fact that the patient can feel the abnormality in the right side which corresponds to that seen on ultrasound she would like to have a histologic diagnosis from the right side so she doesn't worry. She understands she may become vagal again but would like to proceed.
== END ==
LOC: WWCWWP 14:01
PROVIDERS: ATTEND Surgery
DX: D24.2 Benign neoplasm of left breast (principal); F17.200 Nicotine dependence, unspecified, uncomplicated; Z88.8 Allergy status to other drugs, medicaments and biological substances

== ENCOUNTER → 2021-01-01 | Day surgery (SDC) | payer OTHER ==
[2021-01-01 12:51] VITALS: RESP 16
[2021-01-01 13:57] VITALS: BP 98/65; PULSE 69; TEMP 98.1
--- NOTE | 2021-01-01 14:33 | USB ---
EXAMINATION TYPE: US biopsy breast VAD RT DATE OF EXAM: 01/01/2021 CLINICAL HISTORY: R92.8 Abnormal Imaging. TECHNIQUE: Ultrasound guided vaccuum assisted core biopsy of right breast. COMPARISON: NONE FINDINGS: The ultrasound guided core biopsy procedure was explained to the patient. The risks, benefits, alternatives were discussed. An informed consent was then obtained. Timeout was performed. The patient was placed in supine positioning for imaging and for the procedure. The overlying skin was prepped with betadine and sterilely draped in usual sterile fashion. Lidocaine 1% was used as anesthetic into the skin and deeper breast tissue up to area of concern in the breast. Lidocaine was utilized to lift the lesion from the chest wall. A small skin duglas was made with surgical scalpel. Under ultrasound guidance, a 12-gauge vacuum assisted biopsy device was used to obtain 6 core samples. A biopsy clip was left in lesion. Ribbon clip was placed. Good hemostasis was obtained with direct pressure. Discharge instructions were discussed with the patient. The patient will follow up with the referring physician for results. Postprocedure mammogram: Due to the patient's age and continued visualization of the lesion, post procedure mammogram was not performed at this time reading biopsy results. The patient tolerated the procedure well without any immediate complication. The patient was discharged to home in stable condition. IMPRESSION: 1. Successful ultrasound guided biopsy right breast. Recommendations: 1. Recommendations are pending pathology results. Pathology Results: Benign RIGHT BREAST, THREE O'CLOCK POSITION, CORE BIOPSY: Benign fibroadenoma with columnar cell change and focal fibrocystic change with apocrine metaplasia. Recommendation 6 month follow up ultrasound for patient's bilateral breast biopsies, left was performed on 12/06/20 and also showed fibroadenoma. [facility]
== END ==
LOC: RADUSWWP 12:26
PROVIDERS: ATTEND Surgery
DX: D24.1 Benign neoplasm of right breast (principal)
CPT/HCPCS: 88305; 19083; A4648; J2001

== ENCOUNTER 2021-01-16 03:06 | Emergency (ER) | payer OTHER ==
[2021-01-16 03:14] VITALS: TEMP 98.1
[2021-01-16] MEDS ORDERED: diphenhydrAMINE 50 MG/ML 1 ML VIAL IVP STA (03:41)
[2021-01-16] MEDS ORDERED: KETOROLAC 15 MG/ML 1 ML VIAL IVP STA (03:41)
[2021-01-16] MEDS ORDERED: SODIUM CHLORIDE 0.9% 1,000 ML IV STA (03:41)
[2021-01-16] MEDS ORDERED: PROCHLORPERAZINE INJ 10 MG/2 ML VIAL IVP STA (03:41)
--- NOTE | 2021-01-16 03:41 | ED ---
Headache HPI - General Chief Complaint: Headache Stated Complaint: Migraine Time Seen by Provider: 01/16/21 03:15 Source: RN notes reviewed, old records reviewed Mode of arrival: ambulatory Limitations: no limitations - History of Present Illness Initial Comments: This is a 35-year-old female to the emergency department today for evaluation of headache. Patient presents with for evaluation of this headache today. She does have appointment with her primary care this afternoon. Does prescribe her daily headache medication was just keep her out of the emergency department. No new traumas no fevers no new complaints MD Complaint: headache, "migraine" -: days(s) Onset Description: gradual Location: right, left, frontal Severity: moderate Quality: throbbing, pulsatile Consistency: intermittent Improves With: nothing Worsens With: none Context: other (Chest like prior migraine) Associated Symptoms: nausea, photophobia, sensitivity to sound Treatments Prior to Arrival: none - Related Data Home Medications Medication Instructions Recorded Confirmed Galcanezumab-Gnlm [Emgality Pen] 120 mg SQ Q28D 04/06/20 01/17/21 Allergies Allergy/AdvReac Type Severity Reaction Status Date / Time lorazepam [From Ativan] AdvReac Rash/Hives Verified 01/17/21 08:57 Review of Systems ROS Statement: Those systems with pertinent positive or pertinent negative responses have been documented in the HPI. ROS Other: All systems not noted in ROS Statement are negative. Past Medical History Past Medical History: Pneumonia Additional Past Medical History / Comment(s): brain injury. MIGARINE. VERTIGO. kidney infection. kidney stones History of Any Multi-Drug Resistant Organisms: None Reported Past Surgical History: Breast Surgery Additional Past Surgical History / Comment(s): breast biopsy X3 bilareral all benign, kidney stones, lithotripsyx2 Past Anesthesia/Blood Transfusion Reactions: Motion Sickness Past Psychological History: Anxiety, Bipolar, Depression Smoking Status: Current every day smoker, Vaper Past Alcohol Use History: Rare Past Drug Use History: Marijuana - Past Family History Father Family Medical History: Cancer, CVA/TIA, Hyperlipidemia, Myocardial Infarction ([place]) Additional Family Medical History / Comment(s): TIA throat cancer MIx2 Mother Family Medical History: Cancer Additional Family Medical History / Comment(s): BREAST CANCER,MIGRAINES, VERTIGO,TREMORS General Exam Limitations: no limitations General appearance: alert, in no apparent distress Head exam: Present: atraumatic, normocephalic, normal inspection Eye exam: Present: normal appearance, PERRL, EOMI. Absent: scleral icterus, conjunctival injection, periorbital swelling ENT exam: Present: normal exam, mucous membranes moist Neck exam: Present: normal inspection. Absent: tenderness, meningismus, lymphadenopathy Respiratory exam: Present: normal lung sounds bilaterally. Absent: respiratory distress, wheezes, rales, rhonchi, stridor Cardiovascular Exam: Present: regular rate, normal rhythm, normal heart sounds. Absent: systolic murmur, diastolic murmur, rubs, gallop, clicks GI/Abdominal exam: Present: soft, normal bowel sounds. Absent: distended, tenderness, guarding, rebound, rigid Extremities exam: Present: normal inspection, full ROM, normal capillary refill. Absent: tenderness, pedal edema, joint swelling, calf tenderness Back exam: Present: normal inspection Neurological exam: Present: alert, oriented X3, CN II-XII intact Psychiatric exam: Present: normal affect, normal mood Skin exam: Present: warm, dry, intact, normal color. Absent: rash Course Vital Signs 01/16/21 01/16/21 03:09 06:02 Temperature 98.1 F Pulse Rate 57 L 70 Respiratory 22 18 Rate Blood Pressure 119/81 104/70 O2 Sat by Pulse 100 98 Oximetry - Reevaluation(s) Reevaluation #1: 01/16/21 Medical record is reviewed Patient symptoms are improved here in the ER Patient informed of results and questions answered Patient is in no distress Patient is okay for discharge Medical Decision Making - Medical Decision Making 40 female with known history of headache migraine headaches coming and asked her medications just Started an outpatient basis for insurance issues. Headache is just a prior migraines, now resolved and she can be discharged Disposition Clinical Impression: Migraine headache, Headache Disposition: HOME SELF-CARE Condition: Good Instructions (If sedation given, give patient instructions): Acute Headache (ED) Is patient prescribed a controlled substance at d/c from ED?: No Referrals: Will Smith MD [Primary Care Provider] - 1-2 days
[2021-01-16] MEDS ORDERED: MORPHINE SULFATE 4 MG/ML SYRINGE IVP STA (05:17)
[2021-01-16 06:04] VITALS: BP 104/70; PULSE 70; RESP 18
== END 2021-01-16 06:04 | disposition home or self-care (01) ==
LOC: EC 03:06
DX: G43.909 Migraine, unspecified, not intractable, without status migrainosus (principal); F31.9 Bipolar disorder, unspecified; Z87.442 Personal history of urinary calculi; F17.290 Nicotine dependence, other tobacco product, uncomplicated; F12.90 Cannabis use, unspecified, uncomplicated
CPT/HCPCS: 99283; 96374; 96375 ×3; 96361; J2270; J1200; J0780; J2930; J1885

== ENCOUNTER → 2021-01-17 | Outpatient (CLI) | payer OTHER ==
[2021-01-17 09:01] VITALS: BP 104/67; PULSE 63; RESP 16; TEMP 98.4
--- NOTE | 2021-01-17 09:51 | P.PN ---
Subjective Progress Note Date: 01/17/21 Principal diagnosis: Bilateral ultrasound-guided core biopsy Nathan is a 35 year old white female status post bilateral ultrasound core biopsy of the breast. The left breast core biopsy was done on 7620 which revealed a sclerotic fibroadenoma. [place] [address] at the 3 o'clock position which revealed a benign fibroadenoma. The patient is able to feel both sites, both of increased in size and are painful for the patient. Following the left breast biopsy the patient developed a vagal episode and the second biopsy the patient received Valium and a prior to the biopsy and tolerated without difficulty. The patient states that she did well with the biopsy however since the procedure the right side appears to be more prominent for her. She states that both are tender and she can feel both spots. She would like them to be removed. She states the lesion on the right side as been there since 2014 and has been increasing in size and is more tender. The lesion on the left side is been there since 2014 as well and although it has not incre ased in size it is more tender. Caffeine: 2 cups of coffee per day, 1 pop Nicotine: Tapes 1 every 2 days Chocolate: Occasional Hormones: None Control pills: None Family history: Mother: Breast cancer at 46 Maternal aunt: Breast cancer 41 Paternal aunt: Breast cancer Father: Throat cancer smoker Hormonal history: Menarche: 14 breast fed: Yes, age at first 26 last menstrual period 9; regular Social history: Nicotine: Vapes 1 every 2 days for approximately 3 years Alcohol: Negative Drugs: Medical marijuana daily for anxiety Review of systems: HEENT: Negative Breasts: As per HPI Cardiovascular: Negative Respiratory: Denies cough GI: Negative : Negative Menstrual:. Snoring 1 Musculoskeletal: Negative Integument: Negative Neurologic: Negative Psychiatric: Anxiety Endocrine: Negative fatigue, reports weight change Hematologic: Negative ALLERGIC: Seasonal ALLERGIES Objective - Vital Signs Vital signs: Vital Signs Temp 98.4 F 01/17/21 08:57 Pulse 63 01/17/21 08:57 Resp 16 01/17/21 08:57 BP 104/67 01/17/21 08:57 Pulse Ox 99 01/17/21 08:57 Intake & Output 01/16/21 01/17/21 01/17/21 18:59 06:59 18:59 Weight 45.359 kg - Exam BMI 18.3 - Constitutional General appearance: Present: cooperative - EENT Eyes: Present: EOMI ENT: Present: hearing grossly normal - Neck Neck: Present: normal ROM - Respiratory Respiratory: bilateral: CTA - Cardiovascular Rhythm: regular Heart sounds: normal: S1, S2 - Gastrointestinal General gastrointestinal: Present: soft - Integumentary Integumentary Comment(s): Biopsy sites bilateral breast clean and dry, no evidence of hematoma or infection Integumentary: Present: normal turgor - Musculoskeletal Musculoskeletal: Present: gait normal - Psychiatric Psychiatric: Present: A&O x's 3, appropriate affect, intact judgment & insight - Additional findings Additional findings: Breast Exam: BRA: 34A/B Inspection: Biopsy sites clean and dry no evidence of infection or hematoma Palpation: Right breast multiple positional exam fibrocystic changes, probable fibroadenoma at 3 o'clock position medial aspect of the breast but otherwise no dominant masses or nodules of concern Right axilla: No adenopathy of concern Left breast: Multi-positional exam fibrocystic changes, fibroadenoma palpable at approximately 4 o'clock position in the medial aspect of the breast less prominent but painful Left axilla: No adenopathy of concern Assessment and Plan Assessment: Impression: 1. Bilateral symptomatic fibroadenomatous 2. stop vaping Plan: 1. Bilateral removal of fibroadenomas, removal of right palpable abnormality possible onco-plastic tissue transfer, left needle localization and excisional resection of fibroadenoma as this is tender but less easily palpable possible onco-plastic tissue trasnfer Risks and benefits of the procedure discussed with the patient. Risks include but are not limited to bleeding, infection, reaction to the anesthetic. Additionally the risk of not removing the area of concern is discussed although this is very small. The patient understands and wishes to proceed. I've also discussed that this may not take away her breast pain but it will eliminate the pain related to the fibroadenomas. CC: Dr. Smith
== END ==
LOC: WWCWWP 08:50
PROVIDERS: ATTEND Surgery
DX: D24.1 Benign neoplasm of right breast (principal); D24.2 Benign neoplasm of left breast; F41.9 Anxiety disorder, unspecified; F17.290 Nicotine dependence, other tobacco product, uncomplicated; Z88.8 Allergy status to other drugs, medicaments and biological substances

== ENCOUNTER 2021-01-24 22:10 | Emergency (ER) | payer OTHER ==
[2021-01-24 22:22] VITALS: RESP 18
--- NOTE | 2021-01-24 23:03 | ED ---
Chest Pain HPI - General Chief Complaint: Chest Pain Stated Complaint: Chest pain Time Seen by Provider: 01/24/21 22:52 Source: patient, RN notes reviewed, old records reviewed Mode of arrival: ambulatory Limitations: no limitations - History of Present Illness Initial Comments: This is a 35-year-old female to the emergency department today for evaluation regards to chest pain. Patient has history of coronavirus exposure. Concern to give coronavirus to her children. Patient does have history of pain causing Issues. But currently concern for chest pain today. Patient has no significant medical history. MD Complaint: chest pain -: days(s) Onset: during rest Pain Location: substernal Pain Radiation: none Severity: moderate Severity scale (1-10): 5 Quality: aching, heaviness Consistency: intermittent Improves With: nothing Worsens With: nothing Anginal Symptoms: dyspnea Other Symptoms: cough Treatments Prior to Arrival: none - Related Data Home Medications Medication Instructions Recorded Confirmed Galcanezumab-Gnlm [Emgality Pen] 120 mg SQ Q28D 04/06/20 01/17/21 Allergies Allergy/AdvReac Type Severity Reaction Status Date / Time lorazepam [From Ativan] AdvReac Rash/Hives Verified 01/24/21 22:22 Review of Systems ROS Statement: Those systems with pertinent positive or pertinent negative responses have been documented in the HPI. ROS Other: All systems not noted in ROS Statement are negative. EKG Findings - EKG Comments: EKG Findings:: EKG is sinus bradycardia 58, FL 146 QRS 74 QTc 422 Past Medical History Past Medical History: Pneumonia Additional Past Medical History / Comment(s): brain injury. MIGARINE. VERTIGO. kidney infection. kidney stones History of Any Multi-Drug Resistant Organisms: None Reported Past Surgical History: Breast Surgery Additional Past Surgical History / Comment(s): breast biopsy X3 bilareral all be nign, kidney stones, lithotripsyx2 Past Anesthesia/Blood Transfusion Reactions: Motion Sickness Past Psychological History: Anxiety, Bipolar, Depression Smoking Status: Former smoker, Vaper Past Alcohol Use History: None Reported Past Drug Use History: None Reported - Past Family History Father Family Medical History: Cancer, CVA/TIA, Hyperlipidemia, Myocardial Infarction ([place]) Additional Family Medical History / Comment(s): TIA throat cancer MIx2 Mother Family Medical History: Cancer Additional Family Medical History / Comment(s): BREAST CANCER,MIGRAINES, VERTIGO,TREMORS General Exam General appearance: alert, in no apparent distress Head exam: Present: atraumatic, normocephalic, normal inspection Eye exam: Present: normal appearance, PERRL, EOMI. Absent: scleral icterus, conjunctival injection, periorbital swelling ENT exam: Present: normal exam, mucous membranes moist Neck exam: Present: normal inspection. Absent: tenderness, meningismus, lymphadenopathy Respiratory exam: Present: normal lung sounds bilaterally. Absent: respiratory distress, wheezes, rales, rhonchi, stridor Cardiovascular Exam: Present: regular rate, normal rhythm, normal heart sounds. Absent: systolic murmur, diastolic murmur, rubs, gallop, clicks GI/Abdominal exam: Present: soft, normal bowel sounds. Absent: distended, tenderness, guarding, rebound, rigid Extremities exam: Present: normal inspection, full ROM, normal capillary refill. Absent: tenderness, pedal edema, joint swelling, calf tenderness Back exam: Present: normal inspection Neurological exam: Present: alert, oriented X3, CN II-XII intact Psychiatric exam: Present: normal affect, normal mood Skin exam: Present: warm, dry, intact, normal color. Absent: rash Course Vital Signs 01/24/21 01/25/21 22:18 00:47 Temperature 98 F 98.2 F Pulse Rate 83 63 Respiratory 18 18 Rate Blood Pressure 97/64 102/65 O2 Sat by Pulse 99 98 Oximetry - Reevaluation(s) Reevaluation #1: 01/25/21 02:30 Medical record is reviewed Reevaluation #2: 01/25/21 02:30 Patient symptoms are improved here in the ER Reevaluation #3: 01/25/21 02:30 Patient informed of results including negative coronavirus test Chest Pain MDM - MDM 45 female to the emergency department for concern for coronavirus and chest pain. Chest x-ray EKG and coronavirus test are negative patient feels better and can be discharged home Disposition Clinical Impression: Atypical chest pain Disposition: HOME SELF-CARE Condition: Good Instructions (If sedation given, give patient instructions): Chest Pain (ED) Is patient prescribed a controlled substance at d/c from ED?: No Referrals: Will Smith MD [Primary Care Provider] - 1-2 days
--- NOTE | 2021-01-24 23:42 | XR ---
EXAMINATION TYPE: XR chest 1V portable DATE OF EXAM: 01/24/2021 COMPARISON: 08/07/2019 HISTORY: Chest pain TECHNIQUE: FINDINGS: Heart and mediastinum are normal. Lungs are clear. Diaphragm is normal. Bony thorax is inta ct. IMPRESSION: Normal chest. No change.
[2021-01-24] MEDS ORDERED: Acetaminophen-Codeine 300-30mg TAB PO STA (23:52)
[2021-01-24] MEDS ORDERED: IBUPROFEN 600 MG TAB PO STA (23:52)
[2021-01-25] MEDS ORDERED: HYDROmorphone 1 MG/ML 1 ML SYRINGE IM STA (00:25)
[2021-01-25 00:49] VITALS: BP 102/65; PULSE 63; TEMP 98.2
== END 2021-01-25 01:00 | disposition home or self-care (01) ==
LOC: EC 22:10
DX: R07.89 Other chest pain (principal); Z87.891 Personal history of nicotine dependence; Z80.3 Family history of malignant neoplasm of breast; Z82.49 Family history of ischemic heart disease and other diseases of the circulatory system; Z83.49 Family history of other endocrine, nutritional and metabolic diseases
CPT/HCPCS: 87635; 71045; 99285; 96372; J1170

== ENCOUNTER → 2021-02-28 | Outpatient (CLI) | payer OTHER ==
[2021-02-28 09:55] VITALS: BP 107/64; PULSE 73; RESP 16; TEMP 98.5
--- NOTE | 2021-02-28 10:15 | P.PN ---
Subjective Progress Note Date: 02/28/21 Principal diagnosis: Bilateral breast fibroadenomas Bilateral ultrasound-guided core biopsy Nathan is a 35 year old white female status post bilateral ultrasound core biopsy of the breast. The left breast core biopsy was done on 76 which revealed a sclerotic fibroadenoma. [place] [address] at the 3 o'clock position which revealed a benign fibroadenoma. The patient is able to feel both sites, both of increased in size and are painful for the patient. Following the left breast biopsy the patient developed a vagal episode and the second biopsy the patient received Valium and a prior to the biopsy and tolerated without difficulty. The patient states that she did well with the biopsy however since the procedure the right side appears to be more prominent for her. She states that both are tender and she can feel both spots. She would like them to be removed. She states the lesion on the right side as been there since 2014 and has been increasing in size and is more tender. The lesion on the left side is been there since 2014 as well and although it has not increased in size it is more tender. Caffeine: 2 cups of coffee per day, 1 pop Nicotine: Tapes 1 every 2 days Chocolate: Occasional Hormones: None Control pills: None Family history: Mother: Breast cancer at 46 Maternal aunt: Breast cancer 41 Paternal aunt: Breast cancer Father: Throat cancer smoker Hormonal history: Menarche: 14 breast fed: Yes, age at first 26 last menstrual period 9; regular Social history: Nicotine: Vapes 1 every 2 days for approximately 3 years Alcohol: Negative Drugs: Medical marijuana daily for anxiety Review of systems: HEENT: Negative Breasts: As per HPI Cardiovascular: Negative Respiratory: Denies cough GI: Negative : Negative Menstrual:. Snoring 1 Musculoskeletal: Negative Integument: Negative Neurologic: Negative Psychiatric: Anxiety Endocrine: Negative fatigue, reports weight change Hematologic: Negative ALLERGIC: Seasonal ALLERGIES Objective - Vital Signs Vital signs: Vital Signs Temp 98.5 F 02/28/21 09:50 Pulse 73 02/28/21 09:50 Resp 16 02/28/21 09:50 BP 107/64 02/28/21 09:50 Pulse Ox 100 02/28/21 09:50 Intake & Output 02/27/21 02/28/21 02/28/21 18:59 06:59 18:59 Weight 45.359 kg - Exam BMI 18.3 - Constitutional General appearance: Present: cooperative - EENT Eyes: Present: EOMI ENT: Present: hearing grossly normal - Neck Neck: Present: normal ROM - Respiratory Respiratory: bilateral: CTA - Cardiovascular Rhythm: regular Heart sounds: normal: S1, S2 - Integumentary Integumentary: Present: normal turgor - Musculoskeletal Musculoskeletal: Present: gait normal - Psychiatric Psychiatric: Present: A&O x's 3, appropriate affect, intact judgment & insight - Additional findings Additional findings: Breast exam: Plan: 34A/B Inspection: Palpation: Right breast: Multi-positional exam fibrocystic changes, probable fibroadenoma at 3 o'clock position medial aspect of the breast but otherwise no dominant masses or nodules of concern Right axilla: No adenopathy of concern Left breast: Multi-positional exam fibrocystic changes, fibroadenoma palpable at approximately 4:00 in the medial aspect of the breast was prominent at the painful Left axilla: No adenopathy of concern Assessment and Plan Assessment: Impression: 1. Bilateral symptomatic fibroadenomas 2. Stop Coumadin Plan: 1. Bilateral removal of fibroadenomas, removal of right palpable abnormality possible optical plastic tissue transfer, left needle localization and excisional resection a fibroadenoma as this is tender but less easily palpable possible arthroplastic tissue transfer Risks and benefits of the procedure discussed with the patient. Risks include but are not limited to bleeding, infection, reaction to the anesthetic. Additionally the risk of not removing the area of concern is discussed although this is very small. The patient understands and wishes to proceed. I've also discussed that this may not take away her breast pain but will eliminate the pain related to the fibroadenomas. The patient is concerned because she had a vagal episode after her first breast biopsy which was the left breast and we are going to see if the localization, be done in the preoperative area.
== END ==
LOC: WWCWWP 09:45
PROVIDERS: ATTEND Surgery
DX: D24.1 Benign neoplasm of right breast (principal); D24.2 Benign neoplasm of left breast; F17.290 Nicotine dependence, other tobacco product, uncomplicated; Z88.8 Allergy status to other drugs, medicaments and biological substances

== ENCOUNTER 2021-03-11 07:01 | Day surgery (SDC) | payer OTHER ==
[2021-03-07 15:02] VITALS: BMI 18.3
[~2021-03-11 07:01] MED LIST: DEXAMETHASONE SOD PHOSPHATE 4 MG/ML 1 ML VIAL IV ONE; HEPARIN SODIUM,PORCINE/PF 5,000 UNIT/0.5 ML SYRINGE SQ PRN; HYDROmorphone 0.5 MG/0.5 ML SYRINGE IVP PRN; LACTATED RINGERS 1,000 ML IV SCH; LIDOCAINE 1% (10MG/ML) FOR IV START INTRADERMA PRN; ONDANSETRON 4 MG/2 ML VIAL IVP ONE; Pre Op ABX Message 1 EACH MISC MISCELLANE ONE; SCOPOLAMINE 1.5MG/72HR PATCH TRANSDERM ONE
[2021-03-11] MEDS ORDERED: ALPRAZolam 0.5 MG TAB ONE (07:42)
[2021-03-11] MEDS ORDERED: LIDOCAINE 1% INJ 10MG/ML (20 ML MDV) SQ ONE (08:35)
[2021-03-11] MEDS ORDERED: ePHEDrine SULFATE/0.9% NACL/PF 50 MG/5 ML SYRINGE IV ONE (09:10)
[2021-03-11] MEDS ORDERED: LIDOCAINE 1% INJ 10MG/ML (20 ML MDV) ONE (09:10)
[2021-03-11] MEDS ORDERED: fentaNYL (PF) 50 MCG/ML 2 ML AMP ONE (09:10)
[2021-03-11] MEDS ORDERED: PROPOFOL 10 MG/ML 20 ML VIAL IV ONE (09:10)
[2021-03-11] MEDS ORDERED: HYDROmorphone (PF) 1 MG/ML ONE (09:10)
[2021-03-11] MEDS ORDERED: HEPARIN SODIUM,PORCINE 5,000 UNIT/ML 1 ML VIAL ONE (09:10)
[2021-03-11 11:13] VITALS: TEMP 96.8
[2021-03-11 11:32] VITALS: RESP 16
--- NOTE | 2021-03-11 11:44 | MM ---
EXAMINATION TYPE: MG pre op needle loc LT, MG surgical specimen LT, Ultrasound guided intraoperative right MG surgical specimen RT DATE OF EXAM: 03/11/2021 COMPARISON: 11/08/2020, 12/06/2020, 01/01/2021 CLINICAL HISTORY: 35-year-old female with a bilateral masses, biopsy proven fibroadenomas, palpable. Referred for needle localization for excision on the left. Palpable fibroadenoma on the right to be excised TECHNIQUE: Needle localization with wire placement and surgical excision of area of concern in the 4:00 left breast. Intraoperative ultrasound assistance for localization on the right. FINDINGS: The procedure of needle localization with wire placement and than surgical excision was explained to the patient. Benefits, alternatives, and risks were discussed. An informed consent was then obtained. LEFT: The shortest pathways were either lateral or inferior approach. A lateral approach was utilized. The overlying skin was prepped and draped in usual sterile fashion. Lidocaine was used as anesthetic into the skin and subcutaneous tissue up to the level of area of concern. A 5 cm Kopan's needle was used. It was placed via a lateral approach under mammographic guidance. Subsequent 90 degrees mammogram show the needle to be in satisfactory position relative to the targeted area. At this point, wire was placed and the needle was withdrawn. The wire was fixed to patient's skin. Images were marked for surgeon. The patient tolerated the procedure well without any immediate complication. The patient was kept in the radiology department for short stay after the procedure and then taken to surgery for surgical excision. Targeted clip and wire are identified in specimen mammogram. The patient was kept in hospital for short stay after the procedure and then discharged home in stable condition. RIGHT: Ultrasound was called to the OR for assistance in localizing the biopsy-proven fibroadenoma at the 3:00 position of the right breast. An initial specimen at a site of palpable nodularity was scanned and did not show the lesion. The 3:00 lesion containing the clip was subsequently identified sonographically. After excision, the second specimen ultrasound confirms the presence of the lesion and indwelling clip. The first specimen was radiographed and shows no discrete abnormality. IMPRESSION: 1. Successful, uncomplicated needle localization with wire placement and surgical excision of biopsy-proven fibroadenoma 4:00 left breast. Full pathology results to follow. 2. Palpation guided surgical excision in the right breast with 2 specimens. Specimen 1 was at an area of periareolar nodularity and was radiographed. Specimen 2 ultrasound confirms the presence of the 3:00 fibroadenoma and clip. Pathology pending. Pathology Results: Benign A. LEFT BREAST, EXCISION BIOPSY: Fibroadenoma/fibroadenomatoid hyperplasia and background fibrocystic changes. B. RIGHT BREAST, EXCISION BIOPSY: Fibrocystic changes including focal radial scar and mild usual type ductal hyperplasia. C. RIGHT BREAST, EXCISION BIOPSY: Fibrocystic changes. Recommendation Follow up mammogram of both breasts in 6 months. CAROLYN
[2021-03-11] MEDS ORDERED: LACTATED RINGERS 1,000 ML IV ONE (11:48)
[2021-03-11] MEDS ORDERED: HYDROcodone/APAP 5-325MG 1 EACH TAB ONE (12:03)
[2021-03-11] MEDS ORDERED: HYDROcodone/APAP 5-325MG 1 EACH TAB PO ONE (12:05)
[2021-03-11 12:51] VITALS: BP 111/65; PULSE 89
--- NOTE | 2021-03-11 15:17 | P.DS ---
Providers Attending physician: Alicia Castellano Primary care physician: Will Smith Plan - Discharge Summary Discharge Rx Participant: No New Discharge Prescriptions: No Action Galcanezumab-Gnlm [Emgality Pen] 120 mg SQ Q28D Benzonatate [Tessalon Perles] 100 mg PO TID PRN PRN Reason: Cough Discharge Medication List Galcanezumab-Gnlm [Emgality Pen] 120 mg SQ Q28D 04/06/20 [History] Benzonatate [Tessalon Perles] 100 mg PO TID PRN 03/07/21 [History] Follow up Appointment(s)/Referral(s): Alicia Castellano MD [STAFF PHYSICIAN] - 03/14/21 3:20 pm (2nd appointment in office will be March 27 at 4:20pm) Patient Instructions/Handouts: *Surgery [facility] - (Anesthesia) Discharge Instructions Outpatient Surgery, *Surgery [facility] - Scopalamine Patch Instructions, Surgical Breast Biopsy (DC) Activity/Diet/Wound Care/Special Instructions: May shower in 48 hours Discharge Disposition: HOME SELF-CARE
--- NOTE | 2021-04-14 13:36 | P.OP ---
Date of Procedure: 03/11/21 Preoperative Diagnosis: Bilateral breast fibroadenomas Postoperative Diagnosis: Same Procedure(s) Performed: Bilateral breast biopsy, left breast needle localization and excision, right breast palpable mass excision with intraoperative ultrasound to confirm the area of concern was removed Anesthesia: NATI Surgeon: Alicia Castellano Estimated Blood Loss (ml): 30 Pathology: other (bilateral beast tissue) Condition: stable Disposition: same day Indications for Procedure: Bilateral symptomatic fibroadenomas Operative Findings: Dense breast tissue bilateral Description of Procedure: The patient was brought to the operating room and following induction of anesthesia both breasts were prepped and draped in a sterile fashion. The patient is a 35-year-old white female with symptomatic bilateral fibroadenomas. The area of the right breast has a palpable small nodule. This was approached initially. The nodule was noted to 3 o'clock position. A periareolar incision was made on the right breast 3 o'clock position. This was carried down to the area of palpable change. Excision was performed. After excision it was difficult to ascertain that the lesion had been removed. Therefore intraoperative ultrasound was performed. The small area of nodularity was identified with a clip still in the breast. This was excised. Ultrasound confirmed that the clip was present in the specimen. No other nodularity of concern was identified. The specimen was painted for orientation. A titanium clip was placed. The deep tissues were closed using 3-0 Vicryl suture, after assured that hemostasis was attained. Surgicel in powder form was placed. Skin was approximated using 4-0 Monocryl. A left breast periareolar incision was made near the area of the needle. This was carried down to the shaft of the needle. Surrounding tissue was excised. The specimen was sent for x-ray and the area of concern was noted to be present in the specimen with the clip present. The tissue was painted for orientation prior to being sent. The wound was well irrigated. After we were assured that hemostasis was attained Surgicel in powder form was placed. The deep tissues were closed using 3-0 Vicryl suture. The skin was closed using 4-0 Monocryl. The patient tolerated procedure in stable condition. All instrument and sponge counts were correct at the end of the case.
== END 2021-03-11 13:15 | disposition home or self-care (01) ==
LOC: OR 07:01
PROVIDERS: ATTEND Surgery
DX: D24.2 Benign neoplasm of left breast (principal); N60.11 Diffuse cystic mastopathy of right breast; F17.290 Nicotine dependence, other tobacco product, uncomplicated; F41.9 Anxiety disorder, unspecified; J30.2 Other seasonal allergic rhinitis; G43.909 Migraine, unspecified, not intractable, without status migrainosus; R42 Dizziness and giddiness; Z79.899 Other long term (current) drug therapy; Z80.3 Family history of malignant neoplasm of breast; Z80.8 Family history of malignant neoplasm of other organs or systems
CPT/HCPCS: 81025; 88307; 76098 ×2; 19281; 19125; C1819; J1644; J1100; J2405; J2001; J3010; J1170 ×2; J2704

== ENCOUNTER 2021-03-15 18:20 | Emergency (ER) | payer OTHER ==
[2021-03-15] MEDS ORDERED: HYDROcodone/APAP 5-325MG 1 EACH TAB PO STA (20:28)
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
[2021-03-15] MEDS ORDERED: KETOROLAC 15 MG/ML 1 ML VIAL IM STA (22:17)
--- NOTE | 2021-03-15 22:27 | USB ---
EXAMINATION TYPE: US breast limited BILAT DATE OF EXAM: 03/15/2021 COMPARISON: NONE CLINICAL HISTORY: post-op pain. Patient had bilateral breast lumpectomy done on March 11. Scanning was performed right breast at 300 o'clock position near incision. There is a complex fluid c ollection measuring 2.9 x 1.3 x 3.2 cm. scanning was performed left breast lateral to nipple near incision site. There is no abnormal fluid c ollection seen. IMPRESSION: There is irregular complex fluid collection at the right breast near the incision that co uld be hematoma. Abscess not entirely excluded. Scanning of the left breast fails to show any discrete solid or cystic mass. Category benign finding for the right breast and category negative for the left breast.
[2021-03-15] MEDS ORDERED: SULFAMETHOX-TMP 800-160MG 1 EACH TAB PO STA (23:15)
[2021-03-15 23:34] VITALS: BP 129/79; PULSE 71; RESP 20; TEMP 98.6
== END 2021-03-15 23:34 | disposition home or self-care (01) ==
LOC: EC 18:20
DX: N61.1 Abscess of the breast and nipple (principal); N64.89 Other specified disorders of breast; G89.18 Other acute postprocedural pain; F41.9 Anxiety disorder, unspecified; F31.9 Bipolar disorder, unspecified; F17.200 Nicotine dependence, unspecified, uncomplicated; Z88.1 Allergy status to other antibiotic agents; Z87.442 Personal history of urinary calculi
CPT/HCPCS: 99283; 96372; 76642; J1885

== ENCOUNTER → 2021-03-27 | Outpatient (CLI) | payer OTHER ==
[2021-03-27 16:38] VITALS: BP 102/64; PULSE 71; RESP 16; TEMP 98.9
--- NOTE | 2021-03-27 16:59 | P.PN ---
Progress Note - Text Progress Note Date: 03/27/21 Nathan is a 51-year-old white female status [place] [id number]. Preprocedure she had had ultrasound core biopsies done of both breasts which revealed bilateral fibroadenomas. Breast tissue on the right revealed fibrocystic changes including focal radial scar in usual type ductal hyperplasia, no fibroadenomas identified in the pathologic report. Intraoperatively palpable lesion was removed as well as ultrasound being performed to identify the area of a clip in that area was removed as well and confirmed. The patient had the left breast fibroadenoma localized in this was removed and was consistent with the pathology report from [id number]. The patient was tolerated the procedure well. She did present to the emergency room on [id number] with a complaint of pain and some discharge from her right breast. An ultrasound was performed of this area which revealed question of a small hematoma versus abscess. Since that time the discharge has stopped. The patient's pain has also decreased. The patient has had no fever or chills. Physical exam: Lungs: Clear Heart: S1-S2 Bilateral incisions clean and dry Steri-Strips remain intact Impression: Fibroadenoma not retrieved from the right breast radial scar was removed we will continue to follow this area Fibroadenoma removed from the left breast Plan: Bilateral mammogram in 6 months and bilateral breast ultrasound with follow-up at that time Cc: Dr. Smith
== END ==
LOC: WWCWWP 16:26
PROVIDERS: ATTEND Surgery
DX: D24.1 Benign neoplasm of right breast (principal); Z98.890 Other specified postprocedural states; Z88.8 Allergy status to other drugs, medicaments and biological substances; F17.200 Nicotine dependence, unspecified, uncomplicated

== ENCOUNTER 2021-06-28 17:12 | Emergency (ER) | payer OTHER ==
[2021-06-28 17:40] VITALS: TEMP 98.2
[2021-06-28] MEDS ORDERED: ONDANSETRON 4 MG/2 ML VIAL IVP STA (17:49)
[2021-06-28] MEDS ORDERED: SODIUM CHLORIDE 0.9% 1,000 ML IV STA (17:49)
[2021-06-28] MEDS ORDERED: SODIUM CHLORIDE 0.9% 500 ML 500 ML IV STA (17:49)
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
[2021-06-28 18:36] LABS: Appearance,Urine Clear (Clear); Bilirubin,Urine Negative (Negative); Blood,Urine Negative (Negative); Color,Urine Yellow; Glucose,Urine (UA) Negative (Negative); Ketones,Urine Negative (Negative); Leukocyte Esterase,Urine Negative (Negative); Nitrite,Urine Negative (Negative); PH, Urine 5.5 (5.0-8.0); Protein,Urine Trace (Negative); Specific Gravity,Urine 1.022 (1.001-1.035); Urobilinogen,Urine <2.0 mg/dL (<2.0)
[2021-06-28 18:37] LABS: Basophils # (A) 0.1 k/uL (0-0.2); Basophils % (A) 1 %; Eosinophils # (A) 0.2 k/uL (0-0.7); Eosinophils % (A) 2 %; HCT 42.2 % (34.0-46.0); HGB 13.6 gm/dL (11.4-16.0); Lymphocytes # (A) 1.9 k/uL (1.0-4.8); Lymphocytes % (A) 23 %; MCH 29.6 pg (25.0-35.0); MCHC 32.3 g/dL (31.0-37.0); MCV 91.7 fL (80.0-100.0); Monocytes # (A) 0.3 k/uL (0-1.0); Monocytes % (A) 4 %; Neutrophils # (A) 5.6 k/uL (1.3-7.7); Neutrophils % (A) 69 %; Platelet Count 277 k/uL (150-450); RDW 13.1 % (11.5-15.5); WBC 8.1 k/uL (3.8-10.6)
[2021-06-28 18:53] LABS: ALT 26 U/L (4-34); AST 27 U/L (14-36); African American GFR (CKD) >90 (>60 ml/min/1.73 sqM); Albumin 4.2 g/dL (3.5-5.0); Alkaline Phosphatase 62 U/L (38-126); Anion Gap 7 mmol/L; Blood Urea Nitrogen 12 mg/dL (7-17); Calcium 9.2 mg/dL (8.4-10.2); Carbon Dioxide 23 mmol/L (22-30); Chloride 106 mmol/L (98-107); Glucose 116 mg/dL (74-99); Lipase 99 U/L (23-300); Non-African American GFR(CKD) >90 (>60 ml/min/1.73 sqM); Potassium 3.9 mmol/L (3.5-5.1); Sodium 136 mmol/L (137-145); Total Bilirubin 0.3 mg/dL (0.2-1.3); Total Protein 6.8 g/dL (6.3-8.2)
[2021-06-28] MEDS ORDERED: KETOROLAC 15 MG/ML 1 ML VIAL IVP STA (18:58)
[2021-06-28 19:11] LABS: Amphetamine Screen,Urine Detected (NotDetected); Barbiturate Screen,Urine Not Detected (NotDetected); Benzodiazepines Screen,Urine Not Detected (NotDetected); Cocaine Screen,Urine Not Detected (NotDetected); Methadone Screen, Urine Not Detected (NotDetected); Opiate Screen,Urine Not Detected (NotDetected); Oxycodone Screen, Urine Not Detected (NotDetected); Phencyclidine Screen,Urine Not Detected (NotDetected); Tricyclic Antidepressant,Urine Not Detected (NotDetected); Urn Cannabinoid Scrn Detected (NotDetected)
[2021-06-28 19:20] VITALS: BP 102/76; PULSE 72; RESP 18
[2021-06-28] MEDS ORDERED: buPROPion 100 MG TAB PO STA (19:29)
== END 2021-06-28 19:53 | disposition home or self-care (01) ==
LOC: EC 17:12
DX: F15.23 Other stimulant dependence with withdrawal (principal); F17.290 Nicotine dependence, other tobacco product, uncomplicated; F31.9 Bipolar disorder, unspecified; F41.9 Anxiety disorder, unspecified; Z79.899 Other long term (current) drug therapy
CPT/HCPCS: 36415; 80053; 83690; 85025; 81003; 81025; 80306; 99284; 96374; 96375; 96361; J2405; J1885

== ENCOUNTER 2021-08-09 16:08 | Emergency (ER) | payer OTHER ==
[2021-08-09 16:43] VITALS: TEMP 97.9
[2021-08-09 17:08] LABS: Appearance,Urine Cloudy (Clear); Bacteria,Urine Rare /hpf; Bilirubin,Urine Negative (Negative); Blood,Urine Negative (Negative); Color,Urine Yellow; Glucose,Urine (UA) Negative (Negative); Ketones,Urine 1+ (Negative); Leukocyte Esterase,Urine Small (Negative); Mucus,Urine Rare /hpf; Nitrite,Urine Negative (Negative); Protein,Urine Negative (Negative); RBC,Urine 5 /hpf (0-5); Specific Gravity,Urine 1.007 (1.001-1.035); Squamous Epithelial Cell,Urine 10 /hpf (0-4); Urobilinogen,Urine <2.0 mg/dL (<2.0); WBC,Urine 2 /hpf (0-5)
[2021-08-09] MEDS ORDERED: ONDANSETRON 4 MG/2 ML VIAL IVP STA (18:06)
[2021-08-09] MEDS ORDERED: KETOROLAC 15 MG/ML 1 ML VIAL IVP STA (18:06)
[2021-08-09] MEDS ORDERED: SODIUM CHLORIDE 0.9% 1,000 ML IV STA (18:06)
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
[2021-08-09 18:33] LABS: Basophils % (A) 1 %; Eosinophils # (A) 0.1 k/uL (0-0.7); Eosinophils % (A) 1 %; HCT 41.7 % (34.0-46.0); HGB 13.6 gm/dL (11.4-16.0); Lymphocytes # (A) 1.8 k/uL (1.0-4.8); Lymphocytes % (A) 30 %; MCH 30.1 pg (25.0-35.0); MCHC 32.7 g/dL (31.0-37.0); Mean Platelet Volume 6.9; Monocytes # (A) 0.3 k/uL (0-1.0); Monocytes % (A) 5 %; Neutrophils # (A) 3.8 k/uL (1.3-7.7); Neutrophils % (A) 62 %; Platelet Count 284 k/uL (150-450); RBC 4.53 m/uL (3.80-5.40); RDW 14.3 % (11.5-15.5); WBC 6.1 k/uL (3.8-10.6)
[2021-08-09 18:44] LABS: ALT 13 U/L (4-34); AST 27 U/L (14-36); African American GFR (CKD) >90 (>60 ml/min/1.73 sqM); Albumin 4.8 g/dL (3.5-5.0); Alkaline Phosphatase 78 U/L (38-126); Amylase 63 U/L (30-110); Anion Gap 8 mmol/L; Blood Urea Nitrogen 9 mg/dL (7-17); Calcium 9.1 mg/dL (8.4-10.2); Carbon Dioxide 24 mmol/L (22-30); Chloride 105 mmol/L (98-107); Glucose 100 mg/dL (74-99); Lipase 67 U/L (23-300); Non-African American GFR(CKD) >90 (>60 ml/min/1.73 sqM); Potassium 3.8 mmol/L (3.5-5.1); Sodium 137 mmol/L (137-145); Total Bilirubin 0.7 mg/dL (0.2-1.3); Total Protein 7.9 g/dL (6.3-8.2)
[2021-08-09] MEDS ORDERED: MORPHINE SULFATE 2 MG/ML SYRINGE IVP STA (19:31)
[2021-08-09] MEDS ORDERED: diphenhydrAMINE 50 MG/ML 1 ML VIAL IVP STA (19:32)
[2021-08-09] MEDS ORDERED: ONDANSETRON 4 MG ODT STARTER PACK 2 TAB BTL PO STA (20:26)
[2021-08-09 20:39] VITALS: BP 110/60; PULSE 84; RESP 16
== END 2021-08-09 20:55 | disposition home or self-care (01) ==
LOC: EC 16:08
DX: R10.31 Right lower quadrant pain (principal); F41.9 Anxiety disorder, unspecified; F31.9 Bipolar disorder, unspecified; F17.200 Nicotine dependence, unspecified, uncomplicated; Z87.442 Personal history of urinary calculi
CPT/HCPCS: 99284; 96374; 96375 ×3; 96361; 36415; 80053; 82150; 83605; 83690; 85025; 81001; 81025; J1200; J2405; J2270; J1885; S0119

== ENCOUNTER → 2021-09-12 | Outpatient (CLI) | payer OTHER ==
--- NOTE | 2021-09-12 14:36 | MM ---
Reason for exam: additional evaluation requested from prior study. Last mammogram was performed 10 months ago. History: Family history of breast cancer in maternal aunt at age 40 and breast cancer in mother at age 48. Benign MG pre op needle loc LT of the left breast, March 11, 2021. Benign US biopsy breast VAD RT of the right breast, January 01, 2021. Benign US biopsy breast VAD LT of the left breast, December 06, 2020. Benign excisional biopsy of the left breast, 2008. Took hormonal contraceptives for 1 year. Physical Findings: A clinical breast exam by your physician is recommended on an annual basis and results should be correlated with mammographic findings. MG Diagnostic Mammo w CAD GONZALES Bilateral CC and MLO view(s) were taken. Prior study comparison: November 08, 2020, bilateral MG diagnostic mammo w CAD GONZALES. The breast tissue is extremely dense which could obscure a lesion on mammography. Previous mammotome biopsy in the right breast. Bilateral surgical changes. Results were given to the patient verbally at the time of the exam. ASSESSMENT: Benign, BI-RAD 2 RECOMMENDATION: Routine screening mammogram of both breasts at age 41.
--- NOTE | 2021-09-12 14:38 | USB ---
Reason for exam: additional evaluation requested from prior study. History: Family history of breast cancer in maternal aunt at age 40 and breast cancer in mother at age 48. Benign MG pre op needle loc LT of the left breast, March 11, 2021. Benign US biopsy breast VAD RT of the right breast, January 01, 2021. Benign US biopsy breast VAD LT of the left breast, December 06, 2020. Benign excisional biopsy of the left breast, 2008. Took hormonal contraceptives for 1 year. Physical Findings: A clinical breast exam by your physician is recommended on an annual basis and results should be correlated with mammographic findings. US Breast BILAT Right complete breast ultrasound includes all four quadrants, the retroareolar region and axilla. Finding demonstrates no cystic or solid lesion seen. Left complete breast ultrasound includes all four quadrants, the retroareolar region and axilla. Finding demonstrates a 0.8 x 1.0 x 0.3cm solid, hypoechoic, stable lesion at 4 o'clock, 4cm from nipple, previously 0.7 x 0.9 x 0.4cm. Results were given to the patient verbally at the time of the exam. ASSESSMENT: Benign, BI-RAD 2 RECOMMENDATION: Routine screening mammogram of both breasts at age 41.
== END | disposition home or self-care (01) ==
LOC: RADMAMWWP 12:56
PROVIDERS: ATTEND Surgery
DX: R92.8 Other abnormal and inconclusive findings on diagnostic imaging of breast (principal); N64.89 Other specified disorders of breast; Z80.3 Family history of malignant neoplasm of breast
CPT/HCPCS: 77066

== ENCOUNTER 2022-02-22 15:11 | Emergency (ER) | payer OTHER ==
[2022-02-22 15:20] VITALS: TEMP 98
[2022-02-22 16:35] VITALS: RESP 16
[2022-02-22] MEDS ORDERED: ONDANSETRON 4 MG/2 ML VIAL IVP STA (16:56)
[2022-02-22] MEDS ORDERED: HYDROmorphone 0.5 MG/0.5 ML SYRINGE IVP STA (16:56)
[2022-02-22] MEDS ORDERED: SODIUM CHLORIDE 0.9% 1,000 ML IV STA (16:56)
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
[2022-02-22 17:15] LABS: Basophils % (A) 1 %; Eosinophils # (A) 0.1 k/uL (0-0.7); Eosinophils % (A) 2 %; HCT 40.1 % (34.0-46.0); HGB 13.2 gm/dL (11.4-16.0); Lymphocytes # (A) 1.2 k/uL (1.0-4.8); Lymphocytes % (A) 19 %; Mean Platelet Volume 7.8; Monocytes # (A) 0.4 k/uL (0-1.0); Monocytes % (A) 6 %; Neutrophils # (A) 4.5 k/uL (1.3-7.7); Neutrophils % (A) 72 %; Platelet Count 234 k/uL (150-450); RBC 4.55 m/uL (3.80-5.40); RDW 13.3 % (11.5-15.5); WBC 6.2 k/uL (3.8-10.6)
[2022-02-22 17:26] LABS: Amorphous Sediment,Urine Rare /hpf; Appearance,Urine Cloudy (Clear); Bacteria,Urine Rare /hpf; Bilirubin,Urine Negative (Negative); Blood,Urine Negative (Negative); Color,Urine Yellow; Glucose,Urine (UA) Negative (Negative); Hyaline Casts,Urine 1 /lpf (0-2); Ketones,Urine Negative (Negative); Leukocyte Esterase,Urine Negative (Negative); Mucus,Urine Rare /hpf; Nitrite,Urine Negative (Negative); Protein,Urine Negative (Negative); RBC,Urine 2 /hpf (0-5); Specific Gravity,Urine 1.018 (1.001-1.035); Squamous Epithelial Cell,Urine 3 /hpf (0-4); Urobilinogen,Urine <2.0 mg/dL (<2.0); WBC,Urine 1 /hpf (0-5)
[2022-02-22 17:30] LABS: ALT 15 U/L (4-34); AST 22 U/L (14-36); African American GFR (CKD) >90 (>60 ml/min/1.73 sqM); Albumin 4.7 g/dL (3.5-5.0); Alkaline Phosphatase 61 U/L (38-126); Anion Gap 11 mmol/L; Blood Urea Nitrogen 11 mg/dL (7-17); Carbon Dioxide 22 mmol/L (22-30); Chloride 103 mmol/L (98-107); Glucose 80 mg/dL (74-99); Lipase 73 U/L (23-300); Non-African American GFR(CKD) >90 (>60 ml/min/1.73 sqM); Potassium 4.3 mmol/L (3.5-5.1); Sodium 136 mmol/L (137-145); Total Bilirubin 0.3 mg/dL (0.2-1.3); Total Protein 7.1 g/dL (6.3-8.2)
[2022-02-22 17:34] LABS: INR 1.1 (<1.2); Partial Thromboplastin Time 30.2 sec (22.0-30.0); Prothrombin Time 11.9 sec (9.0-12.0)
--- NOTE | 2022-02-22 18:48 | CT ---
EXAMINATION TYPE: CT abdomen pelvis w con DATE OF EXAM: 02/22/2022 COMPARISON: 09/23/2020 HISTORY: RLQ pain and bloating CT DLP: mGycm Automated exposure control for dose reduction was used. CONTRAST: Performed with IV Contrast, patient injected with 100 mL of Isovue 300. The lung bases are clear. No pleural effusion. Heart size is normal. No pericardial effusion. Liver spleen and stomach pancreas and gallbladder appear intact. The bile ducts are not dilated. There is no adrenal mass. Kidneys show satisfactory contrast opacification. No hydronephrosis. Ureter s are not dilated. No retroperitoneal adenopathy. Bladder distends smoothly. No inguinal hernia. Ther e is tiny amount of low-density free fluid in the pelvis. Uterus is anteverted. No pelvic mass. Delay ed images show normal renal excretion. There is no mesenteric edema. No ascites or free air. No sign of a bowel obstruction. Appendix not se en. No sign of thickened appendix. The lumbar vertebra have normal spacing and alignment. Posterior element are intact. Bony pelvis is i ntact. The hip joints are intact. IMPRESSION: Small amount of low-density free fluid in the pelvis is decreased compared to old exam. This could be physiologic. Otherwise negative CT scan of the abdomen and pelvis.
[2022-02-22] MEDS ORDERED: HYDROmorphone 1 MG/ML 1 ML SYRINGE IVP STA (18:50)
[2022-02-22] MEDS ORDERED: METOCLOPRAMIDE 5 MG/ML 2 ML VIAL IVP STA (19:36)
[2022-02-22] MEDS ORDERED: diphenhydrAMINE 50 MG/ML 1 ML VIAL IVP STA (19:37)
[2022-02-22 21:13] VITALS: BP 110/60; PULSE 80
== END 2022-02-22 21:00 | disposition home or self-care (01) ==
LOC: EC 15:11
DX: R10.31 Right lower quadrant pain (principal); F41.9 Anxiety disorder, unspecified; F31.9 Bipolar disorder, unspecified; F17.200 Nicotine dependence, unspecified, uncomplicated; F12.90 Cannabis use, unspecified, uncomplicated; Z88.8 Allergy status to other drugs, medicaments and biological substances; Z79.899 Other long term (current) drug therapy
CPT/HCPCS: 36415; 80053; 83690; 85025; 85610; 85730; 81001; 81025; 74177; 99284; 96374; 96375 ×3; 96376; 96361 ×2; J1200; J2765; J2405; J1170 ×2; Q9967

== ENCOUNTER 2022-02-28 15:25 | Emergency (ER) | payer OTHER ==
[2022-02-28 15:30] VITALS: TEMP 98.3
[2022-02-28] MEDS ORDERED: MORPHINE SULFATE 4 MG/ML SYRINGE IV STA (15:43)
[2022-02-28] MEDS ORDERED: SODIUM CHLORIDE 0.9% 500 ML 500 ML IV STA (15:43)
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
[2022-02-28 16:19] LABS: Basophils # (A) 0.1 k/uL (0-0.2); Basophils % (A) 1 %; Eosinophils # (A) 0.1 k/uL (0-0.7); Eosinophils % (A) 2 %; HCT 40.7 % (34.0-46.0); HGB 13.2 gm/dL (11.4-16.0); Lymphocytes # (A) 1.5 k/uL (1.0-4.8); Lymphocytes % (A) 22 %; MCH 28.8 pg (25.0-35.0); MCHC 32.4 g/dL (31.0-37.0); MCV 88.8 fL (80.0-100.0); Mean Platelet Volume 7.5; Monocytes # (A) 0.3 k/uL (0-1.0); Monocytes % (A) 4 %; Neutrophils # (A) 4.9 k/uL (1.3-7.7); Neutrophils % (A) 70 %; Platelet Count 293 k/uL (150-450); RBC 4.59 m/uL (3.80-5.40); RDW 13.4 % (11.5-15.5)
[2022-02-28 16:38] LABS: ALT 15 U/L (4-34); AST 23 U/L (14-36); African American GFR (CKD) >90 (>60 ml/min/1.73 sqM); Albumin 4.9 g/dL (3.5-5.0); Alkaline Phosphatase 67 U/L (38-126); Amylase 60 U/L (30-110); Anion Gap 14 mmol/L; Blood Urea Nitrogen 11 mg/dL (7-17); C Reactive Protein <0.5 mg/dL (<1.0); Calcium 9.4 mg/dL (8.4-10.2); Carbon Dioxide 21 mmol/L (22-30); Chloride 104 mmol/L (98-107); Glucose 103 mg/dL (74-99); Lipase 92 U/L (23-300); Non-African American GFR(CKD) >90 (>60 ml/min/1.73 sqM); Sodium 139 mmol/L (137-145); Total Bilirubin 0.2 mg/dL (0.2-1.3); Total Protein 7.5 g/dL (6.3-8.2)
[2022-02-28 16:48] LABS: Appearance,Urine Clear (Clear); Bacteria,Urine Rare /hpf; Bilirubin,Urine Negative (Negative); Blood,Urine Large (Negative); Color,Urine Yellow; Glucose,Urine (UA) Negative (Negative); Ketones,Urine Negative (Negative); Leukocyte Esterase,Urine Small (Negative); Mucus,Urine Rare /hpf; Nitrite,Urine Negative (Negative); Protein,Urine Negative (Negative); RBC,Urine 6 /hpf (0-5); Specific Gravity,Urine 1.018 (1.001-1.035); Squamous Epithelial Cell,Urine 3 /hpf (0-4); Urobilinogen,Urine <2.0 mg/dL (<2.0); WBC,Urine <1 /hpf (0-5)
[2022-02-28] MEDS ORDERED: KETOROLAC 15 MG/ML 1 ML VIAL IVP STA (17:49)
[2022-02-28 18:04] VITALS: PULSE 91; RESP 17
--- NOTE | 2022-02-28 19:00 | CT ---
EXAMINATION TYPE: CT abdomen pelvis wo con DATE OF EXAM: 02/28/2022 COMPARISON: 02/22/2022 HISTORY: RLQ pain CT DLP: 313.6 mGycm Automated exposure control for dose reduction was used. Images obtained from the diaphragm to the floor the pelvis with no contrast. Lung bases are clear. No pleural effusion. Heart size is normal. No pericardial effusion. Liver splee n and stomach pancreas and gallbladder appear intact. The bile ducts are not dilated. There is no adrenal mass. Kidneys have normal size and contour. No hydronephrosis. There are multiple small calculi in the right kidney up to 2 mm. No retroperitoneal adenopathy. Ureters are not dilated . Bladder distends smoothly. No pelvic mass. Uterus is anteverted. No free fluid in the pelvis. Appendix appears normal. There is no mesenteric edema. No ascites or free air. No sign of a bowel obs truction. There is 1 mm calcification in the left kidney. The lumbar vertebrae have normal alignment. Disc spaces are normal. Posterior elements are intact. Bony pelvis is intact. The hip joints are int act. Iliac joints are intact IMPRESSION: Nonobstructing renal calculi. Normal appendix. No adverse change compared to old exams
[2022-02-28] MEDS ORDERED: HYDROmorphone 0.5 MG/0.5 ML SYRINGE IVP STA (19:36)
[2022-02-28 19:46] VITALS: BP 102/68
== END 2022-02-28 19:56 | disposition home or self-care (01) ==
LOC: EC 15:25
DX: R10.9 Unspecified abdominal pain (principal); R10.31 Right lower quadrant pain; Z88.5 Allergy status to narcotic agent
CPT/HCPCS: 99284; 36415; 80053; 82150; 83605; 83690; 85025; 86140; 81001; 81025; 74176; 96374; 96375; 96361; J2270; J1885; J1170

== ENCOUNTER 2022-03-17 01:11 | Emergency (ER) | payer OTHER ==
[2022-03-17 01:48] VITALS: RESP 16
[2022-03-17 03:42] LABS: Basophils # (A) 0.1 k/uL (0-0.2); Basophils % (A) 1 %; Eosinophils # (A) 0.2 k/uL (0-0.7); Eosinophils % (A) 3 %; HGB 13.1 gm/dL (11.4-16.0); Lymphocytes # (A) 2.3 k/uL (1.0-4.8); Lymphocytes % (A) 35 %; MCH 29.9 pg (25.0-35.0); MCHC 33.7 g/dL (31.0-37.0); MCV 88.8 fL (80.0-100.0); Mean Platelet Volume 7.6; Monocytes # (A) 0.4 k/uL (0-1.0); Monocytes % (A) 6 %; Neutrophils # (A) 3.6 k/uL (1.3-7.7); Neutrophils % (A) 53 %; Platelet Count 226 k/uL (150-450); RBC 4.39 m/uL (3.80-5.40); RDW 13.3 % (11.5-15.5); WBC 6.7 k/uL (3.8-10.6)
[2022-03-17 03:54] LABS: ALT 14 U/L (4-34); AST 20 U/L (14-36); African American GFR (CKD) >90 (>60 ml/min/1.73 sqM); Albumin 4.3 g/dL (3.5-5.0); Alkaline Phosphatase 55 U/L (38-126); Anion Gap 8 mmol/L; Blood Urea Nitrogen 8 mg/dL (7-17); Calcium 8.5 mg/dL (8.4-10.2); Carbon Dioxide 21 mmol/L (22-30); Chloride 108 mmol/L (98-107); Glucose 94 mg/dL (74-99); Non-African American GFR(CKD) >90 (>60 ml/min/1.73 sqM); Potassium 4.2 mmol/L (3.5-5.1); Sodium 137 mmol/L (137-145); Total Bilirubin 0.4 mg/dL (0.2-1.3); Total Protein 6.7 g/dL (6.3-8.2)
[2022-03-17] MEDS ORDERED: SODIUM CHLORIDE 0.9% 1,000 ML IV ONE (03:56)
[2022-03-17] MEDS ORDERED: ONDANSETRON 4 MG/2 ML VIAL IVP STA (03:56)
[2022-03-17] MEDS ORDERED: HYDROmorphone 0.5 MG/0.5 ML SYRINGE IVP STA ×2 (03:56→05:03)
[2022-03-17 04:35] LABS: Appearance,Urine Clear (Clear); Bilirubin,Urine Negative (Negative); Blood,Urine Negative (Negative); Color,Urine Light Yellow; Glucose,Urine (UA) Negative (Negative); Ketones,Urine Negative (Negative); Leukocyte Esterase,Urine Negative (Negative); Nitrite,Urine Negative (Negative); Protein,Urine Negative (Negative); Specific Gravity,Urine 1.029 (1.001-1.035); Urobilinogen,Urine <2.0 mg/dL (<2.0)
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
[2022-03-17 06:19] VITALS: BP 110/75; PULSE 65; TEMP 97.9
== END 2022-03-17 06:14 | disposition home or self-care (01) ==
LOC: EC 01:11
DX: R10.11 Right upper quadrant pain (principal); F41.9 Anxiety disorder, unspecified; F31.9 Bipolar disorder, unspecified; F17.290 Nicotine dependence, other tobacco product, uncomplicated; F12.90 Cannabis use, unspecified, uncomplicated; Z88.8 Allergy status to other drugs, medicaments and biological substances
CPT/HCPCS: 36415; 80053; 83690; 85025; 81003; 81025; 99284; 96374; 96376; 96361; J2405; J1170

== ENCOUNTER → 2022-04-22 | Outpatient (CLI) | payer OTHER ==
--- NOTE | 2022-04-22 11:17 | US ---
EXAMINATION TYPE: US gallbladder DATE OF EXAM: 04/22/2022 COMPARISON: NONE CLINICAL HISTORY: K81.1 CHRONIC CHOLECYSTITIS. TECHNIQUE: Multiple sonographic images of the right upper quadrant are obtained. FINDINGS: EXAM MEASUREMENTS: Liver Length: 13.5 cm Gallbladder Wall: .2 cm CBD: .3 cm Right Kidney: 10 x 3.7 x 4.7 cm WINDOW DISPLAY DESIGNER NOTES: Pancreas: wnl Liver: wnl Gallbladder: wnl Evidence for sonographic Osullivan's sign: No CBD: wnl Right Kidney: wnl IMPRESSION: No significant abnormality appreciated.
== END | disposition home or self-care (01) ==
LOC: RADUSWWP 07:18
PROVIDERS: ATTEND Surgery
DX: K81.1 Chronic cholecystitis (principal)
CPT/HCPCS: 76705

== ENCOUNTER → 2022-04-23 | Outpatient (CLI) | payer OTHER ==
--- NOTE | 2022-04-23 11:00 | NM ---
EXAMINATION TYPE: NM hepatobiliary w CCK DATE OF EXAM: 04/23/2022 COMPARISON: NONE HISTORY: Pain TECHNIQUE: After the intravenous administration of 4.4 mCi Tc 99m Mebrofenin hepatobiliary scintigrap hy is performed. Immediate images post injection. FINDINGS: There is satisfactory initial accumulation of tracer by the liver. The gallbladder is visualized wit hin 8 minutes. The small bowel activity is noted within 14 minutes. At one hour CCK was administere d, patient was injected with 0.95 mcg of Kinevac, and gallbladder ejection fraction is calculated at 65 %, in the normal range. Therefore there is no scintigraphic evidence of cystic or common bile shaniqua t obstruction to suggest acute cholecystitis or gallbladder dyskinesia. IMPRESSION: Exam is within normal limits.
== END | disposition home or self-care (01) ==
LOC: RADNMMAIN 07:04
PROVIDERS: ATTEND Surgery
DX: K81.1 Chronic cholecystitis (principal)
CPT/HCPCS: 78227; A9537; J2805

== ENCOUNTER → 2022-04-24 | Outpatient (CLI) | payer OTHER ==
--- NOTE | 2022-04-24 09:43 | MR ---
EXAMINATION TYPE: MR brain wo/w con DATE OF EXAM: 04/24/2022 COMPARISON: NONE HISTORY: Migraine headache. History of breast cancer. TECHNIQUE: Multiplanar, multisequence images of the brain and brainstem is performed without and with IV contras t, utilizing 8 mL intravenous Gadavist . FINDINGS: Diffusion weighted images demonstrate no evidence of a recent infarct or other diffusion ab normality. There is no extra-axial fluid collection or significant white matter signal abnormality. The ventricular system and cisternal spaces are normal in size and appearance. The brain volume is age appropriate. T2 Star-weighted images show ovoid 8 x 4 mm area of diminished signal right cerebell um corresponding to subtle area of T2 hypointensity. Midline structures demonstrate normal morphology. The craniocervical junction appears within normal limits. Post contrast images demonstrate no abnormal enhancement. The dural venous sinuses appear pa tent. Mild mucosal thickening with some dependent fluid in the inferior left maxillary sinus otherwis e paranasal sinuses are clear. Globes are intact bilaterally. IMPRESSION: 1. There is 8 x 4 mm ovoid area of diminished signal on T2-weighted images and focus on T2 Star weigh melecio images could reflect focal calcification or old blood product. Advise correlation with CT brain s tudy otherwise unremarkable study.
== END | disposition home or self-care (01) ==
LOC: RADMRIMAIN 08:18
PROVIDERS: ATTEND Psychiatry & Neurology Neurology
DX: G43.909 Migraine, unspecified, not intractable, without status migrainosus (principal); Z85.3 Personal history of malignant neoplasm of breast
CPT/HCPCS: 70553; A9585

== ENCOUNTER → 2022-04-24 | Outpatient (CLI) | payer OTHER ==
[2022-04-24 14:34] LABS: Basophils # (A) 0.03 X 10*3/uL (0.00-0.10); Basophils % (A) 0.5 %; Eosinophils # (A) 0.08 X 10*3/uL (0.04-0.35); Eosinophils % (A) 1.3 %; HCT 39.7 % (37.2-46.3); HGB 12.9 g/dL (12.0-15.0); Immature Grans, Automated 0.2 %; Lymphocytes # (A) 1.77 X 10*3/uL (0.90-5.00); Lymphocytes % (A) 27.8 %; MCH 29.3 pg (27.0-32.0); MCHC 32.5 g/dL (32.0-37.0); MCV 90.2 fL (80.0-97.0); Mean Platelet Volume 10.4 fL (9.5-12.2); Monocytes # (A) 0.56 X 10*3/uL (0.20-1.00); Monocytes % (A) 8.8 %; NRBC Per 100 WBC 0 /100 WBCS (0.0-0.0); Neutrophils # (A) 3.91 X 10*3/uL (1.80-7.70); Neutrophils % (A) 61.4 %; Platelet Count 328 X 10*3/uL (140-440); RDW 14.1 % (11.5-14.5); WBC 6.36 X 10*3/uL (4.50-10.00)
== END | disposition home or self-care (01) ==
LOC: LABPAT 09:05
PROVIDERS: ATTEND Obstetrics & Gynecology
DX: Z01.812 Encounter for preprocedural laboratory examination (principal)
CPT/HCPCS: 36415; 85025

== ENCOUNTER 2022-04-28 10:09 | Emergency (ER) | payer OTHER ==
[2022-04-28 10:24] VITALS: PULSE 62; RESP 18; TEMP 98.1
[2022-04-28 11:10] LABS: Appearance,Urine Clear (Clear); Bilirubin,Urine Negative (Negative); Blood,Urine Trace (Negative); Color,Urine Light Yellow; Glucose,Urine (UA) Negative (Negative); Ketones,Urine Negative (Negative); Leukocyte Esterase,Urine Negative (Negative); Nitrite,Urine Negative (Negative); Protein,Urine Negative (Negative); RBC,Urine <1 /hpf (0-5); Specific Gravity,Urine 1.005 (1.001-1.035); Squamous Epithelial Cell,Urine 1 /hpf (0-4); Urobilinogen,Urine <2.0 mg/dL (<2.0)
== END 2022-04-28 15:34 | disposition left against medical advice (07) ==
LOC: EC 10:09
DX: Z53.21 Procedure and treatment not carried out due to patient leaving prior to being seen by health care provider (principal)
CPT/HCPCS: 81001; 81025; 99499

== ENCOUNTER 2022-04-28 19:31 | Emergency (ER) | payer OTHER ==
[2022-04-28 19:44] VITALS: TEMP 98.2
--- NOTE | 2022-04-28 20:02 | XR ---
EXAMINATION TYPE: XR KUB DATE OF EXAM: 04/28/2022 COMPARISON: 11/04/2020 HISTORY: Abdominal pain TECHNIQUE: Single view FINDINGS: The bowel gas pattern is normal. No sign of intestinal obstruction or pneumoperitoneum. Fec al pattern is normal. No evidence of a mass. There are no pathologic calcifications over the kidneys. IMPRESSION: Nonacute abdomen. No change.
[2022-04-28 20:59] LABS: Basophils # (A) 0.1 k/uL (0-0.2); Basophils % (A) 1 %; Eosinophils # (A) 0.1 k/uL (0-0.7); Eosinophils % (A) 3 %; HCT 38.5 % (34.0-46.0); HGB 12.8 gm/dL (11.4-16.0); Lymphocytes # (A) 2.2 k/uL (1.0-4.8); Lymphocytes % (A) 41 %; MCH 29.7 pg (25.0-35.0); MCHC 33.2 g/dL (31.0-37.0); MCV 89.3 fL (80.0-100.0); Mean Platelet Volume 7.5; Monocytes # (A) 0.3 k/uL (0-1.0); Monocytes % (A) 5 %; Neutrophils # (A) 2.7 k/uL (1.3-7.7); Neutrophils % (A) 49 %; Platelet Count 296 k/uL (150-450); RBC 4.31 m/uL (3.80-5.40); RDW 13.2 % (11.5-15.5); WBC 5.5 k/uL (3.8-10.6)
[2022-04-28 21:07] LABS: ALT 15 U/L (4-34); AST 25 U/L (14-36); African American GFR (CKD) >90 (>60 ml/min/1.73 sqM); Albumin 4.4 g/dL (3.5-5.0); Alkaline Phosphatase 56 U/L (38-126); Amylase 54 U/L (30-110); Anion Gap 6 mmol/L; Blood Urea Nitrogen 10 mg/dL (7-17); Calcium 9.1 mg/dL (8.4-10.2); Carbon Dioxide 23 mmol/L (22-30); Chloride 108 mmol/L (98-107); Glucose 90 mg/dL (74-99); Lipase 112 U/L (23-300); Non-African American GFR(CKD) >90 (>60 ml/min/1.73 sqM); Potassium 4.1 mmol/L (3.5-5.1); Sodium 137 mmol/L (137-145); Total Bilirubin 0.3 mg/dL (0.2-1.3)
[2022-04-28] MEDS ORDERED: ONDANSETRON 4 MG/2 ML VIAL IVP STA (21:28)
[2022-04-28] MEDS ORDERED: PANTOPRAZOLE 40 MG/10 ML VIAL IVP STA (21:28)
[2022-04-28] MEDS ORDERED: FAMOTIDINE 20 MG/2 ML VIAL IV STA (21:28)
[2022-04-28] MEDS ORDERED: METOCLOPRAMIDE 5 MG/ML 2 ML VIAL IVP STA (21:32)
[2022-04-28] MEDS ORDERED: HYDROmorphone 0.5 MG/0.5 ML SYRINGE IVP STA (21:42)
--- NOTE | 2022-04-28 22:01 | XR ---
EXAMINATION TYPE: XR chest 2V DATE OF EXAM: 04/28/2022 COMPARISON: 01/24/2021 HISTORY: Chest pain TECHNIQUE: 2 views FINDINGS: Heart and mediastinum are normal. Lungs are clear. Diaphragm is normal. Bony thorax is inta ct. IMPRESSION: Normal chest. No change.
[2022-04-28] MEDS ORDERED: SODIUM CHLORIDE 0.9% 1,000 ML IV STA (22:10)
[2022-04-28] MEDS ORDERED: MORPHINE SULFATE 4 MG/ML SYRINGE IVP STA (22:59)
[2022-04-28] MEDS ORDERED: ACET/COD 300 MG/30 MG STARTER PACK 6 TAB BTL PO STA (23:02)
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
[2022-04-28 23:20] VITALS: BP 106/62; PULSE 88; RESP 161
== END 2022-04-28 23:19 | disposition home or self-care (01) ==
LOC: EC 19:31
DX: R10.13 Epigastric pain (principal); R11.2 Nausea with vomiting, unspecified; R07.89 Other chest pain; F41.9 Anxiety disorder, unspecified; F31.9 Bipolar disorder, unspecified; F12.90 Cannabis use, unspecified, uncomplicated; F17.290 Nicotine dependence, other tobacco product, uncomplicated
CPT/HCPCS: 36415; 93005; 80053; 82150; 83690; 84484; 85025; 71046; 74018; 99285; 96374; 96375 ×4; J2270; J2405; C9113; J1170

== ENCOUNTER 2022-04-30 06:24 | Day surgery (SDC) | payer OTHER ==
[2022-04-28 09:16] VITALS: BMI 19.5
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
[~2022-04-30 06:24] MED LIST changes: -HEPARIN SODIUM,PORCINE/PF 5,000 UNIT/0.5 ML SYRINGE SQ PRN; -HYDROmorphone 0.5 MG/0.5 ML SYRINGE IVP PRN; -LIDOCAINE 1% (10MG/ML) FOR IV START INTRADERMA PRN; -SCOPOLAMINE 1.5MG/72HR PATCH TRANSDERM ONE
[2022-04-30] MEDS ORDERED: SCOPOLAMINE 1 MG/72 HR PATCH TRANSDERM ONE (07:19)
[2022-04-30] MEDS ORDERED: BUPIVACAINE (PF) 0.5% 30 ML VIAL SQ ONE (07:27)
--- NOTE | 2022-04-30 08:08 | P.OP ---
Date of Procedure: 04/30/22 Preoperative Diagnosis: Multi parity desires permanent sterilization Postoperative Diagnosis: Same Procedure(s) Performed: Laparoscopic bilateral fallopian tube cauterization Anesthesia: SEMAJA Surgeon: Omar Merrill Estimated Blood Loss (ml): 10 Urine output (ml): 25 Pathology: none sent Condition: stable Disposition: PACU Indications for Procedure: Please see dictated H&P for intimate details of this patient's admission. Brief summary this is a 36-year-old 2 para 2 female who presented to my office requesting permanent sterilization for control. I did discuss the fact that the surgery is permanent however there is a failure rate of less than 5 per thousand procedures done. I also discussed with her that this is a surgical procedure and apparently has risks including risks of infection, bleeding, possible injury to bowel, bladder, vessels, and/or other organs. All the patient's questions are answered and a written consent is obtained. Operative Findings: This patient had a completely normal pelvis, normal upper abdomen grossly. There was no evidence of adhesions, scar tissue, or previous infection. Description of Procedure: This patient is taken to the operating room where she is laid in the supine position. She subsequent undergoes general endotracheal anesthesia without incident. With an adequate level of anesthesia she's placed in dorsal lithotomy position. She has a vaginal perineal prep and drape. I first good on below placed a speculum into the vagina and visualize the cervix. Anterior lip of the cervix is gravid and Allis clamp and acorn cannula is attached to the cervix. A red Solomon catheter is then placed in the bladder and attached to the Allis clamp. This done I changed gloves go above. Make a 1 cm infraumbilical incision. Using a 10 mm blade-less optical trocar I placed the trocar into the abdominal cavity under visualization. With adequate placement noted and pneumoperitoneum was then created to 12 mm of carbon dioxide gas. Patient's placed in Trendelenburg position. Proximally 2 finger breaths above the symphysis pubis; 5 mm incision. Using a 5 mm blade-less optical trocar I placed it directly into the peritoneal cavity. Using a blunt probe I manipulate the uterus tubes and ovary and all appear normal. I did visualize the upper abdomen including the liver surface and left upper quadrant and all appears grossly normal. This done I take a bipolar cautery grasped the left fallopian tube approximately 4 cm from its cornual insertion. Using bipolar cautery a 2 cm segment of tube was completely cauterized as demarcated by the volt meter. Similar technique is done on the right side with similar results. This done final inspection is done and all appears hemostatic. The lower trochars removed under direct visualization. Pneumoperitoneum was reduced and the upper trochars removed. Incisions are then closed using a 4-0 Vicryl interrupted fashion. Steri-Strips and sterile dressing is applied. Half percent Marcaine is injected and both incisions for postoperative pain. This done a ground below remove the acorn cannula an Allis clamp and catheter. All counts are correct 3. There are no complications. Patient is awakened from anesthesia and taken recovery room satisfactory condition.
[2022-04-30 08:15] VITALS: TEMP 97.5
[2022-04-30] MEDS: HYDROmorphone 0.5 MG/0.5 ML SYRINGE IVP PRN ×4 (08:19→08:53)
[2022-04-30 08:24] VITALS: RESP 16
[2022-04-30] MEDS ORDERED: LACTATED RINGERS 1,000 ML IV ONE ×2 (08:42)
[2022-04-30] MEDS ORDERED: IBUPROFEN 200 MG TAB PO ONE (10:22)
[2022-04-30 11:23] VITALS: PULSE 50
[2022-04-30 13:10] VITALS: BP 112/76
== END 2022-04-30 13:12 | disposition home or self-care (01) ==
LOC: OR 06:24
PROVIDERS: ATTEND Obstetrics & Gynecology
DX: Z30.2 Encounter for sterilization (principal); J18.9 Pneumonia, unspecified organism; G43.909 Migraine, unspecified, not intractable, without status migrainosus; F17.200 Nicotine dependence, unspecified, uncomplicated; F12.90 Cannabis use, unspecified, uncomplicated; F15.90 Other stimulant use, unspecified, uncomplicated; Z82.49 Family history of ischemic heart disease and other diseases of the circulatory system; Z87.442 Personal history of urinary calculi; Z83.49 Family history of other endocrine, nutritional and metabolic diseases; Z80.3 Family history of malignant neoplasm of breast; Z98.82 Breast implant status; Z82.3 Family history of stroke; Z80.8 Family history of malignant neoplasm of other organs or systems; Z88.8 Allergy status to other drugs, medicaments and biological substances; T75.3XXD Motion sickness, subsequent encounter; Z79.899 Other long term (current) drug therapy; Z79.1 Long term (current) use of non-steroidal anti-inflammatories (NSAID)
CPT/HCPCS: 58670; J1100; J2405; J1170; J1790

== ENCOUNTER 2022-05-03 08:06 | Inpatient (IN) | payer OTHER ==
[2022-05-03] MEDS ORDERED: HYDROmorphone 1 MG/ML 1 ML SYRINGE IVP STA ×2 (08:21→10:34)
[2022-05-03] MEDS ORDERED: SODIUM CHLORIDE 0.9% 1,000 ML IV STA (08:21)
[2022-05-03] MEDS ORDERED: FAMOTIDINE 20 MG/2 ML VIAL IV STA (08:22)
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
--- NOTE | 2022-05-03 09:36 | CT ---
EXAMINATION TYPE: CT abdomen pelvis w con DATE OF EXAM: 05/03/2022 COMPARISON: 02/28/2022 HISTORY: abd pain post op tubal 12-8 CT DLP: 655.5 mGycm CONTRAST: CT scan of the abdomen and pelvis is performed without Oral Contrast and with IV Contrast, patient in jected with 100 mL of Isovue 300. FINDINGS: LUNG BASES-: No visible nodule. No infiltrate. LIVER/GB: No calcified gallstones. There is mild hyperemia of the gallbladder wall as well as surr ounding fluid. I cannot exclude changes of acute cholecystitis. Correlate clinically. No space occupy ing hepatic lesion. Biliary tree is of normal caliber. PANCREAS: No inflammation. No distinct mass. SPLEEN: No splenic enlargement. No lesion seen. ADRENALS: No nodule. No thickening. KIDNEYS/BLADDER: No hydronephrosis. No nephrolithiasis. No distinct renal mass. Urinary bladder g rossly unremarkable. BOWEL: Normal appendix. Normal bowel caliber. No inflammation. GENITAL ORGANS: No gross abnormality. LYMPH NODES: No greater than 1cm abdominal or pelvic lymph nodes are appreciated. AORTA: No significant abnormality. OSSEOUS STRUCTURES: No significant abnormality is seen. OTHER: There is a small amount of subcutaneous air along the low anterior abdominal wall. There is al so a small amount of free air within the abdomen compatible with the provided history of recent posto p tubal ligation. IMPRESSION: 1. Uncomplicated postoperative changes of tubal ligation with a small amount of subcutaneous air is a small amount of low intra-abdominal free air. No evidence for abscess. 2.There is mild hyperemia of the gallbladder wall as well as surrounding fluid. I cannot exclude lovell ges of acute cholecystitis. No calcified cholelithiasis seen. Correlate clinically.
[2022-05-03 10:06] LABS: Basophils % (A) 0 %; Eosinophils # (A) 0.1 k/uL (0-0.7); Eosinophils % (A) 1 %; HCT 34.5 % (34.0-46.0); HGB 11.4 gm/dL (11.4-16.0); Lymphocytes # (A) 1.1 k/uL (1.0-4.8); Lymphocytes % (A) 8 %; MCH 29.9 pg (25.0-35.0); MCHC 33.1 g/dL (31.0-37.0); MCV 90.2 fL (80.0-100.0); Mean Platelet Volume 7.7; Monocytes # (A) 0.5 k/uL (0-1.0); Monocytes % (A) 4 %; Neutrophils # (A) 11.1 k/uL (1.3-7.7); Neutrophils % (A) 87 %; Platelet Count 216 k/uL (150-450); RBC 3.83 m/uL (3.80-5.40); RDW 13.3 % (11.5-15.5); WBC 12.8 k/uL (3.8-10.6)
[2022-05-03 10:12] LABS: ALT 25 U/L (4-34); AST 30 U/L (14-36); African American GFR (CKD) >90 (>60 ml/min/1.73 sqM); Albumin 3.9 g/dL (3.5-5.0); Alkaline Phosphatase 70 U/L (38-126); Amylase 44 U/L (30-110); Anion Gap 7 mmol/L; Blood Urea Nitrogen 9 mg/dL (7-17); Calcium 8.2 mg/dL (8.4-10.2); Carbon Dioxide 21 mmol/L (22-30); Chloride 109 mmol/L (98-107); Glucose 88 mg/dL (74-99); INR 1.2 (<1.2); Lipase 81 U/L (23-300); Non-African American GFR(CKD) >90 (>60 ml/min/1.73 sqM); Partial Thromboplastin Time 24.9 sec (22.0-30.0); Potassium 3.9 mmol/L (3.5-5.1); Sodium 137 mmol/L (137-145); Total Bilirubin 0.3 mg/dL (0.2-1.3); Total Protein 6.2 g/dL (6.3-8.2)
[2022-05-03] MEDS ORDERED: PIPERACILLIN-TAZOBACTAM 3.375 GM in SODIUM CHLORIDE 0.9% 100 ML IVPB STA (10:58)
[2022-05-03] MEDS ORDERED: NALOXONE 0.4 MG/ML 1 ML VIAL IV PRN (11:01)
[2022-05-03] MEDS ORDERED: ACETAMINOPHEN TAB 325 MG TAB PO PRN (11:01)
[2022-05-03] MEDS: ONDANSETRON 4 MG/2 ML VIAL IVP PRN ×2 (11:34→20:47)
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
[2022-05-03] MEDS: SODIUM CHLORIDE 0.9% 1,000 ML IV SCH (11:43)
[2022-05-03] MEDS: HYDROmorphone 1 MG/ML 1 ML SYRINGE IVP PRN ×3 (12:52→19:02)
[2022-05-03] MEDS: PIPERACILLIN-TAZOBACTAM 3.375 GM in SODIUM CHLORIDE 0.9% 100 ML IVPB SCH (19:02)
[2022-05-03] MEDS: ALPRAZolam 0.5 MG TAB PO PRN (21:35)
[2022-05-03] MEDS: HYDROmorphone 0.5 MG/0.5 ML SYRINGE IVP PRN (22:09)
[2022-05-04] MEDS: HYDROmorphone 1 MG/ML 1 ML SYRINGE IVP PRN ×4 (01:32→22:31)
[2022-05-04] MEDS: PIPERACILLIN-TAZOBACTAM 3.375 GM in SODIUM CHLORIDE 0.9% 100 ML IVPB SCH ×3 (03:03→22:30)
[2022-05-04] MEDS: SODIUM CHLORIDE 0.9% 1,000 ML IV SCH ×3 (03:09→22:30)
[2022-05-04] MEDS: HYDROmorphone 0.5 MG/0.5 ML SYRINGE IVP PRN ×2 (05:14→11:51)
[2022-05-04] MEDS: ALPRAZolam 0.5 MG TAB PO PRN (06:46)
[2022-05-04 08:57] LABS: African American GFR (CKD) 130.1 (60.0-200.0); Albumin 3.8 g/dL (3.8-4.9); Albumin/Globulin Ratio 2.24 (1.60-3.17); BUN/Creat Ratio 8.43 Ratio (12.00-20.00); Blood Urea Nitrogen 5.9 mg/dL (9.0-27.0); Calcium 8.6 mg/dL (8.7-10.3); Globulin 1.7 g/dL (1.6-3.3); Non-African American GFR(CKD) 112.3 (60.0-200.0); Potassium 4.1 mmol/L (3.5-5.5); Total Bilirubin 0.3 mg/dL (0.30-1.20); Total Protein 5.5 g/dL (6.2-8.2)
[2022-05-04] MEDS: PANTOPRAZOLE 40 MG/10 ML VIAL IV SCH (09:00)
[2022-05-04 09:28] LABS: Basophils # (A) 0.06 X 10*3/uL (0.00-0.10); Basophils % (A) 1.3 %; Eosinophils # (A) 0.14 X 10*3/uL (0.04-0.35); Eosinophils % (A) 3.1 %; HCT 32.7 % (37.2-46.3); HGB 10.4 g/dL (12.0-15.0); Immature Grans, Automated 0 %; Lymphocytes # (A) 1.74 X 10*3/uL (0.90-5.00); Lymphocytes % (A) 38.3 %; MCH 29.2 pg (27.0-32.0); MCHC 31.8 g/dL (32.0-37.0); MCV 91.9 fL (80.0-97.0); Mean Platelet Volume 10.7 fL (9.5-12.2); Monocytes # (A) 0.36 X 10*3/uL (0.20-1.00); Monocytes % (A) 7.9 %; NRBC Per 100 WBC 0 /100 WBCS (0.0-0.0); Neutrophils # (A) 2.24 X 10*3/uL (1.80-7.70); Neutrophils % (A) 49.4 %; Platelet Count 217 X 10*3/uL (140-440); RBC 3.56 X 10*6/uL (4.10-5.20); RDW 13.9 % (11.5-14.5); WBC 4.54 X 10*3/uL (4.50-10.00)
[2022-05-04] MEDS: NICOTINE 14MG/24HR PATCH TRANSDERM SCH (11:42)
--- NOTE | 2022-05-04 13:03 | CONS ---
CONSULTATION REASON FOR CONSULTATION: Advice regarding nephrolithiasis and other medical issues requested by surgery. HISTORY OF PRESENT ILLNESS: This is a 36-year-old woman with a past medical history of nephrolithiasis, vertigo, migraine, was admitted with abdominal pain for calculous cholecystitis. Surgery is planning laparoscopic cholecystectomy. There is no history of any fever, rigor, chills, headache, loss of consciousness, seizures. The patient complains of abdominal pain. PAST MEDICAL HISTORY: Reviewed include brain injury, migraine, vertigo. The rest of the history and old chart is reviewed. HOME MEDICATIONS: Bupropion 300 mg, dose and rest of medications reviewed. ALLERGIES: Ativan. FAMILY HISTORY: History of TIA. SOCIAL HISTORY: History of vaping. REVIEW OF SYSTEMS: A 14-point review is negative as mentioned earlier. PHYSICAL EXAMINATION: VITAL SIGNS: Pulse is 69, blood pressure 127/81, respirations 14. HEENT: Conjunctivae normal. NECK: No jugular venous distention. RESPIRATIONS: Diminished at the bases. No rhonchi, no crackles. ABDOMEN: Soft, nontender. LEGS: No edema, no swelling. NERVOUS SYSTEM: No focal deficits. LABS: Reviewed. Ultrasound reviewed. ASSESSMENT: 1. Abdominal pain with calculous cholecystitis for laparoscopic cholecystectomy. 2. History of vertigo. 3. History of nephrolithiasis. 4. History of anxiety, bipolar. depression. 5. Multiple medical issues. RECOMMENDATIONS AND DISCUSSION: This 36-year-old woman presented with multiple medical issues. At this time, I recommend to continue current medications, symptomatic treatment. Otherwise, laparoscopic cholecystectomy surgery. Resume home medications once they are confirmed. Symptomatic treatment for DVT prophylaxis, Protonix, will follow the patient closely with you. Recommend close followup with primary physician after discharge. MMODL / IJN: [id number] /
[2022-05-04] MEDS ORDERED: SODIUM CHLORIDE 0.9% 1,000 ML IV ONE ×2 (15:02→17:03)
[2022-05-04] MEDS ORDERED: MIDAZOLAM 2 MG/2 ML VIAL IVP ONE (15:28)
[2022-05-04] MEDS ORDERED: BUPIVACAIN-EPI 0.25%-1:200,000 30 ML VIAL SQ ONE ×2 (15:36→16:03)
[2022-05-04] MEDS ORDERED: MIDAZOLAM 2 MG/2 ML VIAL ONE (15:43)
[2022-05-04] MEDS ORDERED: SUCCINYLCHOLINE CHLORIDE 200 MG/10 ML VIAL IV ONE (15:43)
[2022-05-04] MEDS ORDERED: PROPOFOL 10 MG/ML 20 ML VIAL IV ONE (15:43)
[2022-05-04] MEDS ORDERED: NEOSTIGMINE 1 MG/ML 10 ML VIAL ONE (15:43)
[2022-05-04] MEDS ORDERED: KETAMINE 10 MG/ML 20 ML VIAL ONE (15:43)
[2022-05-04] MEDS ORDERED: LIDOCAINE 2% INJ 20 MG/ML (2 ML VIAL) ONE (15:43)
[2022-05-04] MEDS ORDERED: ROCURONIUM 10 MG/ML (5 ML VIAL) IV ONE (15:43)
[2022-05-04] MEDS ORDERED: GLYCOPYRROLATE 0.2 MG/ML 2 ML VIAL ONE (15:43)
[2022-05-04] MEDS ORDERED: KETOROLAC 15 MG/ML 1 ML VIAL ONE (15:43)
[2022-05-04] MEDS ORDERED: fentaNYL (PF) 50 MCG/ML 2 ML AMP ONE (15:43)
--- NOTE | 2022-05-04 16:22 | P.OP ---
Date of Procedure: 05/04/22 Preoperative Diagnosis: Acute acalculous cholecystitis Postoperative Diagnosis: Acute acalculous cholecystitis Procedure(s) Performed: Laparoscopic cholecystectomy Anesthesia: NATI Surgeon: Rajiv Charles Estimated Blood Loss (ml): 5 Pathology: other (Gallbladder) Condition: stable Disposition: PACU Description of Procedure: The patient was placed on the operating table. The patient received a general endotracheal tube anesthesia. The patients abdomen was prepped and draped in the usual sterile fashion. Through an infraumbilical stab incision, the fascia of the anterior abdominal wall was grasped with a pair of Kochers and then the Veress needle was placed in the peritoneal cavity. Position of the Veress needle was confirmed with positive drop test. The abdomen was then insufflated. After adequate insufflation, the 10 mm trocar was placed in the pe ritoneal cavity. Following this the laparoscope was placed in the peritoneal cavity. The patient was placed in the head-up, right side up position and then a 5 mm trocar was placed in the right lateral and right subcostal position under direct visualization. A 8 mm trocar was placed in the epigastric position. The gallbladder was grasped in the fundus and infundibulum. Traction on the gallbladder was placed in the lateral and the cephalad positions. The triangle of Calot was visualized.. The cystic duct was bluntly dissected until the union of the cystic duct and common bile duct was seen. A critical view of safety was achieved. The cystic duct was then divided and sealed with the Harmonic scissors. A PDS Endoloop was then placed throughout the cystic duct stump. The cystic artery divided and sealed with the Harmonic scissors. The gallbladder was then removed from the liver bed using Harmonic scissors. The gallbladder was then extracted through the epigastric port site. Operative field was checked for any bleeding spots and Harmonic scissors was used to coagulate the liver bed. The abdomen was irrigated. The trocars were removed. The skin was closed using interrupted 3-0 Vicryl suture. Dermabond dressing were applied. The patient tolerated the procedure well.
[2022-05-04] MEDS ORDERED: HYDROmorphone 0.5 MG/0.5 ML SYRINGE IVP ONE ×3 (16:33→17:22)
[2022-05-04] MEDS: MEPERIDINE 50 MG/ML SYRINGE IVP ONE ×2 (16:42→16:54)
[2022-05-04] MEDS: FAMOTIDINE 20 MG TAB PO SCH (20:33)
[2022-05-04] MEDS ORDERED: HEPARIN SODIUM,PORCINE/PF 5,000 UNIT/0.5 ML SYRINGE SQ SCH (21:00)
[2022-05-04] MEDS: ONDANSETRON 4 MG/2 ML VIAL IVP PRN (22:48)
[2022-05-05] MEDS: HYDROmorphone 1 MG/ML 1 ML SYRINGE IVP PRN ×4 (01:54→21:05)
[2022-05-05] MEDS: ALPRAZolam 0.25 MG TAB PO PRN ×2 (01:56→22:24)
[2022-05-05] MEDS: PIPERACILLIN-TAZOBACTAM 3.375 GM in SODIUM CHLORIDE 0.9% 100 ML IVPB SCH ×2 (06:02→11:58)
[2022-05-05 07:01] LABS: Basophils % (A) 1 %; Eosinophils # (A) 0.1 k/uL (0-0.7); Eosinophils % (A) 2 %; HCT 32.9 % (34.0-46.0); Hypochromasia Slight; Lymphocytes # (A) 1.5 k/uL (1.0-4.8); Lymphocytes % (A) 29 %; MCHC 33.5 g/dL (31.0-37.0); MCV 92.5 fL (80.0-100.0); Mean Platelet Volume 7.6; Monocytes # (A) 0.2 k/uL (0-1.0); Monocytes % (A) 5 %; Neutrophils # (A) 3.2 k/uL (1.3-7.7); Neutrophils % (A) 63 %; Platelet Count 188 k/uL (150-450); RBC 3.56 m/uL (3.80-5.40)
[2022-05-05 07:15] LABS: ALT 27 U/L (4-34); AST 31 U/L (14-36); African American GFR (CKD) >90 (>60 ml/min/1.73 sqM); Albumin 3.6 g/dL (3.5-5.0); Alkaline Phosphatase 60 U/L (38-126); Anion Gap 6 mmol/L; Blood Urea Nitrogen 4 mg/dL (7-17); Calcium 7.7 mg/dL (8.4-10.2); Carbon Dioxide 20 mmol/L (22-30); Chloride 110 mmol/L (98-107); Glucose 74 mg/dL (74-99); Non-African American GFR(CKD) >90 (>60 ml/min/1.73 sqM); Sodium 136 mmol/L (137-145); Total Bilirubin 0.6 mg/dL (0.2-1.3); Total Protein 5.9 g/dL (6.3-8.2)
[2022-05-05] MEDS: PANTOPRAZOLE 40 MG/10 ML VIAL IV SCH (09:00)
[2022-05-05] MEDS ORDERED: NON FORMULARY DRUG (Pantoprazole Sodium [Protonix] 20 MG Tablet) PO SCH (09:00)
[2022-05-05] MEDS: ENOXAPARIN 40 MG/0.4 ML SYRINGE SQ SCH (09:01)
[2022-05-05] MEDS: buPROPion XL 300 MG TAB.ER.24H PO SCH (09:01)
[2022-05-05] MEDS: FAMOTIDINE 20 MG TAB PO SCH ×2 (09:01→21:05)
[2022-05-05] MEDS: NICOTINE 14MG/24HR PATCH TRANSDERM SCH (09:07)
[2022-05-05] MEDS: DOCUSATE 100 MG CAP PO SCH ×2 (12:47→17:50)
[2022-05-05] MEDS: SODIUM CHLORIDE 0.9% 1,000 ML IV SCH (12:51)
[2022-05-05] MEDS: ONDANSETRON 4 MG/2 ML VIAL IVP PRN (12:52)
[2022-05-05] MEDS: HYDROmorphone 0.5 MG/0.5 ML SYRINGE IVP PRN ×2 (12:52→16:04)
--- NOTE | 2022-05-05 14:05 | P.PN ---
Subjective Progress Note Date: 05/05/22 CHIEF COMPLAINT: Acute acalculous cholecystitis HISTORY OF PRESENT ILLNESS: Patient is postop day #1 status post laparoscopic cholecystectomy. Patient complaining of pain and nausea. Does report poor oral intake due to not liking the hospital food. Afebrile. WBC is 5 Hgb is 11 platelets 188 symptoms 136 potassium is 4 creatinine 0.53 Patient seen and examined with Dr. hightoewr PHYSICAL EXAM: VITAL SIGNS: Reviewed. GENERAL: Well-developed in no acute distress. HEENT: No sclera icterus. Extraocular movements grossly intact. Moist buccal mucosa. Head is atraumatic, normocephalic. ABDOMEN: Soft. Mildly distended. Incision sites clean dry and intact. Tender incision sites NEUROLOGIC: Alert and oriented. Cranial nerves II through XII grossly intact. ASSESSMENT: 1. Acute acalculous cholecystitis PLAN: -Continue pain management -Encouraged patient ambulates -Continue regular diet -Colace added for stool softener -DVT prophylaxis Lovenox injection prophylaxis Protonix -Anticipate discharge tomorrow Physician Slot Floor Person note has been reviewed by physician. Signing provider agrees with the documented findings, assessment, and plan of care. Objective - Vital Signs Vital signs: Vital Signs Temp 98.7 F 05/05/22 08:00 Pulse 67 05/05/22 08:00 Resp 18 05/05/22 08:00 BP 108/68 05/05/22 08:00 Pulse Ox 99 05/05/22 08:00 FiO2 Intake & Output 05/04/22 05/05/22 05/05/22 18:59 06:59 18:59 Intake Total 1100 Output Total 5 725 Balance 1095 -725 Weight 48.534 kg Intake: IV 1100 Output: Urine 375 Emesis 350 Estimated Blood Loss 5 Other: # Voids 1 3 - Labs CBC & Chem 7: 05/05/22 06:45 05/05/22 06:45 Labs: Abnormal Lab Results - Last 24 Hours (Table) 05/05/22 05/05/22 Range/Units 06:45 06:45 RBC 3.56 L (3.80-5.40) m/uL Hgb 11.0 L (11.4-16.0) gm/dL Hct 32.9 L (34.0-46.0) % Sodium 136 L (137-145) mmol/L Chloride 110 H (98-107) mmol/L Carbon Dioxide 20 L (22-30) mmol/L BUN 4 L (7-17) mg/dL Calcium 7.7 L (8.4-10.2) mg/dL Total Protein 5.9 L (6.3-8.2) g/dL Microbiology - Last 24 Hours (Table) 05/03/22 11:03 Blood Culture - Preliminary Blood No Growth after 48 hours 05/03/22 11:20 Blood Culture - Preliminary Blood No Growth after 48 hours
[2022-05-05 15:50] VITALS: RESP 16
[2022-05-05] MEDS: HYDROcodone/APAP 7.5-325MG 1 EACH TAB PO PRN (17:50)
[2022-05-05] MEDS: PANTOPRAZOLE 40 MG/10 ML VIAL IVP SCH (21:35)
[2022-05-06] MEDS: HYDROcodone/APAP 7.5-325MG 1 EACH TAB PO PRN ×2 (00:59→11:13)
[2022-05-06 01:21] VITALS: TEMP 98.2
[2022-05-06] MEDS: HYDROmorphone 1 MG/ML 1 ML SYRINGE IVP PRN ×2 (02:44→08:36)
[2022-05-06] MEDS: SODIUM CHLORIDE 0.9% 1,000 ML IV SCH (02:51)
--- NOTE | 2022-05-06 05:43 | PN ---
PROGRESS NOTE DATE OF SERVICE: 05/05/2022 SUBJECTIVE: This 36-year-old woman, who was admitted after laparoscopic cholecystectomy, was complaining of abdominal pain and some nausea. No chest pain. No palpitations. No shortness of breath. OBJECTIVE: VITAL SIGNS: Pulse 67, blood pressure 108/68, respirations 18. CHEST: Clear to auscultation. ABDOMEN: Soft, status post surgery. NERVOUS SYSTEM: Nonfocal. LABORATORY DATA: Reviewed. ASSESSMENT: 1. Acalculous cholecystitis, status post laparoscopic cholecystectomy. 2. History of vertigo. 3. History of nephrolithiasis. 4. History of anxiety and bipolar depression. RECOMMENDATIONS: I recommend to continue current management and pain management. IV Protonix. DVT prophylaxis. Closely follow with Surgery. Further recommendations to follow. MMODL / IJN: [id number] /
[2022-05-06] MEDS ORDERED: PANTOPRAZOLE 40 MG TABLET PO SCH (07:30)
[2022-05-06] MEDS: FAMOTIDINE 20 MG TAB PO SCH (08:40)
[2022-05-06] MEDS: buPROPion XL 300 MG TAB.ER.24H PO SCH (08:40)
[2022-05-06] MEDS: DOCUSATE 100 MG CAP PO SCH (08:40)
[2022-05-06] MEDS: ENOXAPARIN 40 MG/0.4 ML SYRINGE SQ SCH (08:40)
[2022-05-06] MEDS: PANTOPRAZOLE 40 MG/10 ML VIAL IVP SCH (08:41)
[2022-05-06] MEDS: NICOTINE 14MG/24HR PATCH TRANSDERM SCH (08:54)
[2022-05-06 08:57] VITALS: BP 133/78; PULSE 87
[2022-05-06] MEDS: ONDANSETRON 4 MG/2 ML VIAL IVP PRN (11:12)
--- NOTE | 2022-05-06 12:26 | P.DS ---
Providers Date of admission: 05/03/22 11:01 Expected date of discharge: 05/06/22 Attending physician: Rajiv Charles Consults: 05/04/22 10:55 Consult Physician Routine Consulting Provider: Nicolas Culver Consult Reason/Comments: medical management Do you want consulting provider notified?: Already Contacted Primary care physician: Will Luis [facility] Hospital Course: Discharge diagnosis 1. Acute Acalculous cholecystitis status post laparoscopic cholecystectomy Hospital coure This is a 36-year-old female who presented with right upper quadrant and epigastric abdominal pain. Computed tomography scan had shown thickening of her gallbladder. Patient status post laparoscopic cholecystectomy. Patient tolerated surgery well. Pain is controlled. She is up and ambulating. She is tolerating diet. She is afebrile. She is stable for discharge. Incision sites dried blood noted in the lower abdominal incision sitedoes have evidence of ALLERGIC reaction from a bandage. Patient reports that it is not on any worse. And it is slightly itchy. Will follow up out patient. Patient is stable for discharge. Please refer to chart for any further details. Physician Wood Cut Engraver note has been reviewed by physician. Signing provider agrees with the documented findings, assessment, and plan of care. Patient Condition at Discharge: Stable Plan - Discharge Summary Discharge Rx Participant: No New Discharge Prescriptions: New Docusate [Colace] 100 mg PO BID #30 capsule HYDROcodone/APAP 7.5-325MG [Mel[place] 7.5-325] 1 tab PO Q6HR PRN 3 Days #12 tab PRN Reason: Pain Continue Galcanezumab-Gnlm [Emgality Pen] 120 mg SQ Q28D buPROPion HCL [buPROPion HCL XL] 300 mg PO DAILY Ondansetron Odt [Zofran ODT] 4 mg PO Q8HR PRN #10 capsule PRN Reason: Nausea Pantoprazole Sodium [Protonix] 20 mg PO DAILY #14 tab Famotidine [Pepcid] 20 mg PO BID #28 tablet Ibuprofen [Motrin] 600 mg PO Q6H PRN PRN Reason: Pain Discontinued Acetaminophen-Codeine 300-30mg [Tylenol w/codeine #3] 1 - 2 tab PO Q6H PRN PRN Reason: Pain Discharge Medication List Galcanezumab-Gnlm [Emgality Pen] 120 mg SQ Q28D 04/06/20 [History] buPROPion HCL [buPROPion HCL XL] 300 mg PO DAILY 02/22/22 [History] Famotidine [Pepcid] 20 mg PO BID #28 tablet 04/28/22 [Rx] Ondansetron Odt [Zofran ODT] 4 mg PO Q8HR PRN #10 capsule 04/28/22 [Rx] Pantoprazole Sodium [Protonix] 20 mg PO DAILY #14 tab 04/28/22 [Rx] Ibuprofen [Motrin] 600 mg PO Q6H PRN 05/03/22 [History] Docusate [Colace] 100 mg PO BID #30 capsule 05/06/22 [Rx] HYDROcodone/APAP 7.5-325MG [Mel[place] 7.5-325] 1 tab PO Q6HR PRN 3 Days #12 tab 05/06/22 [Rx] Follow up Appointment(s)/Referral(s): Will Smith MD [Primary Care Provider] - 1-2 days Rajiv Charles MD [STAFF PHYSICIAN] - 1 Week Activity/Diet/Wound Care/Special Instructions: No driving while taking [place] No lifting over 10 pounds Shower daily. No soaking or tub baths for 2 weeks Very light activity until you are reevaluated at your follow up appointment with your surgeon Discharge Disposition: HOME SELF-CARE
--- NOTE | 2022-05-07 03:28 | PN ---
PROGRESS NOTE DATE OF SERVICE: 05/06/2022 SUBJECTIVE: This is a 36-year-old woman who was admitted after laparoscopic cholecystectomy, is improving significantly. No chest pain. No palpitations. No fever. OBJECTIVE: VITAL SIGNS: Pulse is 61, blood pressure 113/69, respirations 16. CHEST: Clear to auscultation. ABDOMEN: Soft, nontender. NERVOUS SYSTEM: No focal deficits. LABS: Reviewed. ASSESSMENT: 1. Acalculous cholecystitis, status post laparoscopic cholecystectomy. 2. History of vertigo. 3. History of nephrolithiasis. 4. History of anxiety and bipolar depression. RECOMMENDATIONS: I recommend to continue current management and symptomatic treatment. Incentive spirometry. DVT prophylaxis. Also recommended to follow with Surgery. Recommended close followup with primary physician after discharge. MMBLUEL / NATHANN: [id number] /
== END 2022-05-06 13:20 | disposition home or self-care (01) | DRG 418 ==
LOC: EC 08:06 → 5NMEDONC 11:01 → 4FBP 05-04 15:09
PROVIDERS: ADMIT Surgery; ATTEND Surgery
PROC: 0FT44ZZ Resection of Gallbladder, Percutaneous Endoscopic Approach (ICD-10-PCS; principal; 2022-05-04 11:55)
DX: K81.0 Acute cholecystitis (principal); F31.30 Bipolar disorder, current episode depressed, mild or moderate severity, unspecified; Z28.310 Unvaccinated for COVID-19; F41.9 Anxiety disorder, unspecified; G43.909 Migraine, unspecified, not intractable, without status migrainosus; Z79.899 Other long term (current) drug therapy; Z87.820 Personal history of traumatic brain injury; Z87.442 Personal history of urinary calculi; Z87.01 Personal history of pneumonia (recurrent); Z87.440 Personal history of urinary (tract) infections; Z88.8 Allergy status to other drugs, medicaments and biological substances
CPT/HCPCS: 36415; 74177; 80053; 81025; 82150; 83605; 83690; 85025; 85610; 85730; 87040; 88304; 96361; 96365; 96366; 96375; 96376; 99285

== ENCOUNTER 2022-05-08 19:57 | Emergency (ER) | payer OTHER ==
[2022-05-08 20:01] VITALS: RESP 18; TEMP 97.8
[2022-05-08] MEDS ORDERED: ONDANSETRON 4 MG/2 ML VIAL IVP STA (21:28)
[2022-05-08] MEDS ORDERED: SODIUM CHLORIDE 0.9% 1,000 ML IV ONE (21:28)
[2022-05-08] MEDS ORDERED: HYDROmorphone 0.5 MG/0.5 ML SYRINGE IVP STA (21:28)
[2022-05-08 22:04] LABS: Basophils % (A) 1 %; Eosinophils # (A) 0.2 k/uL (0-0.7); Eosinophils % (A) 3 %; HCT 36.5 % (34.0-46.0); HGB 12.4 gm/dL (11.4-16.0); Lymphocytes # (A) 1.6 k/uL (1.0-4.8); Lymphocytes % (A) 26 %; MCH 29.9 pg (25.0-35.0); MCV 87.7 fL (80.0-100.0); Mean Platelet Volume 7.7; Monocytes # (A) 0.4 k/uL (0-1.0); Monocytes % (A) 6 %; Neutrophils # (A) 3.8 k/uL (1.3-7.7); Neutrophils % (A) 62 %; Platelet Count 274 k/uL (150-450); RBC 4.16 m/uL (3.80-5.40); RDW 13.3 % (11.5-15.5); WBC 6.1 k/uL (3.8-10.6)
--- NOTE | 2022-05-08 22:13 | XR ---
EXAMINATION TYPE: XR KUB DATE OF EXAM: 05/08/2022 9:38 PM INDICATION: Patient age:Female; 36 years old; Reason for study: abdominal pain; COMPARISON: 04/28/2022 TECHNIQUE: One radiographic view of the abdomen was obtained. FINDINGS: There is a large stool burden throughout the colon. The bowel gas pattern is nonspecific wi thout dilated loops of small or large bowel. There is no evidence for organomegaly or pneumoperitoneu m. The osseous structures are intact. No abnormal calcifications are present. Fecal material and ga s are demonstrated throughout the colon and rectum. Calcific density near L2-L3 on the right is not seen on prior MRI and may be outside the patient. IMPRESSION: Large stool burden, Nonspecific bowel gas pattern without radiographic evidence for acute process.
[2022-05-08 22:14] LABS: ALT 34 U/L (4-34); AST 34 U/L (14-36); African American GFR (CKD) >90 (>60 ml/min/1.73 sqM); Albumin 4.6 g/dL (3.5-5.0); Alkaline Phosphatase 55 U/L (38-126); Amylase 50 U/L (30-110); Anion Gap 9 mmol/L; Blood Urea Nitrogen 13 mg/dL (7-17); C Reactive Protein <0.5 mg/dL (<1.0); Calcium 9.8 mg/dL (8.4-10.2); Carbon Dioxide 26 mmol/L (22-30); Chloride 104 mmol/L (98-107); Glucose 81 mg/dL (74-99); Lipase 92 U/L (23-300); Non-African American GFR(CKD) >90 (>60 ml/min/1.73 sqM); Potassium 4.2 mmol/L (3.5-5.1); Sodium 139 mmol/L (137-145); Total Bilirubin 0.2 mg/dL (0.2-1.3); Total Protein 7.1 g/dL (6.3-8.2)
[2022-05-08 22:30] LABS: Amorphous Sediment,Urine Rare /hpf; Appearance,Urine Cloudy (Clear); Bacteria,Urine Rare /hpf; Bilirubin,Urine Negative (Negative); Blood,Urine Negative (Negative); Color,Urine Light Yellow; Glucose,Urine (UA) Negative (Negative); Hyaline Casts,Urine 2 /lpf (0-2); Ketones,Urine Negative (Negative); Leukocyte Esterase,Urine Negative (Negative); Nitrite,Urine Negative (Negative); Protein,Urine Negative (Negative); RBC,Urine 1 /hpf (0-5); Specific Gravity,Urine 1.011 (1.001-1.035); Squamous Epithelial Cell,Urine 17 /hpf (0-4); Urobilinogen,Urine <2.0 mg/dL (<2.0); WBC,Urine 5 /hpf (0-5)
[2022-05-08] MEDS ORDERED: PEG 3350 (236 GM/BTL) + LYTES 4,000 ML BOTTLE PO ONE (22:36)
[2022-05-08] MEDS ORDERED: MORPHINE SULFATE 4 MG/ML SYRINGE IV STA (22:36)
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
[2022-05-08 22:41] VITALS: BP 110/71; PULSE 67
== END 2022-05-08 23:44 | disposition home or self-care (01) ==
LOC: EC 19:57
DX: K59.00 Constipation, unspecified (principal); F41.9 Anxiety disorder, unspecified; F31.9 Bipolar disorder, unspecified; F17.290 Nicotine dependence, other tobacco product, uncomplicated; F12.90 Cannabis use, unspecified, uncomplicated; Z88.8 Allergy status to other drugs, medicaments and biological substances; Z79.899 Other long term (current) drug therapy
CPT/HCPCS: 36415; 80053; 82150; 83690; 85025; 86140; 81001; 81025; 74018; 99284; 96374; 96375 ×2; 96361; J2270; J2405; J1170

== ENCOUNTER → 2022-05-28 | Outpatient (CLI) | payer OTHER ==
--- NOTE | 2022-05-28 11:57 | CT ---
EXAMINATION TYPE: CT brain wo con CT DLP: 1121 mGycm, Automated exposure control for dose reduction was used. DATE OF EXAM: 05/28/2022 11:37 AM COMPARISON: MR brain 04/24/2022, CT brain 06/07/2019. CLINICAL INDICATION:Female, 36 years old with history of R90.89 ABN FINDINGS ON DIAGNOSTIC IMAGING OF CNSL, ABN FINDINGS ON DIAGNOSTIC IMAGING OF CNSL TECHNIQUE: Brain: Multiple axial CT images of the brain were obtained without IV contrast. Coronal and sagittal reformats reviewed. FINDINGS: Brain: Extra-axial spaces: No abnormal extra-axial fluid collections. Ventricular system: Within normal limits Cerebral parenchyma: No acute intraparenchymal hemorrhage or mass effect. The brian-white junction is well differentiated. Cerebellum: No calcification corresponding to susceptibility artifact on MRI in the right cerebellum Mass effect: No evidence of midline shift. Intracranial vasculature: unremarkable Soft tissues: Normal. Calvarium/osseous structures: No depressed skull fracture. Paranasal sinuses and mastoid air cells: Mild mucosal thickening in the left maxilla sinus. Mastoid a ir cells are clear. Visualized orbits: Orbital contents are intact. IMPRESSION: 1. No acute intracranial process. 2. No calcification corresponding to susceptibility artifact on MRI in the right cerebellum. MRI fin ding likely represents old blood products.
== END | disposition home or self-care (01) ==
LOC: RADCTMAIN 11:15
PROVIDERS: ATTEND Psychiatry & Neurology Neurology
DX: R90.89 Other abnormal findings on diagnostic imaging of central nervous system (principal)
CPT/HCPCS: 70450

== ENCOUNTER 2022-06-15 13:29 | Emergency (ER) | payer OTHER ==
[2022-06-15 13:41] VITALS: TEMP 98.5
[2022-06-15] MEDS ORDERED: SODIUM CHLORIDE 0.9% 1,000 ML IV STA (16:17)
[2022-06-15] MEDS ORDERED: ONDANSETRON 4 MG/2 ML VIAL IVP STA (16:17)
[2022-06-15] MEDS ORDERED: MORPHINE SULFATE 4 MG/ML SYRINGE IVP STA (16:20)
[2022-06-15 16:55] LABS: Amorphous Sediment,Urine Occasional /hpf; Appearance,Urine Cloudy (Clear); Bilirubin,Urine Negative (Negative); Blood,Urine Negative (Negative); Color,Urine Light Yellow; Glucose,Urine (UA) Negative (Negative); Ketones,Urine Negative (Negative); Leukocyte Esterase,Urine Negative (Negative); Mucus,Urine Rare /hpf; Nitrite,Urine Negative (Negative); Protein,Urine Negative (Negative); Specific Gravity,Urine 1.012 (1.001-1.035); Squamous Epithelial Cell,Urine 1 /hpf (0-4); Urobilinogen,Urine <2.0 mg/dL (<2.0); WBC,Urine 1 /hpf (0-5)
[2022-06-15 17:10] LABS: Basophils # (A) 0.1 k/uL (0-0.2); Basophils % (A) 1 %; Eosinophils # (A) 0.1 k/uL (0-0.7); Eosinophils % (A) 1 %; HCT 37.7 % (34.0-46.0); HGB 12.5 gm/dL (11.4-16.0); Lymphocytes % (A) 24 %; MCH 28.8 pg (25.0-35.0); MCHC 33.2 g/dL (31.0-37.0); MCV 86.8 fL (80.0-100.0); Mean Platelet Volume 7.5; Monocytes # (A) 0.4 k/uL (0-1.0); Monocytes % (A) 4 %; Neutrophils # (A) 5.6 k/uL (1.3-7.7); Neutrophils % (A) 68 %; Platelet Count 245 k/uL (150-450); RBC 4.34 m/uL (3.80-5.40); RDW 13.2 % (11.5-15.5); WBC 8.2 k/uL (3.8-10.6)
[2022-06-15 17:11] VITALS: RESP 18
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
[2022-06-15 17:35] LABS: ALT 13 U/L (4-34); AST 21 U/L (14-36); African American GFR (CKD) >90 (>60 ml/min/1.73 sqM); Albumin 4.3 g/dL (3.5-5.0); Alkaline Phosphatase 58 U/L (38-126); Amylase 64 U/L (30-110); Anion Gap 9 mmol/L; Blood Urea Nitrogen 9 mg/dL (7-17); Calcium 8.8 mg/dL (8.4-10.2); Carbon Dioxide 20 mmol/L (22-30); Chloride 108 mmol/L (98-107); Glucose 87 mg/dL (74-99); Lipase 119 U/L (23-300); Non-African American GFR(CKD) >90 (>60 ml/min/1.73 sqM); Potassium 4.3 mmol/L (3.5-5.1); Sodium 137 mmol/L (137-145); Total Bilirubin 0.3 mg/dL (0.2-1.3); Total Protein 6.9 g/dL (6.3-8.2)
[2022-06-15] MEDS ORDERED: HYDROmorphone 1 MG/ML 1 ML SYRINGE IVP STA (18:49)
--- NOTE | 2022-06-15 19:01 | CT ---
EXAMINATION TYPE: CT abdomen pelvis w con CT DLP: 484.2 mGycm, Automated exposure control for dose reduction was used. DATE OF EXAM: 06/15/2022 6:33 PM COMPARISON: 05/03/2022 CLINICAL INDICATION:Female, 36 years old with history of abdominal pain; supraumbilical pain post op cholecystectomy TECHNIQUE: Axial CT of the abdomen and pelvis. Sagittal and coronal reformats were created on a [employer] workstation. Contrast used:100 mL of Isovue 300 with IV Contrast, Oral contrast used: without Oral Contrast FINDINGS: LOWER CHEST: Unremarkable ABDOMEN LIVER: Unremarkable GALLBLADDER AND BILE DUCTS: Mild prominence of the extrahepatic and intrahepatic biliary system. Gall bladder surgically absent. PANCREAS: Unremarkable. SPLEEN: Unremarkable. ADRENAL GLANDS: Unremarkable. KIDNEYS AND URETERS: No evidence of hydronephrosis or renal calculus. PELVIS BLADDER: Unremarkable REPRODUCTIVE: Unremarkable. ABDOMEN & PELVIS STOMACH AND BOWEL: No evidence of bowel obstruction. PERITONEUM/RETROPERITONEUM: Trace fluid is seen within the pelvis, no evidence of pneumoperitoneum.. VASCULATURE: No evidence of aortic aneurysm. MUSCULOSKELETAL: No acute osseous abnormalities LYMPH NODES: No gross evidence for lymphadenopathy. SOFT TISSUE/ABDOMINAL WALL: No subcutaneous finding to correlate patient's periumbilical pain. IMPRESSION: 1. Post cholecystectomy changes without evidence for acute abdominal process. Mild prominence of the biliary system without evidence for obstruction. 2. Trace free fluid within the pelvis likely physiologic. 3. Soft tissues around the umbilicus appear within normal limits given history of surgeries and like ly poor access site.
[2022-06-15] MEDS ORDERED: MAG HYDROX/AL HYDROX/SIMETH 30 ML, HYOSCYAMINE ELIXIR 10 ML, LIDOCAINE VISCOUS 2% 10 ML PO STA ×3 (19:46)
[2022-06-15] MEDS ORDERED: FAMOTIDINE 20 MG/2 ML VIAL IV STA (19:46)
[2022-06-15 20:41] VITALS: BP 116/78; PULSE 94
== END 2022-06-15 20:51 | disposition home or self-care (01) ==
LOC: EC 13:29
DX: R10.13 Epigastric pain (principal); F12.90 Cannabis use, unspecified, uncomplicated; F17.290 Nicotine dependence, other tobacco product, uncomplicated; F32.A Depression, unspecified; Z90.49 Acquired absence of other specified parts of digestive tract; Z98.51 Tubal ligation status; Z87.442 Personal history of urinary calculi
CPT/HCPCS: 36415; 80053; 82150; 83605; 83690; 85025; 81001; 81025; 74177; 99284; 96374; 96375; 96361; J2270; J2405; J1170; Q9967

== ENCOUNTER 2022-08-04 17:05 | Emergency (ER) | payer OTHER ==
[2022-08-04 17:20] VITALS: TEMP 98.1
[2022-08-04] MEDS ORDERED: SODIUM CHLORIDE 0.9% 1,000 ML IV STA (18:31)
[2022-08-04] MEDS ORDERED: HYDROmorphone 1 MG/ML 1 ML SYRINGE IVP STA (18:31)
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
[2022-08-04 18:59] LABS: Appearance,Urine Clear (Clear); Bilirubin,Urine Negative (Negative); Blood,Urine Negative (Negative); Color,Urine Light Yellow; Glucose,Urine (UA) Negative (Negative); Ketones,Urine Negative (Negative); Leukocyte Esterase,Urine Negative (Negative); Nitrite,Urine Negative (Negative); PH, Urine 6.5 (5.0-8.0); Protein,Urine Negative (Negative); Specific Gravity,Urine 1.005 (1.001-1.035); Urobilinogen,Urine <2.0 mg/dL (<2.0)
[2022-08-04 19:01] LABS: Basophils # (A) 0.1 k/uL (0-0.2); Basophils % (A) 1 %; Eosinophils # (A) 0.1 k/uL (0-0.7); Eosinophils % (A) 1 %; HCT 44.2 % (34.0-46.0); HGB 14.9 gm/dL (11.4-16.0); Lymphocytes # (A) 1.9 k/uL (1.0-4.8); Lymphocytes % (A) 17 %; MCH 29.5 pg (25.0-35.0); MCHC 33.8 g/dL (31.0-37.0); MCV 87.3 fL (80.0-100.0); Mean Platelet Volume 8.2; Monocytes # (A) 0.5 k/uL (0-1.0); Monocytes % (A) 4 %; Neutrophils # (A) 8.5 k/uL (1.3-7.7); Neutrophils % (A) 76 %; Platelet Count 274 k/uL (150-450); RBC 5.06 m/uL (3.80-5.40); WBC 11.1 k/uL (3.8-10.6)
--- NOTE | 2022-08-04 19:05 | XR ---
EXAMINATION TYPE: XR chest 2V DATE OF EXAM: 08/04/2022 COMPARISON: NONE HISTORY: Syncope TECHNIQUE: 2 views FINDINGS: Heart and mediastinum are normal. Lungs are clear. Diaphragm is normal. Bony thorax is inta ct. There are clips over the left breast. No pleural effusion. IMPRESSION: No active chronic pulmonary disease. Normal heart. No change.
[2022-08-04 19:09] LABS: ALT 17 U/L (4-34); AST 24 U/L (14-36); African American GFR (CKD) >90 (>60 ml/min/1.73 sqM); Albumin 4.8 g/dL (3.5-5.0); Alkaline Phosphatase 74 U/L (38-126); Anion Gap 9 mmol/L; Blood Urea Nitrogen 9 mg/dL (7-17); Calcium 9.1 mg/dL (8.4-10.2); Carbon Dioxide 20 mmol/L (22-30); Chloride 109 mmol/L (98-107); Glucose 83 mg/dL (74-99); Magnesium 2.1 mg/dL (1.6-2.3); Non-African American GFR(CKD) >90 (>60 ml/min/1.73 sqM); Potassium 4.4 mmol/L (3.5-5.1); Sodium 138 mmol/L (137-145); Total Bilirubin 0.4 mg/dL (0.2-1.3); Total Protein 7.6 g/dL (6.3-8.2)
--- NOTE | 2022-08-04 19:10 | CT ---
EXAMINATION TYPE: CT abdomen pelvis w con DATE OF EXAM: 08/04/2022 COMPARISON: 06/15/2022 HISTORY: nausea, abd pain, h/o kindey infection CT DLP: 479.4 mGycm Automated exposure control for dose reduction was used. CONTRAST: Performed with IV Contrast, patient injected with 100 mL of Isovue 300. Lung bases are clear. No pleural effusion. Heart size is normal. No pericardial effusion. Liver splee n stomach pancreas appear intact. The bile duct are not dilated. There are clips from cholecystectomy . There is no adrenal mass. Kidneys show satisfactory contrast opacification. No hydronephrosis. Ureter s are not dilated. No retroperitoneal adenopathy. The bladder distends smoothly. No inguinal hernia. There is small amount of free fluid in the pelvis. Uterus is anteverted. No pelvic mass. Delayed imag es show normal renal excretion. Appendix appears to be posterior and not enlarged. There is no mesenteric edema. No ascites or free air. No sign of a bowel obstruction. The lumbar vertebrae have normal spacing and alignment. Posterior elements are intact. No compression fracture. The bony pelvis is intact. The hip joints are intact. Sacroiliac joints are intact. IMPRESSION: Normal appendix. Negative CT scan abdomen and pelvis. There is tiny amount of fluid in the cul-de-sac that could be physiologic and decreased compared to old exam.
[2022-08-04 19:11] LABS: INR 1.2 (<1.2); Partial Thromboplastin Time 27.6 sec (22.0-30.0); Prothrombin Time 11.9 sec (9.0-12.0)
[2022-08-04] MEDS: KETOROLAC 15 MG/ML 1 ML VIAL IVP STA ×2 (20:09→20:11)
[2022-08-04] MEDS ORDERED: HYDROmorphone 0.5 MG/0.5 ML SYRINGE IVP STA (20:17)
[2022-08-04 20:26] VITALS: BP 130/96; PULSE 76; RESP 16
== END 2022-08-04 20:31 | disposition home or self-care (01) ==
LOC: EC 17:05
DX: R10.9 Unspecified abdominal pain (principal); R55 Syncope and collapse; F41.9 Anxiety disorder, unspecified; F31.9 Bipolar disorder, unspecified; F17.290 Nicotine dependence, other tobacco product, uncomplicated; F12.90 Cannabis use, unspecified, uncomplicated; Z88.6 Allergy status to analgesic agent
CPT/HCPCS: 36415; 93005; 80053; 83735; 85025; 85610; 85730; 81003; 71046; 74177; 99285; 96374; 96375; 96376; 96361 ×2; J1170 ×2; Q9967

== ENCOUNTER 2022-08-20 21:22 | Emergency (ER) | payer OTHER ==
[2022-08-20 21:39] VITALS: BP 110/69; PULSE 66; RESP 18; TEMP 97.9
[2022-08-20 21:52] LABS: Glucose,Whole Blood 130 mg/dL (70-110)
[2022-08-20] MEDS ORDERED: SODIUM CHLORIDE 0.9% 1,000 ML IV STA (22:22)
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
[2022-08-20] MEDS: KETOROLAC 15 MG/ML 1 ML VIAL IVP STA (22:42)
--- NOTE | 2022-08-20 22:43 | XR ---
EXAMINATION TYPE: XR chest 2V DATE OF EXAM: 08/20/2022 COMPARISON: 08/04/2022 HISTORY: Syncope TECHNIQUE: 2 view FINDINGS: Heart and mediastinum are normal. Lungs are clear. Diaphragm is normal. Bony thorax is inta ct. IMPRESSION: Normal chest. No change.
[2022-08-20 23:03] LABS: Basophils % (A) 1 %; Eosinophils # (A) 0.1 k/uL (0-0.7); Eosinophils % (A) 2 %; HCT 42.1 % (34.0-46.0); HGB 13.7 gm/dL (11.4-16.0); Lymphocytes # (A) 1.9 k/uL (1.0-4.8); Lymphocytes % (A) 37 %; MCH 28.7 pg (25.0-35.0); MCHC 32.7 g/dL (31.0-37.0); MCV 87.9 fL (80.0-100.0); Mean Platelet Volume 6.8; Monocytes # (A) 0.3 k/uL (0-1.0); Monocytes % (A) 5 %; Neutrophils # (A) 2.8 k/uL (1.3-7.7); Neutrophils % (A) 53 %; Platelet Count 271 k/uL (150-450); RBC 4.79 m/uL (3.80-5.40); RDW 13.8 % (11.5-15.5); WBC 5.3 k/uL (3.8-10.6)
[2022-08-20 23:15] LABS: Appearance,Urine Clear (Clear); Bilirubin,Urine Negative (Negative); Blood,Urine Trace (Negative); Color,Urine Colorless; Glucose,Urine (UA) Negative (Negative); Ketones,Urine Negative (Negative); Leukocyte Esterase,Urine Negative (Negative); Nitrite,Urine Negative (Negative); PH, Urine 6.5 (5.0-8.0); Protein,Urine Negative (Negative); RBC,Urine 1 /hpf (0-5); Specific Gravity,Urine 1.005 (1.001-1.035); Squamous Epithelial Cell,Urine <1 /hpf (0-4); Urobilinogen,Urine <2.0 mg/dL (<2.0); WBC,Urine <1 /hpf (0-5)
[2022-08-20] MEDS ORDERED: METOCLOPRAMIDE 5 MG/ML 2 ML VIAL IVP STA (23:15)
[2022-08-20] MEDS ORDERED: diphenhydrAMINE 50 MG/ML 1 ML VIAL IVP STA (23:15)
[2022-08-20 23:16] LABS: ALT 21 U/L (4-34); AST 22 U/L (14-36); African American GFR (CKD) >90 (>60 ml/min/1.73 sqM); Albumin 4.5 g/dL (3.5-5.0); Alkaline Phosphatase 65 U/L (38-126); Anion Gap 7 mmol/L; Blood Urea Nitrogen 15 mg/dL (7-17); Calcium 9.3 mg/dL (8.4-10.2); Carbon Dioxide 25 mmol/L (22-30); Chloride 106 mmol/L (98-107); Glucose 89 mg/dL (74-99); Magnesium 2.1 mg/dL (1.6-2.3); Non-African American GFR(CKD) >90 (>60 ml/min/1.73 sqM); Potassium 4.3 mmol/L (3.5-5.1); Sodium 138 mmol/L (137-145); Total Bilirubin 0.4 mg/dL (0.2-1.3); Total Protein 7.3 g/dL (6.3-8.2)
[2022-08-20 23:20] LABS: INR 1.1 (<1.2); Partial Thromboplastin Time 28.5 sec (22.0-30.0); Prothrombin Time 11.9 sec (9.0-12.0)
[2022-08-21] MEDS: KETOROLAC 15 MG/ML 1 ML VIAL IVP STA (00:41)
== END 2022-08-21 01:04 | disposition home or self-care (01) ==
LOC: EC 21:22
DX: R55 Syncope and collapse (principal); F12.90 Cannabis use, unspecified, uncomplicated; F17.290 Nicotine dependence, other tobacco product, uncomplicated; Z88.8 Allergy status to other drugs, medicaments and biological substances; Z90.49 Acquired absence of other specified parts of digestive tract; Z98.51 Tubal ligation status; Z87.442 Personal history of urinary calculi
CPT/HCPCS: 36415; 93005; 80053; 83735; 84484; 85025; 85610; 85730; 81001; 71046; 99285; 96374; 96375 ×2; 96361; J1200; J2765

== ENCOUNTER → 2022-11-13 | Outpatient (CLI) | payer OTHER ==
[2022-11-14 04:36] LABS: Gliadin AB IgA, Deaminated Negative (Negative); Gliadin AB IgA, Unit 0.9 U/mL; Gliadin AB IgG, Deaminated Negative (Negative); Gliadin AB IgG, Unit <0.4 U/mL
== END | disposition home or self-care (01) ==
LOC: LABWHC1 15:47
PROVIDERS: ATTEND Nurse Practitioner Family
DX: R19.4 Change in bowel habit (principal)
CPT/HCPCS: 36415; 83516; 85652; 86140

== ENCOUNTER 2022-12-04 08:46 | Day surgery (SDC) | payer OTHER ==
[2022-12-04] MEDS ORDERED: LACTATED RINGERS 1,000 ML IV SCH (08:57)
[2022-12-04 09:21] VITALS: RESP 16; TEMP 97
[2022-12-04] MEDS ORDERED: PROPOFOL 10 MG/ML 20 ML VIAL IV ONE (09:37)
[2022-12-04] MEDS ORDERED: LIDOCAINE 2% INJ 20 MG/ML (2 ML VIAL) ONE (09:37)
--- NOTE | 2022-12-04 09:52 | P.PCN ---
Date of Procedure: 12/04/22 Procedure(s) Performed: Brief history: Patient is a pleasant 37-year-old white female scheduled for an elective upper endoscopy as well as colonoscopy as a part of evaluation of GERD and the bowel habits and she has been having 3-4 loose bowel movements daily but no blood or mucus in the stool. Procedure performed: Esophagogastroduodenoscopy with biopsy Colonoscopy with biopsy Preoperative diagnosis: GERD and change in bowel habits Anesthesia: MAC Procedure: After informed consent was obtained from the patient was brought into the endoscopy unit and IV sedation was administered by anesthesia under continuous monitoring. Initially upper endoscopy was done. The Olympus GF 160 video endoscope was inserted inserted into the mouth and esophagus intubated without any difficulty and was gradually advanced into the stomach and duodenum and carefully examined. The bulb and second part of the duodenum appeared normal. Abscesses were done from the duodenum to rule out celiac disease. The scope was then withdrawn into the stomach adequately insufflated with air and upon careful examination the antrum had patchy areas of erythema in the prepyloric area which was biopsied. Mucosa of the body, cardia and fundus appeared normal. The scope was then withdrawn into the esophagus. The GE junction was located at 40 cm to the incisors. It appeared regular with no erythema erosions or ulcerations. Rest of the esophagus appeared normal. Patient tolerated the procedure well. At this time the patient continued to remain sedation. Initial digital rectal examination was normal. Olympus CF 160 video colonoscope was then inserted into the rectum and gradually advanced to the cecum without any difficulty. Careful examination was performed as the scope was gradually being withdrawn. The prep was excellent. The cecum, ascending colon, transverse colon, descending colon, sigmoid colon and rectum appeared normal. Random biopsies were done from ascending and descending colon to rule out microscopic/collagenous colitis. Retroflexion was performed in the rectum and no lesions were noted. Patient tolerated the procedure well. Impression: 1. Upper endoscopy revealed mild antral gastritis but no evidence of esophagitis or peptic ulcer disease 2. Colonoscopy was within normal limits with no evidence of colorectal neoplasia Recommendations: Findings of this examination were discussed with the patient as well as her family. She was advised to follow with the biopsy results. She'll be seen in office in 2 weeks. Recommend repeat screening colonoscopy in 10 years.
[2022-12-04 10:28] VITALS: BP 102/66; PULSE 70
== END 2022-12-04 10:23 | disposition home or self-care (01) ==
LOC: ORWHC2ENDO 08:46
PROVIDERS: ATTEND Internal Medicine Gastroenterology
DX: K21.9 Gastro-esophageal reflux disease without esophagitis (principal); K31.9 Disease of stomach and duodenum, unspecified; F17.200 Nicotine dependence, unspecified, uncomplicated; Z79.899 Other long term (current) drug therapy
CPT/HCPCS: 81025; 88305; 45380; 43239; J2704; J2001

== ENCOUNTER → 2023-01-22 | Outpatient (CLI) | payer OTHER ==
--- NOTE | 2023-01-22 16:49 | MR ---
EXAMINATION TYPE: MR brain wo con DATE OF EXAM: 01/22/2023 3:15 PM COMPARISON: 04/24/2022. CLINICAL INDICATION:Female, 37 years old with history of blurred vision. TECHNIQUE: Multi planar, multi sequence imaging was performed through the brain including: T1, T2, In version recovery, Diffusion weighted imaging, and gradient echo imaging. No gadolinium was given. FINDINGS: Stable right cerebellum ovoid area of low T2 signal/blooming artifact which is seen dating back to 12/22/2014.The brian-white junctions, ventricular system, and cisterns appear unremarkable. Few scattered foci of high T2 signal intensity are seen within the periventricular white matter. Midline structures show no abnormality. Diffusion-weighted imaging shows no evidence of restricted diffusion . The susceptibility weighted images demonstrate punctate focus in the right superior colliculus. The bone marrow signal is within normal limits. Paranasal sinuses and mastoid air cells: Left mastoid sinus mucosal thickening. Visualized orbits: Orbital contents are intact. IMPRESSION: 1. No evidence of intracranial mass or acute/subacute infarct. 2. Grossly similar minimal nonspecific white matter changes, correlate for demyelination. 3. Stable ovoid area within the right cerebellum dating back to at least 2014. Finding could represen t capillary times ectasia versus prior area of hemorrhage. 4. Left maxillary sinus mucosal thickening. Similar 5. Similar Punctate microhemorrhage suggested on susceptibility weighted imaging in the right superio r colliculus.
== END | disposition home or self-care (01) ==
LOC: RADMRIMAIN 14:33
PROVIDERS: ATTEND Ophthalmology
DX: H47.11 Papilledema associated with increased intracranial pressure (principal); J34.89 Other specified disorders of nose and nasal sinuses; R90.82 White matter disease, unspecified
CPT/HCPCS: 70551

== ENCOUNTER 2023-09-05 06:59 | Emergency (ER) | payer OTHER ==
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
[2023-09-05] MEDS: SODIUM CHLORIDE 0.9% 1,000 ML IV STA (07:52)
[2023-09-05] MEDS: ONDANSETRON 4 MG/2 ML VIAL IVP STA (07:57)
[2023-09-05] MEDS: KETOROLAC 15 MG/ML 1 ML VIAL IVP STA (07:57)
[2023-09-05 08:03] LABS: Appearance,Urine Clear (Clear); Bilirubin,Urine Negative (Negative); Blood,Urine Negative (Negative); Color,Urine Colorless; Glucose,Urine (UA) Negative (Negative); Ketones,Urine Negative (Negative); Leukocyte Esterase,Urine Negative (Negative); Nitrite,Urine Negative (Negative); Protein,Urine Negative (Negative); Specific Gravity,Urine 1.012 (1.001-1.035); Urobilinogen,Urine <2.0 mg/dL (<2.0)
[2023-09-05 08:04] LABS: Basophils # (A) 0.1 k/uL (0-0.2); Basophils % (A) 1 %; Eosinophils # (A) 0.2 k/uL (0-0.7); Eosinophils % (A) 3 %; HCT 42.1 % (34.0-46.0); HGB 13.4 gm/dL (11.4-16.0); Lymphocytes # (A) 1.6 k/uL (1.0-4.8); Lymphocytes % (A) 25 %; MCH 29.1 pg (25.0-35.0); MCHC 31.9 g/dL (31.0-37.0); MCV 91.2 fL (80.0-100.0); Mean Platelet Volume 7.1; Monocytes # (A) 0.4 k/uL (0-1.0); Monocytes % (A) 6 %; Neutrophils # (A) 4.2 k/uL (1.3-7.7); Neutrophils % (A) 65 %; Platelet Count 302 k/uL (150-450); RBC 4.61 m/uL (3.80-5.40); RDW 13.3 % (11.5-15.5); WBC 6.4 k/uL (3.8-10.6)
[2023-09-05 08:24] LABS: ALT 14 U/L (4-34); AST 20 U/L (14-36); African American GFR (CKD) >90 (>60 ml/min/1.73 sqM); Albumin 4.5 g/dL (3.5-5.0); Alkaline Phosphatase 63 U/L (38-126); Amylase 59 U/L (30-110); Anion Gap 7 mmol/L; Blood Urea Nitrogen 13 mg/dL (7-17); Calcium 9.5 mg/dL (8.4-10.2); Carbon Dioxide 25 mmol/L (22-30); Chloride 108 mmol/L (98-107); Glucose 80 mg/dL (74-99); Lipase 109 U/L (23-300); Non-African American GFR(CKD) >90 (>60 ml/min/1.73 sqM); Potassium 4.2 mmol/L (3.5-5.1); Sodium 140 mmol/L (137-145); Total Bilirubin 0.2 mg/dL (0.2-1.3); Total Protein 7.1 g/dL (6.3-8.2)
[2023-09-05] MEDS: HYDROmorphone 0.5 MG/0.5 ML SYRINGE IVP STA (09:09)
--- NOTE | 2023-09-05 09:30 | CT ---
EXAMINATION TYPE: CT abdomen pelvis wo con CT DLP: 257.1 mGycm, Automated exposure control for dose reduction was used. DATE OF EXAM: 09/05/2023 8:29 AM COMPARISON: None. CLINICAL INDICATION:Female, 37 years old with history of abdominal pain; Left flank pain x 1 day. Po sitive history of renal stones. Tubal ligation. Negative gross hematuria TECHNIQUE: Axial CT of the abdomen and pelvis. Sagittal and coronal reformats were created on a [employer] workstation. Contrast used: mL of , (none if empty) Oral contrast used: without Oral Contrast (none if empty) FINDINGS: LOWER CHEST: Unremarkable ABDOMEN LIVER: Unremarkable GALLBLADDER AND BILE DUCTS: The gallbladder is surgically absent. Biliary tree does not appear pathol ogically dilated. PANCREAS: Unremarkable. SPLEEN: Unremarkable. ADRENAL GLANDS: Unremarkable. KIDNEYS AND URETERS: Punctate nonobstructing calculi in the lower poles bilaterally.. Mildly prominen t extrarenal pelves without dilated ureters seen. No ureteral calculi are identified. PELVIS BLADDER: Unremarkable. No evidence of calculi. There are several phleboliths in the pelvis. REPRODUCTIVE: Not well evaluated by CT. The uterus is present, anteverted and somewhat full in appear ance. Ovaries not well seen. No pelvic mass. ABDOMEN & PELVIS STOMACH AND BOWEL: Stomach and small bowel are nondistended, no evidence of obstruction. The append ix appears within normal limits. There is a moderate amount stool throughout the colon, somewhat hyp erdense in appearance. No focal acute abnormality is suggested. PERITONEUM/RETROPERITONEUM: No evidence of pneumoperitoneum or free fluid. VASCULATURE: Aorta and major branches are grossly unremarkable. No AAA. LYMPH NODES: No enlarged nodes by CT size criteria. SOFT TISSUE/ABDOMINAL WALL: Unremarkable MUSCULOSKELETAL: No acute osseous abnormalities. IMPRESSION: 1. Punctate nonobstructing renal calculi bilaterally. 2. No evidence of ureteral calculi or hydronephrosis.
[2023-09-05 10:05] VITALS: BP 117/63; PULSE 68; RESP 18
[2023-09-05 10:06] VITALS: TEMP 98.1
== END 2023-09-05 09:55 | disposition home or self-care (01) ==
LOC: EC 06:59
DX: R10.84 Generalized abdominal pain (principal); R00.1 Bradycardia, unspecified; F17.290 Nicotine dependence, other tobacco product, uncomplicated; Z88.8 Allergy status to other drugs, medicaments and biological substances; Z87.442 Personal history of urinary calculi
CPT/HCPCS: 36415; 93005; 80053; 82150; 83605; 83690; 85025; 81003; 81025; 74176; 99284; 96374; 96375 ×2; 96361; J2405; J1885; J1170

== ENCOUNTER 2023-10-31 17:59 | Emergency (ER) | payer OTHER ==
[2023-10-31 18:28] VITALS: TEMP 96.7
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
[2023-10-31] MEDS: ONDANSETRON 4 MG/2 ML VIAL IVP STA (19:25)
[2023-10-31] MEDS: MORPHINE SULFATE 4 MG/ML SYRINGE IVP STA (19:26)
[2023-10-31 19:32] LABS: Basophils # (A) 0.1 k/uL (0-0.2); Basophils % (A) 1 %; Eosinophils # (A) 0.1 k/uL (0-0.7); Eosinophils % (A) 2 %; HCT 37.6 % (34.0-46.0); HGB 12.4 gm/dL (11.4-16.0); Lymphocytes # (A) 1.7 k/uL (1.0-4.8); Lymphocytes % (A) 29 %; MCH 29.6 pg (25.0-35.0); MCHC 32.8 g/dL (31.0-37.0); Mean Platelet Volume 7.4; Monocytes # (A) 0.3 k/uL (0-1.0); Monocytes % (A) 5 %; Neutrophils # (A) 3.6 k/uL (1.3-7.7); Neutrophils % (A) 61 %; Platelet Count 261 k/uL (150-450); RBC 4.18 m/uL (3.80-5.40); RDW 13.1 % (11.5-15.5); WBC 5.9 k/uL (3.8-10.6)
[2023-10-31] MEDS: SODIUM CHLORIDE 0.9% 1,000 ML IV ONE (19:46)
[2023-10-31 19:49] LABS: Appearance,Urine Clear (Clear); Bilirubin,Urine Negative (Negative); Blood,Urine Negative (Negative); Color,Urine Colorless; Glucose,Urine (UA) Negative (Negative); Ketones,Urine Negative (Negative); Leukocyte Esterase,Urine Negative (Negative); Nitrite,Urine Negative (Negative); Protein,Urine Negative (Negative); Urobilinogen,Urine <2.0 mg/dL (<2.0)
[2023-10-31 19:57] LABS: ALT 14 U/L (4-34); AST 22 U/L (14-36); African American GFR (CKD) >90 (>60 ml/min/1.73 sqM); Albumin 4.3 g/dL (3.5-5.0); Alkaline Phosphatase 60 U/L (38-126); Anion Gap 4 mmol/L; Blood Urea Nitrogen 12 mg/dL (7-17); Calcium 9.1 mg/dL (8.4-10.2); Carbon Dioxide 24 mmol/L (22-30); Chloride 110 mmol/L (98-107); Glucose 90 mg/dL (74-99); Non-African American GFR(CKD) >90 (>60 ml/min/1.73 sqM); Potassium 3.9 mmol/L (3.5-5.1); Sodium 138 mmol/L (137-145); Total Bilirubin 0.5 mg/dL (0.2-1.3); Total Protein 6.5 g/dL (6.3-8.2)
--- NOTE | 2023-10-31 20:01 | CT ---
EXAMINATION TYPE: CT brain wo con CT DLP: 1103.1 mGycm, Automated exposure control for dose reduction was used. DATE OF EXAM: 10/31/2023 7:43 PM COMPARISON: None.. CLINICAL INDICATION:Female, 38 years old with history of pain, headache TECHNIQUE: Brain: Axial CT images of the brain were obtained with coronal and sagittal reformats created and rev iewed. Contrast used: None. Oral contrast used: None. FINDINGS: Extra-axial spaces: No abnormal extra-axial fluid collections. Basilar cisterns are patent. Ventricular system: Within normal limits. Cerebral parenchyma: No increased attenuation to suggest acute intraparenchymal hemorrhage. The gra y-white matter interface appears maintained. No significant atrophy. White matter unremarkable by C T. Cerebellum: No acute abnormality. Mass effect: No evidence of mass effect or midline shift. Intracranial vasculature: Unremarkable Soft tissues: No acute or concerning abnormality. Visualized orbits: Orbital contents appear grossly intact. Calvarium/osseous structures: No evidence of calvarial fracture. Paranasal sinuses and mastoid air cells: Mucosal thickening in the left maxillary sinus with superimp osed air-fluid level. MRI is more sensitive for detecting acute processes such as infarct, and may be considered if clinica lly warranted. IMPRESSION: 1. No acute intracranial CT abnormality. 2. Mucosal thickening in the left maxillary sinus with superimposed air-fluid level. Correlate clini makayla for acute on chronic sinusitis.
[2023-10-31] MEDS: HYDROmorphone 1 MG/ML 1 ML SYRINGE IVP STA (20:52)
[2023-10-31] MEDS: KETOROLAC 15 MG/ML 1 ML VIAL IVP STA (20:52)
[2023-10-31 21:42] VITALS: BP 101/57; PULSE 74; RESP 16
== END 2023-10-31 21:40 | disposition home or self-care (01) ==
LOC: EC 17:59
DX: G43.909 Migraine, unspecified, not intractable, without status migrainosus (principal); Z88.8 Allergy status to other drugs, medicaments and biological substances; Z90.49 Acquired absence of other specified parts of digestive tract
CPT/HCPCS: 36415; 80053; 85025; 81003; 81025; 70450; 99284; 96374; 96375 ×3; 96361; J2270; J2405; J1170; J1885

== ENCOUNTER 2024-01-29 19:42 | Emergency (ER) | payer OTHER ==
[2024-01-29 20:20] VITALS: RESP 18
[2024-01-29 20:36] LABS: Basophils % (A) 0 %; Eosinophils # (A) 0.1 k/uL (0-0.7); Eosinophils % (A) 1 %; HCT 39.9 % (34.0-46.0); HGB 13.3 gm/dL (11.4-16.0); Lymphocytes # (A) 2.2 k/uL (1.0-4.8); Lymphocytes % (A) 24 %; MCH 30.1 pg (25.0-35.0); MCHC 33.3 g/dL (31.0-37.0); MCV 90.4 fL (80.0-100.0); Mean Platelet Volume 7.2; Monocytes # (A) 0.5 k/uL (0-1.0); Monocytes % (A) 5 %; Neutrophils # (A) 6.3 k/uL (1.3-7.7); Neutrophils % (A) 68 %; Platelet Count 286 k/uL (150-450); RBC 4.41 m/uL (3.80-5.40); RDW 13.1 % (11.5-15.5); WBC 9.2 k/uL (3.8-10.6)
[2024-01-29 20:52] LABS: ALT 15 U/L (4-34); AST 27 U/L (14-36); African American GFR (CKD) >90 (>60 ml/min/1.73 sqM); Albumin 4.7 g/dL (3.5-5.0); Alkaline Phosphatase 56 U/L (38-126); Anion Gap 8 mmol/L; Blood Urea Nitrogen 12 mg/dL (7-17); Calcium 9.6 mg/dL (8.4-10.2); Carbon Dioxide 24 mmol/L (22-30); Chloride 105 mmol/L (98-107); Glucose 93 mg/dL (74-99); Non-African American GFR(CKD) >90 (>60 ml/min/1.73 sqM); Potassium 4.2 mmol/L (3.5-5.1); Sodium 137 mmol/L (137-145); Total Bilirubin 0.4 mg/dL (0.2-1.3); Total Protein 7.1 g/dL (6.3-8.2)
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
[2024-01-29 21:10] LABS: Amorphous Sediment,Urine Occasional /hpf; Appearance,Urine Cloudy (Clear); Bilirubin,Urine Negative (Negative); Blood,Urine Negative (Negative); Color,Urine Light Yellow; Glucose,Urine (UA) Negative (Negative); Ketones,Urine Negative (Negative); Leukocyte Esterase,Urine Negative (Negative); Mucus,Urine Rare /hpf; Nitrite,Urine Negative (Negative); PH, Urine 6.5 (5.0-8.0); Protein,Urine Negative (Negative); RBC,Urine 1 /hpf (0-5); Specific Gravity,Urine 1.016 (1.001-1.035); Squamous Epithelial Cell,Urine 14 /hpf (0-4); Urobilinogen,Urine <2.0 mg/dL (<2.0); WBC,Urine 1 /hpf (0-5)
--- NOTE | 2024-01-29 23:01 | CT ---
EXAMINATION TYPE: CT abdomen pelvis wo con CT DLP: 239.6 mGycm, Automated exposure control for dose reduction was used. DATE OF EXAM: 01/29/2024 9:19 PM COMPARISON: None. CLINICAL INDICATION:Female, 38 years old with history of left flank pain, kidney stone suspected; lef t flank pain TECHNIQUE: Axial CT of the abdomen and pelvis. Sagittal and coronal reformats were created on a [employer] workstation. Contrast used: mL of , (none if empty) Oral contrast used: without Oral Contrast (none if empty) FINDINGS: LOWER CHEST: Unremarkable ABDOMEN LIVER: Unremarkable GALLBLADDER AND BILE DUCTS: The gallbladder is surgically absent. Biliary tree does not appear pathol ogically dilated. PANCREAS: Unremarkable. SPLEEN: Unremarkable. ADRENAL GLANDS: Mildly thickened, may be seen with hyperplasia.. KIDNEYS AND URETERS: A handful of punctate calculi in the right mid to lower pole, a couple punctate calculi in the left lower pole. Mildly prominent extrarenal pelvises bilaterally without dilated uret ers seen. There are multiple phleboliths in the pelvis. PELVIS BLADDER: Incompletely distended with a mildly thickened appearance of the wall. REPRODUCTIVE: Organs not well assessed by CT but no gross abnormality ABDOMEN & PELVIS STOMACH AND BOWEL: Stomach and small bowel are nondistended, no evidence of obstruction. Normal china endix. There is some stool and gas seen throughout the colon with no focal acute abnormality shown. PERITONEUM/RETROPERITONEUM: No free fluid in the abdomen or pneumoperitoneum. Small amount of fluid is seen within the pelvis. VASCULATURE: Aorta and major branches are grossly unremarkable. No AAA. LYMPH NODES: No enlarged nodes by CT size criteria. SOFT TISSUE/ABDOMINAL WALL: Unremarkable MUSCULOSKELETAL: No acute osseous abnormalities. IMPRESSION: 1. Punctate bilateral renal calculi. 2. No evidence of ureteral calculi or hydronephrosis. 3. Mildly thickened appearance of the urinary bladder wall, could be due to incomplete distention or bladder wall hypertrophy, but correlate clinically to exclude cystitis.
[2024-01-30] MEDS: ONDANSETRON 4 MG/2 ML VIAL IVP STA (00:20)
[2024-01-30] MEDS: KETOROLAC 15 MG/ML 1 ML VIAL IVP STA (00:22)
[2024-01-30 00:37] VITALS: BP 109/69; PULSE 55; TEMP 98
== END 2024-01-30 00:37 | disposition home or self-care (01) ==
LOC: EC 19:42
DX: R10.0 Acute abdomen
CPT/HCPCS: 36415; 74176; 80053; 81001; 81025; 85025; 99284

== ENCOUNTER → 2024-06-06 | Outpatient (CLI) | payer OTHER ==
--- NOTE | 2024-06-06 13:49 | MM ---
Reason for Exam: Clinical finding. Last mammogram was performed 2 year(s) and 9 month(s) ago. Patient History: Menarche at age 14. First Full-Term at age 26. Patient used Hormonal Contraceptives for 1 year. 2008, Benign Excisional Biopsy on the left side. 03/11/2021, Benign Core Biopsy on the left side. 01/01/2021, Benign Core Biopsy on the right side. 12/06/2020, Benign Core Biopsy on the left side. Maternal aunt had breast cancer, age 40. Mother had breast cancer, age 48. Last menstrual period: 06/01/2024 Risk Values: Madhavi 5 year model risk: 2.1%. NCI Lifetime model risk: 29.6%. Prior Study Comparison: 11/08/2020 Bilateral Diagnostic Mammogram, [facility]. 11/08/2020 Bilateral Diagnostic Ultrasound, [facility]. 12/06/2020 Right Diagnostic Ultrasound, [facility]. 03/15/2021 Bilateral Diagnostic Ultrasound, [facility]. 09/12/2021 Bilateral Diagnostic Mammogram, [facility]. 09/12/2021 Bilateral Diagnostic Ultrasound, [facility]. Tissue Density: The breasts are extremely dense, which lowers the sensitivity of mammography. Findings: Analyzed By CAD. There are 2 biopsy clips in the right breast redemonstrated. Surgical changes of bilateral breasts are also again seen. No suspicious new mass or worrisome cluster of microcalcification clearly identified in either breast. Overall Assessment: Benign, BI-RAD 2 Management: Screening Mammogram of both breasts at age 41. Manage patient's symptoms of diffuse pain bilateral breast clinically. Results were given to the patient verbally at the time of exam. Patient should continue monthly self-breast exams. A clinical breast exam by your physician is recommended on an annual basis. This exam should not preclude additional follow-up of suspicious palpable abnormalities. Note on Madhavi scores and lifetime risk: 1. A Madhavi score greater than 3% is considered moderate risk. If this is the case, consider specialist referral to assess eligibility for a risk reducing agent. 2. If overall lifetime risk for the development of breast cancer is 20% or higher, the patient may qualify for future screening with alternating mammogram and breast MRI. [facility], , 06/06/2024 1:46 PM. Electronically signed and approved by: Robson Rivera M.D.
== END | disposition home or self-care (01) ==
LOC: RADMAMWWP 13:15
PROVIDERS: ATTEND Family Medicine
DX: N64.4 Mastodynia (principal); Z80.3 Family history of malignant neoplasm of breast; R92.343 Mammographic extreme density, bilateral breasts; Z98.82 Breast implant status
CPT/HCPCS: 77066; G0279; 77062

== ENCOUNTER 2024-09-23 15:14 | Emergency (ER) | payer OTHER ==
[2024-09-23 15:24] VITALS: TEMP 98
[2024-09-23] MEDS: SODIUM CHLORIDE 0.9% 1,000 ML IV STA (16:18)
[2024-09-23] MEDS: diphenhydrAMINE 50 MG/ML 1 ML VIAL IVP STA (16:19)
[2024-09-23] MEDS: HYDROmorphone 1 MG/ML 1 ML SYRINGE IVP STA ×2 (16:19→17:30)
[2024-09-23 16:40] LABS: Basophils # (A) 0.04 10*3/uL (0.00-0.10); Basophils % (A) 0.5 %; Eosinophils # (A) 0.04 10*3/uL (0.04-0.35); Eosinophils % (A) 0.5 %; HCT 36.9 % (37.2-46.3); HGB 12.6 g/dL (12.0-15.0); Lymphocytes % (A) 21.9 %; MCHC 34.1 g/dL (32.0-37.0); MCV 87.9 fL (80.0-97.0); Mean Platelet Volume 9.2 fL (9.5-12.2); Monocytes # (A) 0.45 10*3/uL (0.20-1.00); Monocytes % (A) 6.2 %; Neutrophils # (A) 5.15 10*3/uL (1.80-7.70); Neutrophils % (A) 70.6 %; Platelet Count 285 10*3/uL (140-440); RDW 13.5 % (11.5-14.5)
[2024-09-23 16:43] LABS: Appearance,Urine Clear (Clear); Bacteria,Urine Rare /hpf; Bilirubin,Urine Negative (Negative); Blood,Urine Large (Negative); Color,Urine Colorless; Glucose,Urine (UA) Negative (Negative); Ketones,Urine 1+ (Negative); Leukocyte Esterase,Urine Negative (Negative); Mucus,Urine Occasional /hpf; Nitrite,Urine Negative (Negative); Protein,Urine Negative (Negative); RBC,Urine 7 /hpf (0-5); Squamous Epithelial Cell,Urine 1 /hpf (0-4); Urobilinogen,Urine <2.0 mg/dL (<2.0); WBC,Urine <1 /hpf (0-5)
[2024-09-23 17:04] LABS: ALT 13 U/L (4-34); AST 20 U/L (14-36); African American GFR (CKD) >90 (>60 ml/min/1.73 sqM); Albumin 4.2 g/dL (3.5-5.0); Alkaline Phosphatase 67 U/L (38-126); Anion Gap 7 mmol/L; Blood Urea Nitrogen 10 mg/dL (7-17); Calcium 9.2 mg/dL (8.4-10.2); Carbon Dioxide 21 mmol/L (22-30); Chloride 110 mmol/L (98-107); Glucose 86 mg/dL (74-99); Non-African American GFR(CKD) >90 (>60 ml/min/1.73 sqM); Potassium 3.9 mmol/L (3.5-5.1); Sodium 138 mmol/L (137-145); Total Bilirubin 0.7 mg/dL (0.2-1.3); Total Protein 6.7 g/dL (6.3-8.2)
--- NOTE | 2024-09-23 17:34 | CT ---
EXAMINATION TYPE: CT brain wo con DATE OF EXAM: 09/23/2024 COMPARISON: 10/31/2023 CLINICAL INDICATION: Female, 38 years old with history of Headache; PHH, migraine TECHNIQUE: CT of the brain performed without contrast with sagittal and coronal reformats. CT DLP: 1105.[address] CTDI: mGy Automated exposure control for dose reduction was used. FINDINGS: There is no acute intracranial hemorrhage, mass effect, or midline shift identified. The ventricles and sulci are within normal limits in size. The globes are intact and the visualized sinuses are jasson ar. IMPRESSION: No acute intracranial hemorrhage, mass effect, or midline shift is seen. [facility], , 09/23/2024 5:32 PM
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
[2024-09-23 18:54] VITALS: BP 110/70; PULSE 83; RESP 16
== END 2024-09-23 18:54 | disposition home or self-care (01) ==
LOC: EC 15:14
DX: G43.909 Migraine, unspecified, not intractable, without status migrainosus (principal); F17.290 Nicotine dependence, other tobacco product, uncomplicated; Z88.8 Allergy status to other drugs, medicaments and biological substances
CPT/HCPCS: 36415; 80053; 85025; 81001; 81025; 70450; 99284; 96374; 96375; 96376; 96361 ×2; J1200; J1171

== ENCOUNTER 2024-10-29 12:08 | Emergency (ER) | payer OTHER ==
[2024-10-29 12:14] VITALS: RESP 18
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
[2024-10-29] MEDS: SODIUM CHLORIDE 0.9% 1,000 ML IV ONE (12:55)
[2024-10-29] MEDS: PROCHLORPERAZINE INJ 10 MG/2 ML VIAL IVP STA (12:56)
[2024-10-29] MEDS: KETOROLAC 15 MG/ML 1 ML VIAL IVP STA ×2 (12:56→14:04)
[2024-10-29] MEDS: diphenhydrAMINE 50 MG/ML 1 ML VIAL IVP STA (12:58)
[2024-10-29] MEDS: HYDROmorphone 1 MG/ML 1 ML SYRINGE IVP STA ×2 (12:59→14:04)
[2024-10-29] MEDS: DEXAMETHASONE SOD PHOSPHATE 10 MG/ML 1 ML VIAL IVP STA (13:02)
[2024-10-29 13:06] LABS: Basophils # (A) 0.04 10*3/uL (0.00-0.10); Basophils % (A) 0.8 %; Eosinophils # (A) 0.07 10*3/uL (0.04-0.35); Eosinophils % (A) 1.3 %; HCT 38.8 % (37.2-46.3); HGB 13.4 g/dL (12.0-15.0); Lymphocytes # (A) 1.31 10*3/uL (0.90-5.00); Lymphocytes % (A) 25.2 %; MCH 29.8 pg (27.0-32.0); MCHC 34.5 g/dL (32.0-37.0); MCV 86.2 fL (80.0-97.0); Mean Platelet Volume 9.3 fL (9.5-12.2); Monocytes # (A) 0.37 10*3/uL (0.20-1.00); Monocytes % (A) 7.1 %; Neutrophils # (A) 3.39 10*3/uL (1.80-7.70); Neutrophils % (A) 65.4 %; Platelet Count 292 10*3/uL (140-440); RDW 13.6 % (11.5-14.5); WBC 5.19 10*3/uL (4.50-10.00)
[2024-10-29] MEDS: ONDANSETRON 4 MG/2 ML VIAL IVP STA (13:09)
[2024-10-29 13:19] LABS: ALT 18 U/L (4-34); AST 23 U/L (14-36); African American GFR (CKD) >90 (>60 ml/min/1.73 sqM); Albumin 4.8 g/dL (3.5-5.0); Alkaline Phosphatase 65 U/L (38-126); Anion Gap 9 mmol/L; Blood Urea Nitrogen 9 mg/dL (7-17); Calcium 9.5 mg/dL (8.4-10.2); Carbon Dioxide 22 mmol/L (22-30); Chloride 108 mmol/L (98-107); Glucose 104 mg/dL (74-99); Non-African American GFR(CKD) >90 (>60 ml/min/1.73 sqM); Potassium 4.2 mmol/L (3.5-5.1); Sodium 139 mmol/L (137-145); Total Bilirubin 0.7 mg/dL (0.2-1.3); Total Protein 7.2 g/dL (6.3-8.2)
[2024-10-29 14:10] VITALS: TEMP 98
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
[2024-10-29 14:59] VITALS: BP 97/62; PULSE 84
[2024-10-29] MEDS: HYDROmorphone 0.5 MG/0.5 ML SYRINGE IVP STA (15:00)
[2024-10-29] MEDS: ACET/COD 300 MG/30 MG STARTER PACK 6 TAB BTL PO STA (15:01)
== END 2024-10-29 15:13 | disposition home or self-care (01) ==
LOC: EC 12:08
DX: G43.909 Migraine, unspecified, not intractable, without status migrainosus (principal); F17.290 Nicotine dependence, other tobacco product, uncomplicated; Z88.8 Allergy status to other drugs, medicaments and biological substances
CPT/HCPCS: 36415; 80053; 83735; 85025; 70450; 99284; 96374; 96375; 96376 ×3; 96361; J1200; J1100; J2405; J1171 ×2; J1885

== ENCOUNTER 2024-11-28 13:23 | Emergency (ER) | payer OTHER ==
[2024-11-28 13:36] VITALS: TEMP 97.9
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
[2024-11-28] MEDS: SODIUM CHLORIDE 0.9% 1,000 ML IV ONE (16:31)
[2024-11-28] MEDS: droPERidol 2.5 MG/ML VIAL IVP ONE (16:32)
[2024-11-28] MEDS: HYDROmorphone 1 MG/ML 1 ML SYRINGE IVP STA ×2 (16:35→18:24)
[2024-11-28] MEDS: KETOROLAC 15 MG/ML 1 ML VIAL IVP STA (16:36)
[2024-11-28] MEDS: diphenhydrAMINE 50 MG/ML 1 ML VIAL IVP STA (16:38)
[2024-11-28 17:29] LABS: Basophils # (A) 0.06 10*3/uL (0.00-0.10); Basophils % (A) 1.0 %; Eosinophils # (A) 0.05 10*3/uL (0.04-0.35); Eosinophils % (A) 0.8 %; HCT 34.9 % (37.2-46.3); HGB 11.7 g/dL (12.0-15.0); Lymphocytes # (A) 1.78 10*3/uL (0.90-5.00); Lymphocytes % (A) 30.1 %; MCH 29.7 pg (27.0-32.0); MCHC 33.5 g/dL (32.0-37.0); MCV 88.6 fL (80.0-97.0); Monocytes # (A) 0.49 10*3/uL (0.20-1.00); Monocytes % (A) 8.3 %; Neutrophils # (A) 3.53 10*3/uL (1.80-7.70); Neutrophils % (A) 59.8 %; Platelet Count 252 10*3/uL (140-440); RBC 3.94 10*6/uL (4.10-5.20); RDW 13.6 % (11.5-14.5); WBC 5.91 10*3/uL (4.50-10.00)
[2024-11-28] MEDS: methylPREDNISolone SOD SUCCIN 250 MG in SODIUM CHLORIDE 0.9% 100 ML IVPB STA (17:34)
[2024-11-28 17:39] LABS: Bacteria,Urine Occasional /hpf; Bilirubin,Urine Negative (Negative); Blood,Urine Negative (Negative); Color,Urine Colorless; Glucose,Urine (UA) Negative (Negative); Ketones,Urine Negative (Negative); Leukocyte Esterase,Urine Negative (Negative); Mucus,Urine Rare /hpf; Nitrite,Urine Negative (Negative); PH, Urine 6.5 (5.0-8.0); Protein,Urine Negative (Negative); RBC,Urine 1 /hpf (0-5); Specific Gravity,Urine 1.006 (1.001-1.035); Squamous Epithelial Cell,Urine 5 /hpf (0-4); Urobilinogen,Urine <2.0 mg/dL (<2.0); WBC,Urine <1 /hpf (0-5)
[2024-11-28 17:48] LABS: ALT 14 U/L (4-34); AST 23 U/L (14-36); African American GFR (CKD) >90 (>60 ml/min/1.73 sqM); Albumin 3.8 g/dL (3.5-5.0); Alkaline Phosphatase 59 U/L (38-126); Anion Gap 8 mmol/L; Blood Urea Nitrogen 8 mg/dL (7-17); Calcium 8.4 mg/dL (8.4-10.2); Carbon Dioxide 20 mmol/L (22-30); Chloride 111 mmol/L (98-107); Glucose 73 mg/dL (74-99); Magnesium 1.9 mg/dL (1.6-2.3); Non-African American GFR(CKD) >90 (>60 ml/min/1.73 sqM); Potassium 4.0 mmol/L (3.5-5.1); Sodium 139 mmol/L (137-145); Total Protein 6.0 g/dL (6.3-8.2)
[2024-11-28 18:29] VITALS: BP 110/78; PULSE 78; RESP 16
== END 2024-11-28 18:30 | disposition home or self-care (01) ==
LOC: EC 13:23
DX: G43.909 Migraine, unspecified, not intractable, without status migrainosus (principal); F17.290 Nicotine dependence, other tobacco product, uncomplicated; Z88.8 Allergy status to other drugs, medicaments and biological substances
CPT/HCPCS: 36415; 80053; 83735; 84100; 85025; 81001; 99283; 96365; 96375; 96376; 96361; J1200; J1171; J1885; J2919; J1790

== ENCOUNTER 2024-12-10 23:23 | Emergency (ER) | payer OTHER ==
[2024-12-11] MEDS: SODIUM CHLORIDE 0.9% 1,000 ML IV SCH (00:30)
[2024-12-11] MEDS: droPERidol 2.5 MG/ML VIAL IVP ONE (00:32)
[2024-12-11] MEDS: HYDROmorphone 0.5 MG/0.5 ML SYRINGE IVP STA (00:32)
[2024-12-11] MEDS: diphenhydrAMINE 50 MG/ML 1 ML VIAL IVP STA (00:33)
[2024-12-11] MEDS: KETOROLAC 15 MG/ML 1 ML VIAL IVP STA (00:36)
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
[2024-12-11 00:51] LABS: Basophils # (A) 0.06 10*3/uL (0.00-0.10); Basophils % (A) 0.5 %; Eosinophils # (A) 0.12 10*3/uL (0.04-0.35); Eosinophils % (A) 1.0 %; HCT 35.2 % (37.2-46.3); HGB 12.0 g/dL (12.0-15.0); Lymphocytes # (A) 3.10 10*3/uL (0.90-5.00); Lymphocytes % (A) 25.2 %; MCH 29.5 pg (27.0-32.0); MCHC 34.1 g/dL (32.0-37.0); MCV 86.5 fL (80.0-97.0); Monocytes # (A) 0.65 10*3/uL (0.20-1.00); Monocytes % (A) 5.3 %; Neutrophils # (A) 8.35 10*3/uL (1.80-7.70); Neutrophils % (A) 67.8 %; Platelet Count 295 10*3/uL (140-440); RBC 4.07 10*6/uL (4.10-5.20); RDW 13.8 % (11.5-14.5); WBC 12.31 10*3/uL (4.50-10.00)
[2024-12-11 01:03] LABS: Bacteria,Urine Rare /hpf; Bilirubin,Urine Negative (Negative); Blood,Urine Negative (Negative); Color,Urine Colorless; Glucose,Urine (UA) Negative (Negative); Ketones,Urine Negative (Negative); Leukocyte Esterase,Urine Moderate (Negative); Nitrite,Urine Negative (Negative); PH, Urine 6.5 (5.0-8.0); Protein,Urine Negative (Negative); RBC,Urine 3 /hpf (0-5); Specific Gravity,Urine 1.011 (1.001-1.035); Squamous Epithelial Cell,Urine 4 /hpf (0-4); Urobilinogen,Urine <2.0 mg/dL (<2.0); WBC,Urine 1 /hpf (0-5)
[2024-12-11 01:05] LABS: ALT 12 U/L (4-34); AST 21 U/L (14-36); African American GFR (CKD) >90 (>60 ml/min/1.73 sqM); Albumin 4.5 g/dL (3.5-5.0); Alkaline Phosphatase 55 U/L (38-126); Anion Gap 9 mmol/L; Blood Urea Nitrogen 18 mg/dL (7-17); Calcium 10.0 mg/dL (8.4-10.2); Carbon Dioxide 24 mmol/L (22-30); Chloride 104 mmol/L (98-107); Glucose 85 mg/dL (74-99); Lipase 130 U/L (23-300); Non-African American GFR(CKD) >90 (>60 ml/min/1.73 sqM); Potassium 4.0 mmol/L (3.5-5.1); Sodium 137 mmol/L (137-145); Total Protein 6.8 g/dL (6.3-8.2)
[2024-12-11] MEDS: ONDANSETRON 4 MG ODT STARTER PACK TAB BTL PO STA (01:36)
[2024-12-11] MEDS: ACET/COD 300 MG/30 MG STARTER PACK TAB BTL PO STA (01:36)
[2024-12-11 01:42] VITALS: BP 105/71; PULSE 80; RESP 15; TEMP 98.1
== END 2024-12-11 01:42 | disposition home or self-care (01) ==
LOC: EC 23:23
DX: R10.9 Unspecified abdominal pain (principal); F17.290 Nicotine dependence, other tobacco product, uncomplicated; Z88.8 Allergy status to other drugs, medicaments and biological substances; Z87.442 Personal history of urinary calculi
CPT/HCPCS: 36415; 80053; 83690; 85025; 81001; 99284; 96374; 96375; 96361; J1200; J1885; S0119; J1171; J1790